=== PATIENT | male | born 1930 | race Caucasian/White ===

== ENCOUNTER 2019-11-23 05:23 | Inpatient (IN) | payer MEDICARE, OTHER ==
[2019-11-23] VITALS (15 sets, daily range): BP systolic 131–206; BP diastolic 72–97
[~2019-11-23] VITALS: Ht 175.3 cm; Wt 82.2 kg
[~2019-11-23 05:23] MED LIST: ACET500T68 PO; AMOX1TAB10 PO; APIX5TAB4 PO; LACT1CAP19 PO; LEVO-101 PO; LOPE2CAP PO; METO25TA4 PO; MULT-445 PO; OMEG-131 PO; POLY2500 PO; Pantoprazole PO; VITA-8 PO; ZINC57OI TP
--- NOTE | 2019-11-23 05:39 | PHYS DOC ---
Past Medical History Past Medical History: A-Fib, High Cholesterol, Hypothyroid Additional Past Medical Histor: blood thinners, tremors (JASON WEBER Jr. DO) Past Surgical History: No Surgical History (JASON WEBER Jr. DO) Smoking Status: Unknown if ever smoked Alcohol Use: None (JASON WEBER Jr. DO) General Adult EDM: Chief Complaint: BLOOD IN URINE HPI: HPI: Patient is a 89 year old male who presents with report of hematuria. Patient arrives from intermediate via EMS with report of hematuria for the last 5 days. Patient denies any urinary discomfort. He denies any abdominal pain, nausea or vomiting. Patient denies any urinary retention. Patient has had no reported fever. [] (JASON WEBER Jr. DO) Review of Systems: Review of Systems: Constitutional: Denies fever or chills. [] Respiratory: Denies cough or shortness of breath. [] Cardiovascular: Denies chest pain or edema. [] GI: Denies abdominal pain, nausea, vomiting or diarrhea. [] : Positive hematuria. [] Neurologic: Denies headache, focal weakness or sensory changes. [] A full 10 point review of systems has been reviewed and is otherwise negative. (JASON WEBER Jr. DO) Heart Score: Risk Factors: Risk Factors: DM, Current or recent (<one month) smoker, HTN, HLP, family history of CAD, obesity. Risk Scores: Score 0 - 3: 2.5% MACE over next 6 weeks - Discharge Home Score 4 - 6: 20.3% MACE over next 6 weeks - Admit for Clinical Observation Score 7 - 10: 72.7% MACE over next 6 weeks - Early Invasive Strategies (JASON WEBER Jr. DO) Allergies: Allergies: Allergies Coded Allergies Type Severity Reaction Last Updated Verified amiodarone Allergy Intermediate 09/23/17 Yes aspirin Allergy Intermediate 09/23/17 Yes fexofenadine Allergy Intermediate 09/23/17 Yes morphine Allergy Intermediate 09/23/17 Yes simvastatin Allergy Intermediate 09/23/17 Yes tramadol Allergy Intermediate 09/23/17 Yes warfarin Allergy Intermediate 09/23/17 Yes (JASON WEBER Jr. DO) Physical Exam: PE: Constitutional: Well developed, well nourished, no acute distress, non-toxic appearance. [] HENT: Normocephalic, atraumatic, bilateral external ears normal, oropharynx moist, no oral exudates, nose normal. [] Eyes: PERRLA, EOMI, conjunctiva normal, no discharge. [] Neck: Normal range of motion, no tenderness, supple. [] Cardiovascular: Regular rate and rhythm [] Lungs & Thorax: Bilateral breath sounds clear to auscultation [] Abdomen: Bowel sounds normal, soft, no tenderness. [] Skin: Warm, dry, no erythema, no rash. [] Extremities: No tenderness, no cyanosis, no clubbing, ROM intact. [] Neurologic: Alert and oriented X 3, no focal deficits noted. [] (JASON WEBER Jr., DO) EKG: EKG: [] (JASON WEBER Jr., DO) Radiology/Procedures: Radiology/Procedures: [] (JASON WEBER Jr., DO) Radiology/Procedures: [facility] [address] [place] [address] IMAGING REPORT Signed PATIENT: JASON SANABRIA ACCOUNT: [id number] : 1930 LOCATION: ER AGE: 89 SEX: M EXAM STATUS: REG ER ORD. PHYSICIAN: CESAR TYLER DO REASON: flank hematuria PROCEDURE: CT ABDOMEN PELVIS WO CONTRAST CT ABDOMEN PELVIS WO CONTRAST INDICATION: Reason: flank hematuria / Spl. Instructions: / History: EXAM: Noncontrast CT of the abdomen and pelvis. Coronal and sagittal reformatted images were performed. PQRS compliance statement: One or more of the following individualized dose reduction techniques were utilized for this examination: 1. Automated exposure control 2. Adjustment of the mA and/or kV according to patient size 3. Use of iterative reconstruction technique COMPARISON: 10/21/2019 FINDINGS: No free air, free fluid, or fluid collection. Lower chest: Middle lobe nodule measuring 2.2 x 2.1 cm. Additional anterior middle lobe nodule measuring 0.7 cm. Cardiomegaly. Coronary artery atherosclerotic disease. ABDOMEN: Liver: The noncontrast liver is homogeneous in attenuation. Gallbladder and biliary: Cholelithiasis. Trace air within the gallbladder and intrahepatic bile ducts, probably related to prior instrumentation. Enlarged common bile duct measures 13 mm. 7 mm calculus in the common bile duct in the region of the pancreatic head. Spleen: Normal spleen. Pancreas: The noncontrast pancreas is homogeneous in attenuation without peripancreatic inflammatory changes. Adrenal glands: Normal adrenal glands. Kidneys and ureters: No opaque urinary calculi. Stable 2.6 cm exophytic cystic structure along the lower pole of the right kidney. GI tract: The stomach is decompressed and poorly evaluated. Normal caliber small bowel and colon. Mild colonic diverticulosis. Appendix is not seen. Vascular structures: Diffuse aortoiliac atherosclerotic disease. IVC filter Lymph nodes: No lymphadenopathy in the abdomen or pelvis. PELVIS: Genitourinary system: Well distended bladder with bladder wall thickening. Prostate measures 4.5 cm transverse. SKELETAL STRUCTURES AND SOFT TISSUES: Degenerative changes of the spine IMPRESSION: 1. Choledocholithiasis with 7 mm common bile duct stone in the region of the pancreatic head. 2. Right middle lobe nodules measuring 2.2 and 0.7 cm. Findings concerning for primary lung neoplasm versus metastatic disease. 3. Well distended bladder with bladder wall thickening, which may relate to cystitis or obstructive uropathy. Consider urinalysis. 4. Stable right renal cystic lesion measuring 2.6 cm, which could be better characterized with renal ultrasound. Electronically signed by: Rob Payne MD (11/23/2019 7:25 AM) [id number] DICTATED and SIGNED BY: ROB PAYNE MD DATE: 11/23/19 07 (CESAR TYLER DO) Course & Med Decision Making: Course & Med Decision Making Pertinent Labs and Imaging studies reviewed. (See chart for details) [] (JASON WEBER Jr., DO) Dragon Disclaimer: Dragon Disclaimer: This electronic medical record was generated, in whole or in part, using a voice recognition dictation system. (JASON WEBER Jr., DO) Departure Departure Referrals: KURT LE DO (PCP) Justicifation of Admission Dx: Justifications for Admission: Justification of Admission Dx: N/A (JASON WEBER Jr., DO) JASON WEBER Jr., DO Nov 23, 2019 05:39 CESAR TYLER DO Nov 23, 2019 07:33
[2019-11-23 05:58] LABS: CLARITY,URINE BLOODY; COLOR,URINE RED
[2019-11-23 05:59] LABS: BACTERIA,URINE 0 /HPF (0-FEW); RBC,URINE TNTC /HPF (0-2); WBC,URINE >40 /HPF (0-4)
[2019-11-23 06:02] LABS: CALCIUM 8.3 mg/dL (8.5-10.1); CREATININE 1.5 mg/dL (0.7-1.3); GFR 44.3; POTASSIUM 3.9 mmol/L (3.5-5.1)
[2019-11-23 06:04] LABS: ALBUMIN 2.5 g/dL (3.4-5.0); ALBUMIN/GLOBULIN RATIO 0.7 (1.0-1.7); TOTAL BILIRUBIN 3.5 mg/dL (0.2-1.0); TOTAL PROTEIN 6.2 g/dL (6.4-8.2)
[2019-11-23 06:49] LABS: BASO # 0.1 x10^3/uL (0.0-0.2); BASO % 1 % (0-3); EOS # 0.1 x10^3/uL (0.0-0.7); EOS % 2 % (0-3); HEMATOCRIT 39.4 % (39.0-53.0); HEMOGLOBIN 13.3 g/dL (13.0-17.5); LYMPH # 2.6 x10^3/uL (1.0-4.8); LYMPH % 32 % (24-48); MEAN CORPUSCULAR HEMOGLOBIN 30 pg (25-35); MEAN CORPUSCULAR HGB CONC 34 g/dL (31-37); MEAN CORPUSCULAR VOLUME 88 fL (79-100); MONO # 0.9 x10^3/uL (0.0-1.1); MONO % 11 % (0-9); NEUT # 4.5 x10^3/uL (1.8-7.7); NEUT % 54 % (31-73); PLATELET COUNT 257 x10^3/uL (140-400); RED BLOOD COUNT 4.45 x10^6/uL (4.30-5.70); RED CELL DISTRIBUTION WIDTH 14.4 % (11.5-14.5); WHITE BLOOD COUNT 8.3 x10^3/uL (4.0-11.0)
[2019-11-23 06:59] LABS: PROTHROMBIN TIME PATIENT 17.7 SEC (11.7-14.0)
--- NOTE | 2019-11-23 07:28 | RAD ---
CT ABDOMEN PELVIS WO CONTRAST INDICATION: Reason: flank hematuria / Spl. Instructions: / History: EXAM: Noncontrast CT of the abdomen and pelvis. Coronal and sagittal reformatted images were performed. PQRS compliance statement: One or more of the following individualized dose reduction techniques were utilized for this examination: 1. Automated exposure control 2. Adjustment of the mA and/or kV according to patient size 3. Use of iterative reconstruction technique COMPARISON: 10/21/2019 FINDINGS: No free air, free fluid, or fluid collection. Lower chest: Middle lobe nodule measuring 2.2 x 2.1 cm. Additional anterior middle lobe nodule measuring 0.7 cm. Cardiomegaly. Coronary artery atherosclerotic disease. ABDOMEN: Liver: The noncontrast liver is homogeneous in attenuation. Gallbladder and biliary: Cholelithiasis. Trace air within the gallbladder and intrahepatic bile ducts, probably related to prior instrumentation. Enlarged common bile duct measures 13 mm. 7 mm calculus in the common bile duct in the region of the pancreatic head. Spleen: Normal spleen. Pancreas: The noncontrast pancreas is homogeneous in attenuation without peripancreatic inflammatory changes. Adrenal glands: Normal adrenal glands. Kidneys and ureters: No opaque urinary calculi. Stable 2.6 cm exophytic cystic structure along the lower pole of the right kidney. GI tract: The stomach is decompressed and poorly evaluated. Normal caliber small bowel and colon. Mild colonic diverticulosis. Appendix is not seen. Vascular structures: Diffuse aortoiliac atherosclerotic disease. IVC filter Lymph nodes: No lymphadenopathy in the abdomen or pelvis. PELVIS: Genitourinary system: Well distended bladder with bladder wall thickening. Prostate measures 4.5 cm transverse. SKELETAL STRUCTURES AND SOFT TISSUES: Degenerative changes of the spine IMPRESSION: 1. Choledocholithiasis with 7 mm common bile duct stone in the region of the pancreatic head. 2. Right middle lobe nodules measuring 2.2 and 0.7 cm. Findings concerning for primary lung neoplasm versus metastatic disease. 3. Well distended bladder with bladder wall thickening, which may relate to cystitis or obstructive uropathy. Consider urinalysis. 4. Stable right renal cystic lesion measuring 2.6 cm, which could be better characterized with renal ultrasound. Electronically signed by: Elvis Payne MD (11/23/2019 7:25 AM) [id number]
[2019-11-23 09:05] LABS: BILIRUBIN,URINE NEGATIVE (NEG); CLARITY,URINE TURBID; COLOR,URINE AMBER; NITRITE,URINE NEGATIVE (NEG); PH,URINE 8.5 (<5.0-8.0); PROTEIN,URINE >=300 mg/dL (NEG-TRACE)
--- NOTE | 2019-11-23 09:26 | RAD ---
ABDOMEN COMPLETE History: Elevated liver function tests, abnormal CT scan Comparison: CT abdomen pelvis exam the same day Findings: Multiple sonographic images of the abdomen are submitted. Gallbladder is very dilated about 14.5 cm, some internal echogenicity evidence of cholelithiasis. There is no demonstrable pericholecystic fluid. Common bile duct is dilated about 1.8 cm. Right kidney measured 11.4 x 4.5 x 5.3 cm, mild hydronephrosis. There is a hypoechoic lesion of the inferior right kidney up to 2.7 cm with some internal echoes, likely a cyst. Pancreas is not well-visualized due to bowel gas. Abdominal aorta and inferior vena cava are also not well visualized due to bowel gas. Left kidney measured 11.5 x 4.3 x 6.2 cm, no hydronephrosis. Urinary bladder is dilated, estimated volume of 585 cc. Impression: 1. There is hydropic gallbladder and cholelithiasis. There is extrahepatic biliary ductal dilatation. 2. Urinary bladder is dilated. There is mild right hydronephrosis. 3. There is likely cyst of the inferior right kidney. Electronically signed by: Elvis Fang MD (11/23/2019 9:23 AM) [id number]
[2019-11-23 09:27] LABS: BACTERIA,URINE MANY /HPF (0-FEW); RBC,URINE 20-40 /HPF (0-2); WBC,URINE >40 /HPF (0-4)
[2019-11-23 09:28] LABS: AMORPHOUS SEDIMENT,UR PRESENT /HPF; SQUAMOUS EPITHELIAL CELL,UR OCC /LPF
[2019-11-23] MEDS ORDERED: cefTRIAXone IV Push 1 GM VIAL. IVP ONE (09:45)
[2019-11-23] MEDS ORDERED: ONDANSETRON PF 4 MG/2 ML VIAL. IV PRN (12:00)
--- NOTE | 2019-11-23 12:29 | PDOC1 ---
History and Physical Date of Admission Date of Admission DATE: 11/23/19 TIME: 12:27 Identification/Chief Complaint Chief Complaint Hematuria Source Source: Caregiver, Chart review, Patient History of Present Illness History of Present Illness Mr Mckeon is an 89yo M w/ PMHx A Fib, DVT, mitral valve insufficiency, HTN, HLD, MARLON, BCC and SCC, UTI, cholelithiasis, hypothyroidism, rectal cancer s/p LAR w/ ileostomy/takedown and chemo/rad, IVC filter who p/w confusion to ED with abnormal LFTs and elevated bilirubin as well as hematuria. Noted back in October 2019. He was found with obstructive jaundice and underwent ERCP with CBD stone extraction on 10/22/2019. He also was noted with UTI - pansensitive klebsiella. D/c to SNF for rehab at that time. Now noted with hematuria at SNF after he complete his antibiotic course. In ED noted now with WBC 8.3, Hb 13.3, Platelets 257, Na 139, K 3.9, BUN 38, Cr 1.5, glucose 92 Bilirubin 3, AST 70, ALT 70, Alk phos 249, Albumin 2.5, Lipase 227. Urine with large leukocyte esterase and blood. CT abd/pelv with choledocholithiasis with 7 mm common bile duct stone in the region of the pancreatic head as well as right middle lobe nodules measuring 2.2 and 0.7 cm. Findings concerning for primary lung neoplasm versus metastatic disease. Also with well distended bladder with bladder wall thickening, which may relate to cystitis or obstructive uropathy and stable right renal cystic lesion measuring 2.6 cm. Called for admission for further treatment Past Medical History Cardiovascular: AFIB, HTN, Hyperlipidemia, Valve insufficiency Pulmonary: Other GI: GI bleed Heme/Onc: Cancer, Other Past Surgical History Past Surgical History: Colon Resection Family History Family History: Other Social History Smoke: No ALCOHOL: none Drugs: None Current Medications Current Medications Current Medications Ceftriaxone Sodium (Rocephin) 1 gm 1X ONCE IVP Last administered on 11/23/19at 10:31; Start 11/23/19 at 09:45; Stop 11/23/19 at 09:46; Status DC Ondansetron HCl (Zofran) 4 mg PRN Q8HRS PRN IV NAUSEA/VOMITING; Start 11/23/19 at 12:00; Stop 11/24/19 at 11:59 Active Scripts Active Culturelle (Lactobacillus Rhamnosus Gg) 1 Each Cap.sprink 1 Cap PO BID 30 Days Metoprolol Tartrate 25 Mg Tablet 25 Mg PO BID 30 Days Amox Tr-K Clv 500-125 Mg Tab (Amoxicillin/Potassium Clav) 1 Each Tablet 1 Tab PO BID 8 Days [Pantoprazole] 40 MG Tablet.dr 40 Mg PO DAILYAC 30 Days Reported Vitamin E (Vitamin E Mixed) 400 Unit Capsule 400 Unit PO DAILY Multivitamins (Multivitamin) 1 Each Tablet 1 Tab PO DAILY Loperamide (Loperamide Hcl) 2 Mg Capsule 2 Mg PO PRN QID PRN Fish Oil 500 mg Softgel (Alamo-3/Dha/Epa/Fish Oil) 1 Each Capsule 1 Each PO DAILY Acetaminophen 500 Mg Tablet 2 Tab PO PRN BID PRN Zinc Oxide 57 Gm Oint...g. 20 % TP DAILY Polyethylene Glycol 3350 2,500 Gm Powder 17 Gm PO DAILY Synthroid (Levothyroxine Sodium) 100 Mcg Tablet 100 Mcg PO DAILYAC Eliquis (Apixaban) 5 Mg Tab.ds.pk 5 Mg PO BID Allergies Allergies: Coded Allergies: amiodarone (Verified Allergy, Intermediate, 09/23/17) aspirin (Verified Allergy, Intermediate, 09/23/17) fexofenadine (Verified Allergy, Intermediate, 09/23/17) morphine (Verified Allergy, Intermediate, 09/23/17) simvastatin (Verified Allergy, Intermediate, 09/23/17) tramadol (Verified Allergy, Intermediate, 09/23/17) warfarin (Verified Allergy, Intermediate, 09/23/17) ROS General: YES: Fatigue, Malaise; No: Chills, Night Sweats, Appetite, Other PSYCHOLOGICAL ROS: No: Anxiety, Behavioral Disorder, Concentration difficultie, Decreased libido, Depression, Disorientation, Hallucinations, Hostility, Irritablity, Memory difficulties, Mood Swings, Obsessive thoughts, Physical abuse, Sexual abuse, Sleep disturbances, Suicidal ideation, Other Eyes: No Blurry vision, No Decreased vision, No Double vision, No Dry eyes, No Excessive tearing, No Eye Pain, No Itchy Eyes, No Loss of vision, No Photophobia, No Scotomata, No Uses contacts, No Uses glasses, No Other HEENT: No: Heacaches, Visual Changes, Hearing change, Nasal congestion, Nasal discharge, Oral lesions, Sinus pain, Sore Throat, Epistaxis, Sneezing, Snoring, Tinnitus, Vertigo, Vocal changes, Other ALLERGY AND IMMUNOLOGY: No: Hives, Insect Bite Sensitivity, Itchy/Watery Eyes, Nasal Congestion, Post Nasal Drip, Seasonal Allergies, Other Hematological and Lymphatic: YES: Blood Clots; No: Bleeding Problems, Blood Transfusions, Brusing, Night Sweats, Pallor, Swollen Lymph Nodes, Other ENDOCRINE: No: Breast Changes, Galactorrhea, Hair Pattern Changes, Hot Flashes, Malaise/lethargy, Mood Swings, Palpitations, Polydipsia/polyuria, Skin Changes, Temperature Intolerance, Unexpected Weight Changes, Other Breast: No New/Changing Breast Lumps, No Nipple changes, No Nipple discharge, No Other Respiratory: No: Cough, Hemoptysis, Orthopnea, Pleuritic Pain, Shortness of breath, SOB with excertion, Sputum Changes, Stridor, Tachypnea, Wheezing, Other Cardiovascular: No Chest Pain, No Palpitations, No Orthopnea, No Paroxysmal Noc. Dyspnea, No Edema, No Lt Headedness, No Other Gastrointestinal: Yes Abdominal Pain; No Nausea, No Vomiting, No Diarrhea, No Constipation, No Melena, No Hematochezia, No Other Genitourinary: YES Hematuria, YES Retention; No Dysuria, No Frequency, No Incontinence, No Discharge, No Urgency, No Pain, No Flank Pain, No Other, No , No , No , No , No , No , No Musculoskeletal: No Gait Disturbance, No Joint Pain, No Joint Stiffness, No Joint Swelling, No Muscle Pain, No Muscular Weakness, No Pain In:, No Swelling In:, No Other Neurological: No Behavorial Changes, No Bowel/Bladder ControlChng, No Confusion, No Dizziness, No Gait Disturbance, No Headaches, No Impaired Coor d/balance, No Memory Loss, No Numbness/Tingling, No Seizures, No Speech Problems, No Tremors, No Visual Changes, No Weakness, No Other Skin: No Dry Skin, No Eczema, No Hair Changes, No Lumps, No Mole Changes, No Mottling, No Nail Changes, No Pruritus, No Rash, No Skin Lesion Changes, No Other, No Acne Physical Exam General: Alert, Cooperative, mild distress HEENT: Atraumatic, PERRLA, EOMI, Mucous membr. moist/pink Lungs: Clear to auscultation, Normal air movement Heart: S1S2, RRR, no thrills, no rubs Abdomen: Normal bowel sounds, Soft, No tenderness, No hepatosplenomegaly, No masses Rectal Exam: not examined Extremities: No clubbing, No cyanosis, No edema, Normal pulses, No tenderness/swelling Skin: Other (Bruising on right arm) Neuro: Normal tone, Sensation intact, Cranial nerves 3-12 NL, Reflexes 2+ Psych/Mental Status: Other (Slightly confused) Vitals Vitals Vital Signs Date Time Temp Pulse Resp B/P (MAP) Pulse Ox O2 Delivery O2 Flow Rate FiO2 11/23/19 10:54 93 136/83 (100) 96 Room Air 11/23/19 05:43 98.6 16 98.6 Labs Labs Laboratory Tests Test 11/23/19 05:30 11/23/19 05:40 11/23/19 08:55 Urine Collection Type Clean catch Void Urine Color Red Inga Urine Clarity Bloody Turbid Urine pH (<5.0-8.0) 8.5 (<5.0-8.0) Urine Specific Belding (1.000-1.030) 1.015 (1.000-1.030) Urine Protein mg/dL (NEG-TRACE) >=300 mg/dL (NEG-TRACE) Urine Glucose (UA) mg/dL (NEG) Negative mg/dL (NEG) Urine Ketones (Stick) mg/dL (NEG) 15 mg/dL (NEG) Urine Blood (NEG) Moderate (NEG) Urine Nitrite (NEG) Negative (NEG) Urine Bilirubin (NEG) Negative (NEG) Urine Urobilinogen Dipstick mg/dL (0.2 mg/dL) 1.0 mg/dL (0.2 mg/dL) Urine Leukocyte Esterase (NEG) Large (NEG) Urine RBC Tntc /HPF (0-2) 20-40 /HPF (0-2) Urine WBC >40 /HPF (0-4) >40 /HPF (0-4) Urine Bacteria 0 /HPF (0-FEW) Many /HPF (0-FEW) White Blood Count 8.3 x10^3/uL (4.0-11.0) Red Blood Count 4.45 x10^6/uL (4.30-5.70) Hemoglobin 13.3 g/dL (13.0-17.5) Hematocrit 39.4 % (39.0-53.0) Mean Corpuscular Volume 88 fL (79-100) Mean Corpuscular Hemoglobin 30 pg (25-35) Mean Corpuscular Hemoglobin Concent 34 g/dL (31-37) Red Cell Distribution Width 14.4 % (11.5-14.5) Platelet Count 257 x10^3/uL (140-400) Neutrophils (%) (Auto) 54 % (31-73) Lymphocytes (%) (Auto) 32 % (24-48) Monocytes (%) (Auto) 11 % (0-9) Eosinophils (%) (Auto) 2 % (0-3) Basophils (%) (Auto) 1 % (0-3) Neutrophils # (Auto) 4.5 x10^3/uL (1.8-7.7) Lymphocytes # (Auto) 2.6 x10^3/uL (1.0-4.8) Monocytes # (Auto) 0.9 x10^3/uL (0.0-1.1) Eosinophils # (Auto) 0.1 x10^3/uL (0.0-0.7) Basophils # (Auto) 0.1 x10^3/uL (0.0-0.2) Prothrombin Time 17.7 SEC (11.7-14.0) Prothromb Time International Ratio 1.5 (0.8-1.1) Activated Partial Thromboplast Time 39 SEC (24-38) Sodium Level 139 mmol/L (136-145) Potassium Level 3.9 mmol/L (3.5-5.1) Chloride Level 106 mmol/L (98-107) Carbon Dioxide Level 24 mmol/L (21-32) Anion Gap 9 (6-14) Blood Urea Nitrogen 38 mg/dL (8-26) Creatinine 1.5 mg/dL (0.7-1.3) Estimated GFR (Cockcroft-Gault) 44.3 BUN/Creatinine Ratio 25 (6-20) Glucose Level 92 mg/dL (70-99) Calcium Level 8.3 mg/dL (8.5-10.1) Total Bilirubin 3.5 mg/dL (0.2-1.0) Aspartate Amino Transf (AST/SGOT) 70 U/L (15-37) Alanine Aminotransferase (ALT/SGPT) 70 U/L (16-63) Alkaline Phosphatase 249 U/L (46-116) Total Protein 6.2 g/dL (6.4-8.2) Albumin 2.5 g/dL (3.4-5.0) Albumin/Globulin Ratio 0.7 (1.0-1.7) Lipase 227 U/L (73-393) Urine Squamous Epithelial Cells Occ /LPF Urine Amorphous Sediment Present /HPF Urine Mucus Slight /LPF Laboratory Tests Test 11/23/19 05:30 11/23/19 05:40 11/23/19 08:55 Urine Collection Type Clean catch Void Urine Color Red Inga Urine Clarity Bloody Turbid Urine pH (<5.0-8.0) 8.5 (<5.0-8.0) Urine Specific Belding (1.000-1.030) 1.015 (1.000-1.030) Urine Protein mg/dL (NEG-TRACE) >=300 mg/dL (NEG-TRACE) Urine Glucose (UA) mg/dL (NEG) Negative mg/dL (NEG) Urine Ketones (Stick) mg/dL (NEG) 15 mg/dL (NEG) Urine Blood (NEG) Moderate (NEG) Urine Nitrite (NEG) Negative (NEG) Urine Bilirubin (NEG) Negative (NEG) Urine Urobilinogen Dipstick mg/dL (0.2 mg/dL) 1.0 mg/dL (0.2 mg/dL) Urine Leukocyte Esterase (NEG) Large (NEG) Urine RBC Tntc /HPF (0-2) 20-40 /HPF (0-2) Urine WBC >40 /HPF (0-4) >40 /HPF (0-4) Urine Bacteria 0 /HPF (0-FEW) Many /HPF (0-FEW) White Blood Count 8.3 x10^3/uL (4.0-11.0) Red Blood Count 4.45 x10^6/uL (4.30-5.70) Hemoglobin 13.3 g/dL (13.0-17.5) Hematocrit 39.4 % (39.0-53.0) Mean Corpuscular Volume 88 fL (79-100) Mean Corpuscular Hemoglobin 30 pg (25-35) Mean Corpuscular Hemoglobin Concent 34 g/dL (31-37) Red Cell Distribution Width 14.4 % (11.5-14.5) Platelet Count 257 x10^3/uL (140-400) Neutrophils (%) (Auto) 54 % (31-73) Lymphocytes (%) (Auto) 32 % (24-48) Monocytes (%) (Auto) 11 % (0-9) Eosinophils (%) (Auto) 2 % (0-3) Basophils (%) (Auto) 1 % (0-3) Neutrophils # (Auto) 4.5 x10^3/uL (1.8-7.7) Lymphocytes # (Auto) 2.6 x10^3/uL (1.0-4.8) Monocytes # (Auto) 0.9 x10^3/uL (0.0-1.1) Eosinophils # (Auto) 0.1 x10^3/uL (0.0-0.7) Basophils # (Auto) 0.1 x10^3/uL (0.0-0.2) Prothrombin Time 17.7 SEC (11.7-14.0) Prothromb Time International Ratio 1.5 (0.8-1.1) Activated Partial Thromboplast Time 39 SEC (24-38) Sodium Level 139 mmol/L (136-145) Potassium Level 3.9 mmol/L (3.5-5.1) Chloride Level 106 mmol/L (98-107) Carbon Dioxide Level 24 mmol/L (21-32) Anion Gap 9 (6-14) Blood Urea Nitrogen 38 mg/dL (8-26) Creatinine 1.5 mg/dL (0.7-1.3) Estimated GFR (Cockcroft-Gault) 44.3 BUN/Creatinine Ratio 25 (6-20) Glucose Level 92 mg/dL (70-99) Calcium Level 8.3 mg/dL (8.5-10.1) Total Bilirubin 3.5 mg/dL (0.2-1.0) Aspartate Amino Transf (AST/SGOT) 70 U/L (15-37) Alanine Aminotransferase (ALT/SGPT) 70 U/L (16-63) Alkaline Phosphatase 249 U/L (46-116) Total Protein 6.2 g/dL (6.4-8.2) Albumin 2.5 g/dL (3.4-5.0) Albumin/Globulin Ratio 0.7 (1.0-1.7) Lipase 227 U/L (73-393) Urine Squamous Epithelial Cells Occ /LPF Urine Amorphous Sediment Present /HPF Urine Mucus Slight /LPF Images Images CT Abdomen/Pelvis: Lower chest: Middle lobe nodule measuring 2.2 x 2.1 cm. Additional anterior middle lobe nodule measuring 0.7 cm. Cardiomegaly. Coronary artery atherosclerotic disease. ABDOMEN: Liver: The noncontrast liver is homogeneous in attenuation. Gallbladder and biliary: Cholelithiasis. Trace air within the gallbladder and intrahepatic bile ducts, probably related to prior instrumentation. Enlarged common bile duct measures 13 mm. 7 mm calculus in the common bile duct in the region of the pancreatic head. Spleen: Normal spleen. Pancreas: The noncontrast pancreas is homogeneous in attenuation without peripancreatic inflammatory changes. Adrenal glands: Normal adrenal glands. Kidneys and ureters: No opaque urinary calculi. Stable 2.6 cm exophytic cystic structure along the lower pole of the right kidney. GI tract: The stomach is decompressed and poorly evaluated. Normal caliber small bowel and colon. Mild colonic diverticulosis. Appendix is not seen. Vascular structures: Diffuse aortoiliac atherosclerotic disease. IVC filter Lymph nodes: No lymphadenopathy in the abdomen or pelvis. PELVIS: Genitourinary system: Well distended bladder with bladder wall thickening. Prostate measures 4.5 cm transverse. SKELETAL STRUCTURES AND SOFT TISSUES: Degenerative changes of the spine IMPRESSION: 1. Choledocholithiasis with 7 mm common bile duct stone in the region of the pancreatic head. 2. Right middle lobe nodules measuring 2.2 and 0.7 cm. Findings concerning for primary lung neoplasm versus metastatic disease. 3. Well distended bladder with bladder wall thickening, which may relate to cystitis or obstructive uropathy. Consider urinalysis. 4. Stable right renal cystic lesion measuring 2.6 cm, which could be better characterized with renal ultrasound. VTE Prophylaxis Ordered VTE Prophylaxis Devices: Yes VTE Pharmacological Prophylaxi: No Assessment/Plan Assessment/Plan A/p: Acute hematuria - likely from cystitis, will start on zosyn Obstructive jaundice - will consult GI and general surgery for likely ERCP. Hold eliquis Chronic diastolic CHF - stable A-Fib n chronic anticoagulaton, and mitral valve insufficiency Pulmonary nodules - with colon ca history concerning for possible mets. Will d/w general surgery. 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 SCDs FULL CODE DISPO - Inpatient for above, 2 midnights Justicifation of Admission Dx: Justifications for Admission: Justification of Admission Dx: Yes Comments: Obstructive jaundice CAMILA ANGUIANO MD Nov 23, 2019 12:29
[2019-11-23] MEDS ORDERED: LOPERAMIDE 2 MG CAPSULE PO PRN (12:30)
[2019-11-23] MEDS ORDERED: ACETAMINOPHEN 500 MG TABLET PO PRN (12:30)
[2019-11-23] MEDS ORDERED: PIP/TAZO PER PHARMACY MC PRN (16:00)
--- NOTE | 2019-11-23 16:00 | NUR ---
Have assumed care of this patient. Observed pink area on buttocks, appeared to be poss old wound, dry, slightly scaley, no open area noted on buttocks. Has small scab upper right facial cheek. Lungs CTA. Pulse irregular, possible murmur heard, patient denies knowledge of any murmur. Hx A-fib. Patient restless, repositioning frequently. Pt alert to person, and that he is in hospital. Pt forgetful. Urine initially light red, increased bloodiness with activity. Stat lock replaced onto left thigh. No visitors with patient at this time. Radha. 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 No apparent seizure activity noted. iLnh Short in to see patient. Patient NPO at this time. Nasal swab for COVID-19 obtained, take to the lab.
--- NOTE | 2019-11-23 16:11 | PDOC2 ---
GI CONSULT Reason For Consult: Bile duct stone HPI: HPI: 89 y/o male who we've seen in the past. To ER today from assisted living (lives with per nursing) w/ hematuria - he tells me "bad urine I think." He knows he's at [facility], tells me the year is "[id number]," and says Fabian is president. Noted w/ elevated LFTs and abnormal imaging w/ dilated CBD and choledocholithiasis. Denies n/v and abd pain. Recent admission w/ leukocytosis, elevated LFTs, encephalopathy, UTI. S/p ERCP w/ sphincterotomy and stone extraction by Dr. Solorzano on 10/22/19. Cholecystectomy was not pursued per surgery/family discussion. H/o A Fib on Eliquis, also has IVC filter. H/o recurrent rectal bleeding and rectal cancer s/p LAR w/ ileostomy/takedown and chemo/rad. Colonoscopy by Dr. Lees in 09/2017 showed rectal ulcer (biopsy benign, possibly related to prior cancer treatment), normal mucosa throughout, and 5mm adenomatous polyp in ascending colon. PMH: PMH: per HPI plus: DVT, mitral valve insufficiency, HTN, HLD, MARLON, BCC and SCC, UTI, hypothyroidism, IVC filter, hernia repair FH: Family History: No pertinent hx Social History: Smoke: Quit ALCOHOL: none Drugs: None ROS: Difficult to obtain per HPI, denies pain. Vitals: Vitals: Vital Signs Date Time Temp Pulse Resp B/P (MAP) Pulse Ox O2 Delivery O2 Flow Rate FiO2 11/23/19 14:54 108 150/82 (104) Room Air 11/23/19 13:00 97 11/23/19 05:43 98.6 16 98.6 Labs: Labs: Laboratory Tests Test 11/23/19 05:30 11/23/19 05:40 11/23/19 08:55 Urine Collection Type Clean catch Void Urine Color Red Inga Urine Clarity Bloody Turbid Urine pH (<5.0-8.0) 8.5 (<5.0-8.0) Urine Specific [place] (1.000-1.030) 1.015 (1.000-1.030) Urine Protein mg/dL (NEG-TRACE) >=300 mg/dL (NEG-TRACE) Urine Glucose (UA) mg/dL (NEG) Negative mg/dL (NEG) Urine Ketones (Stick) mg/dL (NEG) 15 mg/dL (NEG) Urine Blood (NEG) Moderate (NEG) Urine Nitrite (NEG) Negative (NEG) Urine Bilirubin (NEG) Negative (NEG) Urine Urobilinogen Dipstick mg/dL (0.2 mg/dL) 1.0 mg/dL (0.2 mg/dL) Urine Leukocyte Esterase (NEG) Large (NEG) Urine RBC Tntc /HPF (0-2) 20-40 /HPF (0-2) Urine WBC >40 /HPF (0-4) >40 /HPF (0-4) Urine Bacteria 0 /HPF (0-FEW) Many /HPF (0-FEW) White Blood Count 8.3 x10^3/uL (4.0-11.0) Red Blood Count 4.45 x10^6/uL (4.30-5.70) Hemoglobin 13.3 g/dL (13.0-17.5) Hematocrit 39.4 % (39.0-53.0) Mean Corpuscular Volume 88 fL (79-100) Mean Corpuscular Hemoglobin 30 pg (25-35) Mean Corpuscular Hemoglobin Concent 34 g/dL (31-37) Red Cell Distribution Width 14.4 % (11.5-14.5) Platelet Count 257 x10^3/uL (140-400) Neutrophils (%) (Auto) 54 % (31-73) Lymphocytes (%) (Auto) 32 % (24-48) Monocytes (%) (Auto) 11 % (0-9) Eosinophils (%) (Auto) 2 % (0-3) Basophils (%) (Auto) 1 % (0-3) Neutrophils # (Auto) 4.5 x10^3/uL (1.8-7.7) Lymphocytes # (Auto) 2.6 x10^3/uL (1.0-4.8) Monocytes # (Auto) 0.9 x10^3/uL (0.0-1.1) Eosinophils # (Auto) 0.1 x10^3/uL (0.0-0.7) Basophils # (Auto) 0.1 x10^3/uL (0.0-0.2) Prothrombin Time 17.7 SEC (11.7-14.0) Prothromb Time International Ratio 1.5 (0.8-1.1) Activated Partial Thromboplast Time 39 SEC (24-38) Sodium Level 139 mmol/L (136-145) Potassium Level 3.9 mmol/L (3.5-5.1) Chloride Level 106 mmol/L (98-107) Carbon Dioxide Level 24 mmol/L (21-32) Anion Gap 9 (6-14) Blood Urea Nitrogen 38 mg/dL (8-26) Creatinine 1.5 mg/dL (0.7-1.3) Estimated GFR (Cockcroft-Gault) 44.3 BUN/Creatinine Ratio 25 (6-20) Glucose Level 92 mg/dL (70-99) Calcium Level 8.3 mg/dL (8.5-10.1) Total Bilirubin 3.5 mg/dL (0.2-1.0) Aspartate Amino Transf (AST/SGOT) 70 U/L (15-37) Alanine Aminotransferase (ALT/SGPT) 70 U/L (16-63) Alkaline Phosphatase 249 U/L (46-116) Total Protein 6.2 g/dL (6.4-8.2) Albumin 2.5 g/dL (3.4-5.0) Albumin/Globulin Ratio 0.7 (1.0-1.7) Lipase 227 U/L (73-393) Urine Squamous Epithelial Cells Occ /LPF Urine Amorphous Sediment Present /HPF Urine Mucus Slight /LPF Allergies: Coded Allergies: amiodarone (Verified Allergy, Intermediate, 09/23/17) aspirin (Verified Allergy, Intermediate, 09/23/17) fexofenadine (Verified Allergy, Intermediate, 09/23/17) morphine (Verified Allergy, Intermediate, 09/23/17) simvastatin (Verified Allergy, Intermediate, 09/23/17) tramadol (Verified Allergy, Intermediate, 09/23/17) warfarin (Verified Allergy, Intermediate, 09/23/17) Medications: Current Medications Medications (Trade) Dose Ordered Sig/Mike Route PRN Reason Start Time Stop Time Status Last Admin Dose Admin Ceftriaxone Sodium (Rocephin) 1 gm 1X ONCE IVP 11/23/19 09:45 11/23/19 09:46 DC 11/23/19 10:31 Imaging: Imaging: CT A/P 11/22 IMPRESSION: 1. Choledocholithiasis with 7 mm common bile duct stone in the region of the pancreatic head. 2. Right middle lobe nodules measuring 2.2 and 0.7 cm. Findings concerning for primary lung neoplasm versus metastatic disease. 3. Well distended bladder with bladder wall thickening, which may relate to cystitis or obstructive uropathy. Consider urinalysis. 4. Stable right renal cystic lesion measuring 2.6 cm, which could be better characterized with renal ultrasound. Abd US 11/22 Impression: 1. There is hydropic gallbladder and cholelithiasis. There is extrahepatic biliary ductal dilatation. 2. Urinary bladder is dilated. There is mild right hydronephrosis. 3. There is likely cyst of the inferior right kidney. CBD 1.8cm. PE: GEN: NAD HEENT: Atraumatic, PERRL LUNGS: CTAB HEART: irregular ABD: NABS, S/ND/NT, Wood w/ blood clots EXTREMITY: No edema SKIN: scab near right eye NEURO/PSYCH: pleasantly confused - "hey my feets is cold" A/P: A/P: Hematuria - Hgb WNL Elevated LFTs (compared to labs on discharge on 10/27/19 - bili is worse and Alk Phos is better), HECTOR Cholelithiasis/choledocholithiasis - s/p ERCP 10/22/19 w/ sphincterotomy/stone extraction and improvement in LFTs - family opted for no cholecystectomy Recent UTI H/o A Fib on Eliquis H/o rectal cancer s/p LAR and chemo/rad CRC screen - UTD (2017 w/ benign rectal ulcer and adenomatous polyp) Pancreatic calcifications -- Reviewed w/ Dr. Solorzano - recheck labs in a.m. Consider repeating ERCP and re visiting idea of cholecystectomy. R/o COVID for possible need to repeat ERCP or reconsider cholecystectomy. STEVE MIX Nov 23, 2019 16:11
--- NOTE | 2019-11-23 17:05 | NUR ---
Patient was transferred to room 646, transferred to bed with assist x3, bag of belongings taken with patient. Bedside report given to Patricio JARRELL.
[2019-11-23] MEDS: PIPERACILLIN/TAZOBACTAM 3.375 GM in IV NORMAL SALINE 50ML 50 ML IV SCH ×2 (18:05→23:58)
[2019-11-23] MEDS: LACTOBACILLUS RHAMNOSUS GG 1 CAPSULE. PO SCH (20:24)
[2019-11-23] MEDS: METOPROLOL TART IMMED RELEASE 25 MG TABLET. PO SCH (20:24)
[2019-11-24] VITALS (7 sets, daily range): BP systolic 114–142; BP diastolic 60–96
[2019-11-24 03:40] LABS: BASO # 0.1 x10^3/uL (0.0-0.2); BASO % 1 % (0-3); EOS # 0.3 x10^3/uL (0.0-0.7); EOS % 4 % (0-3); HEMATOCRIT 39.5 % (39.0-53.0); HEMOGLOBIN 13.4 g/dL (13.0-17.5); LYMPH # 1.9 x10^3/uL (1.0-4.8); LYMPH % 24 % (24-48); MEAN CORPUSCULAR HEMOGLOBIN 30 pg (25-35); MEAN CORPUSCULAR HGB CONC 34 g/dL (31-37); MEAN CORPUSCULAR VOLUME 88 fL (79-100); MONO % 13 % (0-9); NEUT # 4.7 x10^3/uL (1.8-7.7); NEUT % 58 % (31-73); PLATELET COUNT 260 x10^3/uL (140-400); RED BLOOD COUNT 4.47 x10^6/uL (4.30-5.70); RED CELL DISTRIBUTION WIDTH 14.4 % (11.5-14.5); WHITE BLOOD COUNT 8.1 x10^3/uL (4.0-11.0)
[2019-11-24 03:58] LABS: ALBUMIN 2.3 g/dL (3.4-5.0); ALBUMIN/GLOBULIN RATIO 0.6 (1.0-1.7); CALCIUM 8.1 mg/dL (8.5-10.1); CREATININE 1.2 mg/dL (0.7-1.3); GFR 57.3; POTASSIUM 3.6 mmol/L (3.5-5.1); TOTAL BILIRUBIN 2.5 mg/dL (0.2-1.0); TOTAL PROTEIN 5.9 g/dL (6.4-8.2)
[2019-11-24] MEDS: PIPERACILLIN/TAZOBACTAM 3.375 GM in IV NORMAL SALINE 50ML 50 ML IV SCH ×4 (06:21→23:30)
[2019-11-24] MEDS: LACTOBACILLUS RHAMNOSUS GG 1 CAPSULE. PO SCH ×2 (09:00→20:55)
[2019-11-24] MEDS: METOPROLOL TART IMMED RELEASE 25 MG TABLET. PO SCH ×2 (09:00→20:56)
[2019-11-24] MEDS: ZINC OXIDE 20% TOPICAL OINTMENT 28GM TUBE. TP SCH (09:00)
--- NOTE | 2019-11-24 09:09 | EKG ---
[facility] [address] [place] [address] Test Date: 2019-11-24 Test Time: 08:39:41 Pat Name: JASON SANABRIA Department: Room: 646 1 Gender: M [employer] Counselor: [place] : 1930 Requested By: CESAR TYLER Order Number: [id number] Reading MD: Vic Laughlin Measurements Intervals [place] Rate: 103 P: [place]: QRS: -42 QRSD: 126 T: 0 QT: 370 QTc: 487 Interpretive Statements ATRIAL FIBRILLATION. VENTRICULAR PREMATURE COMPLEX(ES) ABNORMAL LEFT AXIS DEVIATION LEFT ANTERIOR FASCICULAR BLOCK RIGHT BUNDLE BRANCH BLOCK- Electronically Signed On 11-26-2019 16:22:26 CDT by Vic Laughlin
--- NOTE | 2019-11-24 10:16 | PDOC ---
Subjective: Subjective: Denies pain. Can't tell me the year but knows he's at [facility]. Objective: Objective: D/w nurse and Dr. Montalvo. Vital Signs: Vital Signs Date Time Temp Pulse Resp B/P (MAP) Pulse Ox O2 Delivery O2 Flow Rate FiO2 11/24/19 08:00 Room Air 11/24/19 07:41 98.4 95 16 127/84 (98) 96 98.4 Labs: Laboratory Tests Test 11/24/19 03:15 White Blood Count 8.1 x10^3/uL Red Blood Count 4.47 x10^6/uL Hemoglobin 13.4 g/dL Hematocrit 39.5 % Mean Corpuscular Volume 88 fL Mean Corpuscular Hemoglobin 30 pg Mean Corpuscular Hemoglobin Concent 34 g/dL Red Cell Distribution Width 14.4 % Platelet Count 260 x10^3/uL Neutrophils (%) (Auto) 58 % Lymphocytes (%) (Auto) 24 % Monocytes (%) (Auto) 13 % Eosinophils (%) (Auto) 4 % Basophils (%) (Auto) 1 % Neutrophils # (Auto) 4.7 x10^3/uL Lymphocytes # (Auto) 1.9 x10^3/uL Monocytes # (Auto) 1.0 x10^3/uL Eosinophils # (Auto) 0.3 x10^3/uL Basophils # (Auto) 0.1 x10^3/uL Sodium Level 139 mmol/L Potassium Level 3.6 mmol/L Chloride Level 105 mmol/L Carbon Dioxide Level 26 mmol/L Anion Gap 8 Blood Urea Nitrogen 24 mg/dL Creatinine 1.2 mg/dL Estimated GFR (Cockcroft-Gault) 57.3 BUN/Creatinine Ratio 20 Glucose Level 85 mg/dL Calcium Level 8.1 mg/dL Total Bilirubin 2.5 mg/dL Aspartate Amino Transf (AST/SGOT) 45 U/L Alanine Aminotransferase (ALT/SGPT) 53 U/L Alkaline Phosphatase 233 U/L Total Protein 5.9 g/dL Albumin 2.3 g/dL Albumin/Globulin Ratio 0.6 URINE CULTURE Preliminary Preliminary GREATER THAN 100,000 CFU/ML GRAM NEGATIVE RODS on 11/24/19 at 0924 FINAL ID= [PROTEUS MIRABILIS] PE: GEN: NAD LUNGS: CTAB HEART: RRR ABD: NABS, S/ND/NT NEURO/PSYCH: A & O 3 A/P: Hematuria, UTI Elevated LFTs, HECTOR - better Cholelithiasis/choledocholithiasis - s/p ERCP 10/22/19 w/ sphincterotomy/stone extraction, family decided against cholecystectomy then -- Will await surgical thoughts. Available to discuss w/ family. COVID test pending. Justicifation of Admission Dx: Justifications for Admission: Justification of Admission Dx: Yes STEVE MIX Nov 24, 2019 10:16
--- NOTE | 2019-11-24 10:41 | PDOC ---
PROGRESS NOTES Chief Complaint Chief Complaint Acute hematuria - likely from cystitis, currently on Zosyn Obstructive jaundice - will consult GI and general surgery for likely ERCP. Holding eliquis Chronic diastolic CHF - stable A-Fib n chronic anticoagulaton, and mitral valve insufficiency Pulmonary nodules - with colon ca history concerning for possible mets. Awaiting general surgery recommendations. 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 until surgery and GI has seen patient DVT prophylaxis patient is chronically on Eliquis currently on hold will bridge with sequential compression devices Remains full code Further recommendations based on clinical course History of Present Illness History of Present Illness No acute events reported overnight, case discussed with nursing staff patient in no acute distress no complaints during my visit, discussed with GI SPEECH INSTRUCTOR at bedside will follow recommendations Vitals Vitals Vital Signs Date Time Temp Pulse Resp B/P (MAP) Pulse Ox O2 Delivery O2 Flow Rate FiO2 11/24/19 08:00 Room Air 11/24/19 07:41 98.4 95 16 127/84 (98) 96 98.4 Physical Exam General: Alert, Cooperative, mild distress Lungs: Clear Abdomen: Normal bowel sounds, Soft, No tenderness, No hepatosplenomegaly, No masses Extremities: No clubbing, No cyanosis, No edema, Normal pulses, No tenderness/swelling Skin: Other (Bruising on right arm) Labs LABS Laboratory Tests Test 11/24/19 03:15 White Blood Count 8.1 x10^3/uL (4.0-11.0) Red Blood Count 4.47 x10^6/uL (4.30-5.70) Hemoglobin 13.4 g/dL (13.0-17.5) Hematocrit 39.5 % (39.0-53.0) Mean Corpuscular Volume 88 fL (79-100) Mean Corpuscular Hemoglobin 30 pg (25-35) Mean Corpuscular Hemoglobin Concent 34 g/dL (31-37) Red Cell Distribution Width 14.4 % (11.5-14.5) Platelet Count 260 x10^3/uL (140-400) Neutrophils (%) (Auto) 58 % (31-73) Lymphocytes (%) (Auto) 24 % (24-48) Monocytes (%) (Auto) 13 % (0-9) Eosinophils (%) (Auto) 4 % (0-3) Basophils (%) (Auto) 1 % (0-3) Neutrophils # (Auto) 4.7 x10^3/uL (1.8-7.7) Lymphocytes # (Auto) 1.9 x10^3/uL (1.0-4.8) Monocytes # (Auto) 1.0 x10^3/uL (0.0-1.1) Eosinophils # (Auto) 0.3 x10^3/uL (0.0-0.7) Basophils # (Auto) 0.1 x10^3/uL (0.0-0.2) Sodium Level 139 mmol/L (136-145) Potassium Level 3.6 mmol/L (3.5-5.1) Chloride Level 105 mmol/L (98-107) Carbon Dioxide Level 26 mmol/L (21-32) Anion Gap 8 (6-14) Blood Urea Nitrogen 24 mg/dL (8-26) Creatinine 1.2 mg/dL (0.7-1.3) Estimated GFR (Cockcroft-Gault) 57.3 BUN/Creatinine Ratio 20 (6-20) Glucose Level 85 mg/dL (70-99) Calcium Level 8.1 mg/dL (8.5-10.1) Total Bilirubin 2.5 mg/dL (0.2-1.0) Aspartate Amino Transf (AST/SGOT) 45 U/L (15-37) Alanine Aminotransferase (ALT/SGPT) 53 U/L (16-63) Alkaline Phosphatase 233 U/L (46-116) Total Protein 5.9 g/dL (6.4-8.2) Albumin 2.3 g/dL (3.4-5.0) Albumin/Globulin Ratio 0.6 (1.0-1.7) Review of Systems Review of Systems 10 point review of system is negative only pertinent as per HPI Assessment and Plan Assessmemt and Plan Problems Medical Problems: (1) Hemorrhagic cystitis Status: Acute Comment Review of Relevant I have reviewed the following items mark anthony (where applicable) has been applied. Labs Laboratory Tests Test 11/23/19 05:30 11/23/19 05:40 11/23/19 08:55 11/24/19 03:15 Urine Collection Type Clean catch Void Urine Color Red Inga Urine Clarity Bloody Turbid Urine pH (<5.0-8.0) 8.5 (<5.0-8.0) Urine Specific [place] (1.000-1.030) 1.015 (1.000-1.030) Urine Protein mg/dL (NEG-TRACE) >=300 mg/dL (NEG-TRACE) Urine Glucose (UA) mg/dL (NEG) Negative mg/dL (NEG) Urine Ketones (Stick) mg/dL (NEG) 15 mg/dL (NEG) Urine Blood (NEG) Moderate (NEG) Urine Nitrite (NEG) Negative (NEG) Urine Bilirubin (NEG) Negative (NEG) Urine Urobilinogen Dipstick mg/dL (0.2 mg/dL) 1.0 mg/dL (0.2 mg/dL) Urine Leukocyte Esterase (NEG) Large (NEG) Urine RBC Tntc /HPF (0-2) 20-40 /HPF (0-2) Urine WBC >40 /HPF (0-4) >40 /HPF (0-4) Urine Bacteria 0 /HPF (0-FEW) Many /HPF (0-FEW) White Blood Count 8.3 x10^3/uL (4.0-11.0) 8.1 x10^3/uL (4.0-11.0) Red Blood Count 4.45 x10^6/uL (4.30-5.70) 4.47 x10^6/uL (4.30-5.70) Hemoglobin 13.3 g/dL (13.0-17.5) 13.4 g/dL (13.0-17.5) Hematocrit 39.4 % (39.0-53.0) 39.5 % (39.0-53.0) Mean Corpuscular Volume 88 fL (79-100) 88 fL (79-100) Mean Corpuscular Hemoglobin 30 pg (25-35) 30 pg (25-35) Mean Corpuscular Hemoglobin Concent 34 g/dL (31-37) 34 g/dL (31-37) Red Cell Distribution Width 14.4 % (11.5-14.5) 14.4 % (11.5-14.5) Platelet Count 257 x10^3/uL (140-400) 260 x10^3/uL (140-400) Neutrophils (%) (Auto) 54 % (31-73) 58 % (31-73) Lymphocytes (%) (Auto) 32 % (24-48) 24 % (24-48) Monocytes (%) (Auto) 11 % (0-9) 13 % (0-9) Eosinophils (%) (Auto) 2 % (0-3) 4 % (0-3) Basophils (%) (Auto) 1 % (0-3) 1 % (0-3) Neutrophils # (Auto) 4.5 x10^3/uL (1.8-7.7) 4.7 x10^3/uL (1.8-7.7) Lymphocytes # (Auto) 2.6 x10^3/uL (1.0-4.8) 1.9 x10^3/uL (1.0-4.8) Monocytes # (Auto) 0.9 x10^3/uL (0.0-1.1) 1.0 x10^3/uL (0.0-1.1) Eosinophils # (Auto) 0.1 x10^3/uL (0.0-0.7) 0.3 x10^3/uL (0.0-0.7) Basophils # (Auto) 0.1 x10^3/uL (0.0-0.2) 0.1 x10^3/uL (0.0-0.2) Prothrombin Time 17.7 SEC (11.7-14.0) Prothromb Time International Ratio 1.5 (0.8-1.1) Activated Partial Thromboplast Time 39 SEC (24-38) Sodium Level 139 mmol/L (136-145) 139 mmol/L (136-145) Potassium Level 3.9 mmol/L (3.5-5.1) 3.6 mmol/L (3.5-5.1) Chloride Level 106 mmol/L (98-107) 105 mmol/L (98-107) Carbon Dioxide Level 24 mmol/L (21-32) 26 mmol/L (21-32) Anion Gap 9 (6-14) 8 (6-14) Blood Urea Nitrogen 38 mg/dL (8-26) 24 mg/dL (8-26) Creatinine 1.5 mg/dL (0.7-1.3) 1.2 mg/dL (0.7-1.3) Estimated GFR (Cockcroft-Gault) 44.3 57.3 BUN/Creatinine Ratio 25 (6-20) 20 (6-20) Glucose Level 92 mg/dL (70-99) 85 mg/dL (70-99) Calcium Level 8.3 mg/dL (8.5-10.1) 8.1 mg/dL (8.5-10.1) Total Bilirubin 3.5 mg/dL (0.2-1.0) 2.5 mg/dL (0.2-1.0) Aspartate Amino Transf (AST/SGOT) 70 U/L (15-37) 45 U/L (15-37) Alanine Aminotransferase (ALT/SGPT) 70 U/L (16-63) 53 U/L (16-63) Alkaline Phosphatase 249 U/L (46-116) 233 U/L (46-116) Total Protein 6.2 g/dL (6.4-8.2) 5.9 g/dL (6.4-8.2) Albumin 2.5 g/dL (3.4-5.0) 2.3 g/dL (3.4-5.0) Albumin/Globulin Ratio 0.7 (1.0-1.7) 0.6 (1.0-1.7) Lipase 227 U/L (73-393) Urine Squamous Epithelial Cells Occ /LPF Urine Amorphous Sediment Present /HPF Urine Mucus Slight /LPF Laboratory Tests Test 11/24/19 03:15 White Blood Count 8.1 x10^3/uL (4.0-11.0) Red Blood Count 4.47 x10^6/uL (4.30-5.70) Hemoglobin 13.4 g/dL (13.0-17.5) Hematocrit 39.5 % (39.0-53.0) Mean Corpuscular Volume 88 fL (79-100) Mean Corpuscular Hemoglobin 30 pg (25-35) Mean Corpuscular Hemoglobin Concent 34 g/dL (31-37) Red Cell Distribution Width 14.4 % (11.5-14.5) Platelet Count 260 x10^3/uL (140-400) Neutrophils (%) (Auto) 58 % (31-73) Lymphocytes (%) (Auto) 24 % (24-48) Monocytes (%) (Auto) 13 % (0-9) Eosinophils (%) (Auto) 4 % (0-3) Basophils (%) (Auto) 1 % (0-3) Neutrophils # (Auto) 4.7 x10^3/uL (1.8-7.7) Lymphocytes # (Auto) 1.9 x10^3/uL (1.0-4.8) Monocytes # (Auto) 1.0 x10^3/uL (0.0-1.1) Eosinophils # (Auto) 0.3 x10^3/uL (0.0-0.7) Basophils # (Auto) 0.1 x10^3/uL (0.0-0.2) Sodium Level 139 mmol/L (136-145) Potassium Level 3.6 mmol/L (3.5-5.1) Chloride Level 105 mmol/L (98-107) Carbon Dioxide Level 26 mmol/L (21-32) Anion Gap 8 (6-14) Blood Urea Nitrogen 24 mg/dL (8-26) Creatinine 1.2 mg/dL (0.7-1.3) Estimated GFR (Cockcroft-Gault) 57.3 BUN/Creatinine Ratio 20 (6-20) Glucose Level 85 mg/dL (70-99) Calcium Level 8.1 mg/dL (8.5-10.1) Total Bilirubin 2.5 mg/dL (0.2-1.0) Aspartate Amino Transf (AST/SGOT) 45 U/L (15-37) Alanine Aminotransferase (ALT/SGPT) 53 U/L (16-63) Alkaline Phosphatase 233 U/L (46-116) Total Protein 5.9 g/dL (6.4-8.2) Albumin 2.3 g/dL (3.4-5.0) Albumin/Globulin Ratio 0.6 (1.0-1.7) Microbiology 11/23/19 Urine Culture - Preliminary, Resulted Medications Current Medications Ceftriaxone Sodium (Rocephin) 1 gm 1X ONCE IVP Last administered on 11/23/19at 10:31; Start 11/23/19 at 09:45; Stop 11/23/19 at 09:46; Status DC Ondansetron HCl (Zofran) 4 mg PRN Q8HRS PRN IV NAUSEA/VOMITING; Start 11/23/19 at 12:00; Stop 11/24/19 at 11:59 Acetaminophen (Tylenol) 1,000 mg PRN BID PRN PO PAIN; Start 11/23/19 at 12:30 Lactobacillus Rhamnosus (Culturelle) 1 cap BID PO Last administered on 11/23/19at 20:24; Start 11/23/19 at 21:00 Levothyroxine Sodium (Synthroid) 100 mcg DAILYAC PO ; Start 11/24/19 at 07:30 Loperamide HCl (Imodium) 2 mg PRN QID PRN PO DIARRHEA; Start 11/23/19 at 12:30 Metoprolol Tartrate (Lopressor) 25 mg BID PO Last administered on 11/23/19at 20:24; Start 11/23/19 at 21:00 Multivitamins (Thera M Plus) 1 tab DAILY PO ; Start 11/24/19 at 09:00 Fish Oil (Fish Oil) 1,000 mg DAILY PO ; Start 11/24/19 at 09:00 Polyethylene Glycol (miraLAX PACKET) 17 gm DAILY PO ; Start 11/24/19 at 09:00 Vitamin E (Vitamin E.) 400 unit DAILY PO ; Start 11/24/19 at 09:00 Zinc Oxide (Zinc Oxide 20% Topical) 1 devonte DAILY TP ; Start 11/24/19 at 09:00 Pantoprazole Sodium (Protonix) 40 mg DAILYAC PO ; Start 11/24/19 at 07:30 Piperacillin Sod/ Tazobactam Sod 3.375 gm/Sodium Chloride 50 ml @ 100 mls/hr Q6HRS IV Last administered on 11/24/19at 06:21; Start 11/23/19 at 18:00 Piperacillin Sod/ Tazobactam Sod (Zosyn Per Pharmacy) 1 each PRN DAILY PRN MC SEE COMMENTS; Start 11/23/19 at 16:00 Sodium Chloride 1,000 ml @ 75 mls/hr [id number] IV ; Start 11/24/19 at 09:45 Active Scripts Active Culturelle (Lactobacillus Rhamnosus Gg) 1 Each Cap.sprink 1 Cap PO BID 30 Days Metoprolol Tartrate 25 Mg Tablet 25 Mg PO BID 30 Days Amox Tr-K Clv 500-125 Mg Tab (Amoxicillin/Potassium Clav) 1 Each Tablet 1 Tab PO BID 8 Days [Pantoprazole] 40 MG Tablet.dr 40 Mg PO DAILYAC 30 Days Reported Vitamin E (Vitamin E Mixed) 400 Unit Capsule 400 Unit PO DAILY Multivitamins (Multivitamin) 1 Each Tablet 1 Tab PO DAILY Loperamide (Loperamide Hcl) 2 Mg Capsule 2 Mg PO PRN QID PRN Fish Oil 500 mg Softgel (Raven-3/Dha/Epa/Fish Oil) 1 Each Capsule 1 Each PO DAILY Acetaminophen 500 Mg Tablet 2 Tab PO PRN BID PRN Zinc Oxide 57 Gm Oint...g. 20 % TP DAILY Polyethylene Glycol 3350 2,500 Gm Powder 17 Gm PO DAILY Synthroid (Levothyroxine Sodium) 100 Mcg Tablet 100 Mcg PO DAILYAC Eliquis (Apixaban) 5 Mg Tab.ds.pk 5 Mg PO BID Vitals/I & O Vital Sign - Last 24 Hours 11/23/19 11/23/19 11/23/19 11/23/19 10:54 10:54 11:24 11:24 Pulse 93 84 88 102 B/P (MAP) 136/83 (100) 136/83 (100) 161/85 (110) 161/85 (110) Pulse Ox 96 98 96 96 O2 Delivery Room Air Room Air Room Air Room Air 11/23/19 11/23/19 11/23/19 11/23/19 11:54 12:24 12:24 12:54 Pulse 120 110 110 106 B/P (MAP) 180/80 (113) 164/88 (113) 164/88 (113) 206/97 (133) Pulse Ox 97 98 98 95 O2 Delivery Room Air Room Air Room Air Room Air 11/23/19 11/23/19 11/23/19 11/23/19 13:00 13:00 13:24 13:24 Pulse 120 108 119 108 B/P (MAP) 148/92 (110) 148/92 (110) 136/87 (103) 136/87 (103) Pulse Ox 97 97 97 O2 Delivery Room Air Room Air Room Air Room Air 11/23/19 11/23/19 11/23/19 11/23/19 13:54 13:54 14:24 14:24 Pulse 86 86 94 94 B/P (MAP) 140/72 (94) 140/72 (94) 138/73 (94) 138/73 (94) Pulse Ox 100 98 O2 Delivery Room Air Room Air Room Air Room Air 11/23/19 11/23/19 11/23/19 11/23/19 14:54 14:54 15:54 16:31 Temp 98.8 98.8 Pulse 108 108 130 130 B/P (MAP) 150/82 (104) 150/82 (104) 165/79 (107) 157/91 (113) Pulse Ox 94 98 98 O2 Delivery Room Air Room Air Room Air Room Air 11/23/19 11/23/19 11/23/19 11/23/19 17:30 18:29 19:55 20:00 Temp 97.1 98.0 97.1 98.0 Pulse 125 90 Resp 18 20 B/P (MAP) 144/91 (108) 131/91 (104) Pulse Ox 98 99 O2 Delivery Room Air Room Air Room Air Room Air 11/23/19 11/23/19 11/24/19 11/24/19 20:24 23:24 00:18 03:56 Temp 98.2 97.8 98.2 97.8 Pulse 90 94 96 Resp 20 16 18 B/P (MAP) 131/91 128/60 (82) 139/94 (109) Pulse Ox 95 97 O2 Delivery Room Air Room Air Room Air 11/24/19 11/24/19 07:41 08:00 Temp 98.4 98.4 Pulse 95 Resp 16 B/P (MAP) 127/84 (98) Pulse Ox 96 O2 Delivery Room Air Room Air Intake and Output 11/23/19 11/23/19 11/24/19 15:00 23:00 07:00 Intake Total 200 ml Output Total 250 ml 1050 ml Balance -50 ml -1050 ml ROSITA GOMEZ MD Nov 24, 2019 10:40
--- NOTE | 2019-11-24 10:47 | PDOC2 ---
CONSULT Date of Consult Date of Consult DATE: 11/24/19 TIME: 10:42 Reason for Consult Reason for Consult: choledocholithiasis Referring Physician Referring Physician: Dr. Sauceda Identification/Chief Complaint Chief Complaint none Source Source: Chart review, Patient History of Present Illness Reason for Visit: 89 yo M noted to have hemeturia at halfway and presents for evaluation. CT concerning for choledocholithiasis, which has been a problem previously. Cholecystectomy not previously undertaken, given family decision. Pt seen in hospital room. Denies significant c/o. Pt unable to remember whom did his colon resection. Somewhat poor historian but appears pleasant. Past Medical History Cardiovascular: AFIB, HTN, Hyperlipidemia, Valve insufficiency Pulmonary: Other GI: GI bleed Heme/Onc: Cancer, Other Past Surgical History Past Surgical History: Colon Resection Family History Family History: Other Social History Quit ALCOHOL: none Drugs: None Lives: Senior Living Current Problem List Problem List Problems Medical Problems: (1) Hemorrhagic cystitis Status: Acute Current Medications Current Medications Current Medications Ceftriaxone Sodium (Rocephin) 1 gm 1X ONCE IVP Last administered on 11/23/19at 10:31; Start 11/23/19 at 09:45; Stop 11/23/19 at 09:46; Status DC Ondansetron HCl (Zofran) 4 mg PRN Q8HRS PRN IV NAUSEA/VOMITING; Start 11/23/19 at 12:00; Stop 11/24/19 at 11:59 Acetaminophen (Tylenol) 1,000 mg PRN BID PRN PO PAIN; Start 11/23/19 at 12:30 Lactobacillus Rhamnosus (Culturelle) 1 cap BID PO Last administered on 11/23/19at 20:24; Start 11/23/19 at 21:00 Levothyroxine Sodium (Synthroid) 100 mcg DAILYAC PO ; Start 11/24/19 at 07:30 Loperamide HCl (Imodium) 2 mg PRN QID PRN PO DIARRHEA; Start 11/23/19 at 12:30 Metoprolol Tartrate (Lopressor) 25 mg BID PO Last administered on 11/23/19at 20:24; Start 11/23/19 at 21:00 Multivitamins (Thera M Plus) 1 tab DAILY PO ; Start 11/24/19 at 09:00 Fish Oil (Fish Oil) 1,000 mg DAILY PO ; Start 11/24/19 at 09:00 Polyethylene Glycol (miraLAX PACKET) 17 gm DAILY PO ; Start 11/24/19 at 09:00 Vitamin E (Vitamin E.) 400 unit DAILY PO ; Start 11/24/19 at 09:00 Zinc Oxide (Zinc Oxide 20% Topical) 1 devonte DAILY TP ; Start 11/24/19 at 09:00 Pantoprazole Sodium (Protonix) 40 mg DAILYAC PO ; Start 11/24/19 at 07:30 Piperacillin Sod/ Tazobactam Sod 3.375 gm/Sodium Chloride 50 ml @ 100 mls/hr Q6HRS IV Last administered on 11/24/19at 06:21; Start 11/23/19 at 18:00 Piperacillin Sod/ Tazobactam Sod (Zosyn Per Pharmacy) 1 each PRN DAILY PRN MC SEE COMMENTS; Start 11/23/19 at 16:00 Sodium Chloride 1,000 ml @ 75 mls/hr [id number] IV ; Start 11/24/19 at 09:45 Active Scripts Active Culturelle (Lactobacillus Rhamnosus Gg) 1 Each Cap.sprink 1 Cap PO BID 30 Days Metoprolol Tartrate 25 Mg Tablet 25 Mg PO BID 30 Days Amox Tr-K Clv 500-125 Mg Tab (Amoxicillin/Potassium Clav) 1 Each Tablet 1 Tab PO BID 8 Days [Pantoprazole] 40 MG Tablet.dr 40 Mg PO DAILYAC 30 Days Reported Vitamin E (Vitamin E Mixed) 400 Unit Capsule 400 Unit PO DAILY Multivitamins (Multivitamin) 1 Each Tablet 1 Tab PO DAILY Loperamide (Loperamide Hcl) 2 Mg Capsule 2 Mg PO PRN QID PRN Fish Oil 500 mg Softgel ([place]-3/Dha/Epa/Fish Oil) 1 Each Capsule 1 Each PO DAILY Acetaminophen 500 Mg Tablet 2 Tab PO PRN BID PRN Zinc Oxide 57 Gm Oint...g. 20 % TP DAILY Polyethylene Glycol 3350 2,500 Gm Powder 17 Gm PO DAILY Synthroid (Levothyroxine Sodium) 100 Mcg Tablet 100 Mcg PO DAILYAC Eliquis (Apixaban) 5 Mg Tab.ds.pk 5 Mg PO BID Allergies Allergies: Coded Allergies: amiodarone (Verified Allergy, Intermediate, 09/23/17) aspirin (Verified Allergy, Intermediate, 09/23/17) fexofenadine (Verified Allergy, Intermediate, 09/23/17) morphine (Verified Allergy, Intermediate, 09/23/17) simvastatin (Verified Allergy, Intermediate, 09/23/17) tramadol (Verified Allergy, Intermediate, 09/23/17) warfarin (Verified Allergy, Intermediate, 09/23/17) ROS Genitourinary: YES Hematuria Physical Exam General: Alert, Cooperative, No acute distress HEENT: Atraumatic Lungs: Normal air movement Abdomen: Soft, No tenderness, Other (well healed lower abdominal scar) Extremities: No clubbing, No cyanosis Skin: No rashes, No breakdown Neuro: Normal speech, Sensation intact Psych/Mental Status: Mood NL Vitals VITALS Vital Signs Date Time Temp Pulse Resp B/P (MAP) Pulse Ox O2 Delivery O2 Flow Rate FiO2 11/24/19 08:00 Room Air 11/24/19 07:41 98.4 95 16 127/84 (98) 96 98.4 Labs Labs Laboratory Tests Test 11/23/19 05:30 11/23/19 05:40 11/23/19 08:55 11/24/19 03:15 Urine Collection Type Clean catch Void Urine Color Red Inga Urine Clarity Bloody Turbid Urine pH (<5.0-8.0) 8.5 (<5.0-8.0) Urine Specific [place] (1.000-1.030) 1.015 (1.000-1.030) Urine Protein mg/dL (NEG-TRACE) >=300 mg/dL (NEG-TRACE) Urine Glucose (UA) mg/dL (NEG) Negative mg/dL (NEG) Urine Ketones (Stick) mg/dL (NEG) 15 mg/dL (NEG) Urine Blood (NEG) Moderate (NEG) Urine Nitrite (NEG) Negative (NEG) Urine Bilirubin (NEG) Negative (NEG) Urine Urobilinogen Dipstick mg/dL (0.2 mg/dL) 1.0 mg/dL (0.2 mg/dL) Urine Leukocyte Esterase (NEG) Large (NEG) Urine RBC Tntc /HPF (0-2) 20-40 /HPF (0-2) Urine WBC >40 /HPF (0-4) >40 /HPF (0-4) Urine Bacteria 0 /HPF (0-FEW) Many /HPF (0-FEW) White Blood Count 8.3 x10^3/uL (4.0-11.0) 8.1 x10^3/uL (4.0-11.0) Red Blood Count 4.45 x10^6/uL (4.30-5.70) 4.47 x10^6/uL (4.30-5.70) Hemoglobin 13.3 g/dL (13.0-17.5) 13.4 g/dL (13.0-17.5) Hematocrit 39.4 % (39.0-53.0) 39.5 % (39.0-53.0) Mean Corpuscular Volume 88 fL (79-100) 88 fL (79-100) Mean Corpuscular Hemoglobin 30 pg (25-35) 30 pg (25-35) Mean Corpuscular Hemoglobin Concent 34 g/dL (31-37) 34 g/dL (31-37) Red Cell Distribution Width 14.4 % (11.5-14.5) 14.4 % (11.5-14.5) Platelet Count 257 x10^3/uL (140-400) 260 x10^3/uL (140-400) Neutrophils (%) (Auto) 54 % (31-73) 58 % (31-73) Lymphocytes (%) (Auto) 32 % (24-48) 24 % (24-48) Monocytes (%) (Auto) 11 % (0-9) 13 % (0-9) Eosinophils (%) (Auto) 2 % (0-3) 4 % (0-3) Basophils (%) (Auto) 1 % (0-3) 1 % (0-3) Neutrophils # (Auto) 4.5 x10^3/uL (1.8-7.7) 4.7 x10^3/uL (1.8-7.7) Lymphocytes # (Auto) 2.6 x10^3/uL (1.0-4.8) 1.9 x10^3/uL (1.0-4.8) Monocytes # (Auto) 0.9 x10^3/uL (0.0-1.1) 1.0 x10^3/uL (0.0-1.1) Eosinophils # (Auto) 0.1 x10^3/uL (0.0-0.7) 0.3 x10^3/uL (0.0-0.7) Basophils # (Auto) 0.1 x10^3/uL (0.0-0.2) 0.1 x10^3/uL (0.0-0.2) Prothrombin Time 17.7 SEC (11.7-14.0) Prothromb Time International Ratio 1.5 (0.8-1.1) Activated Partial Thromboplast Time 39 SEC (24-38) Sodium Level 139 mmol/L (136-145) 139 mmol/L (136-145) Potassium Level 3.9 mmol/L (3.5-5.1) 3.6 mmol/L (3.5-5.1) Chloride Level 106 mmol/L (98-107) 105 mmol/L (98-107) Carbon Dioxide Level 24 mmol/L (21-32) 26 mmol/L (21-32) Anion Gap 9 (6-14) 8 (6-14) Blood Urea Nitrogen 38 mg/dL (8-26) 24 mg/dL (8-26) Creatinine 1.5 mg/dL (0.7-1.3) 1.2 mg/dL (0.7-1.3) Estimated GFR (Cockcroft-Gault) 44.3 57.3 BUN/Creatinine Ratio 25 (6-20) 20 (6-20) Glucose Level 92 mg/dL (70-99) 85 mg/dL (70-99) Calcium Level 8.3 mg/dL (8.5-10.1) 8.1 mg/dL (8.5-10.1) Total Bilirubin 3.5 mg/dL (0.2-1.0) 2.5 mg/dL (0.2-1.0) Aspartate Amino Transf (AST/SGOT) 70 U/L (15-37) 45 U/L (15-37) Alanine Aminotransferase (ALT/SGPT) 70 U/L (16-63) 53 U/L (16-63) Alkaline Phosphatase 249 U/L (46-116) 233 U/L (46-116) Total Protein 6.2 g/dL (6.4-8.2) 5.9 g/dL (6.4-8.2) Albumin 2.5 g/dL (3.4-5.0) 2.3 g/dL (3.4-5.0) Albumin/Globulin Ratio 0.7 (1.0-1.7) 0.6 (1.0-1.7) Lipase 227 U/L (73-393) Urine Squamous Epithelial Cells Occ /LPF Urine Amorphous Sediment Present /HPF Urine Mucus Slight /LPF Laboratory Tests Test 11/24/19 03:15 White Blood Count 8.1 x10^3/uL (4.0-11.0) Red Blood Count 4.47 x10^6/uL (4.30-5.70) Hemoglobin 13.4 g/dL (13.0-17.5) Hematocrit 39.5 % (39.0-53.0) Mean Corpuscular Volume 88 fL (79-100) Mean Corpuscular Hemoglobin 30 pg (25-35) Mean Corpuscular Hemoglobin Concent 34 g/dL (31-37) Red Cell Distribution Width 14.4 % (11.5-14.5) Platelet Count 260 x10^3/uL (140-400) Neutrophils (%) (Auto) 58 % (31-73) Lymphocytes (%) (Auto) 24 % (24-48) Monocytes (%) (Auto) 13 % (0-9) Eosinophils (%) (Auto) 4 % (0-3) Basophils (%) (Auto) 1 % (0-3) Neutrophils # (Auto) 4.7 x10^3/uL (1.8-7.7) Lymphocytes # (Auto) 1.9 x10^3/uL (1.0-4.8) Monocytes # (Auto) 1.0 x10^3/uL (0.0-1.1) Eosinophils # (Auto) 0.3 x10^3/uL (0.0-0.7) Basophils # (Auto) 0.1 x10^3/uL (0.0-0.2) Sodium Level 139 mmol/L (136-145) Potassium Level 3.6 mmol/L (3.5-5.1) Chloride Level 105 mmol/L (98-107) Carbon Dioxide Level 26 mmol/L (21-32) Anion Gap 8 (6-14) Blood Urea Nitrogen 24 mg/dL (8-26) Creatinine 1.2 mg/dL (0.7-1.3) Estimated GFR (Cockcroft-Gault) 57.3 BUN/Creatinine Ratio 20 (6-20) Glucose Level 85 mg/dL (70-99) Calcium Level 8.1 mg/dL (8.5-10.1) Total Bilirubin 2.5 mg/dL (0.2-1.0) Aspartate Amino Transf (AST/SGOT) 45 U/L (15-37) Alanine Aminotransferase (ALT/SGPT) 53 U/L (16-63) Alkaline Phosphatase 233 U/L (46-116) Total Protein 5.9 g/dL (6.4-8.2) Albumin 2.3 g/dL (3.4-5.0) Albumin/Globulin Ratio 0.6 (1.0-1.7) Images Images CT with choledocholithiasis Assessment/Plan Assessment/Plan Choledocholithiasis pt appears to be improved currently and labs improved. Pt may benefit from ERCP, will defer to GI. Lung mass concerning for malignancy, will check CEA. Pt family has not previously pursued cholecystectomy. Would favor evaluation and treatment of UTI and hemeturia prior to any surgical intervention. Thanks for consult! RODRIGO RAMÍREZ MD Nov 24, 2019 10:47
[2019-11-24] MEDS: IV 1/2 NORMAL SALINE 1,000 ML IV SCH (11:21)
[2019-11-24] MEDS: MULTIVITAMIN with MINERAL TABLET. PO SCH (11:57)
[2019-11-24] MEDS: POLYETHYLENE GLYCOL 3350 17 GM PACKET. PO SCH (11:57)
[2019-11-24] MEDS: OMEGA-3 FATTY ACIDS/FISH OIL 1,000 MG CAPSULE. PO SCH (11:57)
[2019-11-24] MEDS: VITAMIN E 200 UNIT CAPSULE. PO SCH (11:57)
[2019-11-24] MEDS: PANTOPRAZOLE 40 MG TABLET.DR. PO SCH (11:57)
[2019-11-24] MEDS: LEVOTHYROXINE 100 MCG TABLET PO SCH (11:57)
--- NOTE | 2019-11-24 12:59 | CONS ---
DATE OF CONSULTATION: PULMONARY CONSULTATION ATTENDING PHYSICIAN: Dr. Sauceda. REASON FOR CONSULTATION: Lung mass. HISTORY OF PRESENT ILLNESS: The patient is an 89-year-old male who has history of atrial fibrillation, history of DVT, mitral valve insufficiency, hypertension, dyslipidemia, history of rectal cancer, status post LAR with ileostomy and takedown and chemo and radiation and also history of IVC filter. He was brought into the hospital with increasing confusion. He had abnormal liver function tests and elevated bilirubin along with hematuria. The patient was found to have obstructive jaundice. He had ERCP and common bile duct stone extraction on 10/22/2019. He was also treated for UTI with Klebsiella. The patient was brought in with hematuria again from the [facility]. He had a CT of abdomen and pelvis was performed, which was reviewed by me. This was done on 11/23/2019. The patient was noted to have a 2.2 cm right middle lobe mass and also another tiny nodule about 7 mm in the right middle lobe as well. This was seen on the previous CT of abdomen and pelvis done on 10/21/2019, but was not reported. Upon further questioning, he denies any weight loss. Denies any cough or hemoptysis. No chest pain. He states he smoked for 10 years before quitting. PAST MEDICAL HISTORY: Extensive as discussed above, includes atrial fibrillation, history of DVT, mitral valve insufficiency, hypertension, MARLON, BCC, NCC, UTI, cholelithiasis, hypothyroidism, rectal cancer with ileostomy/takedown and chemo and radiation. PAST SURGICAL HISTORY: History of ileostomy, takedown, history of IVC filter, and colon resection. ALLERGIES: AMIODARONE, ASPIRIN, FEXOFENADINE, MORPHINE, SIMVASTATIN, TRAMADOL AND WARFARIN. SYSTEM REVIEW: Ten-point system obtained. Pertinent positives discussed in my history of present illness, otherwise noncontributory. All systems that were negative were reviewed as well. CURRENT MEDICATIONS: All reviewed as listed in the MRAD including antibiotic, Zosyn. SOCIAL HISTORY: Smoked for 10 years before quitting. PHYSICAL EXAMINATION: VITAL SIGNS: Stable. Pulse ox 96% on room air. NECK: Supple. LUNGS: With diminished breath sounds. CARDIOVASCULAR: With a regular rate. ABDOMEN: Soft. He has a midline scar. EXTREMITIES: With no pitting edema. LABORATORY DATA: Reviewed. White cell count 8.1, hemoglobin 13.4, platelets are 260. BUN is 24 and creatinine 1.2. Bilirubin is 2.5. ALT, AST are abnormal. IMPRESSION: 1. A 2.2 cm mass seen in the right middle lobe as well as another 7 mm nodule seen in the same lobe on the right side. This was seen on a May CT abdomen and pelvis as well. He has 10 years of tobacco use. He has history of rectal cancer and treated with chemo and radiation and resection. At this point, I would like to do a full CT chest to assess for any other lung masses in the chest. The possibility of primary lung malignancy versus metastasis is a concern. 2. Recent obstructive jaundice and choledocholithiasis. There was a 7 mm common bile duct stone in the region of pancreatic head. General Surgery is following. 3. Hematuria. 4. History of rectal cancer status post LAR with ileostomy and takedown and chemo and radiation. 5. 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 6. History of atrial fibrillation. DISCUSSION AND RECOMMENDATIONS: 1. Discussed with the patient and RN. We will obtain a noncontrast CT chest. 2. Due to the patient's advanced age and multiple comorbid conditions, he is not the best candidate for any form of treatment or invasive biopsy; however, we will make further recommendations once CT chest is done and I will discuss with the daughter as well. 3. Follow GI recommendations. 4. Follow General Surgery recommendations. 5. Antibiotics per Infectious Disease. We will follow along with you. Discussed with RN. YULIANA GHOSH MD DR: KRIS/delia JOB#: [id number] / [id number]
--- NOTE | 2019-11-24 13:30 | NUR ---
SW following for discharge planning. SW reviewed chart and coordinated care with RN. SW met with pt. Pt pleasant but confused. Pt resides in [place] with his at the [facility]. Pt on room air. Pt COVID negative. Pt awaiting ERCP per RN. DEON spoke with dtdanuta Mathis and staff from [facility]. Pt plans to return to the [facility] at discharge. SW to continue following.
--- NOTE | 2019-11-24 13:36 | RAD ---
CT CHEST WO CONTRAST Indication: Lung mass on abdomen CT Technique: Noncontrast CT imaging was performed of the chest, multiplanar reconstruction images submitted. One or more of the following individualized dose reduction techniques were utilized for this examination: 1. Automated exposure control 2. Adjustment of the mA and/or kV according to patient size 3. Use of iterative reconstruction technique. Comparison: CT abdomen pelvis November 23, 2019 Findings: There is motion degradation. There is again noncalcified mass of the medial right middle lobe about 2 cm transverse by 2.2 cm AP by 2.3 cm cc, abuts the anterior surface of the right major fissure, best seen axial image 39 series 2. There is a small nodule anteriorly of the right middle lobe about 0.6 cm image 43 series 2. Some linear density bilaterally is likely component of fibrotic change in combination with atelectasis. Focus of density in the left lateral trachea image 17 series 2 is more likely mucus than mass. There is no pericardial or pleural fluid or pneumothorax. There is coronary calcification. There is right pretracheal node about 1.2 cm short axis dimension. There is subcarinal node about 1.2 cm short axis dimension. There are some other smaller mediastinal nodes. Tubular ascending thoracic aorta is ectatic about 3.7 cm, aortic root about 3.8 cm. There is degenerative change of the shoulders greater on the left. IMPRESSION: 1. There is again noncalcified mass of the medial right middle lobe concerning for malignancy until proven otherwise. PET/CT evaluation is recommended. There is another small noncalcified nodule more anteriorly of the right middle lobe. There is nonspecific mild mediastinal lymphadenopathy. 2. Focus of nonspecific density in the left lateral trachea is more likely mucus than mass. 3. There is coronary calcification. Electronically signed by: Elvis Fang MD (11/24/2019 1:33 PM) [id number]
[2019-11-25 03:00] VITALS: BP 120/76
[2019-11-25] MEDS: IV 1/2 NORMAL SALINE 1,000 ML IV SCH ×2 (04:03→13:11)
[2019-11-25 04:58] LABS: ALBUMIN 2.1 g/dL (3.4-5.0); DIRECT BILIRUBIN 0.8 mg/dL (0.0-0.2); TOTAL BILIRUBIN 1.6 mg/dL (0.2-1.0); TOTAL PROTEIN 5.6 g/dL (6.4-8.2)
[2019-11-25] MEDS: PIPERACILLIN/TAZOBACTAM 3.375 GM in IV NORMAL SALINE 50ML 50 ML IV SCH ×3 (06:08→18:03)
[2019-11-25 07:44] VITALS: BP 114/71
[2019-11-25] MEDS: LEVOTHYROXINE 100 MCG TABLET PO SCH (08:52)
[2019-11-25] MEDS: VITAMIN E 200 UNIT CAPSULE. PO SCH (08:52)
[2019-11-25] MEDS: LACTOBACILLUS RHAMNOSUS GG 1 CAPSULE. PO SCH ×2 (08:52→21:57)
[2019-11-25] MEDS: MULTIVITAMIN with MINERAL TABLET. PO SCH (08:52)
[2019-11-25] MEDS: PANTOPRAZOLE 40 MG TABLET.DR. PO SCH (08:53)
[2019-11-25] MEDS: METOPROLOL TART IMMED RELEASE 25 MG TABLET. PO SCH ×2 (08:53→21:59)
[2019-11-25] MEDS: OMEGA-3 FATTY ACIDS/FISH OIL 1,000 MG CAPSULE. PO SCH (08:53)
[2019-11-25] MEDS: ZINC OXIDE 20% TOPICAL OINTMENT 28GM TUBE. TP SCH (09:00)
--- NOTE | 2019-11-25 09:57 | PDOC ---
Subjective: Subjective: Doesn't want cream of wheat but wants pudding and apple juice. No pain. Objective: Objective: D/w nurse - will advance diet for lunch. Reviewed pulm note: Due to the patient's advanced age and multiple comorbid conditions, he is not the best candidate for any form of treatment or invasive biopsy; however, we will make further recommendations once CT chest is done and I will discuss with the daughter as well. Reviewed surg note: Pt family has not previously pursued cholecystectomy. Would favor evaluation and treatment of UTI and hemeturia prior to any surgical intervention. Vital Signs: Vital Signs Date Time Temp Pulse Resp B/P (MAP) Pulse Ox O2 Delivery O2 Flow Rate FiO2 11/25/19 08:53 84 114/71 11/25/19 07:44 98.2 18 97 Room Air 98.2 Labs: Laboratory Tests Test 11/25/19 03:05 Total Bilirubin 1.6 mg/dL Direct Bilirubin 0.8 mg/dL Aspartate Amino Transf (AST/SGOT) 41 U/L Alanine Aminotransferase (ALT/SGPT) 48 U/L Alkaline Phosphatase 208 U/L Total Protein 5.6 g/dL Albumin 2.1 g/dL Imaging: Chest CT IMPRESSION: 1. There is again noncalcified mass of the medial right middle lobe concerning for malignancy until proven otherwise. PET/CT evaluation is recommended. There is another small noncalcified nodule more anteriorly of the right middle lobe. There is nonspecific mild mediastinal lymphadenopathy. 2. Focus of nonspecific density in the left lateral trachea is more likely mucus than mass. 3. There is coronary calcification. PE: GEN: NAD LUNGS: CTAB HEART: RRR ABD: S/ND/NT NEURO/PSYCH: more alert today, talking more A/P: Hematuria, UTI Elevated LFTs - improving still Cholelithiasis/choledocholithiasis - s/p ERCP 10/22/19 w/ sphincterotomy/stone extraction, family decided against cholecystectomy then RML mass, nonspecific mediastinal lymphadenopathy COVID-19 negative -- LFTs better, no abd pain, tolerating diet. Await pulm follow-up. Justicifation of Admission Dx: Justifications for Admission: Justification of Admission Dx: Yes STEVE MIX Nov 25, 2019 09:57
[2019-11-25] MEDS: POLYETHYLENE GLYCOL 3350 17 GM PACKET. PO SCH (10:26)
--- NOTE | 2019-11-25 10:57 | PDOC ---
PULMONARY PROGRESS NOTES Subjective Pt. is on room air, denies SOA or cough poor historian 2/2 dementia Vitals Vital Signs Date Time Temp Pulse Resp B/P (MAP) Pulse Ox O2 Delivery O2 Flow Rate FiO2 11/25/19 08:53 84 114/71 11/25/19 07:44 98.2 18 97 Room Air 98.2 ROS: No Nausea, No Chest Pain, No Abdominal Pain, No Increase Cough General: Alert, Confused (dementia) Lungs: Clear Cardiovascular: S1, S2 Abdomen: Soft, Non-tender Extremities: No Edema Skin: Warm, Dry Labs Laboratory Tests Test 11/23/19 16:00 11/24/19 03:15 11/25/19 03:05 Coronavirus (COVID-19)(PCR) Negative (NEGATIVE) White Blood Count 8.1 x10^3/uL (4.0-11.0) Red Blood Count 4.47 x10^6/uL (4.30-5.70) Hemoglobin 13.4 g/dL (13.0-17.5) Hematocrit 39.5 % (39.0-53.0) Mean Corpuscular Volume 88 fL (79-100) Mean Corpuscular Hemoglobin 30 pg (25-35) Mean Corpuscular Hemoglobin Concent 34 g/dL (31-37) Red Cell Distribution Width 14.4 % (11.5-14.5) Platelet Count 260 x10^3/uL (140-400) Neutrophils (%) (Auto) 58 % (31-73) Lymphocytes (%) (Auto) 24 % (24-48) Monocytes (%) (Auto) 13 % (0-9) Eosinophils (%) (Auto) 4 % (0-3) Basophils (%) (Auto) 1 % (0-3) Neutrophils # (Auto) 4.7 x10^3/uL (1.8-7.7) Lymphocytes # (Auto) 1.9 x10^3/uL (1.0-4.8) Monocytes # (Auto) 1.0 x10^3/uL (0.0-1.1) Eosinophils # (Auto) 0.3 x10^3/uL (0.0-0.7) Basophils # (Auto) 0.1 x10^3/uL (0.0-0.2) Sodium Level 139 mmol/L (136-145) Potassium Level 3.6 mmol/L (3.5-5.1) Chloride Level 105 mmol/L (98-107) Carbon Dioxide Level 26 mmol/L (21-32) Anion Gap 8 (6-14) Blood Urea Nitrogen 24 mg/dL (8-26) Creatinine 1.2 mg/dL (0.7-1.3) Estimated GFR (Cockcroft-Gault) 57.3 BUN/Creatinine Ratio 20 (6-20) Glucose Level 85 mg/dL (70-99) Calcium Level 8.1 mg/dL (8.5-10.1) Total Bilirubin 2.5 mg/dL (0.2-1.0) 1.6 mg/dL (0.2-1.0) Aspartate Amino Transf (AST/SGOT) 45 U/L (15-37) 41 U/L (15-37) Alanine Aminotransferase (ALT/SGPT) 53 U/L (16-63) 48 U/L (16-63) Alkaline Phosphatase 233 U/L (46-116) 208 U/L (46-116) Total Protein 5.9 g/dL (6.4-8.2) 5.6 g/dL (6.4-8.2) Albumin 2.3 g/dL (3.4-5.0) 2.1 g/dL (3.4-5.0) Albumin/Globulin Ratio 0.6 (1.0-1.7) Direct Bilirubin 0.8 mg/dL (0.0-0.2) Laboratory Tests Test 11/25/19 03:05 Total Bilirubin 1.6 mg/dL (0.2-1.0) Direct Bilirubin 0.8 mg/dL (0.0-0.2) Aspartate Amino Transf (AST/SGOT) 41 U/L (15-37) Alanine Aminotransferase (ALT/SGPT) 48 U/L (16-63) Alkaline Phosphatase 208 U/L (46-116) Total Protein 5.6 g/dL (6.4-8.2) Albumin 2.1 g/dL (3.4-5.0) Medications Active Scripts Medications Dose Route/Sig Max Daily Dose Days Date Category Culturelle (Lactobacillus Rhamnosus Gg) 1 Each Cap.sprink 1 Cap PO BID 30 10/27/19 Rx Metoprolol Tartrate 25 Mg Tablet 25 Mg PO BID 30 10/27/19 Rx Amox Tr-K Clv 500-125 Mg Tab (Amoxicillin/Potassium Clav) 1 Each Tablet 1 Tab PO BID 8 10/27/19 Rx [Pantoprazole] 40 MG Tablet.dr 40 Mg PO DAILYAC 30 09/24/17 Rx Vitamin E (Vitamin E Mixed) 400 Unit Capsule 400 Unit PO DAILY 09/22/17 Reported Multivitamins (Multivitamin) 1 Each Tablet 1 Tab PO DAILY 09/22/17 Reported Loperamide (Loperamide Hcl) 2 Mg Capsule 2 Mg PO PRN QID PRN 09/22/17 Reported Fish Oil 500 mg Softgel ([place]-3/Dha/Epa/Fish Oil) 1 Each Capsule 1 Each PO DAILY 09/22/17 Reported Acetaminophen 500 Mg Tablet 2 Tab PO PRN BID PRN 09/22/17 Reported Zinc Oxide 57 Gm Oint...g. 20 % TP DAILY 09/22/17 Reported Polyethylene Glycol 3350 2,500 Gm Powder 17 Gm PO DAILY 09/22/17 Reported Synthroid (Levothyroxine Sodium) 100 Mcg Tablet 100 Mcg PO DAILYAC 09/22/17 Reported Eliquis (Apixaban) 5 Mg Tab.ds.pk 5 Mg PO BID 09/22/[address] chest 11/24/2019 IMPRESSION: 1. There is again noncalcified mass of the medial right middle lobe concerning for malignancy until proven otherwise. PET/CT evaluation is recommended. There is another small noncalcified nodule more anteriorly of the right middle lobe. There is nonspecific mild mediastinal lymphadenopathy. 2. Focus of nonspecific density in the left lateral trachea is more likely mucus than mass. 3. There is coronary calcification. Impression . IMPRESSION: 1. A 2.2 cm mass seen in the right middle lobe as well as another 7 mm nodule seen in the same lobe on the right side. This was seen on a October CT abdomen and pelvis as well. He has 10 years of tobacco use. He has history of rectal cancer and treated with chemo and radiation and resection. At this point, I would like to do a full CT chest to assess for any other lung masses in the chest. The possibility of primary lung malignancy versus metastasis is a concern. 2. Recent obstructive jaundice and choledocholithiasis. There was a 7 mm common bile duct stone in the region of pancreatic head. General Surgery is following. 3. Hematuria--improving 4. History of rectal cancer status post LAR with ileostomy and takedown and chemo and radiation. 5. 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 6. History of atrial fibrillation.-stable/ongoing 7. UTI--Proteus Mirabilis Plan . RECOMMENDATIONS: CT chest reviewed-- Due to the patient's advanced age and multiple comorbid conditions, he is not the best candidate for any form of treatment or invasive biopsy Follow GI recommendations-- Cholelithiasis/choledocholithiasis - s/p ERCP 10/22/19 w/ sphincterotomy/stone extraction, family decided against cholecystectomy at that time Follow General Surgery recommendations- would like resolution of hematuria and UTI before any surgical intervention Antibiotics per Infectious Disease--Proteus Mirabilis Monitor LFT-improving discussed options with daughter Deflina PHELPS---invasive bx vs. PET scan vs. conservative follow up , will discuss with brother and let us know D/W YULIANA TAVERAS MD Nov 25, 2019 10:57
[2019-11-25 11:39] VITALS: BP 100/58
--- NOTE | 2019-11-25 12:53 | PDOC ---
PROGRESS NOTES Chief Complaint Chief Complaint Acute hematuria - likely from cystitis, currently on Zosyn Obstructive jaundice - will consult GI and general surgery for likely ERCP. Holding eliquis Chronic diastolic CHF - stable A-Fib n chronic anticoagulaton, and mitral valve insufficiency Pulmonary nodules - with colon ca history concerning for possible mets. Awaiting general surgery recommendations. 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 until surgery and GI has seen patient DVT prophylaxis patient is chronically on Eliquis currently on hold will bridge with sequential compression devices Remains full code Further recommendations based on clinical course History of Present Illness History of Present Illness No acute events reported overnight, case discussed with nursing staff patient in no acute distress no complaints during my visit, discussed with GI OCCUPATIONAL PHYSICIAN at bedside will follow recommendations Vitals Vitals Vital Signs Date Time Temp Pulse Resp B/P (MAP) Pulse Ox O2 Delivery O2 Flow Rate FiO2 11/25/19 11:39 97.6 83 18 100/58 (72) 97 Room Air 97.6 Physical Exam General: Alert, Cooperative, No acute distress Lungs: Clear Abdomen: Soft, No tenderness, Other (well healed lower abdominal scar) Extremities: No clubbing, No cyanosis Skin: No rashes, No breakdown Labs LABS Laboratory Tests Test 11/25/19 03:05 Total Bilirubin 1.6 mg/dL (0.2-1.0) Direct Bilirubin 0.8 mg/dL (0.0-0.2) Aspartate Amino Transf (AST/SGOT) 41 U/L (15-37) Alanine Aminotransferase (ALT/SGPT) 48 U/L (16-63) Alkaline Phosphatase 208 U/L (46-116) Total Protein 5.6 g/dL (6.4-8.2) Albumin 2.1 g/dL (3.4-5.0) Assessment and Plan Assessmemt and Plan Problems Medical Problems: (1) Hemorrhagic cystitis Status: Acute Comment Review of Relevant I have reviewed the following items mark anthony (where applicable) has been applied. Labs Laboratory Tests Test 11/23/19 16:00 11/24/19 03:15 11/25/19 03:05 Coronavirus (COVID-19)(PCR) Negative (NEGATIVE) White Blood Count 8.1 x10^3/uL (4.0-11.0) Red Blood Count 4.47 x10^6/uL (4.30-5.70) Hemoglobin 13.4 g/dL (13.0-17.5) Hematocrit 39.5 % (39.0-53.0) Mean Corpuscular Volume 88 fL (79-100) Mean Corpuscular Hemoglobin 30 pg (25-35) Mean Corpuscular Hemoglobin Concent 34 g/dL (31-37) Red Cell Distribution Width 14.4 % (11.5-14.5) Platelet Count 260 x10^3/uL (140-400) Neutrophils (%) (Auto) 58 % (31-73) Lymphocytes (%) (Auto) 24 % (24-48) Monocytes (%) (Auto) 13 % (0-9) Eosinophils (%) (Auto) 4 % (0-3) Basophils (%) (Auto) 1 % (0-3) Neutrophils # (Auto) 4.7 x10^3/uL (1.8-7.7) Lymphocytes # (Auto) 1.9 x10^3/uL (1.0-4.8) Monocytes # (Auto) 1.0 x10^3/uL (0.0-1.1) Eosinophils # (Auto) 0.3 x10^3/uL (0.0-0.7) Basophils # (Auto) 0.1 x10^3/uL (0.0-0.2) Sodium Level 139 mmol/L (136-145) Potassium Level 3.6 mmol/L (3.5-5.1) Chloride Level 105 mmol/L (98-107) Carbon Dioxide Level 26 mmol/L (21-32) Anion Gap 8 (6-14) Blood Urea Nitrogen 24 mg/dL (8-26) Creatinine 1.2 mg/dL (0.7-1.3) Estimated GFR (Cockcroft-Gault) 57.3 BUN/Creatinine Ratio 20 (6-20) Glucose Level 85 mg/dL (70-99) Calcium Level 8.1 mg/dL (8.5-10.1) Total Bilirubin 2.5 mg/dL (0.2-1.0) 1.6 mg/dL (0.2-1.0) Aspartate Amino Transf (AST/SGOT) 45 U/L (15-37) 41 U/L (15-37) Alanine Aminotransferase (ALT/SGPT) 53 U/L (16-63) 48 U/L (16-63) Alkaline Phosphatase 233 U/L (46-116) 208 U/L (46-116) Total Protein 5.9 g/dL (6.4-8.2) 5.6 g/dL (6.4-8.2) Albumin 2.3 g/dL (3.4-5.0) 2.1 g/dL (3.4-5.0) Albumin/Globulin Ratio 0.6 (1.0-1.7) Direct Bilirubin 0.8 mg/dL (0.0-0.2) Laboratory Tests Test 11/25/19 03:05 Total Bilirubin 1.6 mg/dL (0.2-1.0) Direct Bilirubin 0.8 mg/dL (0.0-0.2) Aspartate Amino Transf (AST/SGOT) 41 U/L (15-37) Alanine Aminotransferase (ALT/SGPT) 48 U/L (16-63) Alkaline Phosphatase 208 U/L (46-116) Total Protein 5.6 g/dL (6.4-8.2) Albumin 2.1 g/dL (3.4-5.0) Microbiology 11/23/19 Urine Culture - Final, Complete 11/23/19 Antimicrobic Susceptibility - Final, Complete Medications Current Medications Ceftriaxone Sodium (Rocephin) 1 gm 1X ONCE IVP Last administered on 11/23/19at 10:31; Start 11/23/19 at 09:45; Stop 11/23/19 at 09:46; Status DC Ondansetron HCl (Zofran) 4 mg PRN Q8HRS PRN IV NAUSEA/VOMITING; Start 11/23/19 at 12:00; Stop 11/24/19 at 11:59; Status DC Acetaminophen (Tylenol) 1,000 mg PRN BID PRN PO PAIN; Start 11/23/19 at 12:30 Lactobacillus Rhamnosus (Culturelle) 1 cap BID PO Last administered on 11/25/19at 08:52; Start 11/23/19 at 21:00 Levothyroxine Sodium (Synthroid) 100 mcg DAILYAC PO Last administered on 11/24 08:52; Start 11/24/19 at 07:30 Loperamide HCl (Imodium) 2 mg PRN QID PRN PO DIARRHEA; Start 11/23/19 at 12:30 Metoprolol Tartrate (Lopressor) 25 mg BID PO Last administered on 11/25/19at 08:53; Start 11/23/19 at 21:00 Multivitamins (Thera M Plus) 1 tab DAILY PO Last administered on 11/25/19at 08:52; Start 11/24/19 at 09:00 Fish Oil (Fish Oil) 1,000 mg DAILY PO Last administered on 11/25/19 08:53; Start 11/24/19 at 09:00 Polyethylene Glycol (miraLAX PACKET) 17 gm DAILY PO Last administered on 11/25/19at 10:26; Start 11/24/19 at 09:00 Vitamin E (Vitamin E.) 400 unit DAILY PO Last administered on 11/25/19at 08:52; Start 11/24/19 at 09:00 Zinc Oxide (Zinc Oxide 20% Topical) 1 devonte DAILY TP ; Start 11/24/19 at 09:00 Pantoprazole Sodium (Protonix) 40 mg DAILYAC PO Last administered on 11/25/19at 08:53; Start 11/24/19 at 07:30 Piperacillin Sod/ Tazobactam Sod 3.375 gm/Sodium Chloride 50 ml @ 100 mls/hr Q6HRS IV Last administered on 11/24/19at 15:42; Start 11/23/19 at 18:00; Stop 11/24/19 at 17:58; Status DC Piperacillin Sod/ Tazobactam Sod (Zosyn Per Pharmacy) 1 each PRN DAILY PRN MC SEE COMMENTS; Start 11/23/19 at 16:00 Sodium Chloride 1,000 ml @ 75 mls/hr [id number] IV Last administered on 11/25/19at 04:03; Start 11/24/19 at 09:45 Piperacillin Sod/ Tazobactam Sod 3.375 gm/Sodium Chloride 50 ml @ 100 mls/hr Q6HRS IV Last administered on 11/25/19at 06:08; Start 11/24/19 at 18:00 Active Scripts Active Culturelle (Lactobacillus Rhamnosus Gg) 1 Each Cap.sprink 1 Cap PO BID 30 Days Metoprolol Tartrate 25 Mg Tablet 25 Mg PO BID 30 Days Amox Tr-K Clv 500-125 Mg Tab (Amoxicillin/Potassium Clav) 1 Each Tablet 1 Tab PO BID 8 Days [Pantoprazole] 40 MG Tablet.dr 40 Mg PO DAILYAC 30 Days Reported Vitamin E (Vitamin E Mixed) 400 Unit Capsule 400 Unit PO DAILY Multivitamins (Multivitamin) 1 Each Tablet 1 Tab PO DAILY Loperamide (Loperamide Hcl) 2 Mg Capsule 2 Mg PO PRN QID PRN Fish Oil 500 mg Softgel ([place]-3/Dha/Epa/Fish Oil) 1 Each Capsule 1 Each PO DAILY Acetaminophen 500 Mg Tablet 2 Tab PO PRN BID PRN Zinc Oxide 57 Gm Oint...g. 20 % TP DAILY Polyethylene Glycol 3350 2,500 Gm Powder 17 Gm PO DAILY Synthroid (Levothyroxine Sodium) 100 Mcg Tablet 100 Mcg PO DAILYAC Eliquis (Apixaban) 5 Mg Tab.ds.pk 5 Mg PO BID Vitals/I & O Vital Sign - Last 24 Hours 11/24/19 11/24/19 11/24/19 11/24/19 15:43 19:30 19:37 20:56 Temp 98.1 97.6 98.1 97.6 Pulse 113 105 105 Resp 18 18 B/P (MAP) 140/96 (111) 114/62 (79) 114/62 Pulse Ox 98 96 O2 Delivery Room Air Room Air Room Air 11/24/19 11/25/19 11/25/19 11/25/19 23:57 03:00 07:44 08:53 Temp 98.2 98.2 98.2 98.2 98.2 98.2 Pulse 91 87 84 84 Resp 18 15 18 B/P (MAP) 119/71 (87) 120/76 (91) 114/71 (85) 114/71 Pulse Ox 97 98 97 O2 Delivery Room Air Room Air Room Air 11/25/19 11:39 Temp 97.6 97.6 Pulse 83 Resp 18 B/P (MAP) 100/58 (72) Pulse Ox 97 O2 Delivery Room Air Intake and Output 11/24/19 11/24/19 11/25/19 15:00 23:00 07:00 Intake Total 200 ml 250 ml 1100 ml Output Total 600 ml 400 ml Balance 200 ml -350 ml 700 ml ARTI HADDAD MD Nov 25, 2019 12:53
--- NOTE | 2019-11-25 14:06 | NUR ---
SW following for discharge planning. SW reviewed chart and coordinated care with RN. SW checked in with pt who remains pleasant but confused. Pt resides in [place] with his at the [facility]. Pt on room air. Pt is a possible discharge tomorrow, 11/26/2019 pending diet advancement and conversation with family r/t mass. SW to continue following.
--- NOTE | 2019-11-25 14:14 | PDOC ---
JOSESITO BARRON DIRECTOR OF QUALITY CONTROL 11/25/19 1414: SURGICAL PROGRESS NOTE Subjective no pain no nausea Vital Signs Vital Signs Date Time Temp Pulse Resp B/P (MAP) Pulse Ox O2 Delivery O2 Flow Rate FiO2 11/25/19 12:00 Room Air 11/25/19 11:39 97.6 83 18 100/58 (72) 97 97.6 I&O Intake and Output 11/25/19 07:00 Intake Total 1550 ml Output Total 1000 ml Balance 550 ml Intake Oral 400 ml IV Total 1150 ml Output Urine Total 1000 ml # Bowel Movements 1 General: Cooperative, No acute distress Abdomen: Soft, No tenderness Labs Laboratory Tests Test 11/23/19 16:00 11/24/19 03:15 11/25/19 03:05 Coronavirus (COVID-19)(PCR) Negative (NEGATIVE) White Blood Count 8.1 x10^3/uL (4.0-11.0) Red Blood Count 4.47 x10^6/uL (4.30-5.70) Hemoglobin 13.4 g/dL (13.0-17.5) Hematocrit 39.5 % (39.0-53.0) Mean Corpuscular Volume 88 fL (79-100) Mean Corpuscular Hemoglobin 30 pg (25-35) Mean Corpuscular Hemoglobin Concent 34 g/dL (31-37) Red Cell Distribution Width 14.4 % (11.5-14.5) Platelet Count 260 x10^3/uL (140-400) Neutrophils (%) (Auto) 58 % (31-73) Lymphocytes (%) (Auto) 24 % (24-48) Monocytes (%) (Auto) 13 % (0-9) Eosinophils (%) (Auto) 4 % (0-3) Basophils (%) (Auto) 1 % (0-3) Neutrophils # (Auto) 4.7 x10^3/uL (1.8-7.7) Lymphocytes # (Auto) 1.9 x10^3/uL (1.0-4.8) Monocytes # (Auto) 1.0 x10^3/uL (0.0-1.1) Eosinophils # (Auto) 0.3 x10^3/uL (0.0-0.7) Basophils # (Auto) 0.1 x10^3/uL (0.0-0.2) Sodium Level 139 mmol/L (136-145) Potassium Level 3.6 mmol/L (3.5-5.1) Chloride Level 105 mmol/L (98-107) Carbon Dioxide Level 26 mmol/L (21-32) Anion Gap 8 (6-14) Blood Urea Nitrogen 24 mg/dL (8-26) Creatinine 1.2 mg/dL (0.7-1.3) Estimated GFR (Cockcroft-Gault) 57.3 BUN/Creatinine Ratio 20 (6-20) Glucose Level 85 mg/dL (70-99) Calcium Level 8.1 mg/dL (8.5-10.1) Total Bilirubin 2.5 mg/dL (0.2-1.0) 1.6 mg/dL (0.2-1.0) Aspartate Amino Transf (AST/SGOT) 45 U/L (15-37) 41 U/L (15-37) Alanine Aminotransferase (ALT/SGPT) 53 U/L (16-63) 48 U/L (16-63) Alkaline Phosphatase 233 U/L (46-116) 208 U/L (46-116) Total Protein 5.9 g/dL (6.4-8.2) 5.6 g/dL (6.4-8.2) Albumin 2.3 g/dL (3.4-5.0) 2.1 g/dL (3.4-5.0) Albumin/Globulin Ratio 0.6 (1.0-1.7) Direct Bilirubin 0.8 mg/dL (0.0-0.2) Laboratory Tests Test 11/25/19 03:05 Total Bilirubin 1.6 mg/dL (0.2-1.0) Direct Bilirubin 0.8 mg/dL (0.0-0.2) Aspartate Amino Transf (AST/SGOT) 41 U/L (15-37) Alanine Aminotransferase (ALT/SGPT) 48 U/L (16-63) Alkaline Phosphatase 208 U/L (46-116) Total Protein 5.6 g/dL (6.4-8.2) Albumin 2.1 g/dL (3.4-5.0) Problem List Problems Medical Problems: (1) Hemorrhagic cystitis Status: Acute Assessment/Plan stable labs no surgical plans GI notes reviewed Justicifation of Admission Dx: Justifications for Admission: Justification of Admission Dx: Yes RODRIGO RAMÍREZ MD 11/25/19 1450: SURGICAL PROGRESS NOTE Assessment/Plan Pt seen and examined. Agree with MsJe Hortencia's note Pt without c/o abd soft, ND, NTTP labs improving martini with gross hematuria pt is poor surgical candidate and appears to be improving with supportive care from a biliary standpoint. Agree with GI plans. JOSESITO BARRON APRN Nov 25, 2019 14:14 RODRIGO RAMÍREZ MD Nov 25, 2019 14:50
[2019-11-25 15:26] VITALS: BP 99/60
[2019-11-25 19:51] VITALS: BP 110/70
[2019-11-25 23:39] VITALS: BP 135/82
[2019-11-26] MEDS: IV 1/2 NORMAL SALINE 1,000 ML IV SCH ×2 (01:45→06:21)
[2019-11-26 03:45] VITALS: BP 123/75
[2019-11-26 04:45] LABS: DIRECT BILIRUBIN 0.7 mg/dL (0.0-0.2); TOTAL PROTEIN 5.4 g/dL (6.4-8.2)
[2019-11-26] MEDS: PIPERACILLIN/TAZOBACTAM 3.375 GM in IV NORMAL SALINE 50ML 50 ML IV SCH ×3 (06:21)
[2019-11-26 07:29] VITALS: BP 112/63
[2019-11-26] MEDS: VITAMIN E 200 UNIT CAPSULE. PO SCH (08:10)
[2019-11-26] MEDS: PANTOPRAZOLE 40 MG TABLET.DR. PO SCH (08:10)
[2019-11-26] MEDS: MULTIVITAMIN with MINERAL TABLET. PO SCH (08:10)
[2019-11-26] MEDS: POLYETHYLENE GLYCOL 3350 17 GM PACKET. PO SCH (08:11)
[2019-11-26] MEDS: OMEGA-3 FATTY ACIDS/FISH OIL 1,000 MG CAPSULE. PO SCH (08:11)
[2019-11-26] MEDS: LACTOBACILLUS RHAMNOSUS GG 1 CAPSULE. PO SCH (08:11)
[2019-11-26] MEDS: LEVOTHYROXINE 100 MCG TABLET PO SCH (08:11)
[2019-11-26] MEDS: METOPROLOL TART IMMED RELEASE 25 MG TABLET. PO SCH (08:11)
[2019-11-26] MEDS: ZINC OXIDE 20% TOPICAL OINTMENT 28GM TUBE. TP SCH (08:12)
--- NOTE | 2019-11-26 09:47 | PDOC ---
PULMONARY PROGRESS NOTES Subjective Pt. is on room air, denies SOA or cough poor historian 2/2 dementia Vitals Vital Signs Date Time Temp Pulse Resp B/P (MAP) Pulse Ox O2 Delivery O2 Flow Rate FiO2 11/26/19 08:11 81 112/63 11/26/19 07:29 98.2 18 97 Room Air 98.2 ROS: No Nausea, No Chest Pain, No Abdominal Pain, No Increase Cough General: Alert, Confused Lungs: Clear Cardiovascular: S1, S2 Abdomen: Soft, Non-tender Extremities: No Edema Skin: Warm, Dry Labs Laboratory Tests Test 11/25/19 03:05 11/26/19 04:10 Total Bilirubin 1.6 mg/dL (0.2-1.0) 1.0 mg/dL (0.2-1.0) Direct Bilirubin 0.8 mg/dL (0.0-0.2) 0.7 mg/dL (0.0-0.2) Aspartate Amino Transf (AST/SGOT) 41 U/L (15-37) 33 U/L (15-37) Alanine Aminotransferase (ALT/SGPT) 48 U/L (16-63) 43 U/L (16-63) Alkaline Phosphatase 208 U/L (46-116) 192 U/L (46-116) Total Protein 5.6 g/dL (6.4-8.2) 5.4 g/dL (6.4-8.2) Albumin 2.1 g/dL (3.4-5.0) 2.0 g/dL (3.4-5.0) Laboratory Tests Test 11/26/19 04:10 Total Bilirubin 1.0 mg/dL (0.2-1.0) Direct Bilirubin 0.7 mg/dL (0.0-0.2) Aspartate Amino Transf (AST/SGOT) 33 U/L (15-37) Alanine Aminotransferase (ALT/SGPT) 43 U/L (16-63) Alkaline Phosphatase 192 U/L (46-116) Total Protein 5.4 g/dL (6.4-8.2) Albumin 2.0 g/dL (3.4-5.0) Medications Active Scripts Medications Dose Route/Sig Max Daily Dose Days Date Category Culturelle (Lactobacillus Rhamnosus Gg) 1 Each Cap.sprink 1 Cap PO BID 30 10/27/19 Rx Metoprolol Tartrate 25 Mg Tablet 25 Mg PO BID 30 10/27/19 Rx Amox Tr-K Clv 500-125 Mg Tab (Amoxicillin/Potassium Clav) 1 Each Tablet 1 Tab PO BID 8 10/27/19 Rx [Pantoprazole] 40 MG Tablet.dr 40 Mg PO DAILYAC 30 09/24/17 Rx Vitamin E (Vitamin E Mixed) 400 Unit Capsule 400 Unit PO DAILY 09/22/17 Reported Multivitamins (Multivitamin) 1 Each Tablet 1 Tab PO DAILY 09/22/17 Reported Loperamide (Loperamide Hcl) 2 Mg Capsule 2 Mg PO PRN QID PRN 09/22/17 Reported Fish Oil 500 mg Softgel ([place]-3/Dha/Epa/Fish Oil) 1 Each Capsule 1 Each PO DAILY 09/22/17 Reported Acetaminophen 500 Mg Tablet 2 Tab PO PRN BID PRN 09/22/17 Reported Zinc Oxide 57 Gm Oint...g. 20 % TP DAILY 09/22/17 Reported Polyethylene Glycol 3350 2,500 Gm Powder 17 Gm PO DAILY 09/22/17 Reported Synthroid (Levothyroxine Sodium) 100 Mcg Tablet 100 Mcg PO DAILYAC 09/22/17 Reported Eliquis (Apixaban) 5 Mg Tab.ds.pk 5 Mg PO BID 09/22/[address] chest 11/24/2019 IMPRESSION: 1. There is again noncalcified mass of the medial right middle lobe concerning for malignancy until proven otherwise. PET/CT evaluation is recommended. There is another small noncalcified nodule more anteriorly of the right middle lobe. There is nonspecific mild mediastinal lymphadenopathy. 2. Focus of nonspecific density in the left lateral trachea is more likely mucus than mass. 3. There is coronary calcification. Impression . IMPRESSION: 1. A 2.2 cm mass seen in the right middle lobe as well as another 7 mm nodule seen in the same lobe on the right side. This was seen on a October CT abdomen and pelvis as well. He has 10 years of tobacco use. He has history of rectal cancer and treated with chemo and radiation and resection. At this point, I would like to do a full CT chest to assess for any other lung masses in the chest. The possibility of primary lung malignancy versus metastasis is a concern. 2. Recent obstructive jaundice and choledocholithiasis. There was a 7 mm common bile duct stone in the region of pancreatic head. General Surgery is following. 3. Hematuria--improving 4. History of rectal cancer status post LAR with ileostomy and takedown and chemo and radiation. 5. 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 6. History of atrial fibrillation.-stable/ongoing 7. UTI--Proteus Mirabilis Plan . RECOMMENDATIONS: CT chest reviewed-- Due to the patient's advanced age and multiple comorbid conditions, he is not the best candidate for any form of treatment or invasive biopsy Follow GI recommendations-- Cholelithiasis/choledocholithiasis - s/p ERCP 10/22/19 w/ sphincterotomy/stone extraction, family decided against cholecystectomy at that time Follow General Surgery recommendations- would like resolution of hematuria and UTI before any surgical intervention Antibiotics per Infectious Disease--Proteus Mirabilis Monitor LFT-improving discussed options with daughter Delfina PHELPS---invasive bx vs. PET scan vs. conservative follow up , unable to reach her today. will try again to determine f/u plan D/W RN addend: d/w daughter. she agrees with conservative approach. we will do f/u ct chest in january as OP YULIANA GHOSH MD Nov 26, 2019 09:47
--- NOTE | 2019-11-26 10:47 | PDOC ---
Subjective: Subjective: Tolerating diet, no abdominal pain. Asks to get up and walk. Objective: Objective: D/w nurse - DC today? Reviewed pulm notes - family prefers conservative approach. Vital Signs: Vital Signs Date Time Temp Pulse Resp B/P (MAP) Pulse Ox O2 Delivery O2 Flow Rate FiO2 11/26/19 08:11 81 112/63 11/26/19 08:00 Room Air 11/26/19 07:29 98.2 18 97 98.2 Labs: Laboratory Tests Test 11/26/19 04:10 Total Bilirubin 1.0 mg/dL Direct Bilirubin 0.7 mg/dL Aspartate Amino Transf (AST/SGOT) 33 U/L Alanine Aminotransferase (ALT/SGPT) 43 U/L Alkaline Phosphatase 192 U/L Total Protein 5.4 g/dL Albumin 2.0 g/dL PE: GEN: NAD LUNGS: CTAB HEART: RRR ABD: NABS, S/ND/NT NEURO/PSYCH: pleasant, more alert than when first admitted A/P: Hematuria, UTI Elevated LFTs - improving Cholelithiasis/choledocholithiasis - s/p ERCP 10/22/19 w/ sphincterotomy/stone extraction, did not pursue cholecystectomy RML mass -- DC per primary. Justicifation of Admission Dx: Justifications for Admission: Justification of Admission Dx: Yes STEVE MIX Nov 26, 2019 10:47
--- NOTE | 2019-11-26 10:50 | SNU/HH DC ---
DISCHARGE ORDERS DISCHARGE INFORMATION: FINAL DIAGNOSIS Problems Medical Problems: (1) Hemorrhagic cystitis Status: Acute CONDITION ON DISCHARGE: Stable CODE STATUS: Code Status: Full SNF: SNF STAY <30 DAYS: Yes HOSPICE: HOSPICE: No HOSPICE EVAL & TREAT: No LTAC: ADMIT TO LTAC: No POST DISCHARGE ORDERS: ACTIVITY ORDERS: Activity as tolerated WEIGHT BEARING STATUS: Full weight bearing, As tolerated DIET AFTER DISCHARGE: ADA CHECKS AFTER DISCHARGE: CHECKS AFTER DISCHARGE: Check blood press - daily TREATMENT/EQUIPMENT ORDERS: ADAPTIVE EQUIPMENT NEEDED: None Physical Therapy For: Evalulation/Treatment Occupational Therapy For: Evaluation/Treatment DISCHARGE MEDICATIONS: Home Meds Active Scripts Lactobacillus Rhamnosus Gg (CULTURELLE) 1 Each Cap.sprink, 1 CAP PO BID for Probiotic while on antibiotic for 30 Days, #60 CAP Prov:CAMILA ANGUIANO MD 10/27/19 Metoprolol Tartrate (METOPROLOL TARTRATE) 25 Mg Tablet, 25 MG PO BID for Atrial fib for 30 Days, #60 TAB Prov:CAMILA ANGUIANO MD 10/27/19 Amoxicillin/Potassium Clav (AMOX TR-K CLV 500-125 MG TAB) 1 Each Tablet, 1 TAB PO BID for Klebsiella P UTI for 8 Days, #16 TAB Prov:CAMILA ANGUIANO MD 10/27/19 [Pantoprazole] 40 MG TABLET.DR Pena Conflict Check, 40 MG PO DAILYAC for 30 Days, #30 Prov:MARVIN LAZCANO MD 09/24/17 Reported Medications Vitamin E Mixed (VITAMIN E) 400 Unit Capsule, 400 UNIT PO DAILY, CAP 09/22/17 Multivitamin (MULTIVITAMINS) 1 Each Tablet, 1 TAB PO DAILY, #90 TAB 3 Refills 09/22/17 Loperamide Hcl (LOPERAMIDE) 2 Mg Capsule, 2 MG PO PRN QID PRN for DIARRHEA, CAP 09/22/17 [place]-3/Dha/Epa/Fish Oil (Fish Oil 500 mg Softgel) 1 Each Capsule, 1 EACH PO DAILY, CAP 09/22/17 Acetaminophen (ACETAMINOPHEN) 500 Mg Tablet, 2 TAB PO PRN BID PRN for PAIN, #60 TAB 1 Refill 09/22/17 Zinc Oxide (ZINC OXIDE) 57 Gm Oint...g., 20 % TP DAILY, MISC 09/22/17 Polyethylene Glycol 3350 (POLYETHYLENE GLYCOL 3350) 2,500 Gm Powder, 17 GM PO DAILY, #527 GM 11 Refills 09/22/17 Levothyroxine Sodium (SYNTHROID) 100 Mcg Tablet, 100 MCG PO DAILYAC for THYROID SUPPLEMENT, #30 TAB 0 Refills 09/22/17 Apixaban (Eliquis) 5 Mg Tab.ds.pk, 5 MG PO BID, PKG 09/22/17 HUMERA BLAKE III DO Nov 26, 2019 10:50
[2019-11-26 11:17] VITALS: BP 122/75
--- NOTE | 2019-11-26 11:22 | NUR ---
DEON following for discharge planning. DEON reviewed chart and coordinated care with RN. Pt to discharge today, 11/26/2019 back to [facility]. DEON faxed discharge orders with orders for PT/OT/RN for catheter treatment. Pt has an out-patient urology follow up appointment. Pt on room air. Pt on oral medications. DEON phoned and faxed discharge orders to the [facility], , (fax). DEON called and spoke with the [facility] and awaiting transportation time. No additional SW needs at this time. Addendum: 11/26/19 at 1141 by BEULAH CHAVARRIA Packet of clinical printed to go with pt for noon discharge via transport from the [facility].
--- NOTE | 2019-11-26 11:32 | DS ---
DATE OF DISCHARGE: 11/26/2019 ADMISSION DIAGNOSES: 1. Hemorrhagic cystitis. 2. Choledocholithiasis. 3. Obstructive jaundice, acute on chronic systolic and diastolic heart failure, atrial fibrillation, pulmonary nodules, hypertension, hyperlipidemia, obstructive sleep apnea, hypothyroidism, vasomotor nephropathy, encephalopathy, urinary tract infection. DISCHARGE DIAGNOSES: Resolving hemorrhagic cystitis, resolving urinary tract infection, resolving choledocholithiasis (he had an ERCP on 10/22/2019 with sphincterotomy and stone extraction). CONSULTS: Dr. Mullins, Dr. Gonzalez and Dr. Diego. PROCEDURES: None. HOSPITAL COURSE: The patient is a pleasant elderly male who basically presented with hemorrhagic cystitis and UTI. We admitted the patient, gave him IV fluids and IV antibiotics. The above consults were obtained. Over the past few days, he has improved. I saw him and examined him. This morning, he is doing well. We plan to discharge to residential at the [facility]. DISPOSITION: Skilled. ACTIVITY: As tolerated. DIET: Low sodium. MEDICATIONS: Please see MRAD. TOTAL TIME: 32 minutes. HUMERA BLAKE DO DR: JAROD/delia JOB#: [id number] / [id number]
--- NOTE | 2019-11-26 12:17 | NUR ---
Pt discharged back to [facility]. Report called to nurse at facility. Follow-up appointment made with Dr Mullins for Feb 01 1pm. Office will call and schedule CT Chest without contrast prior to appointment. Information also given to daughter Delfina. Pt sent with martini intact and orders for home health to manage. [facility] follow [facility].
== END 2019-11-26 12:20 | disposition home health service (06) | DRG 689 ==
LOC: ER 05:23 → ED HOLD 11:45 → 6 SOUTH 16:55
PROVIDERS: ADMIT Internal Medicine; ATTEND Internal Medicine
DX: N13.6 Pyonephrosis (principal); G93.41 Metabolic encephalopathy; K82.1 Hydrops of gallbladder; I50.32 Chronic diastolic (congestive) heart failure; N17.0 Acute kidney failure with tubular necrosis; Z20.828 Contact with and (suspected) exposure to other viral communicable diseases; N28.1 Cyst of kidney, acquired; E03.9 Hypothyroidism, unspecified; E78.00 Pure hypercholesterolemia, unspecified; E78.5 Hyperlipidemia, unspecified; F03.90 Unspecified dementia, unspecified severity, without behavioral disturbance, psychotic disturbance, mood disturbance, and anxiety; G47.33 Obstructive sleep apnea (adult) (pediatric); I11.0 Hypertensive heart disease with heart failure; I25.10 Atherosclerotic heart disease of native coronary artery without angina pectoris; I34.0 Nonrheumatic mitral (valve) insufficiency; I48.91 Unspecified atrial fibrillation; R59.0 Localized enlarged lymph nodes; R91.8 Other nonspecific abnormal finding of lung field; K57.30 Diverticulosis of large intestine without perforation or abscess without bleeding; B96.1 Klebsiella pneumoniae [K. pneumoniae] as the cause of diseases classified elsewhere; K86.89 Other specified diseases of pancreas; N32.89 Other specified disorders of bladder; K80.70 Calculus of gallbladder and bile duct without cholecystitis without obstruction; Z85.828 Personal history of other malignant neoplasm of skin; Z95.828 Presence of other vascular implants and grafts; Z92.3 Personal history of irradiation; Z92.21 Personal history of antineoplastic chemotherapy; Z87.891 Personal history of nicotine dependence; Z87.440 Personal history of urinary (tract) infections; Z86.718 Personal history of other venous thrombosis and embolism; Z86.010 Personal history of colon polyps; Z85.048 Personal history of other malignant neoplasm of rectum, rectosigmoid junction, and anus; Z79.01 Long term (current) use of anticoagulants; Z90.49 Acquired absence of other specified parts of digestive tract; Z79.899 Other long term (current) drug therapy; Z88.6 Allergy status to analgesic agent; Z88.8 Allergy status to other drugs, medicaments and biological substances
CPT/HCPCS: 36415; 71250; 74176; 76700; 80053; 80076; 81001; 82378; 83690; 85025; 85610; 85730; 87086; 93005; 96374; J0696; J2543; J3490; U0003; 99285-25; G0378

== ENCOUNTER 2019-12-09 19:47 | Inpatient (IN) | payer MEDICARE, OTHER ==
[~2019-12-09] VITALS: Ht 180.3 cm; Wt 88.2 kg
[2019-12-09] MEDS ORDERED: IV NORMAL SALINE 1000ML BAG 1,000 ML IV SCH (20:05)
[2019-12-09 20:24] LABS: BASO # 0.1 x10^3/uL (0.0-0.2); BASO % 0 % (0-3); EOS % 0 % (0-3); HEMATOCRIT 39.9 % (39.0-53.0); HEMOGLOBIN 13.6 g/dL (13.0-17.5); LYMPH # 0.9 x10^3/uL (1.0-4.8); LYMPH % 6 % (24-48); MEAN CORPUSCULAR HEMOGLOBIN 30 pg (25-35); MEAN CORPUSCULAR HGB CONC 34 g/dL (31-37); MEAN CORPUSCULAR VOLUME 89 fL (79-100); MONO # 0.9 x10^3/uL (0.0-1.1); MONO % 6 % (0-9); NEUT # 12.9 x10^3/uL (1.8-7.7); NEUT % 87 % (31-73); PLATELET COUNT 276 x10^3/uL (140-400); RED BLOOD COUNT 4.51 x10^6/uL (4.30-5.70); RED CELL DISTRIBUTION WIDTH 14.8 % (11.5-14.5); WHITE BLOOD COUNT 14.8 x10^3/uL (4.0-11.0)
[2019-12-09 20:33] LABS: CALCIUM 8.3 mg/dL (8.5-10.1); CREATININE 1.5 mg/dL (0.7-1.3); GFR 44.3; POTASSIUM 3.7 mmol/L (3.5-5.1)
[2019-12-09 20:38] LABS: BILIRUBIN,URINE SMALL (NEG); CLARITY,URINE CLOUDY; COLOR,URINE AMBER; NITRITE,URINE NEGATIVE (NEG); PH,URINE 6.5 (<5.0-8.0); PROTEIN,URINE 30 mg/dL (NEG-TRACE)
[2019-12-09 20:39] LABS: ALBUMIN 2.5 g/dL (3.4-5.0); ALBUMIN/GLOBULIN RATIO 0.7 (1.0-1.7); TOTAL BILIRUBIN 5.9 mg/dL (0.2-1.0); TOTAL PROTEIN 6.3 g/dL (6.4-8.2)
[2019-12-09 20:42] LABS: BACTERIA,URINE MANY /HPF (0-FEW); WBC,URINE TNTC /HPF (0-4)
[2019-12-09 20:45] LABS: % BANDS 3 % (0-9); % LYMPHS 6 % (24-48); % MONOS 7 % (0-10); % SEGS 84 % (35-66); PLT ESTIMATE ADEQUATE (ADEQUATE); TOXIC GRANULATION SLIGHT
[2019-12-09] MEDS ORDERED: PIPERACILLIN/TAZOBACTAM 3.375 GM in IV NORMAL SALINE 50ML 50 ML IV ONE (21:00)
[2019-12-09] MEDS ORDERED: dilTIAZem IV PUSH 25 MG/5 ML VIAL IVP ONE (21:00)
--- NOTE | 2019-12-09 21:31 | RAD ---
Exam: Chest one view INDICATION: Fever, shortness of breath TECHNIQUE: Frontal view of the chest Comparisons: 10/21/2019 FINDINGS: The cardiomediastinal silhouette and pulmonary vessels are within normal limits. The lung and pleural spaces are clear. IMPRESSION: No acute cardiopulmonary process. Electronically signed by: Royal Olmos MD (12/09/2019 9:29 PM) [id number]
[2019-12-09] MEDS ORDERED: IV NORMAL SALINE 1000ML BAG 1,000 ML IV ONE (22:00)
[2019-12-09] MEDS ORDERED: VANCOMYCIN 1GM IVPB FOR OMNI 250 ML IV ONE (22:00)
[2019-12-09 23:14] LABS: INFLUENZA A PATIENT NEGATIVE (NEGATIVE); INFLUENZA B PATIENT NEGATIVE (NEGATIVE)
--- NOTE | 2019-12-09 23:26 | RAD ---
Exam: Ultrasound abdomen limited Indication: Elevated LFTs and bilirubin Technique: Real-time grayscale and color Doppler images of the right upper quadrant were obtained by the department lab engineer. Comparisons: None FINDINGS: Liver contour is normal. Hepatopedal flow noted within the portal vein. Common bile duct measures 7 mm in diameter. Gallbladder is contracted. Gallstones are noted. No pericholecystic fluid or sonographic Rodriguez sign. Right kidney measures 11.7 cm in length. No hydronephrosis. Visualized portions of aorta and IVC are unremarkable. IMPRESSION: 1. Cholelithiasis without secondary evidence of acute cholecystitis. 2. Normal sonographic appearance of the liver. 3. No right-sided hydronephrosis. Electronically signed by: Royal Olmos MD (12/09/2019 11:23 PM) [id number]
--- NOTE | 2019-12-09 23:59 | PHYS DOC ---
Past Medical History Past Medical History: A-Fib, CHF, Gallstones, High Cholesterol, Hypertension, Hypothyroid Additional Past Medical Histor: blood thinners, tremors, Recum/anal CA Past Surgical History: No Surgical History Smoking Status: Never Smoker Alcohol Use: None General Adult EDM: Chief Complaint: ALTERED MENTAL STATUS HPI: HPI: Patient is a 89 year old male who arrives via EMS with report of mental status change. EMS indicates that they were informed by nursing facility that patient had a fever of 100.0. There was concern of possible COVID exposure. Patient does complain of some shortness of breath and cough. He denies being in any pain. Additional history is somewhat limited as patient is clearly confused. [] Review of Systems: Review of Systems: Constitutional: Positive fever. [] Respiratory: Positive cough and shortness of breath. [] Cardiovascular: Denies chest pain or edema. [] GI: Denies abdominal pain, nausea, vomiting or diarrhea. [] Neurologic: Denies headache, focal weakness or sensory changes. [] A full 10 point review of systems has been reviewed and is otherwise negative. Heart Score: Risk Factors: Risk Factors: DM, Current or recent (<one month) smoker, HTN, HLP, family history of CAD, obesity. Risk Scores: Score 0 - 3: 2.5% MACE over next 6 weeks - Discharge Home Score 4 - 6: 20.3% MACE over next 6 weeks - Admit for Clinical Observation Score 7 - 10: 72.7% MACE over next 6 weeks - Early Invasive Strategies Current Medications: Current Medications Medications (Trade) Dose Ordered Sig/Mike Start Time Stop Time Status Last Admin Dose Admin Diltiazem HCl (Cardizem Iv Push) 10 mg 1X ONCE 12/09/19 21:00 12/09/19 21:01 DC 12/09/19 21:34 10 MG Piperacillin Sod/ Tazobactam Sod 3.375 gm/Sodium Chloride 50 ml @ 100 mls/hr 1X ONCE 12/09/19 21:00 12/09/19 21:29 DC 12/09/19 21:33 100 MLS/HR Sodium Chloride 1,000 ml @ 1,000 mls/hr 1X ONCE 12/09/19 22:00 12/09/19 22:59 DC 12/09/19 21:56 1,000 MLS/HR Vancomycin HCl 250 ml @ 250 mls/hr 1X ONCE 12/09/19 22:00 12/09/19 22:59 DC 12/09/19 22:30 250 MLS/HR Allergies: Allergies: Allergies Coded Allergies Type Severity Reaction Last Updated Verified amiodarone Allergy Intermediate 09/23/17 Yes aspirin Allergy Intermediate 09/23/17 Yes fexofenadine Allergy Intermediate 09/23/17 Yes morphine Allergy Intermediate 09/23/17 Yes simvastatin Allergy Intermediate 09/23/17 Yes tramadol Allergy Intermediate 09/23/17 Yes warfarin Allergy Intermediate 09/23/17 Yes Physical Exam: PE: Constitutional: Well developed, well nourished, no acute distress, non-toxic appearance. [] HENT: Normocephalic, atraumatic, bilateral external ears normal, oropharynx m oist, no oral exudates, nose normal. [] Eyes: PERRLA, EOMI, conjunctiva normal, no discharge. [] Neck: Normal range of motion, no tenderness, supple, no stridor. [] Cardiovascular: Markedly tachycardic rate with irregular rhythm [] Lungs & Thorax: Fine rhonchi are noted bilaterally to auscultation [] Abdomen: Bowel sounds normal, soft, no tenderness. [] Skin: Warm, dry, no erythema, no rash. [] Extremities: No tenderness, no cyanosis, no clubbing, ROM intact, with mild lower extremity edema. [] Neurologic: Alert and oriented X 3, no focal deficits noted. [] Current Patient Data: Labs: Laboratory Tests Test 12/09/19 20:10 12/09/19 20:30 12/09/19 22:25 White Blood Count 14.8 x10^3/uL (4.0-11.0) H Red Blood Count 4.51 x10^6/uL (4.30-5.70) Hemoglobin 13.6 g/dL (13.0-17.5) Hematocrit 39.9 % (39.0-53.0) Mean Corpuscular Volume 89 fL (79-100) Mean Corpuscular Hemoglobin 30 pg (25-35) Mean Corpuscular Hemoglobin Concent 34 g/dL (31-37) Red Cell Distribution Width 14.8 % (11.5-14.5) H Platelet Count 276 x10^3/uL (140-400) Neutrophils (%) (Auto) 87 % (31-73) H Lymphocytes (%) (Auto) 6 % (24-48) L Monocytes (%) (Auto) 6 % (0-9) Eosinophils (%) (Auto) 0 % (0-3) Basophils (%) (Auto) 0 % (0-3) Neutrophils # (Auto) 12.9 x10^3/uL (1.8-7.7) H Lymphocytes # (Auto) 0.9 x10^3/uL (1.0-4.8) L Monocytes # (Auto) 0.9 x10^3/uL (0.0-1.1) Eosinophils # (Auto) 0.0 x10^3/uL (0.0-0.7) Basophils # (Auto) 0.1 x10^3/uL (0.0-0.2) Segmented Neutrophils % 84 % (35-66) H Band Neutrophils % 3 % (0-9) Lymphocytes % 6 % (24-48) L Monocytes % 7 % (0-10) Toxic Granulation Slight Platelet Estimate Adequate (ADEQUATE) Sodium Level 140 mmol/L (136-145) Potassium Level 3.7 mmol/L (3.5-5.1) Chloride Level 104 mmol/L (98-107) Carbon Dioxide Level 27 mmol/L (21-32) Anion Gap 9 (6-14) Blood Urea Nitrogen 25 mg/dL (8-26) Creatinine 1.5 mg/dL (0.7-1.3) H Estimated GFR (Cockcroft-Gault) 44.3 BUN/Creatinine Ratio 17 (6-20) Glucose Level 120 mg/dL (70-99) H Lactic Acid Level 2.4 mmol/L (0.4-2.0) H Calcium Level 8.3 mg/dL (8.5-10.1) L Total Bilirubin 5.9 mg/dL (0.2-1.0) H Direct Bilirubin 4.5 mg/dL (0.0-0.2) H Aspartate Amino Transferase (AST) 220 U/L (15-37) H Alanine Aminotransferase (ALT) 128 U/L (16-63) H Alkaline Phosphatase 832 U/L (46-116) H Total Protein 6.3 g/dL (6.4-8.2) L Albumin 2.5 g/dL (3.4-5.0) L Albumin/Globulin Ratio 0.7 (1.0-1.7) L Urine Collection Type Unknown Urine Color Inga Urine Clarity Cloudy Urine pH 6.5 (<5.0-8.0) Urine Specific [place] 1.015 (1.000-1.030) Urine Protein 30 mg/dL (NEG-TRACE) Urine Glucose (UA) Negative mg/dL (NEG) Urine Ketones (Stick) Negative mg/dL (NEG) Urine Blood Moderate (NEG) Urine Nitrite Negative (NEG) Urine Bilirubin Small (NEG) Urine Urobilinogen Dipstick 1.0 mg/dL (0.2 mg/dL) Urine Leukocyte Esterase Large (NEG) Urine RBC 6-10 /HPF (0-2) Urine WBC Tntc /HPF (0-4) Urine Squamous Epithelial Cells None /LPF Urine Bacteria Many /HPF (0-FEW) Influenza Type A Antigen Negative (NEGATIVE) Influenza Type B Antigen Negative (NEGATIVE) Laboratory Tests 12/09/19 20:10 Laboratory Tests 12/09/19 20:10 Vital Signs: Vital Signs Date Time Temp Pulse Resp B/P (MAP) Pulse Ox O2 Delivery O2 Flow Rate FiO2 12/09/19 23:03 93 22 96 12/09/19 21:34 104/66 12/09/19 20:00 98.9 Room Air 98.9 EKG: EKG: [] Radiology/Procedures: Radiology/Procedures: [] Impression: PROCEDURE: ABDOMEN LTD Exam: Ultrasound abdomen limited Indication: Elevated LFTs and bilirubin Technique: Real-time grayscale and color Doppler images of the right upper quadrant were obtained by the department audio/video engineer. Comparisons: None FINDINGS: Liver contour is normal. Hepatopedal flow noted within the portal vein. Common bile duct measures 7 mm in diameter. Gallbladder is contracted. Gallstones are noted. No pericholecystic fluid or sonographic Rodriguez sign. Right kidney measures 11.7 cm in length. No hydronephrosis. Visualized portions of aorta and IVC are unremarkable. IMPRESSION: 1. Cholelithiasis without secondary evidence of acute cholecystitis. 2. Normal sonographic appearance of the liver. 3. No right-sided hydronephrosis. Electronically signed by: Royal Olmos MD (12/09/2019 11:23 PM) [id number] PROCEDURE: PORTABLE CHEST 1V Exam: Chest one view INDICATION: Fever, shortness of breath TECHNIQUE: Frontal view of the chest Comparisons: 10/21/2019 FINDINGS: The cardiomediastinal silhouette and pulmonary vessels are within normal limits. The lung and pleural spaces are clear. IMPRESSION: No acute cardiopulmonary process. Electronically signed by: Royal Olmos MD (12/09/2019 9:29 PM) [id number] Course & Med Decision Making: Course & Med Decision Making Pertinent Labs and Imaging studies reviewed. (See chart for details) [] Dragon Disclaimer: Dragon Disclaimer: This electronic medical record was generated, in whole or in part, using a voice recognition dictation system. Departure Departure Impression: Primary Impression: UTI (urinary tract infection) Qualified Codes: N39.0 - Urinary tract infection, site not specified; R31.9 - Hematuria, unspecified Additional Impressions: AMS (altered mental status) Qualified Codes: R41.82 - Altered mental status, unspecified Atrial fibrillation with RVR Person under investigation for COVID-19 Cholelithiasis Qualified Codes: K80.80 - Other cholelithiasis without obstruction Elevated bilirubin Disposition: 09 ADMITTED INPATIENT Admitting Physician: EDUARDO Condition: IMPROVED Referrals: KURT LE DO (PCP) Justicifation of Admission Dx: Justifications for Admission: Justification of Admission Dx: Comment: (AMS; UTI; cholelithiasis) JASON WEBER Jr., DO Dec 09, 2019 23:59
[2019-12-10] VITALS (11 sets, daily range): BP systolic 115–148; BP diastolic 68–82
[2019-12-10] MEDS ORDERED: ACETAMINOPHEN 325 MG TABLET. PO PRN
[2019-12-10] MEDS ORDERED: IV NORMAL SALINE 1000ML BAG 1,000 ML IV SCH
[2019-12-10] MEDS ORDERED: ONDANSETRON PF 4 MG/2 ML VIAL. IV PRN ×2 (01:00)
[2019-12-10 02:33] LABS: BASO % 0 % (0-3); EOS % 0 % (0-3); HEMATOCRIT 38.9 % (39.0-53.0); HEMOGLOBIN 12.8 g/dL (13.0-17.5); LYMPH # 1.8 x10^3/uL (1.0-4.8); LYMPH % 13 % (24-48); MEAN CORPUSCULAR HEMOGLOBIN 30 pg (25-35); MEAN CORPUSCULAR HGB CONC 33 g/dL (31-37); MEAN CORPUSCULAR VOLUME 90 fL (79-100); MONO # 0.6 x10^3/uL (0.0-1.1); MONO % 5 % (0-9); NEUT % 82 % (31-73); PLATELET COUNT 243 x10^3/uL (140-400); RED BLOOD COUNT 4.33 x10^6/uL (4.30-5.70); RED CELL DISTRIBUTION WIDTH 15.4 % (11.5-14.5); WHITE BLOOD COUNT 13.4 x10^3/uL (4.0-11.0)
[2019-12-10 02:46] LABS: CALCIUM 7.9 mg/dL (8.5-10.1); CREATININE 1.3 mg/dL (0.7-1.3); GFR 52.2
--- NOTE | 2019-12-10 04:22 | EKG ---
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
[2019-12-10] MEDS: PIPERACILLIN/TAZOBACTAM 3.375 GM in IV NORMAL SALINE 50ML 50 ML IV SCH ×4 (06:15→23:57)
[2019-12-10] MEDS: LEVOTHYROXINE 100 MCG TABLET PO SCH (06:17)
--- NOTE | 2019-12-10 07:42 | PDOC2 ---
KALA EUCEDA CALENDER ROLL OPERATOR 12/10/19 0742: CARDIAC CONSULT DATE OF CONSULT Date of Consult DATE: 12/10/19 TIME: 07:25 REASON FOR CONSULT Reason for Consult: AFIB RVR REFERRING PHYSICIAN Referring Physician: Vinicio SOURCE Source: Chart review, Patient HISTORY OF PRESENT ILLNESS HISTORY OF PRESENT ILLNESS This is an 89 yo male admitted for noted increase in confusion. He is from [facility] and was noted with fever with possible Covid exposure. Notable for SOA but nocomplains of chest pain. Pt is a poor historian due to dementia but is not in any pain. Details are limited due to his mentation but currently no SOA as I discussed his status with RN. He has AFIB chronic and was noted with RVR and presently controlled. PAST MEDICAL HISTORY Cardiovascular: AFIB, CHF, HTN, Hyperlipidemia, Valve insufficiency Pulmonary: Other (RML mass) CENTRAL NERVOUS SYSTEM: Dementia GI: Diverticulosis, GI bleed Heme/Onc: Cancer (rectal), Other (DVT) Hepatobiliary: Other (Cholelithiasis/choledocholithiasis - ) Psych: Anxiety Musculoskeletal: Osteoarthritis Rheumatologic: No pertinent hx ENT: Other (cataract) Renal/: UTI, Urinary Incontinence, Hematuria Endocrine: Hypothyroidism Dermatology: Squamous cell PAST SURGICAL HISTORY Past Surgical History History of rectal cancer status post LAR with ileostomy and takedown and chemo and radiation; IVC filter Past Surgical History: Other (s/p ERCP 10/22/19 w/ sphincterotomy/stone extraction, did not pursue cholecystectomy) FAMILY HISTORY Family History noncontributory to age SOCIAL HISTORY Smoke: No ALCOHOL: none Drugs: None Lives: [facility] CURRENT MEDICATIONS CURRENT MEDICATIONS Current Medications Medications (Trade) Dose Ordered Sig/Mike Route PRN Reason Start Time Stop Time Status Last Admin Dose Admin Sodium Chloride 1,000 ml @ 1,000 mls/hr Q1H IV 12/09/19 20:05 12/09/19 21:04 DC 12/09/19 20:40 Piperacillin Sod/ Tazobactam Sod 3.375 gm/Sodium Chloride 50 ml @ 100 mls/hr 1X ONCE IV 12/09/19 21:00 12/09/19 21:29 DC 12/09/19 21:33 Diltiazem HCl (Cardizem Iv Push) 10 mg 1X ONCE IVP 12/09/19 21:00 12/09/19 21:01 DC 12/09/19 21:34 Sodium Chloride 1,000 ml @ 1,000 mls/hr 1X ONCE IV 12/09/19 22:00 12/09/19 22:59 DC 12/09/19 21:56 Vancomycin HCl 250 ml @ 250 mls/hr 1X ONCE IV 12/09/19 22:00 12/09/19 22:59 DC 12/09/19 22:30 Piperacillin Sod/ Tazobactam Sod 3.375 gm/Sodium Chloride 50 ml @ 100 mls/hr Q6HRS IV 12/10/19 06:00 12/10/19 06:15 Levothyroxine Sodium (Synthroid) 100 mcg DAILY06 PO 12/10/19 06:00 12/10/19 06:17 ALLERGIES ALLERGIES: Coded Allergies: amiodarone (Verified Allergy, Intermediate, 09/23/17) aspirin (Verified Allergy, Intermediate, 09/23/17) fexofenadine (Verified Allergy, Intermediate, 09/23/17) morphine (Verified Allergy, Intermediate, 09/23/17) simvastatin (Verified Allergy, Intermediate, 09/23/17) tramadol (Verified Allergy, Intermediate, 09/23/17) warfarin (Verified Allergy, Intermediate, 09/23/17) ROS Review of System limited, confused PHYSICAL EXAM PHYSICAL EXAM discussed with RN. General: Alert, Cooperative, No acute distress HEENT: Atraumatic Lungs: Clear to auscultation Heart: Other (AFIB) Abdomen: Soft Extremities: No edema Skin: No breakdown Neuro: Normal speech Psych/Mental Status: Other (confused) MUSCULOSKELETAL: Osteoarthritic changes both hands VITALS/I&O VITALS/I&O: Vital Signs Date Time Temp Pulse Resp B/P (MAP) Pulse Ox O2 Delivery O2 Flow Rate FiO2 12/10/19 06:00 68 17 133/81 (98) 97 Room Air 12/10/19 00:49 98.3 98.3 I & O 12/09/19 12/09/19 12/10/19 15:00 23:00 07:00 Intake Total 500 ml Balance 500 ml LABS Lab: Laboratory Tests Test 12/09/19 20:10 12/09/19 20:30 12/09/19 22:25 12/09/19 22:49 White Blood Count 14.8 x10^3/uL (4.0-11.0) H Red Blood Count 4.51 x10^6/uL (4.30-5.70) Hemoglobin 13.6 g/dL (13.0-17.5) Hematocrit 39.9 % (39.0-53.0) Mean Corpuscular Volume 89 fL (79-100) Mean Corpuscular Hemoglobin 30 pg (25-35) Mean Corpuscular Hemoglobin Concent 34 g/dL (31-37) Red Cell Distribution Width 14.8 % (11.5-14.5) H Platelet Count 276 x10^3/uL (140-400) Neutrophils (%) (Auto) 87 % (31-73) H Lymphocytes (%) (Auto) 6 % (24-48) L Monocytes (%) (Auto) 6 % (0-9) Eosinophils (%) (Auto) 0 % (0-3) Basophils (%) (Auto) 0 % (0-3) Neutrophils # (Auto) 12.9 x10^3/uL (1.8-7.7) H Lymphocytes # (Auto) 0.9 x10^3/uL (1.0-4.8) L Monocytes # (Auto) 0.9 x10^3/uL (0.0-1.1) Eosinophils # (Auto) 0.0 x10^3/uL (0.0-0.7) Basophils # (Auto) 0.1 x10^3/uL (0.0-0.2) Segmented Neutrophils % 84 % (35-66) H Band Neutrophils % 3 % (0-9) Lymphocytes % 6 % (24-48) L Monocytes % 7 % (0-10) Toxic Granulation Slight Platelet Estimate Adequate (ADEQUATE) Sodium Level 140 mmol/L (136-145) Potassium Level 3.7 mmol/L (3.5-5.1) Chloride Level 104 mmol/L (98-107) Carbon Dioxide Level 27 mmol/L (21-32) Anion Gap 9 (6-14) Blood Urea Nitrogen 25 mg/dL (8-26) Creatinine 1.5 mg/dL (0.7-1.3) H Estimated GFR (Cockcroft-Gault) 44.3 BUN/Creatinine Ratio 17 (6-20) Glucose Level 120 mg/dL (70-99) H Lactic Acid Level 2.4 mmol/L (0.4-2.0) H Calcium Level 8.3 mg/dL (8.5-10.1) L Total Bilirubin 5.9 mg/dL (0.2-1.0) H Direct Bilirubin 4.5 mg/dL (0.0-0.2) H Aspartate Amino Transferase (AST) 220 U/L (15-37) H Alanine Aminotransferase (ALT) 128 U/L (16-63) H Alkaline Phosphatase 832 U/L (46-116) H Total Protein 6.3 g/dL (6.4-8.2) L Albumin 2.5 g/dL (3.4-5.0) L Albumin/Globulin Ratio 0.7 (1.0-1.7) L Urine Collection Type Unknown Urine Color Inga Urine Clarity Cloudy Urine pH 6.5 (<5.0-8.0) Urine Specific [place] 1.015 (1.000-1.030) Urine Protein 30 mg/dL (NEG-TRACE) Urine Glucose (UA) Negative mg/dL (NEG) Urine Ketones (Stick) Negative mg/dL (NEG) Urine Blood Moderate (NEG) Urine Nitrite Negative (NEG) Urine Bilirubin Small (NEG) Urine Urobilinogen Dipstick 1.0 mg/dL (0.2 mg/dL) Urine Leukocyte Esterase Large (NEG) Urine RBC 6-10 /HPF (0-2) Urine WBC Tntc /HPF (0-4) Urine Squamous Epithelial Cells None /LPF Urine Bacteria Many /HPF (0-FEW) Influenza Type A Antigen Negative (NEGATIVE) Influenza Type B Antigen Negative (NEGATIVE) Group A Streptococcus Rapid Negative (NEGATIVE) Test 12/10/19 01:40 12/10/19 06:00 White Blood Count 13.4 x10^3/uL (4.0-11.0) H Red Blood Count 4.33 x10^6/uL (4.30-5.70) Hemoglobin 12.8 g/dL (13.0-17.5) L Hematocrit 38.9 % (39.0-53.0) L Mean Corpuscular Volume 90 fL (79-100) Mean Corpuscular Hemoglobin 30 pg (25-35) Mean Corpuscular Hemoglobin Concent 33 g/dL (31-37) Red Cell Distribution Width 15.4 % (11.5-14.5) H Platelet Count 243 x10^3/uL (140-400) Neutrophils (%) (Auto) 82 % (31-73) H Lymphocytes (%) (Auto) 13 % (24-48) L Monocytes (%) (Auto) 5 % (0-9) Eosinophils (%) (Auto) 0 % (0-3) Basophils (%) (Auto) 0 % (0-3) Neutrophils # (Auto) 11.0 x10^3/uL (1.8-7.7) H Lymphocytes # (Auto) 1.8 x10^3/uL (1.0-4.8) Monocytes # (Auto) 0.6 x10^3/uL (0.0-1.1) Eosinophils # (Auto) 0.0 x10^3/uL (0.0-0.7) Basophils # (Auto) 0.0 x10^3/uL (0.0-0.2) Sodium Level 141 mmol/L (136-145) Potassium Level 4.0 mmol/L (3.5-5.1) Chloride Level 105 mmol/L (98-107) Carbon Dioxide Level 27 mmol/L (21-32) Anion Gap 9 (6-14) Blood Urea Nitrogen 24 mg/dL (8-26) Creatinine 1.3 mg/dL (0.7-1.3) Estimated GFR (Cockcroft-Gault) 52.2 Glucose Level 126 mg/dL (70-99) H Lactic Acid Level 1.3 mmol/L (0.4-2.0) Calcium Level 7.9 mg/dL (8.5-10.1) L Ammonia 22 mcmol/L (11-34) Troponin I Quantitative 0.050 ng/mL (0.000-0.055) 0.028 ng/mL (0.000-0.055) Laboratory Tests 12/09/19 20:10 12/10/19 01:40 Laboratory Tests 12/09/19 20:10 12/10/19 01:40 ECHOCARDIOGRAM ECHOCARDIOGRAM <Conclusion> Left ventricle systolic function is mildly impaired. The Ejection Fraction is 45-50%. Septal motion consistent with conduction abnormality. Otherwise, there is mild global hypokinesis. Doppler and Color Flow revealed mild tricuspid regurgitation. There is moderate pulmonary hypertension. The PA pressure was estimated at 51 mmHg. DATE: 10/22/19 1433 ASSESSMENT/PLAN ASSESSMENT/PLAN 1. Chronic AFIB with RVR: now controlled 2. Transaminitis: recent ERCP with still noted cholelithiasis. GI consulted 3. HTN: controlled 4. HLP 5. Metabolic Encephalopathy with associated dementia likely secondary to ongoing UTI/fever 6. Hypothyroidism: on replacement 7. Suspect CKD3 8. Mild cardiomyopathy: compensated 9. Hx of DVT with IVC filter 10. Hematuria with prostamegaly: Pt accidentally pulled out martini per RN Defer to PCP Recommendations TSH, Mg Continue eliquis and BB. May hold eliquis if hematuria does not resolved or worsen. Supportive care VIDA WATTS MD 12/10/19 1707: CARDIAC CONSULT ASSESSMENT/PLAN ASSESSMENT/PLAN Pt. seen and examined. 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 Supportive care. Thanks. KALA EUCEDA APRN Dec 10, 2019 07:42 VIDA WATTS MD Dec 10, 2019 17:07
[2019-12-10] MEDS: APIXABAN 5 MG TABLET. PO SCH ×2 (08:47→20:38)
[2019-12-10] MEDS: PANTOPRAZOLE 40 MG TABLET.DR. PO SCH (08:47)
[2019-12-10] MEDS: VITAMIN E 200 UNIT CAPSULE. PO SCH (08:47)
[2019-12-10] MEDS: LACTOBACILLUS RHAMNOSUS GG 1 CAPSULE. PO SCH ×2 (08:47→20:38)
[2019-12-10] MEDS: METOPROLOL TART IMMED RELEASE 25 MG TABLET. PO SCH ×2 (08:48→20:38)
[2019-12-10] MEDS: ZINC OXIDE 20% TOPICAL OINTMENT 28GM TUBE. TP SCH (09:00)
[2019-12-10] MEDS: POLYETHYLENE GLYCOL 3350 17 GM PACKET. PO SCH (10:27)
[2019-12-10] MEDS: PSYLLIUM HUSK (SUGAR FREE) 1 PKT PACKET PO SCH (10:27)
--- NOTE | 2019-12-10 10:53 | PDOC1 ---
History and Physical Date of Admission Date of Admission DATE: 12/10/19 TIME: 10:26 Identification/Chief Complaint Chief Complaint confusion Source Source: Chart review, Patient History of Present Illness History of Present Illness Mr Mckeon is an 89yo M w/ PMHx A Fib, DVT, mitral valve insufficiency, HTN, HLD, MARLON, BCC and SCC, UTI, cholelithiasis, hypothyroidism, rectal cancer s/p LAR w/ ileostomy/takedown and chemo/rad, IVC filter who presents with confusion from SNF. admitted a few weeks ago here at [facility] for AMS secondary to hemorragic cystitis that resolved. also admitted back in October for the same. Also noted to have A 2.2 cm mass seen in the right middle lobe as well as another 7 mm nodule seen in the same lobe on the right side. This was seen on a October CT abdomen and pelvis as well. no plans for bx per family. Also Noted back in October 2019, He was found with obstructive jaundice and underwent ERCP with CBD stone extraction on 10/22/2019. Hx very difficult due to AMS. UTI suspected and patient admitted for AMS secondary to UTI Past Medical History Cardiovascular: AFIB, CHF, HTN, Hyperlipidemia, Valve insufficiency Pulmonary: Other (RML mass) CENTRAL NERVOUS SYSTEM: Dementia GI: Diverticulosis, GI bleed Heme/Onc: Cancer (rectal), Other (DVT) Hepatobiliary: Other (Cholelithiasis/choledocholithiasis - ) Psych: Anxiety Musculoskeletal: Osteoarthritis Rheumatologic: No pertinent hx ENT: Other (cataract) Renal/: UTI, Urinary Incontinence, Hematuria Endocrine: Hypothyroidism Dermatology: Squamous cell Past Surgical History Past Surgical History: Other (s/p ERCP 10/22/19 w/ sphincterotomy/stone extraction, did not pursue cholecystectomy) Family History Family History reviewed and denies Family History: Other Social History Smoke: No ALCOHOL: none Drugs: None Current Problem List Problem List Problems Medical Problems: (1) AMS (altered mental status) Status: Acute (2) Atrial fibrillation with RVR Status: Acute (3) Cholelithiasis Status: Acute (4) Elevated bilirubin Status: Acute (5) Person under investigation for COVID-19 Status: Acute (6) UTI (urinary tract infection) Status: Acute Current Medications Current Medications Current Medications Sodium Chloride 1,000 ml @ 1,000 mls/hr Q1H IV Last administered on 12/09/19at 20:40; Start 6/25/20 at 20:05; Stop 12/09/19 at 21:04; Status DC Piperacillin Sod/ Tazobactam Sod 3.375 gm/Sodium Chloride 50 ml @ 100 mls/hr 1X ONCE IV Last administered on 12/09/19at 21:33; Start 12/09/19 at 21:00; Stop 12/09/19 at 21:29; Status DC Diltiazem HCl (Cardizem Iv Push) 10 mg 1X ONCE IVP Last administered on at 21:34; Start 12/09/19 at 21:00; Stop 12/09/19 at 21:01; Status DC Sodium Chloride 1,000 ml @ 1,000 mls/hr 1X ONCE IV Last administered on 12/09/19at 21:56; Start 12/09/19 at 22:00; Stop 12/09/19 at 22:59; Status DC Vancomycin HCl 250 ml @ 250 mls/hr 1X ONCE IV Last administered on 12/09/19at 22:30; Start 12/09/19 at 22:00; Stop 12/09/19 at 22:59; Status DC Ondansetron HCl (Zofran) 4 mg PRN Q8HRS PRN IV NAUSEA/VOMITING; Start 12/10/19 at 00:00; Stop 12/10/19 at 01:03; Status DC Sodium Chloride 1,000 ml @ 100 mls/hr Q10H IV ; Start 12/10/19 at 00:00; Stop 12/10/19 at 00:04; Status DC Acetaminophen (Tylenol) 650 mg PRN Q4HRS PRN PO FEVER > 100.3'F; Start 12/10/19 at 00:00 Ondansetron HCl (Zofran) 4 mg PRN Q4HRS PRN IV NAUSEA/VOMITING; Start 12/10/19 at 01:00 Piperacillin Sod/ Tazobactam Sod 3.375 gm/Sodium Chloride 50 ml @ 100 mls/hr Q6HRS IV Last administered on 12/10/19at 06:15; Start 12/10/19 at 06:00 Lactobacillus Rhamnosus (Culturelle) 1 cap BID PO Last administered on 12/10/19at 08:47; Start 12/10/19 at 09:00 Levothyroxine Sodium (Synthroid) 100 mcg DAILY06 PO Last administered on 12/10/19at 06:17; Start 12/10/19 at 06:00 Metoprolol Tartrate (Lopressor) 25 mg BID PO Last administered on 12/10/19at 08:48; Start 12/10/19 at 09:00 Apixaban (Eliquis) 5 mg BID PO Last administered on 12/10/19at 08:47; Start 12/10/19 at 09:00 Polyethylene Glycol (miraLAX PACKET) 17 gm DAILY PO ; Start 12/10/19 at 09:00 Vitamin E (Vitamin E.) 400 unit DAILY PO Last administered on 12/10/19at 08:47; Start 12/10/19 at 09:00 Zinc Oxide (Zinc Oxide 20% Topical) 1 devonte DAILY TP ; Start 12/10/19 at 09:00 Pantoprazole Sodium (Protonix) 40 mg DAILYAC PO Last administered on 12/10/19at 08:47; Start 12/10/19 at 07:30 Psyllium Hydrophilic Mucilloid (Metamucil Fiber Packet) 1 pkt DAILY PO ; Start 12/10/19 at 09:00 Info (Anti-Coagulation Monitoring By Pharmacy) 1 each PRN DAILY PRN MC SEE COMMENTS; Start 12/10/19 at 09:15 Active Scripts Active Culturelle (Lactobacillus Rhamnosus Gg) 1 Each Cap.sprink 1 Cap PO BID 30 Days Metoprolol Tartrate 25 Mg Tablet 25 Mg PO BID 30 Days Amox Tr-K Clv 500-125 Mg Tab (Amoxicillin/Potassium Clav) 1 Each Tablet 1 Tab PO BID 8 Days [Pantoprazole] 40 MG Tablet.dr 40 Mg PO DAILYAC 30 Days Reported Vitamin E (Vitamin E Mixed) 400 Unit Capsule 400 Unit PO DAILY Multivitamins (Multivitamin) 1 Each Tablet 1 Tab PO DAILY Loperamide (Loperamide Hcl) 2 Mg Capsule 2 Mg PO PRN QID PRN Fish Oil 500 mg Softgel ([place]-3/Dha/Epa/Fish Oil) 1 Each Capsule 1 Each PO DAILY Acetaminophen 500 Mg Tablet 2 Tab PO PRN BID PRN Zinc Oxide 57 Gm Oint...g. 20 % TP DAILY Polyethylene Glycol 3350 2,500 Gm Powder 17 Gm PO DAILY Synthroid (Levothyroxine Sodium) 100 Mcg Tablet 100 Mcg PO DAILYAC Eliquis (Apixaban) 5 Mg Tab.ds.pk 5 Mg PO BID Allergies Allergies: Coded Allergies: amiodarone (Verified Allergy, Intermediate, 09/23/17) aspirin (Verified Allergy, Intermediate, 09/23/17) fexofenadine (Verified Allergy, Intermediate, 09/23/17) morphine (Verified Allergy, Intermediate, 09/23/17) simvastatin (Verified Allergy, Intermediate, 09/23/17) tramadol (Verified Allergy, Intermediate, 09/23/17) warfarin (Verified Allergy, Intermediate, 09/23/17) ROS Review of System CONSTITUTIONAL: No fever or chills EYES: No recent changes SKIN: No rash or itching CARDIOVASCULAR: No chest pain, syncope, palpitations, or edema RESPIRATORY: No SOB or cough GASTROINTESTINAL: No nausea, vomiting or abdominal pain NEUROLOGICAL: No headaches or weakness ENDOCRINE: No cold or heat intolerance GENITOURINARY: No urgency or frequency of urination MUSCULOSKELETAL: No back pain or joint pain LYMPHATICS: No enlarged lymph nodes PSYCHIATRIC: No anxiety or depression Physical Exam Physical Exam GENERAL: No apparent distress. Alert and oriented. HEENT: Head normocephalic, atraumatic. NECK: Supple LUNGS: Clear to auscultation. HEART: RRR, S1, S2 present, pulses intact ABDOMEN: Soft, positive bowel sounds. EXTREMITIES: No cyanosis or edema. NEUROLOGIC: Normal speech, normal tone PSYCHIATRIC: Normal affect, normal mood. SKIN: No ulceration. Vitals Vitals Vital Signs Date Time Temp Pulse Resp B/P (MAP) Pulse Ox O2 Delivery O2 Flow Rate FiO2 12/10/19 08:48 73 148/76 12/10/19 08:32 97.6 18 95 Room Air 97.6 Labs Labs Laboratory Tests Test 12/09/19 20:10 12/09/19 20:30 12/09/19 22:25 12/09/19 22:49 White Blood Count 14.8 x10^3/uL (4.0-11.0) Red Blood Count 4.51 x10^6/uL (4.30-5.70) Hemoglobin 13.6 g/dL (13.0-17.5) Hematocrit 39.9 % (39.0-53.0) Mean Corpuscular Volume 89 fL (79-100) Mean Corpuscular Hemoglobin 30 pg (25-35) Mean Corpuscular Hemoglobin Concent 34 g/dL (31-37) Red Cell Distribution Width 14.8 % (11.5-14.5) Platelet Count 276 x10^3/uL (140-400) Neutrophils (%) (Auto) 87 % (31-73) Lymphocytes (%) (Auto) 6 % (24-48) Monocytes (%) (Auto) 6 % (0-9) Eosinophils (%) (Auto) 0 % (0-3) Basophils (%) (Auto) 0 % (0-3) Neutrophils # (Auto) 12.9 x10^3/uL (1.8-7.7) Lymphocytes # (Auto) 0.9 x10^3/uL (1.0-4.8) Monocytes # (Auto) 0.9 x10^3/uL (0.0-1.1) Eosinophils # (Auto) 0.0 x10^3/uL (0.0-0.7) Basophils # (Auto) 0.1 x10^3/uL (0.0-0.2) Segmented Neutrophils % 84 % (35-66) Band Neutrophils % 3 % (0-9) Lymphocytes % 6 % (24-48) Monocytes % 7 % (0-10) Toxic Granulation Slight Platelet Estimate Adequate (ADEQUATE) Sodium Level 140 mmol/L (136-145) Potassium Level 3.7 mmol/L (3.5-5.1) Chloride Level 104 mmol/L (98-107) Carbon Dioxide Level 27 mmol/L (21-32) Anion Gap 9 (6-14) Blood Urea Nitrogen 25 mg/dL (8-26) Creatinine 1.5 mg/dL (0.7-1.3) Estimated GFR (Cockcroft-Gault) 44.3 BUN/Creatinine Ratio 17 (6-20) Glucose Level 120 mg/dL (70-99) Lactic Acid Level 2.4 mmol/L (0.4-2.0) Calcium Level 8.3 mg/dL (8.5-10.1) Total Bilirubin 5.9 mg/dL (0.2-1.0) Direct Bilirubin 4.5 mg/dL (0.0-0.2) Aspartate Amino Transf (AST/SGOT) 220 U/L (15-37) Alanine Aminotransferase (ALT/SGPT) 128 U/L (16-63) Alkaline Phosphatase 832 U/L (46-116) Total Protein 6.3 g/dL (6.4-8.2) Albumin 2.5 g/dL (3.4-5.0) Albumin/Globulin Ratio 0.7 (1.0-1.7) Urine Collection Type Unknown Urine Color Inga Urine Clarity Cloudy Urine pH 6.5 (<5.0-8.0) Urine Specific [place] 1.015 (1.000-1.030) Urine Protein 30 mg/dL (NEG-TRACE) Urine Glucose (UA) Negative mg/dL (NEG) Urine Ketones (Stick) Negative mg/dL (NEG) Urine Blood Moderate (NEG) Urine Nitrite Negative (NEG) Urine Bilirubin Small (NEG) Urine Urobilinogen Dipstick 1.0 mg/dL (0.2 mg/dL) Urine Leukocyte Esterase Large (NEG) Urine RBC 6-10 /HPF (0-2) Urine WBC Tntc /HPF (0-4) Urine Squamous Epithelial Cells None /LPF Urine Bacteria Many /HPF (0-FEW) Influenza Type A Antigen Negative (NEGATIVE) Influenza Type B Antigen Negative (NEGATIVE) Group A Streptococcus Rapid Negative (NEGATIVE) Test 12/10/19 01:40 12/10/19 06:00 White Blood Count 13.4 x10^3/uL (4.0-11.0) Red Blood Count 4.33 x10^6/uL (4.30-5.70) Hemoglobin 12.8 g/dL (13.0-17.5) Hematocrit 38.9 % (39.0-53.0) Mean Corpuscular Volume 90 fL (79-100) Mean Corpuscular Hemoglobin 30 pg (25-35) Mean Corpuscular Hemoglobin Concent 33 g/dL (31-37) Red Cell Distribution Width 15.4 % (11.5-14.5) Platelet Count 243 x10^3/uL (140-400) Neutrophils (%) (Auto) 82 % (31-73) Lymphocytes (%) (Auto) 13 % (24-48) Monocytes (%) (Auto) 5 % (0-9) Eosinophils (%) (Auto) 0 % (0-3) Basophils (%) (Auto) 0 % (0-3) Neutrophils # (Auto) 11.0 x10^3/uL (1.8-7.7) Lymphocytes # (Auto) 1.8 x10^3/uL (1.0-4.8) Monocytes # (Auto) 0.6 x10^3/uL (0.0-1.1) Eosinophils # (Auto) 0.0 x10^3/uL (0.0-0.7) Basophils # (Auto) 0.0 x10^3/uL (0.0-0.2) Sodium Level 141 mmol/L (136-145) Potassium Level 4.0 mmol/L (3.5-5.1) Chloride Level 105 mmol/L (98-107) Carbon Dioxide Level 27 mmol/L (21-32) Anion Gap 9 (6-14) Blood Urea Nitrogen 24 mg/dL (8-26) Creatinine 1.3 mg/dL (0.7-1.3) Estimated GFR (Cockcroft-Gault) 52.2 Glucose Level 126 mg/dL (70-99) Lactic Acid Level 1.3 mmol/L (0.4-2.0) Calcium Level 7.9 mg/dL (8.5-10.1) Ammonia 22 mcmol/L (11-34) Troponin I Quantitative 0.050 ng/mL (0.000-0.055) 0.028 ng/mL (0.000-0.055) Magnesium Level 1.9 mg/dL (1.8-2.4) Thyroid Stimulating Hormone (TSH) 0.905 uIU/mL (0.358-3.74) Laboratory Tests Test 12/09/19 20:10 12/09/19 20:30 12/09/19 22:25 12/09/19 22:49 White Blood Count 14.8 x10^3/uL (4.0-11.0) Red Blood Count 4.51 x10^6/uL (4.30-5.70) Hemoglobin 13.6 g/dL (13.0-17.5) Hematocrit 39.9 % (39.0-53.0) Mean Corpuscular Volume 89 fL (79-100) Mean Corpuscular Hemoglobin 30 pg (25-35) Mean Corpuscular Hemoglobin Concent 34 g/dL (31-37) Red Cell Distribution Width 14.8 % (11.5-14.5) Platelet Count 276 x10^3/uL (140-400) Neutrophils (%) (Auto) 87 % (31-73) Lymphocytes (%) (Auto) 6 % (24-48) Monocytes (%) (Auto) 6 % (0-9) Eosinophils (%) (Auto) 0 % (0-3) Basophils (%) (Auto) 0 % (0-3) Neutrophils # (Auto) 12.9 x10^3/uL (1.8-7.7) Lymphocytes # (Auto) 0.9 x10^3/uL (1.0-4.8) Monocytes # (Auto) 0.9 x10^3/uL (0.0-1.1) Eosinophils # (Auto) 0.0 x10^3/uL (0.0-0.7) Basophils # (Auto) 0.1 x10^3/uL (0.0-0.2) Segmented Neutrophils % 84 % (35-66) Band Neutrophils % 3 % (0-9) Lymphocytes % 6 % (24-48) Monocytes % 7 % (0-10) Toxic Granulation Slight Platelet Estimate Adequate (ADEQUATE) Sodium Level 140 mmol/L (136-145) Potassium Level 3.7 mmol/L (3.5-5.1) Chloride Level 104 mmol/L (98-107) Carbon Dioxide Level 27 mmol/L (21-32) Anion Gap 9 (6-14) Blood Urea Nitrogen 25 mg/dL (8-26) Creatinine 1.5 mg/dL (0.7-1.3) Estimated GFR (Cockcroft-Gault) 44.3 BUN/Creatinine Ratio 17 (6-20) Glucose Level 120 mg/dL (70-99) Lactic Acid Level 2.4 mmol/L (0.4-2.0) Calcium Level 8.3 mg/dL (8.5-10.1) Total Bilirubin 5.9 mg/dL (0.2-1.0) Direct Bilirubin 4.5 mg/dL (0.0-0.2) Aspartate Amino Transf (AST/SGOT) 220 U/L (15-37) Alanine Aminotransferase (ALT/SGPT) 128 U/L (16-63) Alkaline Phosphatase 832 U/L (46-116) Total Protein 6.3 g/dL (6.4-8.2) Albumin 2.5 g/dL (3.4-5.0) Albumin/Globulin Ratio 0.7 (1.0-1.7) Urine Collection Type Unknown Urine Color Inga Urine Clarity Cloudy Urine pH 6.5 (<5.0-8.0) Urine Specific [place] 1.015 (1.000-1.030) Urine Protein 30 mg/dL (NEG-TRACE) Urine Glucose (UA) Negative mg/dL (NEG) Urine Ketones (Stick) Negative mg/dL (NEG) Urine Blood Moderate (NEG) Urine Nitrite Negative (NEG) Urine Bilirubin Small (NEG) Urine Urobilinogen Dipstick 1.0 mg/dL (0.2 mg/dL) Urine Leukocyte Esterase Large (NEG) Urine RBC 6-10 /HPF (0-2) Urine WBC Tntc /HPF (0-4) Urine Squamous Epithelial Cells None /LPF Urine Bacteria Many /HPF (0-FEW) Influenza Type A Antigen Negative (NEGATIVE) Influenza Type B Antigen Negative (NEGATIVE) Group A Streptococcus Rapid Negative (NEGATIVE) Test 12/10/19 01:40 12/10/19 06:00 White Blood Count 13.4 x10^3/uL (4.0-11.0) Red Blood Count 4.33 x10^6/uL (4.30-5.70) Hemoglobin 12.8 g/dL (13.0-17.5) Hematocrit 38.9 % (39.0-53.0) Mean Corpuscular Volume 90 fL (79-100) Mean Corpuscular Hemoglobin 30 pg (25-35) Mean Corpuscular Hemoglobin Concent 33 g/dL (31-37) Red Cell Distribution Width 15.4 % (11.5-14.5) Platelet Count 243 x10^3/uL (140-400) Neutrophils (%) (Auto) 82 % (31-73) Lymphocytes (%) (Auto) 13 % (24-48) Monocytes (%) (Auto) 5 % (0-9) Eosinophils (%) (Auto) 0 % (0-3) Basophils (%) (Auto) 0 % (0-3) Neutrophils # (Auto) 11.0 x10^3/uL (1.8-7.7) Lymphocytes # (Auto) 1.8 x10^3/uL (1.0-4.8) Monocytes # (Auto) 0.6 x10^3/uL (0.0-1.1) Eosinophils # (Auto) 0.0 x10^3/uL (0.0-0.7) Basophils # (Auto) 0.0 x10^3/uL (0.0-0.2) Sodium Level 141 mmol/L (136-145) Potassium Level 4.0 mmol/L (3.5-5.1) Chloride Level 105 mmol/L (98-107) Carbon Dioxide Level 27 mmol/L (21-32) Anion Gap 9 (6-14) Blood Urea Nitrogen 24 mg/dL (8-26) Creatinine 1.3 mg/dL (0.7-1.3) Estimated GFR (Cockcroft-Gault) 52.2 Glucose Level 126 mg/dL (70-99) Lactic Acid Level 1.3 mmol/L (0.4-2.0) Calcium Level 7.9 mg/dL (8.5-10.1) Ammonia 22 mcmol/L (11-34) Troponin I Quantitative 0.050 ng/mL (0.000-0.055) 0.028 ng/mL (0.000-0.055) Magnesium Level 1.9 mg/dL (1.8-2.4) Thyroid Stimulating Hormone (TSH) 0.905 uIU/mL (0.358-3.74) VTE Prophylaxis Ordered VTE Prophylaxis Devices: Yes VTE Pharmacological Prophylaxi: Yes Assessment/Plan Assessment/Plan ASSESSMENT Metabolic Encephalopathy with associated dementia likely secondary to ongoing UTI/fever A-Fib on chronic anticoagulaton, and mitral valve insufficiency Transaminitis: recent ERCP with still noted cholelithiasis HTN: controlled HLP Pulmonary nodules - with colon ca history concerning for possible mets. Hypothyroidism: HX OF CKD3 Chronic diastolic CHF Hx of DVT with IVC filter and oral AC MARLON - CPAP at night ESSENTIAL HTN HLD resolving choledocholithiasis (he had an ERCP on 10/22/2019 with sphincterotomy and stone extraction) History of rectal cancer status post LAR with ileostomy and takedown and chemo and radiation. PLAN start zosyn. discharged on augmentin last admission follow cultures restart BP meds hx of hemorragic cystitis last admission. continue levothyroxine restart PPI therapy no plans for further bx FULL CODE- would benefit from pallative care discussion given cancer and recurrent hospitalizations. covid screen pending dvt ppx: oral ac follow labs Justicifation of Admission Dx: Justifications for Admission: Justification of Admission Dx: Comment: (AMS; UTI; cholelithiasis) JASMYN HIDALGO MD Dec 10, 2019 10:53
[2019-12-10] MEDS: IV NORMAL SALINE 1000ML BAG 1,000 ML IV SCH (13:27)
--- NOTE | 2019-12-10 13:27 | PDOC2 ---
GI CONSULT Reason For Consult: elevated liver enzymes HPI: HPI: 89 y/o male who we know. Admission in 10/2019 for leukocytosis, elevated LFTs/concern for cholangitis, encephalopathy, UTI. S/p ERCP w/ sphincterotomy and stone extraction by Dr. Solorzano on 10/22/19. Cholecystectomy was not pursued per surgery/family dis cussion. COVID negative. Admission 11/2019 for hematuria, UTI, elevated LFTs, dilated CBD and choledocholithiasis on imaging, and RML mass. LFTs improved and family preferred conservative approach to lung mass - did not pursue biopsy. Surgery recommended treatment of UTI before discussing cholecystectomy. COVID negative. Admitted now w/ confusion, UTI, A Fib RVR (on Eliquis w/ IVC filter), and elevated LFTs (bili 5.9, AST 220, ALT 128, Alk Phos 832). COVID pending. Knows he's at [facility] and that Darren is president. Says the year is 2002. Denies reflux/heartburn, dysphagia, n/v, abd pain, diarrhea, constipation, and bleeding. He tells me he has "false teeth" so for dinner he wants something different. (?soft diet) H/o recurrent rectal bleeding and rectal cancer s/p LAR w/ ileostomy/takedown and chemo/rad. Colonoscopy by Dr. Lees in 09/2017 showed rectal ulcer (biopsy benign, possibly related to prior cancer treatment), normal mucosa throughout, and 5mm adenomatous polyp in ascending colon. PMH: PMH: per HPI plus: DVT, mitral valve insufficiency, HTN, HLD, MARLON, BCC and SCC, UTI, hypothyroidism, IVC filter, hernia repair FH: Family History: No pertinent hx Social History: Smoke: No ALCOHOL: none Drugs: None ROS: GEN: Denies fevers, chills, sweats HEENT: Denies blurred vision, sore throat CV: Denies chest pain RESP: Denies shortness of air, cough GI: Per HPI : Denies hematuria, dysuria ENDO: Denies weight changes NEURO: Denies confusion, dizziness MSK: Denies weakness, joint pain/swelling SKIN: Denies jaundice, pruritus Vitals: Vitals: Vital Signs Date Time Temp Pulse Resp B/P (MAP) Pulse Ox O2 Delivery O2 Flow Rate FiO2 12/10/19 10:47 97.4 80 18 135/70 (91) 97 Room Air 97.4 Labs: Labs: Laboratory Tests Test 12/09/19 20:10 12/09/19 20:30 12/09/19 22:25 12/09/19 22:49 White Blood Count 14.8 x10^3/uL (4.0-11.0) Red Blood Count 4.51 x10^6/uL (4.30-5.70) Hemoglobin 13.6 g/dL (13.0-17.5) Hematocrit 39.9 % (39.0-53.0) Mean Corpuscular Volume 89 fL (79-100) Mean Corpuscular Hemoglobin 30 pg (25-35) Mean Corpuscular Hemoglobin Concent 34 g/dL (31-37) Red Cell Distribution Width 14.8 % (11.5-14.5) Platelet Count 276 x10^3/uL (140-400) Neutrophils (%) (Auto) 87 % (31-73) Lymphocytes (%) (Auto) 6 % (24-48) Monocytes (%) (Auto) 6 % (0-9) Eosinophils (%) (Auto) 0 % (0-3) Basophils (%) (Auto) 0 % (0-3) Neutrophils # (Auto) 12.9 x10^3/uL (1.8-7.7) Lymphocytes # (Auto) 0.9 x10^3/uL (1.0-4.8) Monocytes # (Auto) 0.9 x10^3/uL (0.0-1.1) Eosinophils # (Auto) 0.0 x10^3/uL (0.0-0.7) Basophils # (Auto) 0.1 x10^3/uL (0.0-0.2) Segmented Neutrophils % 84 % (35-66) Band Neutrophils % 3 % (0-9) Lymphocytes % 6 % (24-48) Monocytes % 7 % (0-10) Toxic Granulation Slight Platelet Estimate Adequate (ADEQUATE) Sodium Level 140 mmol/L (136-145) Potassium Level 3.7 mmol/L (3.5-5.1) Chloride Level 104 mmol/L (98-107) Carbon Dioxide Level 27 mmol/L (21-32) Anion Gap 9 (6-14) Blood Urea Nitrogen 25 mg/dL (8-26) Creatinine 1.5 mg/dL (0.7-1.3) Estimated GFR (Cockcroft-Gault) 44.3 BUN/Creatinine Ratio 17 (6-20) Glucose Level 120 mg/dL (70-99) Lactic Acid Level 2.4 mmol/L (0.4-2.0) Calcium Level 8.3 mg/dL (8.5-10.1) Total Bilirubin 5.9 mg/dL (0.2-1.0) Direct Bilirubin 4.5 mg/dL (0.0-0.2) Aspartate Amino Transf (AST/SGOT) 220 U/L (15-37) Alanine Aminotransferase (ALT/SGPT) 128 U/L (16-63) Alkaline Phosphatase 832 U/L (46-116) Total Protein 6.3 g/dL (6.4-8.2) Albumin 2.5 g/dL (3.4-5.0) Albumin/Globulin Ratio 0.7 (1.0-1.7) Urine Collection Type Unknown Urine Color Inga Urine Clarity Cloudy Urine pH 6.5 (<5.0-8.0) Urine Specific [place] 1.015 (1.000-1.030) Urine Protein 30 mg/dL (NEG-TRACE) Urine Glucose (UA) Negative mg/dL (NEG) Urine Ketones (Stick) Negative mg/dL (NEG) Urine Blood Moderate (NEG) Urine Nitrite Negative (NEG) Urine Bilirubin Small (NEG) Urine Urobilinogen Dipstick 1.0 mg/dL (0.2 mg/dL) Urine Leukocyte Esterase Large (NEG) Urine RBC 6-10 /HPF (0-2) Urine WBC Tntc /HPF (0-4) Urine Squamous Epithelial Cells None /LPF Urine Bacteria Many /HPF (0-FEW) Influenza Type A Antigen Negative (NEGATIVE) Influenza Type B Antigen Negative (NEGATIVE) Group A Streptococcus Rapid Negative (NEGATIVE) Test 12/10/19 01:40 12/10/19 06:00 White Blood Count 13.4 x10^3/uL (4.0-11.0) Red Blood Count 4.33 x10^6/uL (4.30-5.70) Hemoglobin 12.8 g/dL (13.0-17.5) Hematocrit 38.9 % (39.0-53.0) Mean Corpuscular Volume 90 fL (79-100) Mean Corpuscular Hemoglobin 30 pg (25-35) Mean Corpuscular Hemoglobin Concent 33 g/dL (31-37) Red Cell Distribution Width 15.4 % (11.5-14.5) Platelet Count 243 x10^3/uL (140-400) Neutrophils (%) (Auto) 82 % (31-73) Lymphocytes (%) (Auto) 13 % (24-48) Monocytes (%) (Auto) 5 % (0-9) Eosinophils (%) (Auto) 0 % (0-3) Basophils (%) (Auto) 0 % (0-3) Neutrophils # (Auto) 11.0 x10^3/uL (1.8-7.7) Lymphocytes # (Auto) 1.8 x10^3/uL (1.0-4.8) Monocytes # (Auto) 0.6 x10^3/uL (0.0-1.1) Eosinophils # (Auto) 0.0 x10^3/uL (0.0-0.7) Basophils # (Auto) 0.0 x10^3/uL (0.0-0.2) Sodium Level 141 mmol/L (136-145) Potassium Level 4.0 mmol/L (3.5-5.1) Chloride Level 105 mmol/L (98-107) Carbon Dioxide Level 27 mmol/L (21-32) Anion Gap 9 (6-14) Blood Urea Nitrogen 24 mg/dL (8-26) Creatinine 1.3 mg/dL (0.7-1.3) Estimated GFR (Cockcroft-Gault) 52.2 Glucose Level 126 mg/dL (70-99) Lactic Acid Level 1.3 mmol/L (0.4-2.0) Calcium Level 7.9 mg/dL (8.5-10.1) Ammonia 22 mcmol/L (11-34) Troponin I Quantitative 0.050 ng/mL (0.000-0.055) 0.028 ng/mL (0.000-0.055) Magnesium Level 1.9 mg/dL (1.8-2.4) Thyroid Stimulating Hormone (TSH) 0.905 uIU/mL (0.358-3.74) Allergies: Coded Allergies: amiodarone (Verified Allergy, Intermediate, 09/23/17) aspirin (Verified Allergy, Intermediate, 09/23/17) fexofenadine (Verified Allergy, Intermediate, 09/23/17) morphine (Verified Allergy, Intermediate, 09/23/17) simvastatin (Verified Allergy, Intermediate, 09/23/17) tramadol (Verified Allergy, Intermediate, 09/23/17) warfarin (Verified Allergy, Intermediate, 09/23/17) Medications: Current Medications Medications (Trade) Dose Ordered Sig/Mike Route PRN Reason Start Time Stop Time Status Last Admin Dose Admin Sodium Chloride 1,000 ml @ 1,000 mls/hr Q1H IV 12/09/19 20:05 12/09/19 21:04 DC 12/09/19 20:40 Piperacillin Sod/ Tazobactam Sod 3.375 gm/Sodium Chloride 50 ml @ 100 mls/hr 1X ONCE IV 12/09/19 21:00 12/09/19 21:29 DC 12/09/19 21:33 Diltiazem HCl (Cardizem Iv Push) 10 mg 1X ONCE IVP 12/09/19 21:00 12/09/19 21:01 DC 12/09/19 21:34 Sodium Chloride 1,000 ml @ 1,000 mls/hr 1X ONCE IV 12/09/19 22:00 12/09/19 22:59 DC 12/09/19 21:56 Vancomycin HCl 250 ml @ 250 mls/hr 1X ONCE IV 12/09/19 22:00 12/09/19 22:59 DC 12/09/19 22:30 Piperacillin Sod/ Tazobactam Sod 3.375 gm/Sodium Chloride 50 ml @ 100 mls/hr Q6HRS IV 12/10/19 06:00 12/10/19 12:05 Lactobacillus Rhamnosus (Culturelle) 1 cap BID PO 12/10/19 09:00 12/10/19 08:47 Levothyroxine Sodium (Synthroid) 100 mcg DAILY06 PO 12/10/19 06:00 12/10/19 06:17 Metoprolol Tartrate (Lopressor) 25 mg BID PO 12/10/19 09:00 12/10/19 08:48 Apixaban (Eliquis) 5 mg BID PO 12/10/19 09:00 12/10/19 08:47 Polyethylene Glycol (miraLAX PACKET) 17 gm DAILY PO 12/10/19 09:00 12/10/19 10:27 Vitamin E (Vitamin E.) 400 unit DAILY PO 12/10/19 09:00 12/10/19 08:47 Zinc Oxide (Zinc Oxide 20% Topical) 1 devonte DAILY TP 12/10/19 09:00 12/10/19 09:00 Pantoprazole Sodium (Protonix) 40 mg DAILYAC PO 12/10/19 07:30 12/10/19 08:47 Psyllium Hydrophilic Mucilloid (Metamucil Fiber Packet) 1 pkt DAILY PO 12/10/19 09:00 12/10/19 10:27 Imaging: Imaging: CXR 12/09/19 IMPRESSION: No acute cardiopulmonary process. Abd US 12/09/19 FINDINGS: Liver contour is normal. Hepatopedal flow noted within the portal vein. Common bile duct measures 7 mm in diameter. Gallbladder is contracted. Gallstones are noted. No pericholecystic fluid or sonographic Rodriguez sign. Right kidney measures 11.7 cm in length. No hydronephrosis. Visualized portions of aorta and IVC are unremarkable. IMPRESSION: 1. Cholelithiasis without secondary evidence of acute cholecystitis. 2. Normal sonographic appearance of the liver. 3. No right-sided hydronephrosis. PE: GEN: NAD HEENT: Atraumatic, PERRL LUNGS: diminished anteriorly HEART: RR ABD: NABS, S/ND/NT EXTREMITY: No edema SKIN: No rashes, no jaundice NEURO/PSYCH: pleasantly confused A/P: A/P: Confusion UTI, A Fib RVR - on Eliquis w/ IVC filter Leukocytosis (better), HECTOR (resolved), lactic acidosis (resolved), elevated LFTs H/o cholelithiasis, choledocholithiasis - s/p ERCP/sphincterotomy/stone extraction last month; cholecystectomy not pursued per family; had surgery eval in 10/2019 and 11/2019 H/o rectal cancer s/p LAR CRC screen - UTD (2018 - benign rectal ulcer, adenomatous polyp) Right lung mass - biopsy not pursued, conservative approach preferred by family - had pulm eval in 11/2019 R/o COVID-19 -- LFTs to be rechecked in a.m. Supportive care per GI. Goals of care discussion might be beneficial w/ frequent admissions - defer to primary. STEVE MIX Dec 10, 2019 13:27
--- NOTE | 2019-12-10 15:03 | NUR ---
Wound Care: Picture consult d/t pending Covid. Coccyx wound on pictured appears macerated d/t incontinence. Recommendations to keep applying zinc oxide daily and as needed, no briefs. Wound care will follow up on Tuesday 12/12.
--- NOTE | 2019-12-10 16:53 | NUR ---
SW following for discharge planning. SW reviewed chart and coordinated care with RN. SW familiar with this pt from previous admission. Pt resides in [place] at the [facility], , (fax). PT/OT has been ordered. COVID testing has been ordered. Pt on room air. SW printed clinicals and faxed them to [facility] for update. SW will continue following.
[2019-12-11 03:20] VITALS: BP 125/67
[2019-12-11] MEDS: IV NORMAL SALINE 1000ML BAG 1,000 ML IV SCH ×2 (04:55→14:26)
[2019-12-11 05:25] LABS: BASO # 0.1 x10^3/uL (0.0-0.2); BASO % 0 % (0-3); EOS # 0.3 x10^3/uL (0.0-0.7); EOS % 2 % (0-3); HEMATOCRIT 36.6 % (39.0-53.0); LYMPH # 1.7 x10^3/uL (1.0-4.8); LYMPH % 14 % (24-48); MEAN CORPUSCULAR HEMOGLOBIN 30 pg (25-35); MEAN CORPUSCULAR HGB CONC 33 g/dL (31-37); MEAN CORPUSCULAR VOLUME 90 fL (79-100); MONO # 0.9 x10^3/uL (0.0-1.1); MONO % 7 % (0-9); NEUT # 9.5 x10^3/uL (1.8-7.7); NEUT % 77 % (31-73); PLATELET COUNT 232 x10^3/uL (140-400); RED BLOOD COUNT 4.08 x10^6/uL (4.30-5.70); RED CELL DISTRIBUTION WIDTH 14.9 % (11.5-14.5); WHITE BLOOD COUNT 12.4 x10^3/uL (4.0-11.0)
[2019-12-11 05:44] LABS: ALBUMIN 1.9 g/dL (3.4-5.0); CALCIUM 7.8 mg/dL (8.5-10.1); DIRECT BILIRUBIN 2.3 mg/dL (0.0-0.2); GFR 70.7; POTASSIUM 3.7 mmol/L (3.5-5.1); TOTAL BILIRUBIN 3.1 mg/dL (0.2-1.0); TOTAL PROTEIN 5.3 g/dL (6.4-8.2)
[2019-12-11] MEDS: LEVOTHYROXINE 100 MCG TABLET PO SCH (05:48)
[2019-12-11] MEDS: PIPERACILLIN/TAZOBACTAM 3.375 GM in IV NORMAL SALINE 50ML 50 ML IV SCH ×4 (05:48→23:24)
[2019-12-11 07:00] VITALS: BP 138/72
[2019-12-11] MEDS: PANTOPRAZOLE 40 MG TABLET.DR. PO SCH (08:35)
[2019-12-11] MEDS: LACTOBACILLUS RHAMNOSUS GG 1 CAPSULE. PO SCH ×2 (08:35→21:07)
[2019-12-11] MEDS: VITAMIN E 200 UNIT CAPSULE. PO SCH (08:35)
[2019-12-11] MEDS: POLYETHYLENE GLYCOL 3350 17 GM PACKET. PO SCH (08:35)
[2019-12-11] MEDS: PSYLLIUM HUSK (SUGAR FREE) 1 PKT PACKET PO SCH (08:35)
[2019-12-11] MEDS: APIXABAN 5 MG TABLET. PO SCH ×2 (08:35→21:08)
[2019-12-11] MEDS: MULTIVITAMIN with MINERAL TABLET. PO SCH (08:35)
[2019-12-11] MEDS: ZINC OXIDE 20% TOPICAL OINTMENT 28GM TUBE. TP SCH (09:00)
[2019-12-11] MEDS: METOPROLOL TART IMMED RELEASE 25 MG TABLET. PO SCH ×2 (09:10→21:07)
[2019-12-11 11:00] VITALS: BP 122/74
--- NOTE | 2019-12-11 11:19 | PDOC ---
PROGRESS NOTES Chief Complaint Chief Complaint ASSESSMENT Metabolic Encephalopathy with associated dementia likely secondary to ongoing UTI/fever A-Fib on chronic anticoagulaton, and mitral valve insufficiency Transaminitis: recent ERCP with still noted cholelithiasis HTN: controlled HLP Pulmonary nodules - with colon ca history concerning for possible mets. Hypothyroidism HX OF CKD3 Chronic diastolic CHF Hx of DVT with IVC filter and oral AC MARLON - CPAP at night ESSENTIAL HTN HLD resolving choledocholithiasis (he had an ERCP on 10/22/2019 withsphincterotomy and stone extraction) History of rectal cancer status post LAR with ileostomy and takedown and chemo and radiation. PLAN CONTINUE zosyn. discharged on augmentin last admission follow cultures restart BP meds hx of hemorragic cystitis last admission. continue levothyroxine restarted PPI therapy no plans for further bx FULL CODE- would benefit from pallative care discussion given cancer and recurrent hospitalizations. covid screen pending dvt ppx: oral ac follow labs apprec GI and cards input History of Present Illness History of Present Illness no acute issues overnight. denies chest pain, sob nausea vomiting diarrhea. tolerating breakfast. Vitals Vitals Vital Signs Date Time Temp Pulse Resp B/P (MAP) Pulse Ox O2 Delivery O2 Flow Rate FiO2 12/11/19 09:10 90 138/72 12/11/19 08:00 Room Air 12/11/19 07:00 97.6 96 97.6 12/10/19 23:04 18 Physical Exam General: Alert, Cooperative, No acute distress Heart: Other (AFIB) Lungs: Clear Abdomen: Soft Extremities: No edema Skin: No breakdown Labs LABS Laboratory Tests Test 12/11/19 04:45 White Blood Count 12.4 x10^3/uL (4.0-11.0) Red Blood Count 4.08 x10^6/uL (4.30-5.70) Hemoglobin 12.0 g/dL (13.0-17.5) Hematocrit 36.6 % (39.0-53.0) Mean Corpuscular Volume 90 fL (79-100) Mean Corpuscular Hemoglobin 30 pg (25-35) Mean Corpuscular Hemoglobin Concent 33 g/dL (31-37) Red Cell Distribution Width 14.9 % (11.5-14.5) Platelet Count 232 x10^3/uL (140-400) Neutrophils (%) (Auto) 77 % (31-73) Lymphocytes (%) (Auto) 14 % (24-48) Monocytes (%) (Auto) 7 % (0-9) Eosinophils (%) (Auto) 2 % (0-3) Basophils (%) (Auto) 0 % (0-3) Neutrophils # (Auto) 9.5 x10^3/uL (1.8-7.7) Lymphocytes # (Auto) 1.7 x10^3/uL (1.0-4.8) Monocytes # (Auto) 0.9 x10^3/uL (0.0-1.1) Eosinophils # (Auto) 0.3 x10^3/uL (0.0-0.7) Basophils # (Auto) 0.1 x10^3/uL (0.0-0.2) Sodium Level 140 mmol/L (136-145) Potassium Level 3.7 mmol/L (3.5-5.1) Chloride Level 106 mmol/L (98-107) Carbon Dioxide Level 26 mmol/L (21-32) Anion Gap 8 (6-14) Blood Urea Nitrogen 23 mg/dL (8-26) Creatinine 1.0 mg/dL (0.7-1.3) Estimated GFR (Cockcroft-Gault) 70.7 Glucose Level 100 mg/dL (70-99) Calcium Level 7.8 mg/dL (8.5-10.1) Total Bilirubin 3.1 mg/dL (0.2-1.0) Direct Bilirubin 2.3 mg/dL (0.0-0.2) Aspartate Amino Transf (AST/SGOT) 162 U/L (15-37) Alanine Aminotransferase (ALT/SGPT) 118 U/L (16-63) Alkaline Phosphatase 709 U/L (46-116) Total Protein 5.3 g/dL (6.4-8.2) Albumin 1.9 g/dL (3.4-5.0) Assessment and Plan Assessmemt and Plan Problems Medical Problems: (1) AMS (altered mental status) Status: Acute (2) Atrial fibrillation with RVR Status: Acute (3) Cholelithiasis Status: Acute (4) Elevated bilirubin Status: Acute (5) Person under investigation for COVID-19 Status: Acute (6) UTI (urinary tract infection) Status: Acute Comment Review of Relevant I have reviewed the following items mark anthony (where applicable) has been applied. Labs Laboratory Tests Test 12/09/19 20:10 12/09/19 20:30 12/09/19 22:25 12/09/19 22:49 White Blood Count 14.8 x10^3/uL (4.0-11.0) Red Blood Count 4.51 x10^6/uL (4.30-5.70) Hemoglobin 13.6 g/dL (13.0-17.5) Hematocrit 39.9 % (39.0-53.0) Mean Corpuscular Volume 89 fL (79-100) Mean Corpuscular Hemoglobin 30 pg (25-35) Mean Corpuscular Hemoglobin Concent 34 g/dL (31-37) Red Cell Distribution Width 14.8 % (11.5-14.5) Platelet Count 276 x10^3/uL (140-400) Neutrophils (%) (Auto) 87 % (31-73) Lymphocytes (%) (Auto) 6 % (24-48) Monocytes (%) (Auto) 6 % (0-9) Eosinophils (%) (Auto) 0 % (0-3) Basophils (%) (Auto) 0 % (0-3) Neutrophils # (Auto) 12.9 x10^3/uL (1.8-7.7) Lymphocytes # (Auto) 0.9 x10^3/uL (1.0-4.8) Monocytes # (Auto) 0.9 x10^3/uL (0.0-1.1) Eosinophils # (Auto) 0.0 x10^3/uL (0.0-0.7) Basophils # (Auto) 0.1 x10^3/uL (0.0-0.2) Segmented Neutrophils % 84 % (35-66) Band Neutrophils % 3 % (0-9) Lymphocytes % 6 % (24-48) Monocytes % 7 % (0-10) Toxic Granulation Slight Platelet Estimate Adequate (ADEQUATE) Sodium Level 140 mmol/L (136-145) Potassium Level 3.7 mmol/L (3.5-5.1) Chloride Level 104 mmol/L (98-107) Carbon Dioxide Level 27 mmol/L (21-32) Anion Gap 9 (6-14) Blood Urea Nitrogen 25 mg/dL (8-26) Creatinine 1.5 mg/dL (0.7-1.3) Estimated GFR (Cockcroft-Gault) 44.3 BUN/Creatinine Ratio 17 (6-20) Glucose Level 120 mg/dL (70-99) Lactic Acid Level 2.4 mmol/L (0.4-2.0) Calcium Level 8.3 mg/dL (8.5-10.1) Total Bilirubin 5.9 mg/dL (0.2-1.0) Direct Bilirubin 4.5 mg/dL (0.0-0.2) Aspartate Amino Transf (AST/SGOT) 220 U/L (15-37) Alanine Aminotransferase (ALT/SGPT) 128 U/L (16-63) Alkaline Phosphatase 832 U/L (46-116) Total Protein 6.3 g/dL (6.4-8.2) Albumin 2.5 g/dL (3.4-5.0) Albumin/Globulin Ratio 0.7 (1.0-1.7) Urine Collection Type Unknown Urine Color Inga Urine Clarity Cloudy Urine pH 6.5 (<5.0-8.0) Urine Specific [place] 1.015 (1.000-1.030) Urine Protein 30 mg/dL (NEG-TRACE) Urine Glucose (UA) Negative mg/dL (NEG) Urine Ketones (Stick) Negative mg/dL (NEG) Urine Blood Moderate (NEG) Urine Nitrite Negative (NEG) Urine Bilirubin Small (NEG) Urine Urobilinogen Dipstick 1.0 mg/dL (0.2 mg/dL) Urine Leukocyte Esterase Large (NEG) Urine RBC 6-10 /HPF (0-2) Urine WBC Tntc /HPF (0-4) Urine Squamous Epithelial Cells None /LPF Urine Bacteria Many /HPF (0-FEW) Influenza Type A Antigen Negative (NEGATIVE) Influenza Type B Antigen Negative (NEGATIVE) Group A Streptococcus Rapid Negative (NEGATIVE) Test 12/10/19 01:40 12/10/19 06:00 12/11/19 04:45 White Blood Count 13.4 x10^3/uL (4.0-11.0) 12.4 x10^3/uL (4.0-11.0) Red Blood Count 4.33 x10^6/uL (4.30-5.70) 4.08 x10^6/uL (4.30-5.70) Hemoglobin 12.8 g/dL (13.0-17.5) 12.0 g/dL (13.0-17.5) Hematocrit 38.9 % (39.0-53.0) 36.6 % (39.0-53.0) Mean Corpuscular Volume 90 fL (79-100) 90 fL (79-100) Mean Corpuscular Hemoglobin 30 pg (25-35) 30 pg (25-35) Mean Corpuscular Hemoglobin Concent 33 g/dL (31-37) 33 g/dL (31-37) Red Cell Distribution Width 15.4 % (11.5-14.5) 14.9 % (11.5-14.5) Platelet Count 243 x10^3/uL (140-400) 232 x10^3/uL (140-400) Neutrophils (%) (Auto) 82 % (31-73) 77 % (31-73) Lymphocytes (%) (Auto) 13 % (24-48) 14 % (24-48) Monocytes (%) (Auto) 5 % (0-9) 7 % (0-9) Eosinophils (%) (Auto) 0 % (0-3) 2 % (0-3) Basophils (%) (Auto) 0 % (0-3) 0 % (0-3) Neutrophils # (Auto) 11.0 x10^3/uL (1.8-7.7) 9.5 x10^3/uL (1.8-7.7) Lymphocytes # (Auto) 1.8 x10^3/uL (1.0-4.8) 1.7 x10^3/uL (1.0-4.8) Monocytes # (Auto) 0.6 x10^3/uL (0.0-1.1) 0.9 x10^3/uL (0.0-1.1) Eosinophils # (Auto) 0.0 x10^3/uL (0.0-0.7) 0.3 x10^3/uL (0.0-0.7) Basophils # (Auto) 0.0 x10^3/uL (0.0-0.2) 0.1 x10^3/uL (0.0-0.2) Sodium Level 141 mmol/L (136-145) 140 mmol/L (136-145) Potassium Level 4.0 mmol/L (3.5-5.1) 3.7 mmol/L (3.5-5.1) Chloride Level 105 mmol/L (98-107) 106 mmol/L (98-107) Carbon Dioxide Level 27 mmol/L (21-32) 26 mmol/L (21-32) Anion Gap 9 (6-14) 8 (6-14) Blood Urea Nitrogen 24 mg/dL (8-26) 23 mg/dL (8-26) Creatinine 1.3 mg/dL (0.7-1.3) 1.0 mg/dL (0.7-1.3) Estimated GFR (Cockcroft-Gault) 52.2 70.7 Glucose Level 126 mg/dL (70-99) 100 mg/dL (70-99) Lactic Acid Level 1.3 mmol/L (0.4-2.0) Calcium Level 7.9 mg/dL (8.5-10.1) 7.8 mg/dL (8.5-10.1) Ammonia 22 mcmol/L (11-34) Troponin I Quantitative 0.050 ng/mL (0.000-0.055) 0.028 ng/mL (0.000-0.055) Magnesium Level 1.9 mg/dL (1.8-2.4) Thyroid Stimulating Hormone (TSH) 0.905 uIU/mL (0.358-3.74) Total Bilirubin 3.1 mg/dL (0.2-1.0) Direct Bilirubin 2.3 mg/dL (0.0-0.2) Aspartate Amino Transf (AST/SGOT) 162 U/L (15-37) Alanine Aminotransferase (ALT/SGPT) 118 U/L (16-63) Alkaline Phosphatase 709 U/L (46-116) Total Protein 5.3 g/dL (6.4-8.2) Albumin 1.9 g/dL (3.4-5.0) Laboratory Tests Test 12/11/19 04:45 White Blood Count 12.4 x10^3/uL (4.0-11.0) Red Blood Count 4.08 x10^6/uL (4.30-5.70) Hemoglobin 12.0 g/dL (13.0-17.5) Hematocrit 36.6 % (39.0-53.0) Mean Corpuscular Volume 90 fL (79-100) Mean Corpuscular Hemoglobin 30 pg (25-35) Mean Corpuscular Hemoglobin Concent 33 g/dL (31-37) Red Cell Distribution Width 14.9 % (11.5-14.5) Platelet Count 232 x10^3/uL (140-400) Neutrophils (%) (Auto) 77 % (31-73) Lymphocytes (%) (Auto) 14 % (24-48) Monocytes (%) (Auto) 7 % (0-9) Eosinophils (%) (Auto) 2 % (0-3) Basophils (%) (Auto) 0 % (0-3) Neutrophils # (Auto) 9.5 x10^3/uL (1.8-7.7) Lymphocytes # (Auto) 1.7 x10^3/uL (1.0-4.8) Monocytes # (Auto) 0.9 x10^3/uL (0.0-1.1) Eosinophils # (Auto) 0.3 x10^3/uL (0.0-0.7) Basophils # (Auto) 0.1 x10^3/uL (0.0-0.2) Sodium Level 140 mmol/L (136-145) Potassium Level 3.7 mmol/L (3.5-5.1) Chloride Level 106 mmol/L (98-107) Carbon Dioxide Level 26 mmol/L (21-32) Anion Gap 8 (6-14) Blood Urea Nitrogen 23 mg/dL (8-26) Creatinine 1.0 mg/dL (0.7-1.3) Estimated GFR (Cockcroft-Gault) 70.7 Glucose Level 100 mg/dL (70-99) Calcium Level 7.8 mg/dL (8.5-10.1) Total Bilirubin 3.1 mg/dL (0.2-1.0) Direct Bilirubin 2.3 mg/dL (0.0-0.2) Aspartate Amino Transf (AST/SGOT) 162 U/L (15-37) Alanine Aminotransferase (ALT/SGPT) 118 U/L (16-63) Alkaline Phosphatase 709 U/L (46-116) Total Protein 5.3 g/dL (6.4-8.2) Albumin 1.9 g/dL (3.4-5.0) Microbiology 12/09/19 Nose/Throat Culture - Preliminary, Resulted 12/09/19 Urine Culture - Preliminary, Resulted 12/09/19 Blood Culture - Preliminary, Resulted NO GROWTH AFTER 1 DAY Medications Current Medications Sodium Chloride 1,000 ml @ 1,000 mls/hr Q1H IV Last administered on 12/09/19at 20:40; Start 12/09/19 at 20:05; Stop 12/09/19 at 21:04; Status DC Piperacillin Sod/ Tazobactam Sod 3.375 gm/Sodium Chloride 50 ml @ 100 mls/hr 1X ONCE IV Last administered on 12/09/19at 21:33; Start 12/09/19 at 21:00; Stop 12/09/19 at 21:29; Status DC Diltiazem HCl (Cardizem Iv Push) 10 mg 1X ONCE IVP Last administered on 12/09/19at 21:34; Start 12/09/19 at 21:00; Stop 12/09/19 at 21:01; Status DC Sodium Chloride 1,000 ml @ 1,000 mls/hr 1X ONCE IV Last administered on 12/09/19at 21:56; Start 12/09/19 at 22:00; Stop 12/09/19 at 22:59; Status DC Vancomycin HCl 250 ml @ 250 mls/hr 1X ONCE IV Last administered on 12/09/19at 22:30; Start 12/09/19 at 22:00; Stop 12/09/19 at 22:59; Status DC Ondansetron HCl (Zofran) 4 mg PRN Q8HRS PRN IV NAUSEA/VOMITING; Start 12/10/19 at 00:00; Stop 12/10/19 at 01:03; Status DC Sodium Chloride 1,000 ml @ 100 mls/hr Q10H IV ; Start 12/10/19 at 00:00; Stop 12/10/19 at 00:04; Status DC Acetaminophen (Tylenol) 650 mg PRN Q4HRS PRN PO FEVER > 100.3'F; Start 12/10/19 at 00:00 Ondansetron HCl (Zofran) 4 mg PRN Q4HRS PRN IV NAUSEA/VOMITING; Start 12/10/19 at 01:00 Piperacillin Sod/ Tazobactam Sod 3.375 gm/Sodium Chloride 50 ml @ 100 mls/hr Q6HRS IV Last administered on 12/11/19 05:48; Start 12/10/19 at 06:00 Lactobacillus Rhamnosus (Culturelle) 1 cap BID PO Last administered on 12/11/19 08:35; Start 12/10/19 at 09:00 Levothyroxine Sodium (Synthroid) 100 mcg DAILY06 PO Last administered on 12/11/19 05:48; Start 12/10/19 at 06:00 Metoprolol Tartrate (Lopressor) 25 mg BID PO Last administered on 12/11/19 09:10; Start 12/10/19 at 09:00 Apixaban (Eliquis) 5 mg BID PO Last administered on 12/11/19 08:35; Start 12/10/19 at 09:00 Polyethylene Glycol (miraLAX PACKET) 17 gm DAILY PO Last administered on 12/11/19 08:35; Start 12/10/19 at 09:00 Vitamin E (Vitamin E.) 400 unit DAILY PO Last administered on 12/11/19 08:35; Start 12/10/19 at 09:00 Zinc Oxide (Zinc Oxide 20% Topical) 1 devonte DAILY TP Last administered on 12/11/19at 09:00; Start 12/10/19 at 09:00 Pantoprazole Sodium (Protonix) 40 mg DAILYAC PO Last administered on 12/11/19 08:35; Start 12/10/19 at 07:30 Psyllium Hydrophilic Mucilloid (Metamucil Fiber Packet) 1 pkt DAILY PO Last administered on 12/11/19 08:35; Start 12/10/19 at 09:00 Info (Anti-Coagulation Monitoring By Pharmacy) 1 each PRN DAILY PRN MC SEE COMMENTS; Start 12/10/19 at 09:15 Multivitamins (Thera M Plus) 1 tab DAILY PO Last administered on 12/11/19at 08:35; Start 12/11/19 at 09:00 Sodium Chloride 1,000 ml @ 75 mls/hr [id number] IV Last administered on 12/11/19at 04:55; Start 12/10/19 at 12:45 Active Scripts Active Culturelle (Lactobacillus Rhamnosus Gg) 1 Each Cap.sprink 1 Cap PO BID 30 Days Metoprolol Tartrate 25 Mg Tablet 25 Mg PO BID 30 Days Amox Tr-K Clv 500-125 Mg Tab (Amoxicillin/Potassium Clav) 1 Each Tablet 1 Tab PO BID 8 Days [Pantoprazole] 40 MG Tablet.dr 40 Mg PO DAILYAC 30 Days Reported Vitamin E (Vitamin E Mixed) 400 Unit Capsule 400 Unit PO DAILY Multivitamins (Multivitamin) 1 Each Tablet 1 Tab PO DAILY Loperamide (Loperamide Hcl) 2 Mg Capsule 2 Mg PO PRN QID PRN Fish Oil 500 mg Softgel ([place]-3/Dha/Epa/Fish Oil) 1 Each Capsule 1 Each PO DAILY Acetaminophen 500 Mg Tablet 2 Tab PO PRN BID PRN Zinc Oxide 57 Gm Oint...g. 20 % TP DAILY Polyethylene Glycol 3350 2,500 Gm Powder 17 Gm PO DAILY Synthroid (Levothyroxine Sodium) 100 Mcg Tablet 100 Mcg PO DAILYAC Eliquis (Apixaban) 5 Mg Tab.ds.pk 5 Mg PO BID Vitals/I & O Vital Sign - Last 24 Hours 12/10/19 12/10/19 12/10/19 12/10/19 15:20 19:21 19:25 20:38 Temp 97.4 98.5 97.4 98.5 Pulse 78 91 91 Resp 16 18 B/P (MAP) 125/70 (88) 122/68 (86) 122/68 Pulse Ox 99 97 O2 Delivery Room Air Room Air Room Air 12/10/19 12/11/19 12/11/19 12/11/19 23:04 03:20 07:00 08:00 Temp 97.6 99.8 97.6 97.6 99.8 97.6 Pulse 94 92 88 Resp 18 B/P (MAP) 115/77 (90) 125/67 (86) 138/72 (94) Pulse Ox 96 96 96 O2 Delivery Room Air Room Air Room Air Room Air 12/11/19 09:10 Pulse 90 B/P (MAP) 138/72 Intake and Output 12/10/19 12/10/19 12/11/19 15:00 23:00 07:00 Intake Total 660 ml 480 ml 400 ml Balance 660 ml 480 ml 400 ml JASMYN HIDALGO MD Dec 11, 2019 11:19
[2019-12-11] MEDS: ANTI-COAG MONITOR BY PHARMACY. MC PRN (11:33)
[2019-12-11 14:53] VITALS: BP 141/71
[2019-12-11 19:00] VITALS: BP 135/73
--- NOTE | 2019-12-11 23:09 | NUR ---
At approximately 2205, pt have an episode of what looks like a 19 beats run of V-Tach. RN checked on pt at the time. Pt denies any pain or discomfort at this time. Dr. Montalvo notified. Pt is now back on A-fib controlled rate. Will continue to monitor pt closely.
[2019-12-11 23:22] VITALS: BP 137/70
[2019-12-12 03:00] VITALS: BP 138/79
[2019-12-12] MEDS: LEVOTHYROXINE 100 MCG TABLET PO SCH (06:03)
[2019-12-12] MEDS: PIPERACILLIN/TAZOBACTAM 3.375 GM in IV NORMAL SALINE 50ML 50 ML IV SCH ×4 (06:11→19:42)
[2019-12-12] MEDS: IV NORMAL SALINE 1000ML BAG 1,000 ML IV SCH ×2 (06:12→21:44)
[2019-12-12 07:38] VITALS: BP 145/79
[2019-12-12] MEDS: MULTIVITAMIN with MINERAL TABLET. PO SCH (08:36)
[2019-12-12] MEDS: METOPROLOL TART IMMED RELEASE 25 MG TABLET. PO SCH ×2 (08:36→21:43)
[2019-12-12] MEDS: PSYLLIUM HUSK (SUGAR FREE) 1 PKT PACKET PO SCH (08:36)
[2019-12-12] MEDS: LACTOBACILLUS RHAMNOSUS GG 1 CAPSULE. PO SCH ×2 (08:36→21:42)
[2019-12-12] MEDS: PANTOPRAZOLE 40 MG TABLET.DR. PO SCH (08:36)
[2019-12-12] MEDS: APIXABAN 5 MG TABLET. PO SCH ×2 (08:36→21:42)
[2019-12-12] MEDS: VITAMIN E 200 UNIT CAPSULE. PO SCH (08:36)
[2019-12-12] MEDS: POLYETHYLENE GLYCOL 3350 17 GM PACKET. PO SCH (08:37)
--- NOTE | 2019-12-12 09:18 | PDOC ---
PROGRESS NOTES Chief Complaint Chief Complaint ASSESSMENT Metabolic Encephalopathy with associated dementia likely secondary to ongoing UTI/fever A-Fib on chronic anticoagulaton mitral valve insufficiency Transaminitis: recent ERCP with still noted cholelithiasis HTN: controlled HLP Pulmonary nodules - with colon ca history concerning for possible mets. Hypothyroidism HX OF CKD3 Chronic diastolic CHF Hx of DVT with IVC filter and oral AC MARLON - CPAP at night ESSENTIAL HTN HLD resolving choledocholithiasis (he had an ERCP on 10/22/2019 withsphincterotomy and stone extraction) History of rectal cancer status post LAR with ileostomy and takedown and chemo and radiation. PLAN CONTINUE zosyn. discharged on augmentin last admission follow cultures restarted BP meds hx of hemorragic cystitis last admission. continue levothyroxine restarted PPI therapy no plans for further bx per documentation last admission FULL CODE- would benefit from palliative care discussion given cancer and recurrent hospitalizations. covid screen negative dvt ppx: oral ac apprec GI and cards input History of Present Illness History of Present Illness no acute issues overnight. denies chest pain, sob nausea vomiting diarrhea. tolerating breakfast. Vitals Vitals Vital Signs Date Time Temp Pulse Resp B/P (MAP) Pulse Ox O2 Delivery O2 Flow Rate FiO2 12/12/19 08:36 89 145/79 12/12/19 07:38 98.6 16 94 Room Air 98.6 12/11/19 11:00 2.5 Physical Exam General: Alert, Cooperative, No acute distress Heart: Other (AFIB) Lungs: Clear Abdomen: Soft Extremities: No edema Skin: No breakdown Assessment and Plan Assessmemt and Plan Problems Medical Problems: (1) AMS (altered mental status) Status: Acute (2) Atrial fibrillation with RVR Status: Acute (3) Cholelithiasis Status: Acute (4) Elevated bilirubin Status: Acute (5) Person under investigation for COVID-19 Status: Acute (6) UTI (urinary tract infection) Status: Acute Comment Review of Relevant I have reviewed the following items mark anthony (where applicable) has been applied. Labs Laboratory Tests Test 12/11/19 04:45 White Blood Count 12.4 x10^3/uL (4.0-11.0) Red Blood Count 4.08 x10^6/uL (4.30-5.70) Hemoglobin 12.0 g/dL (13.0-17.5) Hematocrit 36.6 % (39.0-53.0) Mean Corpuscular Volume 90 fL (79-100) Mean Corpuscular Hemoglobin 30 pg (25-35) Mean Corpuscular Hemoglobin Concent 33 g/dL (31-37) Red Cell Distribution Width 14.9 % (11.5-14.5) Platelet Count 232 x10^3/uL (140-400) Neutrophils (%) (Auto) 77 % (31-73) Lymphocytes (%) (Auto) 14 % (24-48) Monocytes (%) (Auto) 7 % (0-9) Eosinophils (%) (Auto) 2 % (0-3) Basophils (%) (Auto) 0 % (0-3) Neutrophils # (Auto) 9.5 x10^3/uL (1.8-7.7) Lymphocytes # (Auto) 1.7 x10^3/uL (1.0-4.8) Monocytes # (Auto) 0.9 x10^3/uL (0.0-1.1) Eosinophils # (Auto) 0.3 x10^3/uL (0.0-0.7) Basophils # (Auto) 0.1 x10^3/uL (0.0-0.2) Sodium Level 140 mmol/L (136-145) Potassium Level 3.7 mmol/L (3.5-5.1) Chloride Level 106 mmol/L (98-107) Carbon Dioxide Level 26 mmol/L (21-32) Anion Gap 8 (6-14) Blood Urea Nitrogen 23 mg/dL (8-26) Creatinine 1.0 mg/dL (0.7-1.3) Estimated GFR (Cockcroft-Gault) 70.7 Glucose Level 100 mg/dL (70-99) Calcium Level 7.8 mg/dL (8.5-10.1) Total Bilirubin 3.1 mg/dL (0.2-1.0) Direct Bilirubin 2.3 mg/dL (0.0-0.2) Aspartate Amino Transf (AST/SGOT) 162 U/L (15-37) Alanine Aminotransferase (ALT/SGPT) 118 U/L (16-63) Alkaline Phosphatase 709 U/L (46-116) Total Protein 5.3 g/dL (6.4-8.2) Albumin 1.9 g/dL (3.4-5.0) Microbiology 12/09/19 Nose/Throat Culture - Preliminary, Resulted 12/09/19 Urine Culture - Final, Complete 12/09/19 Antimicrobic Susceptibility - Final, Complete 12/09/19 Blood Culture - Preliminary, Resulted NO GROWTH AFTER 2 DAYS Medications Current Medications Sodium Chloride 1,000 ml @ 1,000 mls/hr Q1H IV Last administered on 12/09/19at 20:40; Start 12/09/19 at 20:05; Stop 12/09/19 at 21:04; Status DC Piperacillin Sod/ Tazobactam Sod 3.375 gm/Sodium Chloride 50 ml @ 100 mls/hr 1X ONCE IV Last administered on 12/09/19at 21:33; Start 12/09/19 at 21:00; Stop 12/09/19 at 21:29; Status DC Diltiazem HCl (Cardizem Iv Push) 10 mg 1X ONCE IVP Last administered on 12/09/19at 21:34; Start 12/09/19 at 21:00; Stop 12/09/19 at 21:01; Status DC Sodium Chloride 1,000 ml @ 1,000 mls/hr 1X ONCE IV Last administered on 12/09/19at 21:56; Start 12/09/19 at 22:00; Stop 12/09/19 at 22:59; Status DC Vancomycin HCl 250 ml @ 250 mls/hr 1X ONCE IV Last administered on 12/09/19at 22:30; Start 12/09/19 at 22:00; Stop 12/09/19 at 22:59; Status DC Ondansetron HCl (Zofran) 4 mg PRN Q8HRS PRN IV NAUSEA/VOMITING; Start 12/10/19 at 00:00; Stop 12/10/19 at 01:03; Status DC Sodium Chloride 1,000 ml @ 100 mls/hr Q10H IV ; Start 12/10/19 at 00:00; Stop 12/10/19 at 00:04; Status DC Acetaminophen (Tylenol) 650 mg PRN Q4HRS PRN PO FEVER > 100.3'F; Start 12/10/19 at 00:00 Ondansetron HCl (Zofran) 4 mg PRN Q4HRS PRN IV NAUSEA/VOMITING; Start 12/10/19 at 01:00 Piperacillin Sod/ Tazobactam Sod 3.375 gm/Sodium Chloride 50 ml @ 100 mls/hr Q6HRS IV Last administered on 12/12/19 06:11; Start 12/10/19 at 06:00 Lactobacillus Rhamnosus (Culturelle) 1 cap BID PO Last administered on 12/12/19 08:36; Start 12/10/19 at 09:00 Levothyroxine Sodium (Synthroid) 100 mcg DAILY06 PO Last administered on 12/12/19 06:03; Start 12/10/19 at 06:00 Metoprolol Tartrate (Lopressor) 25 mg BID PO Last administered on 12/12/19 08:36; Start 12/10/19 at 09:00 Apixaban (Eliquis) 5 mg BID PO Last administered on 12/12/19 08:36; Start 12/10/19 at 09:00 Polyethylene Glycol (miraLAX PACKET) 17 gm DAILY PO Last administered on 12/12/19 08:37; Start 12/10/19 at 09:00 Vitamin E (Vitamin E.) 400 unit DAILY PO Last administered on 12/12/19 08:36; Start 12/10/19 at 09:00 Zinc Oxide (Zinc Oxide 20% Topical) 1 devonte DAILY TP Last administered on 11/15 09:00; Start 12/10/19 at 09:00 Pantoprazole Sodium (Protonix) 40 mg DAILYAC PO Last administered on 12/12/19 08:36; Start 12/10/19 at 07:30 Psyllium Hydrophilic Mucilloid (Metamucil Fiber Packet) 1 pkt DAILY PO Last administered on 12/12/19 08:36; Start 12/10/19 at 09:00 Info (Anti-Coagulation Monitoring By Pharmacy) 1 each PRN DAILY PRN MC SEE COMMENTS Last administered on 12/11/19 11:33; Start 12/10/19 at 09:15 Multivitamins (Thera M Plus) 1 tab DAILY PO Last administered on 12/12/19 08:36; Start 12/11/19 at 09:00 Sodium Chloride 1,000 ml @ 75 mls/hr [id number] IV Last administered on 12/12/19 06:12; Start 12/10/19 at 12:45 Active Scripts Active Culturelle (Lactobacillus Rhamnosus Gg) 1 Each Cap.sprink 1 Cap PO BID 30 Days Metoprolol Tartrate 25 Mg Tablet 25 Mg PO BID 30 Days Amox Tr-K Clv 500-125 Mg Tab (Amoxicillin/Potassium Clav) 1 Each Tablet 1 Tab PO BID 8 Days [Pantoprazole] 40 MG Tablet.dr 40 Mg PO DAILYAC 30 Days Reported Vitamin E (Vitamin E Mixed) 400 Unit Capsule 400 Unit PO DAILY Multivitamins (Multivitamin) 1 Each Tablet 1 Tab PO DAILY Loperamide (Loperamide Hcl) 2 Mg Capsule 2 Mg PO PRN QID PRN Fish Oil 500 mg Softgel ([place]-3/Dha/Epa/Fish Oil) 1 Each Capsule 1 Each PO DAILY Acetaminophen 500 Mg Tablet 2 Tab PO PRN BID PRN Zinc Oxide 57 Gm Oint...g. 20 % TP DAILY Polyethylene Glycol 3350 2,500 Gm Powder 17 Gm PO DAILY Synthroid (Levothyroxine Sodium) 100 Mcg Tablet 100 Mcg PO DAILYAC Eliquis (Apixaban) 5 Mg Tab.ds.pk 5 Mg PO BID Vitals/I & O Vital Sign - Last 24 Hours 12/11/19 12/11/19 12/11/19 12/11/19 11:00 14:53 19:00 20:00 Temp 96.4 98.7 98.8 96.4 98.7 98.8 Pulse 79 84 94 Resp 18 18 B/P (MAP) 122/74 (90) 141/71 (94) 135/73 (93) Pulse Ox 95 98 94 O2 Delivery Nasal Cannula Room Air Room Air Room Air O2 Flow Rate 2.5 12/11/19 12/11/19 12/12/19 12/12/19 21:07 23:22 03:00 07:38 Temp 99.3 98.4 98.6 99.3 98.4 98.6 Pulse 94 79 87 89 Resp 18 18 16 B/P (MAP) 135/73 137/70 (92) 138/79 (98) 145/79 (101) Pulse Ox 96 93 94 O2 Delivery Room Air Room Air Room Air 12/12/19 08:36 Pulse 89 B/P (MAP) 145/79 Intake and Output 12/11/19 12/11/19 12/12/19 15:00 23:00 07:00 Intake Total 900 ml 180 ml Balance 900 ml 180 ml JASMYN HIDALGO MD Dec 12, 2019 09:18
[2019-12-12 11:20] VITALS: BP 139/72
[2019-12-12] MEDS: ZINC OXIDE 20% TOPICAL OINTMENT 28GM TUBE. TP SCH (15:02)
[2019-12-12 15:14] VITALS: BP 129/62
[2019-12-12 19:00] VITALS: BP 140/59
[2019-12-12 23:00] VITALS: BP 122/59
[2019-12-13] MEDS: PIPERACILLIN/TAZOBACTAM 3.375 GM in IV NORMAL SALINE 50ML 50 ML IV SCH ×3 (00:47→11:53)
[2019-12-13 03:00] VITALS: BP 132/78
[2019-12-13] MEDS: LEVOTHYROXINE 100 MCG TABLET PO SCH (06:40)
[2019-12-13] MEDS: IV NORMAL SALINE 1000ML BAG 1,000 ML IV SCH ×2 (06:41→21:13)
[2019-12-13 07:00] VITALS: BP 144/89
[2019-12-13] MEDS: ZINC OXIDE 20% TOPICAL OINTMENT 28GM TUBE. TP SCH (09:00)
[2019-12-13] MEDS: LACTOBACILLUS RHAMNOSUS GG 1 CAPSULE. PO SCH ×2 (09:08→21:12)
[2019-12-13] MEDS: APIXABAN 5 MG TABLET. PO SCH ×2 (09:08→21:12)
[2019-12-13] MEDS: VITAMIN E 200 UNIT CAPSULE. PO SCH (09:08)
[2019-12-13] MEDS: MULTIVITAMIN with MINERAL TABLET. PO SCH (09:09)
[2019-12-13] MEDS: METOPROLOL TART IMMED RELEASE 25 MG TABLET. PO SCH ×2 (09:09→21:12)
[2019-12-13] MEDS: PANTOPRAZOLE 40 MG TABLET.DR. PO SCH (09:09)
[2019-12-13] MEDS: PSYLLIUM HUSK (SUGAR FREE) 1 PKT PACKET PO SCH (09:12)
[2019-12-13] MEDS: POLYETHYLENE GLYCOL 3350 17 GM PACKET. PO SCH (09:12)
--- NOTE | 2019-12-13 10:08 | PDOC ---
Subjective: Subjective: Denies pain, says he's doing okay. Likes candy. Objective: Objective: Stools charted. Vital Signs: Vital Signs Date Time Temp Pulse Resp B/P (MAP) Pulse Ox O2 Delivery O2 Flow Rate FiO2 12/13/19 09:09 85 144/89 12/13/19 08:00 Room Air 12/13/19 07:00 98.5 17 93 98.5 Labs: THROAT/NASAL CULTURE Final Final MODERATE Mixed upper respiratory rommel on 12/11/19 at 0930 MODERATE Mixed upper respiratory rommel on 12/12/19 at 1020 URINE CULTURE Final Final GREATER THAN 100,000 CFU/ML GRAM NEGATIVE RODS on 12/11/19 at 0803 FINAL ID= [ESCHERICHIA COLI] BLOOD CULTURE Preliminary NO GROWTH AFTER 3 DAYS PE: GEN: NAD - breakfast tray empty except for hot cereal, also bag of [employer] peanut butter cups empty LUNGS: coughing HEART: RR ABD: S/ND/NT NEURO/PSYCH: appropriate A/P: UTI, A Fib Leukocytosis, elevated LFTs - better H/o cholelithiasis, choledocholithiasis - s/p ERCP/sphincterotomy/stone extraction 10/2019 Right lung mass COVID-19 negative 12/08 -- LFTs improved 12/10. Eating w/o issue. Family prefers conservative approach - does not wish to pursue lung biopsy or cholecystectomy per last two admissions. Justicifation of Admission Dx: Justifications for Admission: Justification of Admission Dx: Comment: (AMS; UTI; cholelithiasis) STEVE MIX Dec 13, 2019 10:08
--- NOTE | 2019-12-13 10:29 | NUR ---
SW following. DEON reviewed chart and spoke with RN. PT/OT recommendation for SNU. Pt is from [facility] with the highest level of care. DEON spoke with pt's dtr who is agreeable to SNU referral. DEON phoned and faxed referral to Tiffani at [facility], , (fax) per request of dtr. Patient Choice of Vendor form completed. DEON coordinated care with Laura from the [facility]. DEON to continue following. Addendum: 12/13/19 at 1358 by BEULAH CHAVARRIA Spoke with Tiffani and pt has been accepted for SN at [facility]. Pt will likely discharge tomorrow, 12/14/2019 per changes in IV abx. RN notified.
[2019-12-13 10:44] VITALS: BP 127/74
--- NOTE | 2019-12-13 11:33 | PDOC ---
PROGRESS NOTES Chief Complaint Chief Complaint ASSESSMENT Metabolic Encephalopathy with associated dementia likely secondary to ongoing UTI/fever A-Fib on chronic anticoagulaton mitral valve insufficiency Transaminitis: recent ERCP with still noted cholelithiasis HTN: controlled HLP Pulmonary nodules - with colon ca history concerning for possible mets. Hypothyroidism HX OF CKD3 Chronic diastolic CHF Hx of DVT with IVC filter and oral AC MARLON - CPAP at night ESSENTIAL HTN HLD resolving choledocholithiasis (he had an ERCP on 10/22/2019 withsphincterotomy and stone extraction) History of rectal cancer status post LAR with ileostomy and takedown and chemo and radiation. PLAN CONTINUE zosyn. discharged on augmentin last admission follow cultures restarted BP meds hx of hemorragic cystitis last admission. continue levothyroxine restarted PPI therapy no plans for further bx per documentation last admission FULL CODE- would benefit from palliative care discussion given cancer and recurrent hospitalizations. covid screen negative dvt ppx: oral ac apprec GI and cards input History of Present Illness History of Present Illness no acute issues overnight. denies chest pain, sob nausea vomiting diarrhea. tolerating breakfast. Labs still with transaminitis. Afebrile. Urine culture resistant to PCN, will change from zosyn to cefepime + flagyll for GI coverage Vitals Vitals Vital Signs Date Time Temp Pulse Resp B/P (MAP) Pulse Ox O2 Delivery O2 Flow Rate FiO2 12/13/19 10:44 98.1 98 17 127/74 (91) 95 Room Air 98.1 Physical Exam General: Alert, Cooperative, No acute distress Heart: Other (AFIB) Lungs: Clear Abdomen: Soft Extremities: No edema Skin: No breakdown Assessment and Plan Assessmemt and Plan Problems Medical Problems: (1) AMS (altered mental status) Status: Acute (2) Atrial fibrillation with RVR Status: Acute (3) Cholelithiasis Status: Acute (4) Elevated bilirubin Status: Acute (5) Person under investigation for COVID-19 Status: Acute (6) UTI (urinary tract infection) Status: Acute Comment Review of Relevant I have reviewed the following items mark anthony (where applicable) has been applied. Labs Microbiology 12/09/19 Nose/Throat Culture - Final, Complete 12/09/19 Urine Culture - Final, Complete 12/09/19 Antimicrobic Susceptibility - Final, Complete 12/09/19 Blood Culture - Preliminary, Resulted NO GROWTH AFTER 3 DAYS Medications Current Medications Sodium Chloride 1,000 ml @ 1,000 mls/hr Q1H IV Last administered on 12/09/19at 20:40; Start 12/09/19 at 20:05; Stop 12/09/19 at 21:04; Status DC Piperacillin Sod/ Tazobactam Sod 3.375 gm/Sodium Chloride 50 ml @ 100 mls/hr 1X ONCE IV Last administered on 12/09/19at 21:33; Start 12/09/19 at 21:00; Stop 12/09/19 at 21:29; Status DC Diltiazem HCl (Cardizem Iv Push) 10 mg 1X ONCE IVP Last administered on 12/09/19at 21:34; Start 12/09/19 at 21:00; Stop 12/09/19 at 21:01; Status DC Sodium Chloride 1,000 ml @ 1,000 mls/hr 1X ONCE IV Last administered on 12/09/19at 21:56; Start 12/09/19 at 22:00; Stop 12/09/19 at 22:59; Status DC Vancomycin HCl 250 ml @ 250 mls/hr 1X ONCE IV Last administered on 12/09/19at 22:30; Start 12/09/19 at 22:00; Stop 12/09/19 at 22:59; Status DC Ondansetron HCl (Zofran) 4 mg PRN Q8HRS PRN IV NAUSEA/VOMITING; Start 12/10/19 at 00:00; Stop 12/10/19 at 01:03; Status DC Sodium Chloride 1,000 ml @ 100 mls/hr Q10H IV ; Start 12/10/19 at 00:00; Stop 12/10/19 at 00:04; Status DC Acetaminophen (Tylenol) 650 mg PRN Q4HRS PRN PO FEVER > 100.3'F; Start 12/10/19 at 00:00 Ondansetron HCl (Zofran) 4 mg PRN Q4HRS PRN IV NAUSEA/VOMITING; Start 12/10/19 at 01:00 Piperacillin Sod/ Tazobactam Sod 3.375 gm/Sodium Chloride 50 ml @ 100 mls/hr Q6HRS IV Last administered on 12/13/19at 06:41; Start 12/10/19 at 06:00 Lactobacillus Rhamnosus (Culturelle) 1 cap BID PO Last administered on 12/13/19 09:08; Start 12/10/19 at 09:00 Levothyroxine Sodium (Synthroid) 100 mcg DAILY06 PO Last administered on 12/13/19 06:40; Start 12/10/19 at 06:00 Metoprolol Tartrate (Lopressor) 25 mg BID PO Last administered on 12/13/19 09:09; Start 12/10/19 at 09:00 Apixaban (Eliquis) 5 mg BID PO Last administered on 12/13/19 09:08; Start 12/10/19 at 09:00 Polyethylene Glycol (miraLAX PACKET) 17 gm DAILY PO Last administered on 12/13/19 09:12; Start 12/10/19 at 09:00 Vitamin E (Vitamin E.) 400 unit DAILY PO Last administered on 12/13/19 09:08; Start 12/10/19 at 09:00 Zinc Oxide (Zinc Oxide 20% Topical) 1 devonte DAILY TP Last administered on 12/13/19 09:00; Start 12/10/19 at 09:00 Pantoprazole Sodium (Protonix) 40 mg DAILYAC PO Last administered on 12/13/19 09:09; Start 12/10/19 at 07:30 Psyllium Hydrophilic Mucilloid (Metamucil Fiber Packet) 1 pkt DAILY PO Last administered on 12/13/19 09:12; Start 12/10/19 at 09:00 Info (Anti-Coagulation Monitoring By Pharmacy) 1 each PRN DAILY PRN MC SEE COMMENTS Last administered on 12/11/19 11:33; Start 12/10/19 at 09:15 Multivitamins (Thera M Plus) 1 tab DAILY PO Last administered on 12/13/19 09:09; Start 12/11/19 at 09:00 Sodium Chloride 1,000 ml @ 75 mls/hr [id number] IV Last administered on 12/13/19 06:41; Start 12/10/19 at 12:45 Active Scripts Active Culturelle (Lactobacillus Rhamnosus Gg) 1 Each Cap.sprink 1 Cap PO BID 30 Days Metoprolol Tartrate 25 Mg Tablet 25 Mg PO BID 30 Days Amox Tr-K Clv 500-125 Mg Tab (Amoxicillin/Potassium Clav) 1 Each Tablet 1 Tab PO BID 8 Days [Pantoprazole] 40 MG Tablet.dr 40 Mg PO DAILYAC 30 Days Reported Vitamin E (Vitamin E Mixed) 400 Unit Capsule 400 Unit PO DAILY Multivitamins (Multivitamin) 1 Each Tablet 1 Tab PO DAILY Loperamide (Loperamide Hcl) 2 Mg Capsule 2 Mg PO PRN QID PRN Fish Oil 500 mg Softgel ([place]-3/Dha/Epa/Fish Oil) 1 Each Capsule 1 Each PO DAILY Acetaminophen 500 Mg Tablet 2 Tab PO PRN BID PRN Zinc Oxide 57 Gm Oint...g. 20 % TP DAILY Polyethylene Glycol 3350 2,500 Gm Powder 17 Gm PO DAILY Synthroid (Levothyroxine Sodium) 100 Mcg Tablet 100 Mcg PO DAILYAC Eliquis (Apixaban) 5 Mg Tab.ds.pk 5 Mg PO BID Vitals/I & O Vital Sign - Last 24 Hours 12/12/19 12/12/19 12/12/19 12/12/19 15:14 19:00 21:43 23:00 Temp 98.7 98.4 98.6 98.7 98.4 98.6 Pulse 70 97 97 82 Resp 18 17 B/P (MAP) 129/62 (84) 140/59 (86) 140/59 122/59 (80) Pulse Ox 96 94 95 O2 Delivery Room Air Room Air Room Air 12/13/19 12/13/19 12/13/19 12/13/19 03:00 07:00 08:00 09:09 Temp 98.0 98.5 98.0 98.5 Pulse 84 85 85 Resp 17 17 B/P (MAP) 132/78 (96) 144/89 (107) 144/89 Pulse Ox 95 93 O2 Delivery Room Air Room Air Room Air 12/13/19 10:44 Temp 98.1 98.1 Pulse 98 Resp 17 B/P (MAP) 127/74 (91) Pulse Ox 95 O2 Delivery Room Air Intake and Output 12/12/19 12/12/19 12/13/19 14:59 22:59 06:59 Intake Total 550 ml 300 ml 122 ml Balance 550 ml 300 ml 122 ml CAMILA ANGUIANO MD Dec 13, 2019 11:33
[2019-12-13] MEDS: CEFEPIME HCL IV Push 1 GM VIAL. IVP SCH ×2 (14:31→21:12)
[2019-12-13 15:00] VITALS: BP 115/70
[2019-12-13 21:10] VITALS: BP 155/91
[2019-12-14 01:00] VITALS: BP 136/76
[2019-12-14 05:00] VITALS: BP 135/70
[2019-12-14] MEDS: CEFEPIME HCL IV Push 1 GM VIAL. IVP SCH ×2 (06:10→13:17)
[2019-12-14] MEDS: LEVOTHYROXINE 100 MCG TABLET PO SCH (06:11)
[2019-12-14 07:13] VITALS: BP 145/76
[2019-12-14] MEDS: POLYETHYLENE GLYCOL 3350 17 GM PACKET. PO SCH (08:19)
[2019-12-14] MEDS: VITAMIN E 200 UNIT CAPSULE. PO SCH (08:19)
[2019-12-14] MEDS: LACTOBACILLUS RHAMNOSUS GG 1 CAPSULE. PO SCH (08:19)
[2019-12-14] MEDS: ZINC OXIDE 20% TOPICAL OINTMENT 28GM TUBE. TP SCH (08:19)
[2019-12-14] MEDS: METOPROLOL TART IMMED RELEASE 25 MG TABLET. PO SCH (08:20)
[2019-12-14] MEDS: APIXABAN 5 MG TABLET. PO SCH (08:20)
[2019-12-14] MEDS: PSYLLIUM HUSK (SUGAR FREE) 1 PKT PACKET PO SCH (08:20)
[2019-12-14] MEDS: PANTOPRAZOLE 40 MG TABLET.DR. PO SCH (08:20)
[2019-12-14] MEDS: MULTIVITAMIN with MINERAL TABLET. PO SCH (08:20)
--- NOTE | 2019-12-14 09:56 | PDOC ---
Subjective: Subjective: Working with therapy - says eating okay, denies abd pain. Objective: Objective: Reviewed chart - DC to [facility] today? Vital Signs: Vital Signs Date Time Temp Pulse Resp B/P (MAP) Pulse Ox O2 Delivery O2 Flow Rate FiO2 12/14/19 08:20 87 145/76 12/14/19 08:00 Room Air 12/14/19 07:13 98.5 18 96 98.5 PE: GEN: NAD - up in chair doing leg exercises LUNGS: CTAB HEART: RRR ABD: S/ND/NT NEURO/PSYCH: A & O 3 A/P: UTI, A Fib H/o cholelithiasis, choledocholithiasis - s/p ERCP/sphincterotomy/stone extraction 10/2019 - LFTs improved Right lung mass -- DC per primary. Family prefers conservative approach. Justicifation of Admission Dx: Justifications for Admission: Justification of Admission Dx: Comment: (AMS; UTI; cholelithiasis) STEVE MIX Dec 14, 2019 09:56
[2019-12-14] MEDS: ANTI-COAG MONITOR BY PHARMACY. MC PRN (11:09)
[2019-12-14 11:18] VITALS: BP 137/64
--- NOTE | 2019-12-14 11:22 | SNU/HH DC ---
DISCHARGE ORDERS DISCHARGE INFORMATION: FINAL DIAGNOSIS Problems Medical Problems: (1) AMS (altered mental status) Status: Acute (2) Atrial fibrillation with RVR Status: Acute (3) Cholelithiasis Status: Acute (4) Elevated bilirubin Status: Acute (5) Person under investigation for COVID-19 Status: Acute (6) UTI (urinary tract infection) Status: Acute CONDITION ON DISCHARGE: Stable CODE STATUS: Code Status: Full FDC: SNF STAY <30 DAYS: Yes HOSPICE: HOSPICE: No HOSPICE EVAL & TREAT: No LTAC: ADMIT TO LTAC: No POST DISCHARGE ORDERS: ACTIVITY ORDERS: Activity as tolerated WEIGHT BEARING STATUS: Full weight bearing, As tolerated DIET AFTER DISCHARGE: ADA CHECKS AFTER DISCHARGE: CHECKS AFTER DISCHARGE: Check blood press - daily TREATMENT/EQUIPMENT ORDERS: ADAPTIVE EQUIPMENT NEEDED: None Physical Therapy For: Evalulation/Treatment Occupational Therapy For: Evaluation/Treatment DISCHARGE MEDICATIONS: Home Meds Active Scripts Lactobacillus Rhamnosus Gg (CULTURELLE) 1 Each Cap.sprink, 1 CAP PO BID for Probiotic while on antibiotic for 30 Days, #60 CAP Prov:CAMILA ANGUIANO MD 10/27/19 Metoprolol Tartrate (METOPROLOL TARTRATE) 25 Mg Tablet, 25 MG PO BID for Atrial fib for 30 Days, #60 TAB Prov:CAMILA ANGUIANO MD 10/27/19 Amoxicillin/Potassium Clav (AMOX TR-K CLV 500-125 MG TAB) 1 Each Tablet, 1 TAB PO BID for Klebsiella P UTI for 8 Days, #16 TAB Prov:CAMILA ANGUIANO MD 10/27/19 [Pantoprazole] 40 MG TABLET.DR Pena Conflict Check, 40 MG PO DAILYAC for 30 Days, #30 Prov:MARVIN LAZCANO MD 09/24/17 Reported Medications Vitamin E Mixed (VITAMIN E) 400 Unit Capsule, 400 UNIT PO DAILY, CAP 09/22/17 Multivitamin (MULTIVITAMINS) 1 Each Tablet, 1 TAB PO DAILY, #90 TAB 3 Refills 09/22/17 Loperamide Hcl (LOPERAMIDE) 2 Mg Capsule, 2 MG PO PRN QID PRN for DIARRHEA, CAP 09/22/17 [place]-3/Dha/Epa/Fish Oil (Fish Oil 500 mg Softgel) 1 Each Capsule, 1 EACH PO DAILY, CAP 09/22/17 Acetaminophen (ACETAMINOPHEN) 500 Mg Tablet, 2 TAB PO PRN BID PRN for PAIN, #60 TAB 1 Refill 09/22/17 Zinc Oxide (ZINC OXIDE) 57 Gm Oint...g., 20 % TP DAILY, MISC 09/22/17 Polyethylene Glycol 3350 (POLYETHYLENE GLYCOL 3350) 2,500 Gm Powder, 17 GM PO DAILY, #527 GM 11 Refills 09/22/17 Levothyroxine Sodium (SYNTHROID) 100 Mcg Tablet, 100 MCG PO DAILYAC for THYROID SUPPLEMENT, #30 TAB 0 Refills 09/22/17 Apixaban (Eliquis) 5 Mg Tab.ds.pk, 5 MG PO BID, PKG 09/22/17 HUMERA BLAKE III DO Dec 14, 2019 11:22
--- NOTE | 2019-12-14 11:25 | NUR ---
DEON following. Reviewed chart and spoke with RN. Coordinated care with Dr. Moreno. Pt has been accepted at [facility]. Spoke with Tiffani who is working on getting pt a bed. Pt to discharge on room air and oral abx. DEON obtained script from Dr. Moreno. DEON to continue following. Addendum: 12/14/19 at 1412 by BEULAH CHAVARRIA Tiffani from [facility] stated they can't take pt today per staffing. DEON phoned and faxed SNU referral with discharge orders to [facility], , (fax) as this provided was discussed with dtr previously and they have bed availability. DEON did LVM for dtr. Addendum: 12/14/19 at 1527 by BEULAH CHAVARRIA Pt accepted to [facility] today, 12/14/2019. Transportation arranged by [facility] for 1600. Packet ready to be sent with pt. Dtr notified and agreeable to the plan. DEON also notified [facility] that pt is going SNU prior to return to [facility]. Pt on room air and oral medications. No further SW need at this time. RN to call report to [phone]. Addendum: 12/14/19 at 1534 by BEULAH CHAVARRIA Patient Choice of Vendor form completed via verbal authorization from dtr.
--- NOTE | 2019-12-14 11:41 | PDOC ---
CARDIO Progress Notes Date and Time Date of Service 12/14/2019 Time of Evaluation 1110 Subjective Subjective: No Chest Pain, No shortness of breath, No Palpitations Vitals Vitals Vital Signs Date Time Temp Pulse Resp B/P (MAP) Pulse Ox O2 Delivery O2 Flow Rate FiO2 12/14/19 11:18 97.4 95 18 137/64 (88) 94 Room Air 97.4 Weight Weight [ ] Input and Output Intake and Output Intake and Output 12/14/19 07:00 Intake Total 1070 ml Balance 1070 ml Intake Oral 1070 ml # Voids 4 # Bowel Movements 2 Microbiology Micro Microbiology 12/09/19 Nose/Throat Culture - Final, Complete 12/09/19 Urine Culture - Final, Complete 12/09/19 Antimicrobic Susceptibility - Final, Complete 12/09/19 Blood Culture - Preliminary, Resulted NO GROWTH AFTER 4 DAYS Physical Exam HEENT: Neck Supple W Full Motion Chest: Symmetric LUNGS: Other (diminished bases) Heart: irregularly irregular (AFIB) Abdomen: Soft N/T Extremities: No Calf Tenderness Neurology: alert, follow commands, confused Assessment Assessment 1. Chronic AFIB with RVR: maintaining rate control 2. Transaminitis: recent ERCP with still noted cholelithiasis. GI following 3. HTN: controlled 4. HLP 5. Dementia: pleasantly confused 6. Hypothyroidism: on replacement 7. Suspect CKD3 8. Mild cardiomyopathy: compensated 9. Hx of DVT with IVC filter 10. UTI Recommendations Continue eliquis and BB. Follow up in office. OK for DC to SNU from cardiac standpoint Justicifation of Admission Dx: Justifications for Admission: Justification of Admission Dx: Comment: (AMS; UTI; cholelithiasis) KALA EUCEDA APPLICATION ARCHITECT MANAGER Dec 14, 2019 11:41
--- NOTE | 2019-12-14 12:41 | DS ---
DATE OF DISCHARGE: 12/14/2019 ADMISSION DIAGNOSES: Urinary tract infection, atrial fibrillation, and metabolic encephalopathy. DISCHARGE DIAGNOSES: Resolving urinary tract infection, resolving metabolic encephalopathy. HOSPITAL COURSE: The patient is a pleasant 89-year-old male, presented with metabolic encephalopathy and urinary tract infection. He also has atrial fibrillation. He was also quite weak. We admitted him, gave him intravenous antibiotics and fluids, and did some physical therapy and occupational therapy. Today, I saw and examined him. He is at his baseline. Heart tones are normal. Lungs are clear. We plan to discharge to home. DISPOSITION: Home. ACTIVITY: As tolerated. DIET: Low sodium. MEDICATIONS: Please see the MRAD. I did give a prescription for Augmentin. TOTAL TIME: 34 minutes. HUMERA BLAKE DO DR: JAROD/delia JOB#: [id number] / [id number]
[2019-12-14] MEDS: IV NORMAL SALINE 1000ML BAG 1,000 ML IV SCH (13:12)
[2019-12-14 15:10] VITALS: BP 108/61
--- NOTE | 2019-12-14 15:45 | NUR ---
This RN called [facility] assisted to give report and Dimple stated that pharmacist in charge owner is unable to take report at this time but a message was left with them to call this RN back for report. Will continue to monitor.
--- NOTE | 2019-12-14 16:49 | NUR ---
Discharge Note: JASON SANABRIA [address] Discharge instructions and discharge home medications reviewed and a copy given. All questions have been answered and understanding verbalized. The following instructions and handouts were given: Dr. Johnson on 02/02/[address] [facility] [address]. Discontinued lines and drains: Peripheral IV intact. Patient discharged to [facility] with Self via Wheelchair Addendum: 12/14/19 at 1659 by YU EMERSON RN This RN called facility back and gave report to WESLY Chandra.
== END 2019-12-14 17:00 | DRG 871 ==
LOC: ER 19:47 → 1 WEST ICU 23:59 → 6 SOUTH 12-10 08:26
PROVIDERS: ADMIT Internal Medicine; ATTEND Internal Medicine
DX: A41.9 Sepsis, unspecified organism (principal); G93.41 Metabolic encephalopathy; N39.0 Urinary tract infection, site not specified; I48.20 Chronic atrial fibrillation, unspecified; C18.9 Malignant neoplasm of colon, unspecified; I13.0 Hypertensive heart and chronic kidney disease with heart failure and stage 1 through stage 4 chronic kidney disease, or unspecified chronic kidney disease; I42.9 Cardiomyopathy, unspecified; I50.32 Chronic diastolic (congestive) heart failure; Z16.11 Resistance to penicillins; C44.91 Basal cell carcinoma of skin, unspecified; E03.9 Hypothyroidism, unspecified; E78.00 Pure hypercholesterolemia, unspecified; E78.5 Hyperlipidemia, unspecified; F03.90 Unspecified dementia, unspecified severity, without behavioral disturbance, psychotic disturbance, mood disturbance, and anxiety; G47.33 Obstructive sleep apnea (adult) (pediatric); I34.0 Nonrheumatic mitral (valve) insufficiency; K80.70 Calculus of gallbladder and bile duct without cholecystitis without obstruction; N18.3 Chronic kidney disease, stage 3 (moderate); Z20.828 Contact with and (suspected) exposure to other viral communicable diseases; Z85.048 Personal history of other malignant neoplasm of rectum, rectosigmoid junction, and anus; Z86.010 Personal history of colon polyps; Z85.828 Personal history of other malignant neoplasm of skin; Z86.718 Personal history of other venous thrombosis and embolism; F41.9 Anxiety disorder, unspecified; K57.90 Diverticulosis of intestine, part unspecified, without perforation or abscess without bleeding; M19.90 Unspecified osteoarthritis, unspecified site; Z79.01 Long term (current) use of anticoagulants
CPT/HCPCS: 36415; 71045; 76705; 80048; 80053; 80076; 81001; 82140; 82248; 83605; 83735; 84443; 84484; 85007; 85025; 87040; 87070; 87077; 87086; 87186; 87804; 87880; 93005; 96361; 96365; 96366; 96368; 96375; 99285; J0692; J2543; J3370; J3490; J7030; P9612; 97110-GP; 97116-GP; 97530-GO; 97535-GO; G0378; U0003-CS

== ENCOUNTER 2020-05-03 11:19 | Emergency (ER) | payer MEDICARE ==
[~2020-05-03] VITALS: Ht 180.3 cm; Wt 86.3 kg
[2020-05-03 12:04] LABS: BASO # 0.1 x10^3/uL (0.0-0.2); BASO % 1 % (0-3); EOS # 0.2 x10^3/uL (0.0-0.7); EOS % 2 % (0-3); HEMATOCRIT 36.1 % (39.0-53.0); HEMOGLOBIN 11.9 g/dL (13.0-17.5); LYMPH # 2.4 x10^3/uL (1.0-4.8); LYMPH % 30 % (24-48); MEAN CORPUSCULAR HEMOGLOBIN 29 pg (25-35); MEAN CORPUSCULAR HGB CONC 33 g/dL (31-37); MEAN CORPUSCULAR VOLUME 89 fL (79-100); MONO # 0.8 x10^3/uL (0.0-1.1); MONO % 10 % (0-9); NEUT # 4.6 x10^3/uL (1.8-7.7); NEUT % 57 % (31-73); PLATELET COUNT 270 x10^3/uL (140-400); RED BLOOD COUNT 4.06 x10^6/uL (4.30-5.70); RED CELL DISTRIBUTION WIDTH 14.1 % (11.5-14.5); WHITE BLOOD COUNT 8.1 x10^3/uL (4.0-11.0)
[2020-05-03 12:05] LABS: BILIRUBIN,URINE NEGATIVE (NEG); CLARITY,URINE CLOUDY; COLOR,URINE YELLOW; NITRITE,URINE NEGATIVE (NEG); PROTEIN,URINE 100 mg/dL (NEG-TRACE)
[2020-05-03 12:12] LABS: CALCIUM 8.7 mg/dL (8.5-10.1); CREATININE 1.1 mg/dL (0.7-1.3); GFR 63.3; POTASSIUM 3.6 mmol/L (3.5-5.1)
[2020-05-03 12:18] LABS: BACTERIA,URINE MANY /HPF (0-FEW); WBC,URINE TNTC /HPF (0-4)
[2020-05-03 12:18] LABS: ALBUMIN 2.7 g/dL (3.4-5.0); ALBUMIN/GLOBULIN RATIO 0.8 (1.0-1.7); TOTAL PROTEIN 6.3 g/dL (6.4-8.2)
[2020-05-03 12:19] LABS: RBC,URINE FIELD OBSCURED /HPF (0-2)
[2020-05-03 12:52] VITALS: BP 134/88
[2020-05-03] MEDS ORDERED: IV NORMAL SALINE 500ML BAG 500 ML IV ONE (13:00)
[2020-05-03] MEDS ORDERED: cefTRIAXone IV Push 1 GM VIAL. IVP ONE (13:00)
[2020-05-03] MEDS ORDERED: LEVO750T5 PO (13:05)
--- NOTE | 2020-05-03 13:05 | ED.ADGEN ---
Past Medical History Past Medical History: A-Fib, CHF, Dementia, Gallstones, High Cholesterol, Hypertension, Hypothyroid, UTI Additional Past Medical Histor: blood thinners, tremors, Recum/anal CA Past Surgical History: No Surgical History Smoking Status: Never Smoker Alcohol Use: None General Adult EDM: Chief Complaint: BLOOD IN URINE HPI: HPI: Patient is a 89 year old male brought to the emergency department via EMS with reports of blood in his urine and an abnormal urinalysis from the [facility]. Patient denies any abdominal pain, dysuria, fever, cough, nausea, vomiting, diarrhea, or back pain. The patient denies any complaints. The patient denies any pain. Review of Systems: Review of Systems: Complete ROS is negative unless otherwise noted in HPI. Current Medications: Current Medications Medications (Trade) Dose Ordered Sig/Mike Start Time Stop Time Status Last Admin Dose Admin Ceftriaxone Sodium (Rocephin) 1 gm 1X ONCE 05/03/20 13:00 05/03/20 13:01 DC 05/03/20 13:04 1 GM Sodium Chloride 500 ml @ 500 mls/hr 1X ONCE 05/03/20 13:00 05/03/20 13:59 DC 05/03/20 13:04 500 MLS/HR Allergies: Allergies: Allergies Coded Allergies Type Severity Reaction Last Updated Verified amiodarone Allergy Intermediate 09/23/17 Yes aspirin Allergy Intermediate 09/23/17 Yes fexofenadine Allergy Intermediate 09/23/17 Yes morphine Allergy Intermediate 09/23/17 Yes simvastatin Allergy Intermediate 09/23/17 Yes tramadol Allergy Intermediate 09/23/17 Yes warfarin Allergy Intermediate 09/23/17 Yes Physical Exam: PE: See Above Constitutional: Well developed, well nourished, no acute distress, non-toxic appearance. [] HENT: Normocephalic, atraumatic, bilateral external ears normal, nose normal. [] Eyes: PERRLA, EOMI, conjunctiva normal, no discharge. [] Neck: Normal range of motion, no stridor. [] Cardiovascular:Heart rate regular rhythm Lungs & Thorax: Respirations even and unlabored, no retractions, no respiratory distress Abdomen: soft, no tenderness Back: Nontender, no CVA tenderness Skin: Warm, dry, no erythema, no rash. [] Extremities: No cyanosis, ROM intact, no edema. [] Neurologic: Alert and oriented X 3, no focal deficits noted. [] Psychologic: Affect normal, judgement normal, mood normal. [] Current Patient Data: Labs: Laboratory Tests Test 05/03/20 11:37 05/03/20 11:55 Urine Collection Type U cath Urine Color Yellow Urine Clarity Cloudy Urine pH 6.0 (<5.0-8.0) Urine Specific [place] 1.015 (1.000-1.030) Urine Protein 100 mg/dL (NEG-TRACE) Urine Glucose (UA) Negative mg/dL (NEG) Urine Ketones (Stick) Negative mg/dL (NEG) Urine Blood Small (NEG) Urine Nitrite Negative (NEG) Urine Bilirubin Negative (NEG) Urine Urobilinogen Dipstick 1.0 mg/dL (0.2 mg/dL) Urine Leukocyte Esterase Large (NEG) Urine RBC Field obscured /HPF (0-2) Urine WBC Tntc /HPF (0-4) Urine Bacteria Many /HPF (0-FEW) White Blood Count 8.1 x10^3/uL (4.0-11.0) Red Blood Count 4.06 x10^6/uL (4.30-5.70) L Hemoglobin 11.9 g/dL (13.0-17.5) L Hematocrit 36.1 % (39.0-53.0) L Mean Corpuscular Volume 89 fL (79-100) Mean Corpuscular Hemoglobin 29 pg (25-35) Mean Corpuscular Hemoglobin Concent 33 g/dL (31-37) Red Cell Distribution Width 14.1 % (11.5-14.5) Platelet Count 270 x10^3/uL (140-400) Neutrophils (%) (Auto) 57 % (31-73) Lymphocytes (%) (Auto) 30 % (24-48) Monocytes (%) (Auto) 10 % (0-9) H Eosinophils (%) (Auto) 2 % (0-3) Basophils (%) (Auto) 1 % (0-3) Neutrophils # (Auto) 4.6 x10^3/uL (1.8-7.7) Lymphocytes # (Auto) 2.4 x10^3/uL (1.0-4.8) Monocytes # (Auto) 0.8 x10^3/uL (0.0-1.1) Eosinophils # (Auto) 0.2 x10^3/uL (0.0-0.7) Basophils # (Auto) 0.1 x10^3/uL (0.0-0.2) Sodium Level 138 mmol/L (136-145) Potassium Level 3.6 mmol/L (3.5-5.1) Chloride Level 104 mmol/L (98-107) Carbon Dioxide Level 30 mmol/L (21-32) Anion Gap 4 (6-14) L Blood Urea Nitrogen 19 mg/dL (8-26) Creatinine 1.1 mg/dL (0.7-1.3) Estimated GFR (Cockcroft-Gault) 63.3 BUN/Creatinine Ratio 17 (6-20) Glucose Level 93 mg/dL (70-99) Calcium Level 8.7 mg/dL (8.5-10.1) Magnesium Level 2.0 mg/dL (1.8-2.4) Total Bilirubin 1.0 mg/dL (0.2-1.0) Aspartate Amino Transferase (AST) 21 U/L (15-37) Alanine Aminotransferase (ALT) 14 U/L (16-63) L Alkaline Phosphatase 96 U/L (46-116) Total Protein 6.3 g/dL (6.4-8.2) L Albumin 2.7 g/dL (3.4-5.0) L Albumin/Globulin Ratio 0.8 (1.0-1.7) L Lipase 184 U/L (73-393) Laboratory Tests 05/03/20 11:55 Laboratory Tests 05/03/20 11:55 Vital Signs: Vital Signs Date Time Temp Pulse Resp B/P (MAP) Pulse Ox O2 Delivery O2 Flow Rate FiO2 05/03/20 12:52 90 20 134/88 (103) 97 Room Air 05/03/20 11:26 97.8 97.8 EKG: EKG: [] Heart Score: Risk Factors: Risk Factors: DM, Current or recent (<one month) smoker, HTN, HLP, family history of CAD, obesity. Risk Scores: Score 0 - 3: 2.5% MACE over next 6 weeks - Discharge Home Score 4 - 6: 20.3% MACE over next 6 weeks - Admit for Clinical Observation Score 7 - 10: 72.7% MACE over next 6 weeks - Early Invasive Strategies Radiology/Procedures: Radiology/Procedures: [] Course & Med Decision Making: Course & Med Decision Making Pertinent Labs and Imaging studies reviewed. (See chart for details) 89-year-old male who was sent to the emergency room for concerns of blood in the urine. Patient CBC revealed a hemoglobin of 11.9, hematocrit of 36.1 otherwise unremarkable; CMP revealed normal BUN and creatinine, unremarkable; urinalysis was concerning for a large amount of leukoesterase and small amount of blood with many bacteria. Patient was given 1 g of Rocephin IV. And a 500 mL bolus of normal saline in the ER. His vital signs were stable. Prescription was written for 750 mg tablets of Levaquin 1 p.o. daily x3 days. [] Dragon Disclaimer: Dragon Disclaimer: This electronic medical record was generated, in whole or in part, using a voice recognition dictation system. Departure Departure Impression: Primary Impression: UTI (urinary tract infection) Disposition: 01 PR HOME SELF CARE/HOMELESS Condition: LEFT WITHOUT BEING SEEN Referrals: KURT LE DO (PCP) Patient Instructions: Urinary Tract Infection, [id number] Additional Instructions: Pt was given 1 gm of Rocephin in the ER. Fill prescription(s) and use as directed. Avoid bladder irritants such as caffeine, carbonation, and spicy foods. Increase clear fluids. Follow up with your primary care doctor in 1-2 days, return to the ER if symptoms worsen. Scripts Levofloxacin (LEVOFLOXACIN) 750 Mg Tablet 1 TAB PO DAILY for 3 Days, #3 TAB 0 Refills Prov: FAIZA KELLEY APRN 05/03/20 Problem Qualifiers Primary Impression: UTI (urinary tract infection) Urinary tract infection type: site unspecified Hematuria presence: with hematuria Qualified Codes: N39.0 - Urinary tract infection, site not specified; R31.9 - Hematuria, unspecified FAIZA KELLEY APRN May 03, 2020 13:05
== END 2020-05-03 14:08 | disposition home or self-care (01) ==
LOC: ER 11:19
DX: N39.0 Urinary tract infection, site not specified (principal); R31.9 Hematuria, unspecified; R10.9 Unspecified abdominal pain; I48.20 Chronic atrial fibrillation, unspecified; I11.0 Hypertensive heart disease with heart failure; I50.9 Heart failure, unspecified; E78.00 Pure hypercholesterolemia, unspecified; E03.9 Hypothyroidism, unspecified; F03.90 Unspecified dementia, unspecified severity, without behavioral disturbance, psychotic disturbance, mood disturbance, and anxiety; Z87.442 Personal history of urinary calculi; Z98.890 Other specified postprocedural states; Z85.9 Personal history of malignant neoplasm, unspecified; Z88.6 Allergy status to analgesic agent; Z88.8 Allergy status to other drugs, medicaments and biological substances; Z88.1 Allergy status to other antibiotic agents
CPT/HCPCS: 36415; 80053; 81001; 83690; 83735; 85025; 87086; 96361; 96374; 99284; J0696; J7040; P9612

== ENCOUNTER 2021-01-01 18:48 | Inpatient (IN) | payer MEDICARE ==
[~2021-01-01] VITALS: Ht 180.3 cm; Wt 77.5 kg
[~2021-01-01 18:48] MED LIST changes: +LEVO750T5 PO
[2021-01-01 19:39] LABS: BASO % 0 % (0-3); EOS % 0 % (0-3); HEMATOCRIT 41.6 % (39.0-53.0); HEMOGLOBIN 13.9 g/dL (13.0-17.5); LYMPH # 0.8 x10^3/uL (1.0-4.8); LYMPH % 4 % (24-48); MEAN CORPUSCULAR HEMOGLOBIN 30 pg (25-35); MEAN CORPUSCULAR HGB CONC 34 g/dL (31-37); MEAN CORPUSCULAR VOLUME 89 fL (79-100); MONO # 1.6 x10^3/uL (0.0-1.1); MONO % 8 % (0-9); NEUT # 18.8 x10^3/uL (1.8-7.7); NEUT % 88 % (31-73); PLATELET COUNT 204 x10^3/uL (140-400); RED BLOOD COUNT 4.68 x10^6/uL (4.30-5.70); RED CELL DISTRIBUTION WIDTH 14.1 % (11.5-14.5); WHITE BLOOD COUNT 21.2 x10^3/uL (4.0-11.0)
--- NOTE | 2021-01-01 19:49 | PHYS DOC ---
Past Medical History Past Medical History: A-Fib, CHF, Dementia, Gallstones, High Cholesterol, Hypertension, Hypothyroid, UTI Additional Past Medical Histor: blood thinners, tremors, Recum/anal CA Past Surgical History: No Surgical History Smoking Status: Never Smoker Alcohol Use: None General Adult EDM: Chief Complaint: ALTERED MENTAL STATUS HPI: HPI: Patient is a 89 year old past medical history A. fib, hypertension, hyperlipidemia, hypothyroid and dementia presents for evaluation due to altered mental status. By patient's dementia he is normally very active and verbal. [facility] states today decreased activity and mental status. On arrival patient is febrile. Review of Systems: Review of Systems: Unable to obtain history due to dementia Heart Score: C/O Chest Pain: N/A Risk Factors: Risk Factors: DM, Current or recent (<one month) smoker, HTN, HLP, family history of CAD, obesity. Risk Scores: Score 0 - 3: 2.5% MACE over next 6 weeks - Discharge Home Score 4 - 6: 20.3% MACE over next 6 weeks - Admit for Clinical Observation Score 7 - 10: 72.7% MACE over next 6 weeks - Early Invasive Strategies Allergies: Allergies: Allergies Coded Allergies Type Severity Reaction Last Updated Verified amiodarone Allergy Intermediate 09/23/17 Yes aspirin Allergy Intermediate 09/23/17 Yes fexofenadine Allergy Intermediate 09/23/17 Yes morphine Allergy Intermediate 09/23/17 Yes simvastatin Allergy Intermediate 09/23/17 Yes tramadol Allergy Intermediate 09/23/17 Yes warfarin Allergy Intermediate 09/23/17 Yes Physical Exam: PE: Constitutional: Well developed, well nourished, no acute distress, HENT: Normocephalic, atraumatic, bilateral external ears normal, oropharynx moist, no oral exudates, nose normal. [] Eyes: PERRLA, EOMI, conjunctiva normal, no discharge. [] Neck: Normal range of motion, no tenderness, supple, no stridor. [] Cardiovascular: irRegular tachycardic Lungs & Thorax: Bilateral breath sounds clear to auscultation [] Abdomen: Bowel sounds normal, soft, no tenderness, no masses, no pulsatile masses. [] Skin: Warm, dry, no erythema, no rash. [] Back: No tenderness, no CVA tenderness. [] Extremities: No tenderness, no cyanosis, no clubbing, ROM intact, no edema. [] Neurologic: Alert , normal motor function, normal sensory function, no focal deficits noted. [] EKG: EKG: Performed at 1940 Rate [address] fib RVR No ST elevation No ST depression No acute MO [] Radiology/Procedures: Radiology/Procedures: []CT brain without contrast. HISTORY: Altered mental status CT brain without contrast was compared with an old study from October 2019. There is mild motion artifact. Sinuses are clear. There is no skull fracture. There is diffuse atrophy. There is decreased density in the white matter from chronic microvascular changes similar to the old study. There are old lacunar infarcts in the left cerebellum unchanged. There is no mass effect or shift of the midline. IMPRESSION: 1. Diffuse atrophy and chronic white matter changes. 2. 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 3. No intracranial hemorrhage or definite acute finding. Chest Xray Negative Course & Med Decision Making: Course & Med Decision Making Pertinent Labs and Imaging studies reviewed. (See chart for details) [] Patient was evaluated for chief complaint. Work-up consisted of laboratory analysis and radiologic imaging. Results reviewed and discussed with patient's daughter. CT head chest x-ray within normal limits. Patient's white count noted to be elevated at 22,000. Patient's creatinine also noted to be elevated at 1.8. Patient's urine consistent with a urinary tract infection. Patient's treatment included Tylenol for his fever, IV fluids, and antibiotics. Patient was admitted to the hospitalist for further evaluation and treatment. Dragon Disclaimer: Dragon Disclaimer: This electronic medical record was generated, in whole or in part, using a voice recognition dictation system. Departure Departure Impression: Primary Impression: UTI (urinary tract infection) Additional Impressions: Leukocytosis Fever Altered mental status Dementia Disposition: HOME / SELF CARE / HOMELESS Condition: STABLE Referrals: KURT LE DO (PCP) ANTHONY RAY DO Jan 01, 2021 19:49
[2021-01-01 19:51] LABS: CREATININE 1.8 mg/dL (0.7-1.3); GFR 35.8; POTASSIUM 3.7 mmol/L (3.5-5.1)
[2021-01-01 19:58] LABS: ALBUMIN 3.1 g/dL (3.4-5.0); ALBUMIN/GLOBULIN RATIO 0.7 (1.0-1.7); TOTAL BILIRUBIN 3.4 mg/dL (0.2-1.0); TOTAL PROTEIN 7.3 g/dL (6.4-8.2)
--- NOTE | 2021-01-01 20:00 | RAD ---
CT brain without contrast. HISTORY: Altered mental status CT brain without contrast was compared with an old study from October 2019. There is mild motion artifact . Sinuses are clear. There is no skull fracture. There is diffuse atrophy. There is decreased density in the white matter from chronic microvascular changes similar to the old study. There are old lacun ar infarcts in the left cerebellum unchanged. There is no mass effect or shift of the midline. IMPRESSION: 1. Diffuse atrophy and chronic white matter changes. 2. 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 3. No intracranial hemorrhage or definite acute finding. PQRS Compliance Statement: One or more of the following individualized dose reduction techniques were utilized for this examinat ion: 1. Automated exposure control 2. Adjustment of the mA and/or kV according to patient size 3. Use of iterative reconstruction technique Electronically signed by: Qamar Yi MD (01/01/2021 7:58 PM) [facility]
--- NOTE | 2021-01-01 20:10 | RAD ---
XR CHEST 1V 01/01/2021 7:55 PM INDICATION: Altered mental status COMPARISON: 12/09/2019 TECHNIQUE: Portable frontal view of the chest is provided. FINDINGS: The cardiomediastinal silhouette is similar in appearance. Chronic elevation left hemidiaphragm. Ther e is adjacent subsegmental atelectasis or scarring. There are no significant pleural effusions. There is no pulmonary vascular congestion. No pneumothora x. No suspicious osseous abnormality. IMPRESSION: There is no acute cardiopulmonary process. Electronically signed by: Leatha Deras MD (01/01/2021 8:07 PM) [facility]
[2021-01-01 20:22] LABS: % BANDS 26 % (0-9); % LYMPHS 8 % (24-48); % MONOS 6 % (0-10); % SEGS 60 % (35-66); PLT ESTIMATE ADEQUATE (ADEQUATE)
[2021-01-01 20:38] LABS: BILIRUBIN,URINE SMALL (NEG); CLARITY,URINE CLOUDY; COLOR,URINE AMBER; NITRITE,URINE NEGATIVE (NEG); PROTEIN,URINE 30 mg/dL (NEG-TRACE)
[2021-01-01 20:44] LABS: BACTERIA,URINE MANY /HPF (0-FEW); HYALINE CASTS, URINE MODERATE /HPF; RBC,URINE 0 /HPF (0-2)
[2021-01-01 20:45] LABS: WBC,URINE 20-40 /HPF (0-4)
--- NOTE | 2021-01-01 20:52 | EKG ---
[facility] [address] [place] [address] Test Date: 2021-01-01 Test Time: 19:40:50 Pat Name: JASON SANABRIA Department: Room: Gender: Security Risk Analyst: : 1930 Requested By: ANTHONY RAY Order Number: [id number] Reading MD: Measurements Intervals [place] Rate: 107 P: SD: QRS: -42 QRSD: 122 T: -22 QT: 352 QTc: 469 Interpretive Statements IRREGULAR RHYTHM, NO P-WAVE FOUND VENTRICULAR PREMATURE COMPLEX(ES) ABNORMAL LEFT AXIS DEVIATION LEFT ANTERIOR FASCICULAR BLOCK INCOMPLETE RIGHT BUNDLE BRANCH BLOCK T ABNORMALITY IN ANTERIOR LEADS ABNORMAL ECG RI6.01 No previous ECG available for comparison
[2021-01-01] MEDS ORDERED: IV NORMAL SALINE 1000ML BAG 1,000 ML IV ONE ×2 (21:45→22:00)
[2021-01-01] MEDS ORDERED: POLYETHYLENE GLYCOL 3350 17 GM PACKET. PO PRN (22:00)
[2021-01-01] MEDS ORDERED: cefTRIAXone IV Push 1 GM VIAL. IVP ONE (22:00)
[2021-01-01] MEDS ORDERED: ANTI-COAG MONITOR BY PHARMACY. MC PRN (22:00)
[2021-01-01] MEDS ORDERED: ACETAMINOPHEN 325 MG TABLET. PO ONE (22:00)
[2021-01-01] MEDS ORDERED: ONDANSETRON PF 4 MG/2 ML VIAL. IVP PRN (22:15)
[2021-01-01] MEDS ORDERED: HYDROcodone/APAP 5/325MG 1 TAB TABLET PO PRN (22:15)
[2021-01-01] MEDS: APIXABAN 5 MG TABLET. PO SCH (22:37)
[2021-01-01] MEDS: METOPROLOL TART IMMED RELEASE 25 MG TABLET. PO SCH (22:37)
[2021-01-01 23:00] VITALS: BP 118/62
--- NOTE | 2021-01-01 23:05 | NUR ---
Patient admitted from ER to room 412 per cart. Admitting diagnosis: AMS, fever,UTI,dementia and leukocytosis. Patient is from [facility]. Patient is alert to self but today became confused and lethargic around noon. Patient is also hard of hearing. Patient has several allergies that are listed in the header on this page. Patient is a poor historian at this time. History obtained from chart and reports that were sent from [facility] [employer] [facility]. Patient positive for UTI with elevated white count of 21.2. Patient is no acute distress at this time. Will continue to monitor.
[2021-01-02] MEDS ORDERED: MENT3.5O TP (00:23)
[2021-01-02] MEDS ORDERED: ZINC220C5 PO (00:23)
[2021-01-02] MEDS ORDERED: ACET500T68 PO (00:23)
[2021-01-02] MEDS ORDERED: TROL35.4 TP (00:23)
[2021-01-02] MEDS ORDERED: MIDO2.5T PO (00:23)
[2021-01-02] MEDS ORDERED: MELA5TAB11 SL (00:23)
[2021-01-02] MEDS ORDERED: ASCO500W4 PO (00:23)
[2021-01-02 03:03] LABS: BASO # 0.1 x10^3/uL (0.0-0.2); BASO % 0 % (0-3); EOS % 0 % (0-3); HEMATOCRIT 38.1 % (39.0-53.0); HEMOGLOBIN 12.6 g/dL (13.0-17.5); LYMPH # 1.1 x10^3/uL (1.0-4.8); LYMPH % 6 % (24-48); MEAN CORPUSCULAR HEMOGLOBIN 30 pg (25-35); MEAN CORPUSCULAR HGB CONC 33 g/dL (31-37); MEAN CORPUSCULAR VOLUME 90 fL (79-100); MONO # 1.7 x10^3/uL (0.0-1.1); MONO % 9 % (0-9); NEUT % 85 % (31-73); PLATELET COUNT 166 x10^3/uL (140-400); RED BLOOD COUNT 4.21 x10^6/uL (4.30-5.70)
[2021-01-02 03:04] VITALS: BP 110/63
[2021-01-02 03:14] LABS: CALCIUM 8.1 mg/dL (8.5-10.1); CREATININE 1.4 mg/dL (0.7-1.3); GFR 47.8; POTASSIUM 3.7 mmol/L (3.5-5.1)
[2021-01-02] MEDS: LEVOTHYROXINE 100 MCG TABLET PO SCH (06:07)
[2021-01-02 07:00] VITALS: BP 121/68
[2021-01-02] MEDS ORDERED: ACETAMINOPHEN 325 MG TABLET. PO PRN (07:15)
--- NOTE | 2021-01-02 07:21 | PDOC1 ---
History and Physical Date of Admission Date of Admission DATE: 01/02/21 TIME: 07:04 Identification/Chief Complaint Chief Complaint Confusion Source Source: Caregiver, Chart review History of Present Illness History of Present Illness Mr Mckeon is an 89yo M w/ PMHx A Fib, DVT, mitral valve insufficiency, HTN, HLD, MARLON, BCC and SCC, UTI, cholelithiasis, hypothyroidism, rectal cancer s/p LAR w/ ileostomy/takedown and chemo/rad, IVC filter who p/w confusion to ED from his SNF. Accompanied by daughter. retirement states today decreased activity and mental status. 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 Labs WBC 21.2, Hb 13.9 . Platelets 204, NA 138, K3.7, BUN 36, CR 1.8, glucose 168, bilirubin 3.4, albumin 3.1, lactic acid 1.4, troponin 0.034, urinalysis with moderate leuk esterase. Rapid COVID-19 negative EKG with PVCs and no discernible P wave appears to be atrial fibrillation with rate of [address] segment or T wave abnormalities. Left anterior fascicular block, QTC 469. Admitted for further care. UTI (urinary tract infection) Leukocytosis Fever Altered mental status Dementia Past Medical History Cardiovascular: AFIB, CHF, HTN, Hyperlipidemia, Valve insufficiency Pulmonary: Other CENTRAL NERVOUS SYSTEM: Dementia GI: Diverticulosis, GI bleed Heme/Onc: Cancer, Other Hepatobiliary: Other Psych: Anxiety Musculoskeletal: Osteoarthritis Rheumatologic: No pertinent hx Renal/: UTI, Urinary Incontinence, Hematuria Endocrine: Hypothyroidism Past Surgical History Past Surgical History: Colectomy, Colon Resection, Other Family History Family History: Other Social History Smoke: No ALCOHOL: none Drugs: None Current Problem List Problem List Problems Medical Problems: (1) Altered mental status Status: Acute (2) Dementia Status: Acute (3) Fever Status: Acute (4) Leukocytosis Status: Acute (5) UTI (urinary tract infection) Status: Acute Current Medications Current Medications Current Medications Acetaminophen (Tylenol) 650 mg 1X ONCE PO Last administered on 01/01/21at 22:3 7; Start 01/01/21 at 22:00; Stop 01/01/21 at 22:01; Status DC Ceftriaxone Sodium (Rocephin) 1 gm 1X ONCE IVP Last administered on 01/01/21at 22:31; Start 01/01/21 at 22:00; Stop 01/01/21 at 22:01; Status DC Sodium Chloride 1,000 ml @ 1,000 mls/hr 1X ONCE IV Last administered on 01/01/21at 22:30; Start 01/01/21 at 22:00; Stop 01/01/21 at 22:59; Status DC Ceftriaxone Sodium (Rocephin) 1 gm DAILY IVP ; Start 01/02/21 at 09:00 Sodium Chloride 1,000 ml @ 100 mls/hr 1X ONCE IV Last administered on 1at 22:30; Start 01/01/21 at 21:45; Stop 01/02/21 at 07:44 Levothyroxine Sodium (Synthroid) 100 mcg DAILY06 PO Last administered on 01/02/21at 06:07; Start 01/02/21 at 06:00 Metoprolol Tartrate (Lopressor) 25 mg BID PO Last administered on 01/01/21at 22:37; Start 01/01/21 at 22:00 Apixaban (Eliquis) 5 mg BID PO Last administered on 01/01/21at 22:37; Start 01/01/21 at 22:00 Pantoprazole Sodium (Protonix) 40 mg DAILYAC PO ; Start 01/02/21 at 07:30 Polyethylene Glycol (miraLAX PACKET) 17 gm PRN DAILY PRN PO CONSTIPATION 1ST CHOICE; Start 01/01/21 at 22:00 Info (Anti-Coagulation Monitoring By Pharmacy) 1 each PRN DAILY PRN MC PER PROT OCOL Last administered on 01/01/21at 23:31; Start 01/01/21 at 22:00 Acetaminophen/ Hydrocodone Bitart (Lortab 5/325) 1 tab PRN Q6HRS PRN PO MODERATE PAIN 4-6; Start 01/01/21 at 22:15 Ondansetron HCl (Zofran) 4 mg PRN Q6HRS PRN IVP NAUSEA/VOMITING 1ST CHOICE; Start 01/01/21 at 22:15 Active Scripts Active Culturelle (Lactobacillus Rhamnosus Gg) 1 Each Cap.sprink 1 Cap PO BID 30 Days Metoprolol Tartrate 25 Mg Tablet 25 Mg PO BID 30 Days [Pantoprazole] 40 MG Tablet.dr 40 Mg PO DAILYAC 30 Days Reported Zinc Sulfate 50 Mg Capsule 220 Mg PO DAILY Vitamin C 500 mg Wafer (Ascorbic Acid/Ascorbate Sodium) 500 Mg Wafer 500 Mg PO DAILY Midodrine Hcl 2.5 Mg Tablet 2.5 Mg PO TID Melatonin 5 Mg Tab.subl 1 Tab SL QHS 30 Days Calmoseptine Ointment (Menthol/Zinc Oxide) 3.5 Gm Oint.pack 3.5 Gm TP PRN TID PRN Aspercreme 10% Cream (Trolamine Salicylate/Aloe Vera) 35.4 Gm Cream..g. 1 Adam TP PRN Q6HRS PRN 14 Days Acetaminophen 500 Mg Tablet 2 Tab PO PRN Q8HRS PRN 15 Days Multivitamins (Multivitamin) 1 Each Tablet 1 Tab PO DAILY Loperamide (Loperamide Hcl) 2 Mg Capsule 2 Mg PO PRN QID PRN Zinc Oxide 57 Gm Oint...g. 20 % TP DAILY Polyethylene Glycol 3350 2,500 Gm Powder 17 Gm PO DAILY Synthroid (Levothyroxine Sodium) 100 Mcg Tablet 100 Mcg PO DAILYAC Eliquis (Apixaban) 5 Mg Tab.ds.pk 5 Mg PO BID Allergies Allergies: Coded Allergies: amiodarone (Verified Allergy, Intermediate, 09/23/17) aspirin (Verified Allergy, Intermediate, 09/23/17) fexofenadine (Verified Allergy, Intermediate, 09/23/17) morphine (Verified Allergy, Intermediate, 09/23/17) simvastatin (Verified Allergy, Intermediate, 09/23/17) tramadol (Verified Allergy, Intermediate, 09/23/17) warfarin (Verified Allergy, Intermediate, 09/23/17) ROS Review of System Unable to accurately obtain due to dementia. Patient has negative review of systems and then on repeat within the next 30 minutes does have some complaints of various pain no chest pain or shortness of breath General: YES: Chills; No: Night Sweats, Fatigue, Malaise, Appetite, Other PSYCHOLOGICAL ROS: No: Anxiety, Behavioral Disorder, Concentration difficultie, Decreased libido, Depression, Disorientation, Hallucinations, Hostility, Irritablity, Memory difficulties, Mood Swings, Obsessive thoughts, Physical abuse, Sexual abuse, Sleep disturbances, Suicidal ideation, Other Eyes: No Blurry vision, No Decreased vision, No Double vision, No Dry eyes, No Excessive tearing, No Eye Pain, No Itchy Eyes, No Loss of vision, No Photophobia, No Scotomata, No Uses contacts, No Uses glasses, No Other HEENT: No: Heacaches, Visual Changes, Hearing change, Nasal congestion, Nasal discharge, Oral lesions, Sinus pain, Sore Throat, Epistaxis, Sneezing, Snoring, Tinnitus, Vertigo, Vocal changes, Other ALLERGY AND IMMUNOLOGY: No: Hives, Insect Bite Sensitivity, Itchy/Watery Eyes, Nasal Congestion, Post Nasal Drip, Seasonal Allergies, Other Hematological and Lymphatic: No: Bleeding Problems, Blood Clots, Blood Transfusions, Brusing, Night Sweats, Pallor, Swollen Lymph Nodes, Other ENDOCRINE: No: Breast Changes, Galactorrhea, Hair Pattern Changes, Hot Flashes, Malaise/lethargy, Mood Swings, Palpitations, Polydipsia/polyuria, Skin Changes, Temperature Intolerance, Unexpected Weight Changes, Other Breast: No New/Changing Breast Lumps, No Nipple changes, No Nipple discharge, No Other Respiratory: No: Cough, Hemoptysis, Orthopnea, Pleuritic Pain, Shortness of breath, SOB with excertion, Sputum Changes, Stridor, Tachypnea, Wheezing, Other Cardiovascular: No Chest Pain, No Palpitations, No Orthopnea, No Paroxysmal Noc. Dyspnea, No Edema, No Lt Headedness, No Other Gastrointestinal: No Nausea, No Vomiting, No Abdominal Pain, No Diarrhea, No Constipation, No Melena, No Hematochezia, No Other Genitourinary: No Dysuria, No Frequency, No Incontinence, No Hematuria, No Retention, No Discharge, No Urgency, No Pain, No Flank Pain, No Other, No , No , No , No , No , No , No Musculoskeletal: No Gait Disturbance, No Joint Pain, No Joint Stiffness, No Joint Swelling, No Muscle Pain, No Muscular Weakness, No Pain In:, No Swelling In:, No Other Neurological: No Behavorial Changes, No Bowel/Bladder ControlChng, No Confusion, No Dizziness, No Gait Disturbance, No Headaches, No Impaired Coord/balance, No Memory Loss, No Numbness/Tingling, No Seizures, No Speech Problems, No Tremors, No Visual Changes, No Weakness, No Other Skin: No Dry Skin, No Eczema, No Hair Changes, No Lumps, No Mole Changes, No Mottling, No Nail Changes, No Pruritus, No Rash, No Skin Lesion Changes, No Other, No Acne Physical Exam General: Alert, Cooperative, mild distress HEENT: Atraumatic, PERRLA, EOMI, Mucous membr. moist/pink Lungs: Clear to auscultation, Normal air movement Heart: irregularly irregular Abdomen: Normal bowel sounds, Soft, Other (Suprapubic tenderness) Rectal Exam: not examined Extremities: No clubbing, No cyanosis, No edema, Normal pulses, No tenderness/swelling Skin: No rashes, No breakdown, No significant lesion Neuro: Normal tone, Cranial nerves 3-12 NL, Reflexes 2+ Psych/Mental Status: Other (Confused) Vitals Vitals Vital Signs Date Time Temp Pulse Resp B/P (MAP) Pulse Ox O2 Delivery O2 Flow Rate FiO2 01/02/21 03:04 98.1 72 16 110/63 (79) 95 Room Air 98.1 Labs Labs Laboratory Tests Test 01/01/21 19:00 01/01/21 20:11 01/01/21 20:25 01/02/21 02:57 White Blood Count 21.2 x10^3/uL (4.0-11.0) 20.0 x10^3/uL (4.0-11.0) Red Blood Count 4.68 x10^6/uL (4.30-5.70) 4.21 x10^6/uL (4.30-5.70) Hemoglobin 13.9 g/dL (13.0-17.5) 12.6 g/dL (13.0-17.5) Hematocrit 41.6 % (39.0-53.0) 38.1 % (39.0-53.0) Mean Corpuscular Volume 89 fL (79-100) 90 fL (79-100) Mean Corpuscular Hemoglobin 30 pg (25-35) 30 pg (25-35) Mean Corpuscular Hemoglobin Concent 34 g/dL (31-37) 33 g/dL (31-37) Red Cell Distribution Width 14.1 % (11.5-14.5) 14.0 % (11.5-14.5) Platelet Count 204 x10^3/uL (140-400) 166 x10^3/uL (140-400) Neutrophils (%) (Auto) 88 % (31-73) 85 % (31-73) Lymphocytes (%) (Auto) 4 % (24-48) 6 % (24-48) Monocytes (%) (Auto) 8 % (0-9) 9 % (0-9) Eosinophils (%) (Auto) 0 % (0-3) 0 % (0-3) Basophils (%) (Auto) 0 % (0-3) 0 % (0-3) Neutrophils # (Auto) 18.8 x10^3/uL (1.8-7.7) 17.0 x10^3/uL (1.8-7.7) Lymphocytes # (Auto) 0.8 x10^3/uL (1.0-4.8) 1.1 x10^3/uL (1.0-4.8) Monocytes # (Auto) 1.6 x10^3/uL (0.0-1.1) 1.7 x10^3/uL (0.0-1.1) Eosinophils # (Auto) 0.0 x10^3/uL (0.0-0.7) 0.0 x10^3/uL (0.0-0.7) Basophils # (Auto) 0.0 x10^3/uL (0.0-0.2) 0.1 x10^3/uL (0.0-0.2) Segmented Neutrophils % 60 % (35-66) Band Neutrophils % 26 % (0-9) Lymphocytes % 8 % (24-48) Monocytes % 6 % (0-10) Dohle Bodies Present Platelet Estimate Adequate (ADEQUATE) Sodium Level 138 mmol/L (136-145) 139 mmol/L (136-145) Potassium Level 3.7 mmol/L (3.5-5.1) 3.7 mmol/L (3.5-5.1) Chloride Level 102 mmol/L (98-107) 102 mmol/L (98-107) Carbon Dioxide Level 28 mmol/L (21-32) 29 mmol/L (21-32) Anion Gap 8 (6-14) 8 (6-14) Blood Urea Nitrogen 36 mg/dL (8-26) 41 mg/dL (8-26) Creatinine 1.8 mg/dL (0.7-1.3) 1.4 mg/dL (0.7-1.3) Estimated GFR (Cockcroft-Gault) 35.8 47.8 BUN/Creatinine Ratio 20 (6-20) Glucose Level 168 mg/dL (70-99) 129 mg/dL (70-99) Calcium Level 9.0 mg/dL (8.5-10.1) 8.1 mg/dL (8.5-10.1) Total Bilirubin 3.4 mg/dL (0.2-1.0) Aspartate Amino Transf (AST/SGOT) 24 U/L (15-37) Alanine Aminotransferase (ALT/SGPT) 21 U/L (16-63) Alkaline Phosphatase 85 U/L (46-116) Troponin I Quantitative 0.034 ng/mL (0.000-0.055) Total Protein 7.3 g/dL (6.4-8.2) Albumin 3.1 g/dL (3.4-5.0) Albumin/Globulin Ratio 0.7 (1.0-1.7) Urine Collection Type Unknown Urine Color Inga Urine Clarity Cloudy Urine pH 6.0 (<5.0-8.0) Urine Specific [place] 1.020 (1.000-1.030) Urine Protein 30 mg/dL (NEG-TRACE) Urine Glucose (UA) Negative mg/dL (NEG) Urine Ketones (Stick) 15 mg/dL (NEG) Urine Blood Negative (NEG) Urine Nitrite Negative (NEG) Urine Bilirubin Small (NEG) Urine Urobilinogen Dipstick 1.0 mg/dL (0.2 mg/dL) Urine Leukocyte Esterase Moderate (NEG) Urine RBC 0 /HPF (0-2) Urine WBC 20-40 /HPF (0-4) Urine Bacteria Many /HPF (0-FEW) Urine Hyaline Casts Moderate /HPF Urine Mucus Mod /LPF SARS-CoV-2 Antigen (Rapid) Negative (NEGATIVE) Lactic Acid Level 1.4 mmol/L (0.4-2.0) Laboratory Tests Test 01/01/21 19:00 01/01/21 20:11 01/01/21 20:25 01/02/21 02:57 White Blood Count 21.2 x10^3/uL (4.0-11.0) 20.0 x10^3/uL (4.0-11.0) Red Blood Count 4.68 x10^6/uL (4.30-5.70) 4.21 x10^6/uL (4.30-5.70) Hemoglobin 13.9 g/dL (13.0-17.5) 12.6 g/dL (13.0-17.5) Hematocrit 41.6 % (39.0-53.0) 38.1 % (39.0-53.0) Mean Corpuscular Volume 89 fL (79-100) 90 fL (79-100) Mean Corpuscular Hemoglobin 30 pg (25-35) 30 pg (25-35) Mean Corpuscular Hemoglobin Concent 34 g/dL (31-37) 33 g/dL (31-37) Red Cell Distribution Width 14.1 % (11.5-14.5) 14.0 % (11.5-14.5) Platelet Count 204 x10^3/uL (140-400) 166 x10^3/uL (140-400) Neutrophils (%) (Auto) 88 % (31-73) 85 % (31-73) Lymphocytes (%) (Auto) 4 % (24-48) 6 % (24-48) Monocytes (%) (Auto) 8 % (0-9) 9 % (0-9) Eosinophils (%) (Auto) 0 % (0-3) 0 % (0-3) Basophils (%) (Auto) 0 % (0-3) 0 % (0-3) Neutrophils # (Auto) 18.8 x10^3/uL (1.8-7.7) 17.0 x10^3/uL (1.8-7.7) Lymphocytes # (Auto) 0.8 x10^3/uL (1.0-4.8) 1.1 x10^3/uL (1.0-4.8) Monocytes # (Auto) 1.6 x10^3/uL (0.0-1.1) 1.7 x10^3/uL (0.0-1.1) Eosinophils # (Auto) 0.0 x10^3/uL (0.0-0.7) 0.0 x10^3/uL (0.0-0.7) Basophils # (Auto) 0.0 x10^3/uL (0.0-0.2) 0.1 x10^3/uL (0.0-0.2) Segmented Neutrophils % 60 % (35-66) Band Neutrophils % 26 % (0-9) Lymphocytes % 8 % (24-48) Monocytes % 6 % (0-10) Dohle Bodies Present Platelet Estimate Adequate (ADEQUATE) Sodium Level 138 mmol/L (136-145) 139 mmol/L (136-145) Potassium Level 3.7 mmol/L (3.5-5.1) 3.7 mmol/L (3.5-5.1) Chloride Level 102 mmol/L (98-107) 102 mmol/L (98-107) Carbon Dioxide Level 28 mmol/L (21-32) 29 mmol/L (21-32) Anion Gap 8 (6-14) 8 (6-14) Blood Urea Nitrogen 36 mg/dL (8-26) 41 mg/dL (8-26) Creatinine 1.8 mg/dL (0.7-1.3) 1.4 mg/dL (0.7-1.3) Estimated GFR (Cockcroft-Gault) 35.8 47.8 BUN/Creatinine Ratio 20 (6-20) Glucose Level 168 mg/dL (70-99) 129 mg/dL (70-99) Calcium Level 9.0 mg/dL (8.5-10.1) 8.1 mg/dL (8.5-10.1) Total Bilirubin 3.4 mg/dL (0.2-1.0) Aspartate Amino Transf (AST/SGOT) 24 U/L (15-37) Alanine Aminotransferase (ALT/SGPT) 21 U/L (16-63) Alkaline Phosphatase 85 U/L (46-116) Troponin I Quantitative 0.034 ng/mL (0.000-0.055) Total Protein 7.3 g/dL (6.4-8.2) Albumin 3.1 g/dL (3.4-5.0) Albumin/Globulin Ratio 0.7 (1.0-1.7) Urine Collection Type Unknown Urine Color Inga Urine Clarity Cloudy Urine pH 6.0 (<5.0-8.0) Urine Specific [place] 1.020 (1.000-1.030) Urine Protein 30 mg/dL (NEG-TRACE) Urine Glucose (UA) Negative mg/dL (NEG) Urine Ketones (Stick) 15 mg/dL (NEG) Urine Blood Negative (NEG) Urine Nitrite Negative (NEG) Urine Bilirubin Small (NEG) Urine Urobilinogen Dipstick 1.0 mg/dL (0.2 mg/dL) Urine Leukocyte Esterase Moderate (NEG) Urine RBC 0 /HPF (0-2) Urine WBC 20-40 /HPF (0-4) Urine Bacteria Many /HPF (0-FEW) Urine Hyaline Casts Moderate /HPF Urine Mucus Mod /LPF SARS-CoV-2 Antigen (Rapid) Negative (NEGATIVE) Lactic Acid Level 1.4 mmol/L (0.4-2.0) Images Images CT brain without contrast: CT brain without contrast was compared with an old study from October 2019. There is mild motion artifact. Sinuses are clear. There is no skull fracture. There is diffuse atrophy. There is decreased density in the white matter from chronic microvascular changes similar to the old study. There are old lacunar infarcts in the left cerebellum unchanged. There is no mass effect or shift of the midline. IMPRESSION: 1. Diffuse atrophy and chronic white matter changes. 2. 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 3. No intracranial hemorrhage or definite acute finding. Chest radiograph: VTE Prophylaxis Ordered VTE Prophylaxis Devices: Yes VTE Pharmacological Prophylaxi: Yes Assessment/Plan Assessment/Plan A/P: Metabolic Encephalopathy with associated dementia likely secondary to ongoing UTI/fever Sepsis - from likely UTI HECTOR - likely vasomotor nephropathy. 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 Light during day, frequent redirection Mitral valve insufficiency Transaminitis - Bilirubin elevated since ERCP with still noted cholelithiasis in 2019 (he had an ERCP on 10/22/2019 withsphincterotomy and stone extraction) Pulmonary nodules - with colon ca history concerning for possible mets. Hypothyroidism - cont levothyroxine Chronic diastolic CHF Hx of DVT with IVC filter and oral AC MARLON - CPAP at night ESSENTIAL HTN HLD History of rectal cancer status post LAR with ileostomy and takedown and chemo and radiation. FEN - Cardiac diet PPX - eliquis FULL CODE Dispo - inpatient Justifications for Admission Other Justification CAMILA ANGUIANO MD Jan 02, 2021 07:21
[2021-01-02] MEDS: LACTOBACILLUS RHAMNOSUS GG 1 CAPSULE. PO SCH ×2 (09:39→21:38)
[2021-01-02] MEDS: PANTOPRAZOLE 40 MG TABLET.DR. PO SCH (09:39)
[2021-01-02] MEDS: TAMSULOSIN 0.4 MG CAP.ER.24H. PO SCH (09:39)
[2021-01-02] MEDS: cefTRIAXone IV Push 1 GM VIAL. IVP SCH (09:40)
[2021-01-02] MEDS: APIXABAN 5 MG TABLET. PO SCH ×2 (09:40→21:39)
[2021-01-02] MEDS: METOPROLOL TART IMMED RELEASE 25 MG TABLET. PO SCH ×2 (09:40→21:39)
--- NOTE | 2021-01-02 10:23 | NUR ---
SW following. Discussed with RN, pt from [facility] Living, room air, cardiac diet, rapid COVID-19 negative. RN ordering PT/OT. RN advised no SW needs at this time. SW will continue to follow.
[2021-01-02 11:00] VITALS: BP 121/64
[2021-01-02 15:00] VITALS: BP 113/62
[2021-01-02 19:00] VITALS: BP 105/60
[2021-01-02 22:55] VITALS: BP 126/74
[2021-01-03 03:00] VITALS: BP 127/71
[2021-01-03 05:13] LABS: BASO % 0 % (0-3); EOS % 0 % (0-3); HEMATOCRIT 36.7 % (39.0-53.0); HEMOGLOBIN 12.2 g/dL (13.0-17.5); LYMPH # 1.3 x10^3/uL (1.0-4.8); LYMPH % 10 % (24-48); MEAN CORPUSCULAR HEMOGLOBIN 30 pg (25-35); MEAN CORPUSCULAR HGB CONC 33 g/dL (31-37); MEAN CORPUSCULAR VOLUME 91 fL (79-100); MONO % 8 % (0-9); NEUT # 11.5 x10^3/uL (1.8-7.7); NEUT % 83 % (31-73); PLATELET COUNT 166 x10^3/uL (140-400); RED BLOOD COUNT 4.06 x10^6/uL (4.30-5.70); RED CELL DISTRIBUTION WIDTH 14.5 % (11.5-14.5); WHITE BLOOD COUNT 13.9 x10^3/uL (4.0-11.0)
[2021-01-03 05:45] LABS: ALBUMIN 2.3 g/dL (3.4-5.0); DIRECT BILIRUBIN 0.4 mg/dL (0.0-0.2); TOTAL BILIRUBIN 1.3 mg/dL (0.2-1.0); TOTAL PROTEIN 5.9 g/dL (6.4-8.2)
[2021-01-03 05:55] LABS: CALCIUM 8.3 mg/dL (8.5-10.1); CREATININE 1.1 mg/dL (0.7-1.3); GFR 63.2; POTASSIUM 3.9 mmol/L (3.5-5.1)
[2021-01-03] MEDS: LEVOTHYROXINE 100 MCG TABLET PO SCH (06:19)
[2021-01-03 07:00] VITALS: BP 136/86
--- NOTE | 2021-01-03 07:26 | PDOC ---
[employer] PROGRESS NOTE Date of Service DOS: DATE: 01/03/21 TIME: 07:21 Chief Complaint Chief Complaint A/P: Metabolic Encephalopathy with associated dementia likely secondary to ongoing UTI/fever Sepsis - from likely UTI HECTOR - likely vasomotor nephropathy. 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 Light during day, frequent redirection Mitral valve insufficiency Transaminitis - Bilirubin elevated since ERCP with still noted cholelithiasis in 2019 (he had an ERCP on 10/22/2019 withsphincterotomy and stone extraction) Pulmonary nodules - with colon ca history concerning for possible mets. Hypothyroidism - cont levothyroxine Chronic diastolic CHF Hx of DVT with IVC filter and oral AC MARLON - CPAP at night ESSENTIAL HTN HLD History of rectal cancer status post LAR with ileostomy and takedown and chemo and radiation. FEN - Cardiac diet PPX - eliquis FULL CODE Dispo - inpatient History of Present Illness History of Present Illness Mr Mckeon is an 89yo M w/ PMHx A Fib, DVT, mitral valve insufficiency, HTN, HLD, MARLON, BCC and SCC, UTI, cholelithiasis, hypothyroidism, rectal cancer s/p LAR w/ ileostomy/takedown and chemo/rad, IVC filter who p/w confusion to ED from his SNF. Accompanied by daughter. Assisted living facility states decreased activity and mental status. 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 Labs WBC 21.2, Hb 13.9 . Platelets 204, NA 138, K3.7, BUN 36, CR 1.8, glucose 168, bilirubin 3.4, albumin 3.1, lactic acid 1.4, troponin 0.034, urinalysis with moderate leuk esterase. Rapid COVID-19 negative EKG with PVCs and no discernible P wave appears to be atrial fibrillation with rate of [address] segment or T wave abnormalities. Left anterior fascicular block, QTC 469. Admitted for further care. Afebrile overnight. WBC down to 13.9. Creatinine improved to 1.1. Bilirubin down to 1.3. Urine returns with Aerococcus urinae. He is more alert today. Vitals/I&O Vitals/I&O: Vital Signs Date Time Temp Pulse Resp B/P (MAP) Pulse Ox O2 Delivery O2 Flow Rate FiO2 01/03/21 03:00 99.2 76 18 127/71 (89) 95 Room Air 99.2 Physical Exam General: Alert, Cooperative, mild distress Lungs: Clear Abdomen: Normal bowel sounds, Soft, Other (Suprapubic tenderness) Extremities: No clubbing, No cyanosis, No edema, Normal pulses, No tenderness/swelling Skin: No rashes, No breakdown, No significant lesion Labs Labs: Laboratory Tests Test 01/03/21 04:53 White Blood Count 13.9 x10^3/uL (4.0-11.0) Red Blood Count 4.06 x10^6/uL (4.30-5.70) Hemoglobin 12.2 g/dL (13.0-17.5) Hematocrit 36.7 % (39.0-53.0) Mean Corpuscular Volume 91 fL (79-100) Mean Corpuscular Hemoglobin 30 pg (25-35) Mean Corpuscular Hemoglobin Concent 33 g/dL (31-37) Red Cell Distribution Width 14.5 % (11.5-14.5) Platelet Count 166 x10^3/uL (140-400) Neutrophils (%) (Auto) 83 % (31-73) Lymphocytes (%) (Auto) 10 % (24-48) Monocytes (%) (Auto) 8 % (0-9) Eosinophils (%) (Auto) 0 % (0-3) Basophils (%) (Auto) 0 % (0-3) Neutrophils # (Auto) 11.5 x10^3/uL (1.8-7.7) Lymphocytes # (Auto) 1.3 x10^3/uL (1.0-4.8) Monocytes # (Auto) 1.0 x10^3/uL (0.0-1.1) Eosinophils # (Auto) 0.0 x10^3/uL (0.0-0.7) Basophils # (Auto) 0.0 x10^3/uL (0.0-0.2) Sodium Level 141 mmol/L (136-145) Potassium Level 3.9 mmol/L (3.5-5.1) Chloride Level 107 mmol/L (98-107) Carbon Dioxide Level 27 mmol/L (21-32) Anion Gap 7 (6-14) Blood Urea Nitrogen 47 mg/dL (8-26) Creatinine 1.1 mg/dL (0.7-1.3) Estimated GFR (Cockcroft-Gault) 63.2 Glucose Level 96 mg/dL (70-99) Calcium Level 8.3 mg/dL (8.5-10.1) Total Bilirubin 1.3 mg/dL (0.2-1.0) Direct Bilirubin 0.4 mg/dL (0.0-0.2) Aspartate Amino Transf (AST/SGOT) 18 U/L (15-37) Alanine Aminotransferase (ALT/SGPT) 15 U/L (16-63) Alkaline Phosphatase 67 U/L (46-116) Total Protein 5.9 g/dL (6.4-8.2) Albumin 2.3 g/dL (3.4-5.0) Assessment and Plan Assessmemt and Plan Problems Medical Problems: (1) Altered mental status Status: Acute (2) Dementia Status: Acute (3) Fever Status: Acute (4) Leukocytosis Status: Acute (5) UTI (urinary tract infection) Status: Acute Comment Review of Relevant I have reviewed the following items mark anthony (where applicable) has been applied. Medications: Current Medications Medications (Trade) Dose Ordered Sig/Mike Route PRN Reason Start Time Stop Time Status Last Admin Dose Admin Ceftriaxone Sodium (Rocephin) 1 gm DAILY IVP 01/02/21 09:00 01/02/21 09:40 Pantoprazole Sodium (Protonix) 40 mg DAILYAC PO 01/02/21 07:30 01/02/21 09:39 Lactobacillus Rhamnosus (Culturelle) 1 cap BID PO 01/02/21 09:00 01/02/21 21:38 Tamsulosin HCl (Flomax) 0.4 mg DAILY PO 01/02/21 09:00 01/02/21 09:39 Justifications for Admission Other Justification CAMILA ANGUIANO MD Jan 03, 2021 07:26
[2021-01-03] MEDS: LACTOBACILLUS RHAMNOSUS GG 1 CAPSULE. PO SCH ×2 (08:15→21:01)
[2021-01-03] MEDS: PANTOPRAZOLE 40 MG TABLET.DR. PO SCH (08:15)
[2021-01-03] MEDS: APIXABAN 5 MG TABLET. PO SCH ×2 (08:15→21:01)
[2021-01-03] MEDS: TAMSULOSIN 0.4 MG CAP.ER.24H. PO SCH (08:15)
[2021-01-03] MEDS: METOPROLOL TART IMMED RELEASE 25 MG TABLET. PO SCH ×2 (08:15→21:01)
[2021-01-03] MEDS: cefTRIAXone IV Push 1 GM VIAL. IVP SCH (08:16)
[2021-01-03 11:00] VITALS: BP 114/57
[2021-01-03 15:00] VITALS: BP 158/75
[2021-01-03 19:00] VITALS: BP 158/137
[2021-01-03 23:00] VITALS: BP 135/83
[2021-01-04 03:00] VITALS: BP 129/72
[2021-01-04 04:28] LABS: BASO % 0 % (0-3); EOS # 0.1 x10^3/uL (0.0-0.7); EOS % 1 % (0-3); HEMATOCRIT 35.6 % (39.0-53.0); LYMPH # 1.5 x10^3/uL (1.0-4.8); LYMPH % 18 % (24-48); MEAN CORPUSCULAR HEMOGLOBIN 30 pg (25-35); MEAN CORPUSCULAR HGB CONC 34 g/dL (31-37); MEAN CORPUSCULAR VOLUME 90 fL (79-100); MONO # 0.7 x10^3/uL (0.0-1.1); MONO % 8 % (0-9); NEUT # 6.1 x10^3/uL (1.8-7.7); NEUT % 73 % (31-73); PLATELET COUNT 193 x10^3/uL (140-400); RED BLOOD COUNT 3.95 x10^6/uL (4.30-5.70); RED CELL DISTRIBUTION WIDTH 13.9 % (11.5-14.5); WHITE BLOOD COUNT 8.4 x10^3/uL (4.0-11.0)
[2021-01-04 04:46] LABS: CALCIUM 8.1 mg/dL (8.5-10.1); CREATININE 0.8 mg/dL (0.7-1.3); GFR 91.2; POTASSIUM 3.3 mmol/L (3.5-5.1)
[2021-01-04] MEDS: LEVOTHYROXINE 100 MCG TABLET PO SCH (05:29)
[2021-01-04 07:00] VITALS: BP 135/78
--- NOTE | 2021-01-04 07:32 | PDOC ---
[employer] PROGRESS NOTE Date of Service DOS: DATE: 01/04/21 TIME: 07:31 Chief Complaint Chief Complaint A/P: Metabolic Encephalopathy with associated dementia likely secondary to ongoing UTI/fever Sepsis - from likely UTI HECTOR - likely vasomotor nephropathy. 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 Light during day, frequent redirection Mitral valve insufficiency Transaminitis - Bilirubin elevated since ERCP with still noted cholelithiasis in 2019 (he had an ERCP on 10/22/2019 withsphincterotomy and stone extraction) Pulmonary nodules - with colon ca history concerning for possible mets. Hypothyroidism - cont levothyroxine Chronic diastolic CHF Hx of DVT with IVC filter and oral AC MARLON - CPAP at night ESSENTIAL HTN HLD History of rectal cancer status post LAR with ileostomy and takedown and chemo and radiation. FEN - Cardiac diet PPX - eliquis FULL CODE Dispo - inpatient History of Present Illness History of Present Illness Mr Mckeon is an 89yo M w/ PMHx A Fib, DVT, mitral valve insufficiency, HTN, HLD, MARLON, BCC and SCC, UTI, cholelithiasis, hypothyroidism, rectal cancer s/p LAR w/ ileostomy/takedown and chemo/rad, IVC filter who p/w confusion to ED from his SNF. Accompanied by daughter. Assisted living facility states decreased activity and mental status. 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 Labs WBC 21.2, Hb 13.9 . Platelets 204, NA 138, K3.7, BUN 36, CR 1.8, glucose 168, bilirubin 3.4, albumin 3.1, lactic acid 1.4, troponin 0.034, urinalysis with moderate leuk esterase. Rapid COVID-19 negative EKG with PVCs and no discernible P wave appears to be atrial fibrillation with rate of [address] segment or T wave abnormalities. Left anterior fascicular block, QTC 469. Admitted for further care. 01/03: Afebrile overnight. WBC down to 13.9. Creatinine improved to 1.1. Bilirubin down to 1.3. Urine returns with Aerococcus urinae. He is more alert today. Afebrile. WBC down to 8. Creatinine improved to 0.8. K3.3. Awaiting SNF placement now given PT/OT recommendations. Vitals/I&O Vitals/I&O: Vital Signs Date Time Temp Pulse Resp B/P (MAP) Pulse Ox O2 Delivery O2 Flow Rate FiO2 01/04/21 03:00 98.2 73 17 129/72 (91) 93 Room Air 98.2 I & O 01/03/21 01/03/21 01/04/21 15:00 23:00 07:00 Intake Total 180 ml 240 ml 150 ml Balance 180 ml 240 ml 150 ml Physical Exam General: Alert, Cooperative, mild distress Lungs: Clear Abdomen: Normal bowel sounds, Soft, Other (Suprapubic tenderness) Extremities: No clubbing, No cyanosis, No edema, Normal pulses, No tenderness/swelling Skin: No rashes, No breakdown, No significant lesion Labs Labs: Laboratory Tests Test 01/04/21 03:15 White Blood Count 8.4 x10^3/uL (4.0-11.0) Red Blood Count 3.95 x10^6/uL (4.30-5.70) Hemoglobin 12.0 g/dL (13.0-17.5) Hematocrit 35.6 % (39.0-53.0) Mean Corpuscular Volume 90 fL (79-100) Mean Corpuscular Hemoglobin 30 pg (25-35) Mean Corpuscular Hemoglobin Concent 34 g/dL (31-37) Red Cell Distribution Width 13.9 % (11.5-14.5) Platelet Count 193 x10^3/uL (140-400) Neutrophils (%) (Auto) 73 % (31-73) Lymphocytes (%) (Auto) 18 % (24-48) Monocytes (%) (Auto) 8 % (0-9) Eosinophils (%) (Auto) 1 % (0-3) Basophils (%) (Auto) 0 % (0-3) Neutrophils # (Auto) 6.1 x10^3/uL (1.8-7.7) Lymphocytes # (Auto) 1.5 x10^3/uL (1.0-4.8) Monocytes # (Auto) 0.7 x10^3/uL (0.0-1.1) Eosinophils # (Auto) 0.1 x10^3/uL (0.0-0.7) Basophils # (Auto) 0.0 x10^3/uL (0.0-0.2) Sodium Level 140 mmol/L (136-145) Potassium Level 3.3 mmol/L (3.5-5.1) Chloride Level 105 mmol/L (98-107) Carbon Dioxide Level 29 mmol/L (21-32) Anion Gap 6 (6-14) Blood Urea Nitrogen 32 mg/dL (8-26) Creatinine 0.8 mg/dL (0.7-1.3) Estimated GFR (Cockcroft-Gault) 91.2 Glucose Level 81 mg/dL (70-99) Calcium Level 8.1 mg/dL (8.5-10.1) Assessment and Plan Assessmemt and Plan Problems Medical Problems: (1) Altered mental status Status: Acute (2) Dementia Status: Acute (3) Fever Status: Acute (4) Leukocytosis Status: Acute (5) UTI (urinary tract infection) Status: Acute Comment Review of Relevant I have reviewed the following items mark anthony (where applicable) has been applied. Justifications for Admission Other Justification CAMILA ANGUIANO MD Jan 04, 2021 07:32
[2021-01-04] MEDS ORDERED: POTASSIUM CHLORIDE 20 MEQ TABLET.ER. PO ONE (08:00)
[2021-01-04] MEDS: LACTOBACILLUS RHAMNOSUS GG 1 CAPSULE. PO SCH ×2 (08:20→21:08)
[2021-01-04] MEDS: TAMSULOSIN 0.4 MG CAP.ER.24H. PO SCH (08:20)
[2021-01-04] MEDS: APIXABAN 5 MG TABLET. PO SCH ×2 (08:20→21:08)
[2021-01-04] MEDS: PANTOPRAZOLE 40 MG TABLET.DR. PO SCH (08:20)
[2021-01-04] MEDS: METOPROLOL TART IMMED RELEASE 25 MG TABLET. PO SCH ×2 (08:21→21:08)
[2021-01-04] MEDS: cefTRIAXone IV Push 1 GM VIAL. IVP SCH (08:22)
[2021-01-04 11:00] VITALS: BP 124/64
[2021-01-04 15:00] VITALS: BP 128/82
[2021-01-04] MEDS ORDERED: TAMS0.4C97 PO (16:39)
[2021-01-04] MEDS ORDERED: AMOX500C PO (16:39)
--- NOTE | 2021-01-04 16:40 | SNU/HH DC ---
DISCHARGE ORDERS DISCHARGE INFORMATION: DISCHARGE DATE: Jan 04, 2021 FINAL DIAGNOSIS Problems Medical Problems: (1) Altered mental status Status: Acute (2) Dementia Status: Acute (3) Fever Status: Acute (4) Leukocytosis Status: Acute (5) UTI (urinary tract infection) Status: Acute CONDITION ON DISCHARGE: Stable CODE STATUS: Code Status: DNR/DNI LONG-TERM: SNF STAY <30 DAYS: Yes POST DISCHARGE ORDERS: ACTIVITY ORDERS: Resume previous activity WEIGHT BEARING STATUS: Full weight bearing, As tolerated DIET AFTER DISCHARGE: Regular CHECKS AFTER DISCHARGE: CHECKS AFTER DISCHARGE: Check blood press - daily FOLLOW-UP: LAB ORDERS FOR FOLLOW-UP: BMP weekly TREATMENT/EQUIPMENT ORDERS: ADAPTIVE EQUIPMENT NEEDED: None Physical Therapy For: Evalulation/Treatment Occupational Therapy For: Evaluation/Treatment DISCHARGE MEDICATIONS: Home Meds Active Scripts Amoxicillin (AMOXICILLIN) 500 Mg Capsule, 1 CAP PO TID for Aerococcus UTI for 10 Days, #30 CAP Prov:CAMILA ANGUIANO MD 01/04/21 Tamsulosin Hcl (FLOMAX) 0.4 Mg Cap.er.24h, 0.4 MG PO DAILY for BPH for 30 Days, #30 CAP.SR Prov:CAMILA ANGUIANO MD 01/04/21 Lactobacillus Rhamnosus Gg (CULTURELLE) 1 Each Cap.sprink, 1 CAP PO BID for Probiotic while on antibiotic for 30 Days, #60 CAP Prov:CAMILA ANGUIANO MD 10/27/19 Metoprolol Tartrate (METOPROLOL TARTRATE) 25 Mg Tablet, 25 MG PO BID for Atrial fib for 30 Days, #60 TAB Prov:CAMILA ANGUIANO MD 10/27/19 [Pantoprazole] 40 MG TABLET.DR Pena Conflict Check, 40 MG PO DAILYAC for 30 Days, #30 Prov:MARVIN LAZCANO MD 09/24/17 Reported Medications Ascorbic Acid/Ascorbate Sodium (Vitamin C 500 mg Wafer) 500 Mg Wafer, 500 MG PO DAILY for supplement, WAFER 01/02/21 Melatonin (MELATONIN) 5 Mg Tab.subl, 1 TAB SL QHS for sleep for 30 Days, #30 TAB 0 Refills 01/02/21 Menthol/Zinc Oxide (CALMOSEPTINE OINTMENT) 3.5 Gm Oint.pack, 3.5 GM TP PRN TID PRN for DRY SKIN / SCALING, MISC 01/02/21 Trolamine Salicylate/Aloe Vera (ASPERCREME 10% CREAM) 35.4 Gm Cream..g., 1 TORRIE TP PRN Q6HRS PRN for PAIN for 14 Days, GM 0 Refills 01/02/21 Acetaminophen (ACETAMINOPHEN) 500 Mg Tablet, 2 TAB PO PRN Q8HRS PRN for pain or fever for 15 Days, #60 TAB 0 Refills 01/02/21 Multivitamin (MULTIVITAMINS) 1 Each Tablet, 1 TAB PO DAILY, #90 TAB 3 Refills 09/22/17 Loperamide Hcl (LOPERAMIDE) 2 Mg Capsule, 2 MG PO PRN QID PRN for DIARRHEA, CAP 09/22/17 Zinc Oxide (ZINC OXIDE) 57 Gm Oint...g., 20 % TP DAILY, MISC 09/22/17 Polyethylene Glycol 3350 (POLYETHYLENE GLYCOL 3350) 2,500 Gm Powder, 17 GM PO DAILY, #527 GM 11 Refills 09/22/17 Levothyroxine Sodium (SYNTHROID) 100 Mcg Tablet, 100 MCG PO DAILYAC for THYROID SUPPLEMENT, #30 TAB 0 Refills 09/22/17 Apixaban (Eliquis) 5 Mg Tab.ds.pk, 5 MG PO BID, PKG 09/22/17 Discontinued Reported Medications Zinc Sulfate (Zinc Sulfate) 50 Mg Capsule, 220 MG PO DAILY for supplement, CAP 01/02/21 Midodrine Hcl (MIDODRINE HCL) 2.5 Mg Tablet, 2.5 MG PO TID for hypotension, TAB 01/02/21 CAMILA ANGUIANO MD Jan 04, 2021 16:40
[2021-01-04 19:00] VITALS: BP 114/66
[2021-01-04 23:00] VITALS: BP 140/59
[2021-01-05 03:00] VITALS: BP 144/93
[2021-01-05] MEDS: PANTOPRAZOLE 40 MG TABLET.DR. PO SCH (05:54)
[2021-01-05] MEDS: LEVOTHYROXINE 100 MCG TABLET PO SCH (05:54)
[2021-01-05 07:00] VITALS: BP 156/86
[2021-01-05 08:10] LABS: BASO % 0 % (0-3); EOS # 0.1 x10^3/uL (0.0-0.7); EOS % 2 % (0-3); HEMATOCRIT 36.8 % (39.0-53.0); HEMOGLOBIN 12.2 g/dL (13.0-17.5); LYMPH # 1.8 x10^3/uL (1.0-4.8); LYMPH % 23 % (24-48); MEAN CORPUSCULAR HEMOGLOBIN 30 pg (25-35); MEAN CORPUSCULAR HGB CONC 33 g/dL (31-37); MEAN CORPUSCULAR VOLUME 91 fL (79-100); MONO # 0.9 x10^3/uL (0.0-1.1); MONO % 11 % (0-9); NEUT # 5.3 x10^3/uL (1.8-7.7); NEUT % 65 % (31-73); PLATELET COUNT 197 x10^3/uL (140-400); RED BLOOD COUNT 4.06 x10^6/uL (4.30-5.70); WHITE BLOOD COUNT 8.1 x10^3/uL (4.0-11.0)
[2021-01-05 08:14] LABS: CALCIUM 8.2 mg/dL (8.5-10.1); CREATININE 0.9 mg/dL (0.7-1.3); GFR 79.6; POTASSIUM 3.7 mmol/L (3.5-5.1)
[2021-01-05] MEDS: LACTOBACILLUS RHAMNOSUS GG 1 CAPSULE. PO SCH (08:21)
[2021-01-05] MEDS: APIXABAN 5 MG TABLET. PO SCH (08:21)
[2021-01-05] MEDS: TAMSULOSIN 0.4 MG CAP.ER.24H. PO SCH (08:21)
[2021-01-05 08:22] VITALS: BP 144/93
[2021-01-05] MEDS: METOPROLOL TART IMMED RELEASE 25 MG TABLET. PO SCH (08:22)
[2021-01-05] MEDS: cefTRIAXone IV Push 1 GM VIAL. IVP SCH (08:24)
--- NOTE | 2021-01-05 10:08 | NUR ---
Attempted to call report to [facility], phone rang for 5 minutes, no answer. Left number for this RN with patient packet for nurse to call [facility] for report.
--- NOTE | 2021-01-05 10:28 | PDOC ---
[employer] PROGRESS NOTE Date of Service DOS: DATE: 01/05/21 TIME: 10:26 Chief Complaint Chief Complaint A/P: Metabolic Encephalopathy with associated dementia likely secondary to ongoing UTI/fever Sepsis - from likely UTI HECTOR - likely vasomotor nephropathy. 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 Light during day, frequent redirection Mitral valve insufficiency Transaminitis - Bilirubin elevated since ERCP with still noted cholelithiasis in 2019 (he had an ERCP on 10/22/2019 withsphincterotomy and stone extraction) Pulmonary nodules - with colon ca history concerning for possible mets. Hypothyroidism - cont levothyroxine Chronic diastolic CHF Hx of DVT with IVC filter and oral AC MARLON - CPAP at night ESSENTIAL HTN HLD History of rectal cancer status post LAR with ileostomy and takedown and chemo and radiation. FEN - Cardiac diet PPX - eliquis FULL CODE Dispo - inpatient History of Present Illness History of Present Illness Mr Mckeon is an 89yo M w/ PMHx A Fib, DVT, mitral valve insufficiency, HTN, HLD, MARLON, BCC and SCC, UTI, cholelithiasis, hypothyroidism, rectal cancer s/p LAR w/ ileostomy/takedown and chemo/rad, IVC filter who p/w confusion to ED from his SNF. Accompanied by daughter. Assisted living facility states decreased activity and mental status. 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 Labs WBC 21.2, Hb 13.9 . Platelets 204, NA 138, K3.7, BUN 36, CR 1.8, glucose 168, bilirubin 3.4, albumin 3.1, lactic acid 1.4, troponin 0.034, urinalysis with moderate leuk esterase. Rapid COVID-19 negative EKG with PVCs and no discernible P wave appears to be atrial fibrillation with rate of [address] segment or T wave abnormalities. Left anterior fascicular block, QTC 469. Admitted for further care. 01/03: Afebrile overnight. WBC down to 13.9. Creatinine improved to 1.1. Bilirubin down to 1.3. Urine returns with Aerococcus urinae. He is more alert today. 01/04: Afebrile. WBC down to 8. Creatinine improved to 0.8. K3.3. Awaiting SNF placement now given PT/OT recommendations. Labs improved. Plan to go to rehab and SNF rehab on amoxicillin for Aerococcus. Vitals/I&O Vitals/I&O: Vital Signs Date Time Temp Pulse Resp B/P (MAP) Pulse Ox O2 Delivery O2 Flow Rate FiO2 01/05/21 08:22 86 144/93 01/05/21 08:00 Room Air 01/05/21 07:00 98.0 18 94 98.0 I & O 01/04/21 01/04/21 01/05/21 15:00 23:00 07:00 Intake Total 100 ml Balance 100 ml Physical Exam General: Alert, Cooperative, mild distress Lungs: Clear Abdomen: Normal bowel sounds, Soft, Other (Suprapubic tenderness) Extremities: No clubbing, No cyanosis, No edema, Normal pulses, No tenderness/ swelling Skin: No rashes, No breakdown, No significant lesion Labs Labs: Laboratory Tests Test 01/05/21 06:45 White Blood Count 8.1 x10^3/uL (4.0-11.0) Red Blood Count 4.06 x10^6/uL (4.30-5.70) Hemoglobin 12.2 g/dL (13.0-17.5) Hematocrit 36.8 % (39.0-53.0) Mean Corpuscular Volume 91 fL (79-100) Mean Corpuscular Hemoglobin 30 pg (25-35) Mean Corpuscular Hemoglobin Concent 33 g/dL (31-37) Red Cell Distribution Width 14.0 % (11.5-14.5) Platelet Count 197 x10^3/uL (140-400) Neutrophils (%) (Auto) 65 % (31-73) Lymphocytes (%) (Auto) 23 % (24-48) Monocytes (%) (Auto) 11 % (0-9) Eosinophils (%) (Auto) 2 % (0-3) Basophils (%) (Auto) 0 % (0-3) Neutrophils # (Auto) 5.3 x10^3/uL (1.8-7.7) Lymphocytes # (Auto) 1.8 x10^3/uL (1.0-4.8) Monocytes # (Auto) 0.9 x10^3/uL (0.0-1.1) Eosinophils # (Auto) 0.1 x10^3/uL (0.0-0.7) Basophils # (Auto) 0.0 x10^3/uL (0.0-0.2) Sodium Level 141 mmol/L (136-145) Potassium Level 3.7 mmol/L (3.5-5.1) Chloride Level 105 mmol/L (98-107) Carbon Dioxide Level 31 mmol/L (21-32) Anion Gap 5 (6-14) Blood Urea Nitrogen 21 mg/dL (8-26) Creatinine 0.9 mg/dL (0.7-1.3) Estimated GFR (Cockcroft-Gault) 79.6 Glucose Level 84 mg/dL (70-99) Calcium Level 8.2 mg/dL (8.5-10.1) Assessment and Plan Assessmemt and Plan Problems Medical Problems: (1) Altered mental status Status: Acute (2) Dementia Status: Acute (3) Fever Status: Acute (4) Leukocytosis Status: Acute (5) UTI (urinary tract infection) Status: Acute Comment Review of Relevant I have reviewed the following items mark anthony (where applicable) has been applied. Justifications for Admission Other Justification CAMILA ANGUIANO MD Jan 05, 2021 10:28
--- NOTE | 2021-01-05 10:43 | PDOC3 ---
Discharge Summary Visit Information Date of Admission: Jan 01, 2021 Date of Discharge: Jan 05, 2021 Admitting Diagnosis: Acute encephalopathy Final Diagnosis Problems Medical Problems: (1) Altered mental status Status: Acute (2) Dementia Status: Acute (3) Fever Status: Acute (4) Leukocytosis Status: Acute (5) UTI (urinary tract infection) Status: Acute Brief Hospital Course Allergies Allergies Coded Allergies Type Severity Reaction Last Updated Verified amiodarone Allergy Intermediate 09/23/17 Yes aspirin Allergy Intermediate 09/23/17 Yes fexofenadine Allergy Intermediate 09/23/17 Yes morphine Allergy Intermediate 09/23/17 Yes simvastatin Allergy Intermediate 09/23/17 Yes tramadol Allergy Intermediate 09/23/17 Yes warfarin Allergy Intermediate 09/23/17 Yes Vital Signs Vital Signs Date Time Temp Pulse Resp B/P (MAP) Pulse Ox O2 Delivery O2 Flow Rate FiO2 01/05/21 08:22 86 144/93 01/05/21 08:00 Room Air 01/05/21 07:00 98.0 18 94 98.0 Lab Results Laboratory Tests Test 01/04/21 03:15 01/05/21 06:45 White Blood Count 8.4 x10^3/uL (4.0-11.0) 8.1 x10^3/uL (4.0-11.0) Red Blood Count 3.95 x10^6/uL (4.30-5.70) 4.06 x10^6/uL (4.30-5.70) Hemoglobin 12.0 g/dL (13.0-17.5) 12.2 g/dL (13.0-17.5) Hematocrit 35.6 % (39.0-53.0) 36.8 % (39.0-53.0) Mean Corpuscular Volume 90 fL (79-100) 91 fL (79-100) Mean Corpuscular Hemoglobin 30 pg (25-35) 30 pg (25-35) Mean Corpuscular Hemoglobin Concent 34 g/dL (31-37) 33 g/dL (31-37) Red Cell Distribution Width 13.9 % (11.5-14.5) 14.0 % (11.5-14.5) Platelet Count 193 x10^3/uL (140-400) 197 x10^3/uL (140-400) Neutrophils (%) (Auto) 73 % (31-73) 65 % (31-73) Lymphocytes (%) (Auto) 18 % (24-48) 23 % (24-48) Monocytes (%) (Auto) 8 % (0-9) 11 % (0-9) Eosinophils (%) (Auto) 1 % (0-3) 2 % (0-3) Basophils (%) (Auto) 0 % (0-3) 0 % (0-3) Neutrophils # (Auto) 6.1 x10^3/uL (1.8-7.7) 5.3 x10^3/uL (1.8-7.7) Lymphocytes # (Auto) 1.5 x10^3/uL (1.0-4.8) 1.8 x10^3/uL (1.0-4.8) Monocytes # (Auto) 0.7 x10^3/uL (0.0-1.1) 0.9 x10^3/uL (0.0-1.1) Eosinophils # (Auto) 0.1 x10^3/uL (0.0-0.7) 0.1 x10^3/uL (0.0-0.7) Basophils # (Auto) 0.0 x10^3/uL (0.0-0.2) 0.0 x10^3/uL (0.0-0.2) Sodium Level 140 mmol/L (136-145) 141 mmol/L (136-145) Potassium Level 3.3 mmol/L (3.5-5.1) 3.7 mmol/L (3.5-5.1) Chloride Level 105 mmol/L (98-107) 105 mmol/L (98-107) Carbon Dioxide Level 29 mmol/L (21-32) 31 mmol/L (21-32) Anion Gap 6 (6-14) 5 (6-14) Blood Urea Nitrogen 32 mg/dL (8-26) 21 mg/dL (8-26) Creatinine 0.8 mg/dL (0.7-1.3) 0.9 mg/dL (0.7-1.3) Estimated GFR (Cockcroft-Gault) 91.2 79.6 Glucose Level 81 mg/dL (70-99) 84 mg/dL (70-99) Calcium Level 8.1 mg/dL (8.5-10.1) 8.2 mg/dL (8.5-10.1) Laboratory Tests Test 01/05/21 06:45 White Blood Count 8.1 x10^3/uL (4.0-11.0) Red Blood Count 4.06 x10^6/uL (4.30-5.70) Hemoglobin 12.2 g/dL (13.0-17.5) Hematocrit 36.8 % (39.0-53.0) Mean Corpuscular Volume 91 fL (79-100) Mean Corpuscular Hemoglobin 30 pg (25-35) Mean Corpuscular Hemoglobin Concent 33 g/dL (31-37) Red Cell Distribution Width 14.0 % (11.5-14.5) Platelet Count 197 x10^3/uL (140-400) Neutrophils (%) (Auto) 65 % (31-73) Lymphocytes (%) (Auto) 23 % (24-48) Monocytes (%) (Auto) 11 % (0-9) Eosinophils (%) (Auto) 2 % (0-3) Basophils (%) (Auto) 0 % (0-3) Neutrophils # (Auto) 5.3 x10^3/uL (1.8-7.7) Lymphocytes # (Auto) 1.8 x10^3/uL (1.0-4.8) Monocytes # (Auto) 0.9 x10^3/uL (0.0-1.1) Eosinophils # (Auto) 0.1 x10^3/uL (0.0-0.7) Basophils # (Auto) 0.0 x10^3/uL (0.0-0.2) Sodium Level 141 mmol/L (136-145) Potassium Level 3.7 mmol/L (3.5-5.1) Chloride Level 105 mmol/L (98-107) Carbon Dioxide Level 31 mmol/L (21-32) Anion Gap 5 (6-14) Blood Urea Nitrogen 21 mg/dL (8-26) Creatinine 0.9 mg/dL (0.7-1.3) Estimated GFR (Cockcroft-Gault) 79.6 Glucose Level 84 mg/dL (70-99) Calcium Level 8.2 mg/dL (8.5-10.1) Brief Hospital Course Mr Mckeon is an 89yo M w/ PMHx A Fib, DVT, mitral valve insufficiency, HTN, HLD, MARLON, BCC and SCC, UTI, cholelithiasis, hypothyroidism, rectal cancer s/p LAR w/ ileostomy/takedown and chemo/rad, IVC filter who p/w confusion to ED from his SNF. Accompanied by daughter. Assisted living facility states decreased activity and mental status. 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 Labs WBC 21.2, Hb 13.9 . Platelets 204, NA 138, K3.7, BUN 36, CR 1.8, glucose 168, bilirubin 3.4, albumin 3.1, lactic acid 1.4, troponin 0.034, urinalysis with moderate leuk esterase. Rapid COVID-19 negative EKG with PVCs and no discernible P wave appears to be atrial fibrillation with rate of [address] segment or T wave abnormalities. Left anterior fascicular block, QTC 469. Admitted for further care. 01/03: Afebrile overnight. WBC down to 13.9. Creatinine improved to 1.1. Bilirubin down to 1.3. Urine returns with Aerococcus urinae. He is more alert today. 01/04: Afebrile. WBC down to 8. Creatinine improved to 0.8. K3.3. Awaiting SNF placement now given PT/OT recommendations. Labs improved. Plan to go to rehab and SNF rehab on amoxicillin for Aerococcus. Problem list: Metabolic Encephalopathy with associated dementia likely secondary to ongoing UTI/fever Sepsis - from likely UTI HECTOR - likely vasomotor nephropathy. 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 Light during day, frequent redirection Mitral valve insufficiency Transaminitis - Bilirubin elevated since ERCP with still noted cholelithiasis in 2019 (he had an ERCP on 10/22/2019 withsphincterotomy and stone extraction) Pulmonary nodules - with colon ca history concerning for possible mets. Hypothyroidism - cont levothyroxine Chronic diastolic CHF Hx of DVT with IVC filter and oral AC MARLON - CPAP at night ESSENTIAL HTN HLD History of rectal cancer status post LAR with ileostomy and takedown and chemo and radiation. Greater than 30 minutes spent on d/c to SNF Discharge Information Condition at Discharge: Improved Follow Up: Weeks (1) Disposition/Orders: D/C to Another Facility ([facility]) Scheduled Amoxicillin (Amoxicillin) 500 Mg Capsule, 1 CAP PO TID for Aerococcus UTI for 10 Days, #30 Prescribed by: CAMILA ANGUIANO MD on 01/04/21 1639 Apixaban (Eliquis) 5 Mg Tab.ds.pk, 5 MG PO BID, (Reported) Entered as Reported by: Esperanza Gutierrez RN on 09/22/172145 Last Action: Converted on 01/01/212145 by ROWAN RODRIGUEZ MD Ascorbic Acid/Ascorbate Sodium (Vitamin C 500 mg Wafer) 500 Mg Wafer, 500 MG PO DAILY for supplement, (Reported) Entered as Reported by: DILIA REARDON on 01/02/2122 Last Action: New Order on 01/02/2122 by DILIA REARDON Lactobacillus Rhamnosus Gg (Culturelle) 1 Each Cap.sprink, 1 CAP PO BID for Probiotic while on antibiotic for 30 Days, #60 Prescribed by: CAMILA ANGUIANO MD on 10/27/191530 Last Action: Continued on 01/02/21717 by CAMILA ANGUIANO MD Levothyroxine Sodium (Synthroid) 100 Mcg Tablet, 100 MCG PO DAILYAC for THYROID SUPPLEMENT, #30 Ref 0 (Reported) Entered as Reported by: Esperanza Gutierrez RN on 09/22/172145 Last Action: Continued on 01/01/212145 by ROWAN RODRIGUEZ MD Melatonin (Melatonin) 5 Mg Tab.subl, 1 TAB SL QHS for sleep for 30 Days, #30 Ref 0 (Reported) Entered as Reported by: DILIA REARDON on 01/02/2122 Last Action: New Order on 01/02/2122 by DILIA REARDON Metoprolol Tartrate (Metoprolol Tartrate) 25 Mg Tablet, 25 MG PO BID for Atrial fib for 30 Days, #60 Prescribed by: CAMILA ANGUIANO MD on 10/27/191530 Last Action: Continued on 01/01/212145 by ROWAN RODRIGUEZ MD Multivitamin (Multivitamins) 1 Each Tablet, 1 TAB PO DAILY, #90 Ref 3 (Reported) Entered as Reported by: Esperanza Gutierrez RN on 09/22/172145 Polyethylene Glycol 3350 (Polyethylene Glycol 3350) 2,500 Gm Powder, 17 GM PO DAILY, #527 Ref 11 (Reported) Entered as Reported by: Esperanza Gutierrez RN on 09/22/172145 Tamsulosin Hcl (Flomax) 0.4 Mg Cap.er.24h, 0.4 MG PO DAILY for BPH for 30 Days, #30 Prescribed by: CAMILA ANGUIANO MD on 01/04/21 1639 Zinc Oxide (Zinc Oxide) 57 Gm Oint...g., 20 % TP DAILY, (Reported) Entered as Reported by: Esperanza Gutierrez RN on 09/22/172145 [Pantoprazole] 40 MG TABLET.DR, 40 MG PO DAILYAC for 30 Days, #30 Prescribed by: MARVIN LAZCANO MD on 09/24/17 1253 Last Action: Converted on 01/01/212145 by ROWAN RODRIGUEZ MD Scheduled PRN Acetaminophen (Acetaminophen) 500 Mg Tablet, 2 TAB PO PRN Q8HRS PRN for pain or fever for 15 Days, #60 Ref 0 (Reported) Entered as Reported by: DILIA REARDON on 01/02/2122 Last Action: New Order on 01/02/2122 by DILIA REARDON Loperamide Hcl (Loperamide) 2 Mg Capsule, 2 MG PO PRN QID PRN for DIARRHEA, (Reported) Entered as Reported by: Esperanza Gutierrez RN on 09/22/172145 Menthol/Zinc Oxide (Calmoseptine Ointment) 3.5 Gm Oint.pack, 3.5 GM TP PRN TID PRN for DRY SKIN / SCALING, (Reported) Entered as Reported by: DILIA REARDON on 01/02/2122 Last Action: New Order on 01/02/2122 by DILIA REARDON Trolamine Salicylate/Aloe Vera (Aspercreme 10% Cream) 35.4 Gm Cream..g., 1 TORRIE TP PRN Q6HRS PRN for PAIN for 14 Days, Ref 0 (Reported) Entered as Reported by: DILIA REARDON on 01/02/2122 Last Action: New Order on 01/02/2122 by DILIA REARDON Discontinued Medications Midodrine Hcl (Midodrine Hcl) 2.5 Mg Tablet, 2.5 MG PO TID for hypotension, (Reported) Entered as Reported by: DILIA REARDON on 01/02/2122 Last Action: New Order on 01/02/2122 by DILIA REARDON Zinc Sulfate (Zinc Sulfate) 50 Mg Capsule, 220 MG PO DAILY for supplement, (Reported) Entered as Reported by: DILIA REARDON on 01/02/2122 Last Action: New Order on 01/02/2122 by DILIA REARDON Justicifation of Admission Dx: Justifications for Admission: Justification of Admission Dx: Comment: CAMILA ANGUIANO MD Jan 05, 2021 10:43
--- NOTE | 2021-01-05 10:53 | NUR ---
Discharge Note: JASON SANABRIA [address] [place] [address] Discharge instructions and discharge home medications reviewed with Patient and a copy given. All questions have been answered and understanding verbalized. The following instructions and handouts were given: Diet, activity, medication list and follow up instructions provided to [facility]. Discontinued lines and drains: Peripheral IV discontinued and catheter intact. [facility] Wheelchair
== END 2021-01-05 10:40 | DRG 871 ==
LOC: ER 18:48 → 4 NORTH 21:20
PROVIDERS: ADMIT Family Medicine; ATTEND Family Medicine
DX: A41.9 Sepsis, unspecified organism (principal); G93.41 Metabolic encephalopathy; N17.0 Acute kidney failure with tubular necrosis; C18.9 Malignant neoplasm of colon, unspecified; I13.0 Hypertensive heart and chronic kidney disease with heart failure and stage 1 through stage 4 chronic kidney disease, or unspecified chronic kidney disease; I50.32 Chronic diastolic (congestive) heart failure; N39.0 Urinary tract infection, site not specified; E03.9 Hypothyroidism, unspecified; E78.00 Pure hypercholesterolemia, unspecified; E78.5 Hyperlipidemia, unspecified; F02.80 Dementia in other diseases classified elsewhere, unspecified severity, without behavioral disturbance, psychotic disturbance, mood disturbance, and anxiety; G30.9 Alzheimer's disease, unspecified; G47.33 Obstructive sleep apnea (adult) (pediatric); I34.0 Nonrheumatic mitral (valve) insufficiency; I44.4 Left anterior fascicular block; I48.91 Unspecified atrial fibrillation; K80.20 Calculus of gallbladder without cholecystitis without obstruction; N18.9 Chronic kidney disease, unspecified; Z20.822 Contact with and (suspected) exposure to COVID-19; Z75.1 Person awaiting admission to adequate facility elsewhere; Z79.01 Long term (current) use of anticoagulants; Z85.048 Personal history of other malignant neoplasm of rectum, rectosigmoid junction, and anus; Z85.828 Personal history of other malignant neoplasm of skin; Z86.718 Personal history of other venous thrombosis and embolism; F41.9 Anxiety disorder, unspecified; K57.90 Diverticulosis of intestine, part unspecified, without perforation or abscess without bleeding; M19.90 Unspecified osteoarthritis, unspecified site
CPT/HCPCS: 36415; 70450; 71045; 80048; 80053; 80076; 81001; 83605; 84484; 85007; 85025; 87077; 87086; 87426; 93005; 96361; 96374; J0696; J7030; U0003; U0005; 97110-GP; 99285-25; G0378

== ENCOUNTER 2021-01-11 09:10 | Observation (INO) | payer MEDICARE ==
[~2021-01-11] VITALS: Ht 180.3 cm; Wt 85.9 kg
[~2021-01-11 09:10] MED LIST changes: +AMOX500C PO; +ASCO500W4 PO; +MELA5TAB11 SL; +MENT3.5O TP; +MIDO2.5T PO; +TAMS0.4C97 PO; +TROL35.4 TP; +ZINC220C5 PO
--- NOTE | 2021-01-11 09:33 | ED.ADGEN ---
Past Medical History Past Medical History: A-Fib, CHF, Dementia, Gallstones, High Cholesterol, Hypertension, Hypothyroid, UTI Additional Past Medical Histor: blood thinners, tremors, Recum/anal CA,CHOLANGITIS Past Surgical History: No Surgical History, Other Additional Past Surgical Histo: BOWEL RESECTION Smoking Status: Unknown if ever smoked Alcohol Use: None General Adult EDM: Chief Complaint: RECTAL BLEED HPI: HPI: Patient is a 89 Review of Systems: Review of Systems: Constitutional: Denies fever or chills. [] Eyes: Denies change in visual acuity. [] HENT: Denies nasal congestion or sore throat. [] Respiratory: Denies cough or shortness of breath. [] Cardiovascular: Denies chest pain or edema. [] GI: Denies abdominal pain, nausea, vomiting, bloody stools or diarrhea. [] : Denies dysuria. [] Musculoskeletal: Denies back pain or joint pain. [] Integument: Denies rash. [] Neurologic: Denies headache, focal weakness or sensory changes. [] Endocrine: Denies polyuria or polydipsia. [] Lymphatic: Denies swollen glands. [] Psychiatric: Denies depression or anxiety. [] Current Medications: Current Medications Medications (Trade) Dose Ordered Sig/Mike Start Time Stop Time Status Last Admin Dose Admin Info (CONTRAST GIVEN -- Rx MONITORING) 1 each PRN DAILY PRN 01/11/21 10:45 01/13/21 10:44 Iohexol (Omnipaque 300 Mg/ml) 75 ml 1X ONCE 01/11/21 10:45 01/11/21 10:46 DC 01/11/21 10:41 75 ML Allergies: Allergies: Allergies Coded Allergies Type Severity Reaction Last Updated Verified amiodarone Allergy Intermediate 09/23/17 Yes aspirin Allergy Intermediate 09/23/17 Yes fexofenadine Allergy Intermediate 09/23/17 Yes morphine Allergy Intermediate 09/23/17 Yes simvastatin Allergy Intermediate 09/23/17 Yes tramadol Allergy Intermediate 09/23/17 Yes warfarin Allergy Intermediate 09/23/17 Yes Physical Exam: PE: Constitutional: Well developed, well nourished, no acute distress, non-toxic appearance. [] HENT: Normocephalic, atraumatic, bilateral external ears normal, oropharynx moist, no oral exudates, nose normal. [] Eyes: PERRLA, EOMI, conjunctiva normal, no discharge. [] Neck: Normal range of motion, no tenderness, supple, no stridor. [] Cardiovascular:Heart rate regular rhythm, no murmur [] Lungs & Thorax: Bilateral breath sounds clear to auscultation [] Abdomen: Bowel sounds normal, soft, no tenderness, no masses, no pulsatile masses. [] Skin: Warm, dry, no erythema, no rash. [] Back: No tenderness, no CVA tenderness. [] Extremities: No tenderness, no cyanosis, no clubbing, ROM intact, no edema. [] Neurologic: Alert and oriented X 3, normal motor function, normal sensory function, no focal deficits noted. [] Psychologic: Affect normal, judgement normal, mood normal. [] Current Patient Data: Labs: Laboratory Tests Test 01/11/21 09:20 White Blood Count 8.0 x10^3/uL (4.0-11.0) Red Blood Count 4.47 x10^6/uL (4.30-5.70) Hemoglobin 13.5 g/dL (13.0-17.5) Hematocrit 40.4 % (39.0-53.0) Mean Corpuscular Volume 90 fL (79-100) Mean Corpuscular Hemoglobin 30 pg (25-35) Mean Corpuscular Hemoglobin Concent 33 g/dL (31-37) Red Cell Distribution Width 13.6 % (11.5-14.5) Platelet Count 292 x10^3/uL (140-400) Neutrophils (%) (Auto) 60 % (31-73) Lymphocytes (%) (Auto) 30 % (24-48) Monocytes (%) (Auto) 8 % (0-9) Eosinophils (%) (Auto) 2 % (0-3) Basophils (%) (Auto) 1 % (0-3) Neutrophils # (Auto) 4.8 x10^3/uL (1.8-7.7) Lymphocytes # (Auto) 2.4 x10^3/uL (1.0-4.8) Monocytes # (Auto) 0.6 x10^3/uL (0.0-1.1) Eosinophils # (Auto) 0.1 x10^3/uL (0.0-0.7) Basophils # (Auto) 0.1 x10^3/uL (0.0-0.2) Prothrombin Time 15.3 SEC (11.7-14.0) H Prothrombin Time INR 1.2 (0.8-1.1) H Sodium Level 139 mmol/L (136-145) Potassium Level 4.1 mmol/L (3.5-5.1) Chloride Level 103 mmol/L (98-107) Carbon Dioxide Level 32 mmol/L (21-32) Anion Gap 4 (6-14) L Blood Urea Nitrogen 16 mg/dL (8-26) Creatinine 1.0 mg/dL (0.7-1.3) Estimated GFR (Cockcroft-Gault) 70.5 BUN/Creatinine Ratio 16 (6-20) Glucose Level 101 mg/dL (70-99) H Calcium Level 8.8 mg/dL (8.5-10.1) Total Bilirubin 0.8 mg/dL (0.2-1.0) Aspartate Amino Transferase (AST) 28 U/L (15-37) Alanine Aminotransferase (ALT) 27 U/L (16-63) Alkaline Phosphatase 115 U/L (46-116) Troponin I Quantitative < 0.017 ng/mL (0.000-0.055) Total Protein 6.4 g/dL (6.4-8.2) Albumin 2.6 g/dL (3.4-5.0) L Albumin/Globulin Ratio 0.7 (1.0-1.7) L Laboratory Tests 01/11/21 09:20 Laboratory Tests 01/11/21 09:20 Vital Signs: Vital Signs Date Time Temp Pulse Resp B/P (MAP) Pulse Ox O2 Delivery O2 Flow Rate FiO2 01/11/21 09:10 98.4 87 22 131/74 (109) 97 Room Air 98.4 EKG: EKG: EKG was obtained at 9:42 AM and revealed what appears to be an irregular rhythm likely consistent with atrial fibrillation with a ventricular rate of 82 bpm. There is no P wave morphology. There is left axis deviation present as well as a left anterior fascicular block. There are no acute ST/T wave changes to denote ischemia otherwise. Heart Score: C/O Chest Pain: N/A Risk Factors: Risk Factors: DM, Current or recent (<one month) smoker, HTN, HLP, family history of CAD, obesity. Risk Scores: Score 0 - 3: 2.5% MACE over next 6 weeks - Discharge Home Score 4 - 6: 20.3% MACE over next 6 weeks - Admit for Clinical Observation Score 7 - 10: 72.7% MACE over next 6 weeks - Early Invasive Strategies Radiology/Procedures: Radiology/Procedures: [] Impression: [facility] [address] [place] [address] IMAGING REPORT Signed PATIENT: JASON SANABRIA ACCOUNT: [id number] : 1930 LOCATION: ER AGE: 89 SEX: M EXAM STATUS: REG ER ORD. PHYSICIAN: CHARLINE RUVALCABA DO REASON: rectal bleeding PROCEDURE: CT ABD PELV W/ IV CONTRST ONLY PQRS Compliance Statement: One or more of the following individualized dose reduction techniques were utilized for this examination: 1. Automated exposure control 2. Adjustment of the mA and/or kV according to patient size 3. Use of iterative reconstruction technique Exam performed: CT abdomen and pelvis with contrast HISTORY: Rectal bleeding. DATE OF SERVICE: 01/11/2021. COMPARISON: CT abdomen and pelvis from November 23, 2019. TECHNIQUE: Contiguous helical acquisitions are obtained through the abdomen and pelvis during intravenous administration of 75 cc of Omnipaque]. Sagittal and coronal reformatted images are obtained and reviewed. FINDINGS: Linear bibasilar opacities likely atelectasis. Soft tissue density mass in the central right middle lobe as well as a Pleural-based soft tissue density nodule in the anterior right middle lobe is stable. Visualized heart is normal. Atheromatous coronary calcification. Stable elevation of the left hemidiaphragm. The liver, spleen and pancreas appear grossly unremarkable. Cholelithiasis. Steffen th adrenal glands and bilateral kidneys are normal in size with symmetric excretion of contrast via both kidneys. There is no hydronephrosis or nephrolithiasis. Stable probable cyst in the right inferior renal pole. There is a IVC filter. The aorta is normal in caliber and straightening mild atheromatous calcification.. Small bowel loops are nondilated and unremarkable. Postoperative changes in the rectosigmoid region. Anastomosis appears stable. No perianastomotic fluid collection is noted. The urinary bladder is distended. Prostate gland, seminal vesicles and rectum appear grossly unremarkable. There are diffuse spondylotic changes and multilevel disc degenerative changes involving the thoracolumbar spine. IMPRESSION: No acute intra-abdominal or pelvic process seen. Cholelithiasis. Probable right renal cyst. Anastomosis in the rectosigmoid region appears stable. Stable. tissue density nodules in the right middle lobe . Follow-up recommendations on prior CT chest Electronically signed by: Glenda Mcdonnell MD (01/11/2021 11:04 AM) [facility] DICTATED and SIGNED BY: GLENDA MCDONNELL MD DATE: 01/11/21 [id number] 0 Course & Med Decision Making: Course & Med Decision Making Pertinent Labs and Imaging studies reviewed. (See chart for details) [] Dragon Disclaimer: Angelicaon Disclaimer: This electronic medical record was generated, in whole or in part, using a voice recognition dictation system. Departure Departure Impression: Primary Impression: GIB (gastrointestinal bleeding) Disposition: ADMITTED INPATIENT Admitting Physician: HIMS Condition: STABLE Referrals: JACKIE ROJAS MD (PCP) CHARLINE RUVALCABA DO Jan 11, 2021 09:33
[2021-01-11 09:39] LABS: BASO # 0.1 x10^3/uL (0.0-0.2); BASO % 1 % (0-3); EOS # 0.1 x10^3/uL (0.0-0.7); EOS % 2 % (0-3); HEMATOCRIT 40.4 % (39.0-53.0); HEMOGLOBIN 13.5 g/dL (13.0-17.5); LYMPH # 2.4 x10^3/uL (1.0-4.8); LYMPH % 30 % (24-48); MEAN CORPUSCULAR HEMOGLOBIN 30 pg (25-35); MEAN CORPUSCULAR HGB CONC 33 g/dL (31-37); MEAN CORPUSCULAR VOLUME 90 fL (79-100); MONO # 0.6 x10^3/uL (0.0-1.1); MONO % 8 % (0-9); NEUT # 4.8 x10^3/uL (1.8-7.7); NEUT % 60 % (31-73); PLATELET COUNT 292 x10^3/uL (140-400); RED BLOOD COUNT 4.47 x10^6/uL (4.30-5.70); RED CELL DISTRIBUTION WIDTH 13.6 % (11.5-14.5)
[2021-01-11 09:48] LABS: CALCIUM 8.8 mg/dL (8.5-10.1); GFR 70.5; POTASSIUM 4.1 mmol/L (3.5-5.1)
[2021-01-11 09:54] LABS: ALBUMIN 2.6 g/dL (3.4-5.0); ALBUMIN/GLOBULIN RATIO 0.7 (1.0-1.7); TOTAL BILIRUBIN 0.8 mg/dL (0.2-1.0); TOTAL PROTEIN 6.4 g/dL (6.4-8.2)
[2021-01-11] MEDS ORDERED: CONTRAST GIVEN. MC PRN (10:45)
[2021-01-11] MEDS ORDERED: IOHEXOL 300 MG/ML 100ML VIAL. IV ONE (10:45)
--- NOTE | 2021-01-11 11:06 | RAD ---
PQRS Compliance Statement: One or more of the following individualized dose reduction techniques were utilized for this examinat ion: 1. Automated exposure control 2. Adjustment of the mA and/or kV according to patient size 3. Use of iterative reconstruction technique Exam performed: CT abdomen and pelvis with contrast HISTORY: Rectal bleeding. DATE OF SERVICE: 01/11/2021. COMPARISON: CT abdomen and pelvis from November 23, 2019. TECHNIQUE: Contiguous helical acquisitions are obtained through the abdomen and pelvis during intrave nous administration of 75 cc of Omnipaque]. Sagittal and coronal reformatted images are obtained and reviewed. FINDINGS: Linear bibasilar opacities likely atelectasis. Soft tissue density mass in the central right middle l obe as well as a Pleural-based soft tissue density nodule in the anterior right middle lobe is stable . Visualized heart is normal. Atheromatous coronary calcification. Stable elevation of the left hemid iaphragm. The liver, spleen and pancreas appear grossly unremarkable. Cholelithiasis. Both adrenal glands and bilateral kidneys are normal in size with symmetric excretion of contrast via both kidneys. There is no hydronephrosis or nephrolithiasis. Stable probable cyst in the right inferior renal pole. There is a IVC filter. The aorta is normal in caliber and straightening mild atheromatous calcification.. Sma ll bowel loops are nondilated and unremarkable. Postoperative changes in the rectosigmoid region. Anastomosis appears stable. No perianastomotic flui d collection is noted. The urinary bladder is distended. Prostate gland, seminal vesicles and rectum appear grossly unremarkable. There are diffuse spondylotic changes and multilevel disc degenerative c hanges involving the thoracolumbar spine. IMPRESSION: No acute intra-abdominal or pelvic process seen. Cholelithiasis. Probable right renal cyst. Anastomosis in the rectosigmoid region appears stable. Stable. tissue density nodules in the right middle lobe . Follow-up recommendations on prior CT chest Electronically signed by: Glenda Mcdonnell MD (01/11/2021 11:04 AM) [facility] CENTERObdulia
[2021-01-11 11:12] LABS: PROTHROMBIN TIME PATIENT 15.3 SEC (11.7-14.0)
--- NOTE | 2021-01-11 13:48 | HP ---
ADMIT DATE: 01/11/2021 CHIEF COMPLAINT: Rectal bleeding. HISTORY OF PRESENT ILLNESS: The patient is a pleasant elderly male who seems to have advanced dementia. [facility] from a [facility] because they noticed 30 mL of blood coming from his rectum. We checked his hemoglobin here, it is actually stable at 13.5, but we are concerning he could have an impending larger GI bleed. We are going to admit the patient and consult GI. PAST MEDICAL HISTORY: Dementia, CHF, AFib, gallstones, hyperlipidemia, hypertension, hypothyroidism, UTI, chronic anticoagulation, tremors, cholangitis, bowel resection. ALLERGIES: AMIODARONE, ASPIRIN, FEXOFENADINE, MORPHINE, SIMVASTATIN, ULTRAM AND COUMADIN. FAMILY HISTORY: Diabetes. SOCIAL HISTORY: He does not drink, smoke or take drugs. [facility] lives in a [facility]. MEDICATIONS: Reviewed, please refer to the MRAD. REVIEW OF SYSTEMS: Unobtainable. He is too confused. PHYSICAL EXAMINATION: VITALS: Within normal limits and are stable. GENERAL: He is pleasantly confused. HEENT: Normal cephalic atraumatic, external auditory canals are patent. EYES: Extraocular muscles are intact, pupils are equally round and reactive to light and accommodation. MUSCULOSKELETAL: Well developed, well nourished, good range of motion. ENDOCRINE: No thyromegaly was palpated. LYMPHATICS: No cervical chain or axillary nodes were noted. HEMATOPOIETIC: No bruising. NECK: Supple, no JVD, no thyromegaly was noted. LUNGS: Clear to auscultation in all lung verduzco without rhonchi or wheezing. HEART: RRR, S1, S2 present. Peripheral pulses intact, no obvious murmurs were noted. ABDOMEN: Soft, nontender. Positive bowel sounds no organomegaly, normal bowel sounds. EXTREMITIES: Without any cyanosis, clubbing, or edema. Pedal pulses intact, Homans sign is negative. NEUROLOGIC: He is pleasantly confused. PSYCHIATRIC: He is pleasantly confused. SKIN: No ulcerations or rashes, good skin turgor, no jaundice. VASCULAR: Good capillary refill, neurovascular bundle appears to be intact. LABORATORY DATA: Hemoglobin is 13.5. ASSESSMENT AND PLAN: Gastrointestinal bleed. The patient will be admitted. We will consult GI. Continue his home meds. DVT prophylaxis. Full code. Monitor his hemoglobin. Hold his home Eliquis. PROGNOSIS: Guarded. JAROD/WILFREDO DR: Amie TID: [id number]
[2021-01-11 16:00] VITALS: BP 126/73
--- NOTE | 2021-01-11 17:42 | NUR ---
Called and notified Ebenezer that we need a current medication list faxed to [address] [place] [address], awaiting fax.
[2021-01-11 19:00] VITALS: BP 100/52
[2021-01-11 23:00] VITALS: BP 112/60
[2021-01-12 03:00] VITALS: BP 120/75
[2021-01-12 07:00] VITALS: BP 133/87
--- NOTE | 2021-01-12 07:41 | PDOC2 ---
CONSULT Date of Consult Date of Consult DATE: 01/12/21 TIME: 07:39 Reason for Consult Reason for Consult: Rectal bleed Past Medical History Cardiovascular: AFIB, CHF, HTN, Hyperlipidemia, Valve insufficiency Pulmonary: Other CENTRAL NERVOUS SYSTEM: Dementia GI: Diverticulosis, GI bleed Heme/Onc: Cancer, Other Hepatobiliary: Other Psych: Anxiety Musculoskeletal: Osteoarthritis Rheumatologic: No pertinent hx Renal/: UTI, Urinary Incontinence, Hematuria Endocrine: Hypothyroidism Past Surgical History Past Surgical History: Colectomy, Colon Resection, Other Family History Family History: Other Social History ALCOHOL: none Drugs: None Lives: Intermediate Current Medications Current Medications Current Medications Iohexol (Omnipaque 300 Mg/ml) 75 ml 1X ONCE IV Last administered on 01/11/21at 10:41; Start 01/11/21 at 10:45; Stop 01/11/21 at 10:46; Status DC Info (CONTRAST GIVEN -- Rx MONITORING) 1 each PRN DAILY PRN MC SEE COMMENTS; Start 01/11/21 at 10:45; Stop 01/13/21 at 10:44 Active Scripts Active Amoxicillin 500 Mg Capsule 1 Cap PO TID 10 Days Flomax (Tamsulosin Hcl) 0.4 Mg Cap.er.24h 0.4 Mg PO DAILY 30 Days Culturelle (Lactobacillus Rhamnosus Gg) 1 Each Cap.sprink 1 Cap PO BID 30 Days Metoprolol Tartrate 25 Mg Tablet 25 Mg PO BID 30 Days [Pantoprazole] 40 MG Tablet.dr 40 Mg PO DAILYAC 30 Days Reported Vitamin C 500 mg Wafer (Ascorbic Acid/Ascorbate Sodium) 500 Mg Wafer 500 Mg PO DAILY Melatonin 5 Mg Tab.subl 1 Tab SL QHS 30 Days Calmoseptine Ointment (Menthol/Zinc Oxide) 3.5 Gm Oint.pack 3.5 Gm TP PRN TID PRN Aspercreme 10% Cream (Trolamine Salicylate/Aloe Vera) 35.4 Gm Cream..g. 1 Adam TP PRN Q6HRS PRN 14 Days Acetaminophen 500 Mg Tablet 2 Tab PO PRN Q8HRS PRN 15 Days Multivitamins (Multivitamin) 1 Each Tablet 1 Tab PO DAILY Loperamide (Loperamide Hcl) 2 Mg Capsule 2 Mg PO PRN QID PRN Zinc Oxide 57 Gm Oint...g. 20 % TP DAILY Polyethylene Glycol 3350 2,500 Gm Powder 17 Gm PO DAILY Synthroid (Levothyroxine Sodium) 100 Mcg Tablet 100 Mcg PO DAILYAC Eliquis (Apixaban) 5 Mg Tab.ds.pk 5 Mg PO BID Allergies Allergies: Coded Allergies: amiodarone (Verified Allergy, Intermediate, 09/23/17) aspirin (Verified Allergy, Intermediate, 09/23/17) fexofenadine (Verified Allergy, Intermediate, 09/23/17) morphine (Verified Allergy, Intermediate, 09/23/17) simvastatin (Verified Allergy, Intermediate, 09/23/17) tramadol (Verified Allergy, Intermediate, 09/23/17) warfarin (Verified Allergy, Intermediate, 09/23/17) Vitals VITALS Vital Signs Date Time Temp Pulse Resp B/P (MAP) Pulse Ox O2 Delivery O2 Flow Rate FiO2 01/12/21 03:00 97.9 78 16 120/75 (90) 98 Room Air 97.9 Labs Labs Laboratory Tests Test 01/11/21 09:20 White Blood Count 8.0 x10^3/uL (4.0-11.0) Red Blood Count 4.47 x10^6/uL (4.30-5.70) Hemoglobin 13.5 g/dL (13.0-17.5) Hematocrit 40.4 % (39.0-53.0) Mean Corpuscular Volume 90 fL (79-100) Mean Corpuscular Hemoglobin 30 pg (25-35) Mean Corpuscular Hemoglobin Concent 33 g/dL (31-37) Red Cell Distribution Width 13.6 % (11.5-14.5) Platelet Count 292 x10^3/uL (140-400) Neutrophils (%) (Auto) 60 % (31-73) Lymphocytes (%) (Auto) 30 % (24-48) Monocytes (%) (Auto) 8 % (0-9) Eosinophils (%) (Auto) 2 % (0-3) Basophils (%) (Auto) 1 % (0-3) Neutrophils # (Auto) 4.8 x10^3/uL (1.8-7.7) Lymphocytes # (Auto) 2.4 x10^3/uL (1.0-4.8) Monocytes # (Auto) 0.6 x10^3/uL (0.0-1.1) Eosinophils # (Auto) 0.1 x10^3/uL (0.0-0.7) Basophils # (Auto) 0.1 x10^3/uL (0.0-0.2) Prothrombin Time 15.3 SEC (11.7-14.0) Prothromb Time International Ratio 1.2 (0.8-1.1) Sodium Level 139 mmol/L (136-145) Potassium Level 4.1 mmol/L (3.5-5.1) Chloride Level 103 mmol/L (98-107) Carbon Dioxide Level 32 mmol/L (21-32) Anion Gap 4 (6-14) Blood Urea Nitrogen 16 mg/dL (8-26) Creatinine 1.0 mg/dL (0.7-1.3) Estimated GFR (Cockcroft-Gault) 70.5 BUN/Creatinine Ratio 16 (6-20) Glucose Level 101 mg/dL (70-99) Calcium Level 8.8 mg/dL (8.5-10.1) Total Bilirubin 0.8 mg/dL (0.2-1.0) Aspartate Amino Transf (AST/SGOT) 28 U/L (15-37) Alanine Aminotransferase (ALT/SGPT) 27 U/L (16-63) Alkaline Phosphatase 115 U/L (46-116) Troponin I Quantitative < 0.017 ng/mL (0.000-0.055) Total Protein 6.4 g/dL (6.4-8.2) Albumin 2.6 g/dL (3.4-5.0) Albumin/Globulin Ratio 0.7 (1.0-1.7) Laboratory Tests Test 01/11/21 09:20 White Blood Count 8.0 x10^3/uL (4.0-11.0) Red Blood Count 4.47 x10^6/uL (4.30-5.70) Hemoglobin 13.5 g/dL (13.0-17.5) Hematocrit 40.4 % (39.0-53.0) Mean Corpuscular Volume 90 fL (79-100) Mean Corpuscular Hemoglobin 30 pg (25-35) Mean Corpuscular Hemoglobin Concent 33 g/dL (31-37) Red Cell Distribution Width 13.6 % (11.5-14.5) Platelet Count 292 x10^3/uL (140-400) Neutrophils (%) (Auto) 60 % (31-73) Lymphocytes (%) (Auto) 30 % (24-48) Monocytes (%) (Auto) 8 % (0-9) Eosinophils (%) (Auto) 2 % (0-3) Basophils (%) (Auto) 1 % (0-3) Neutrophils # (Auto) 4.8 x10^3/uL (1.8-7.7) Lymphocytes # (Auto) 2.4 x10^3/uL (1.0-4.8) Monocytes # (Auto) 0.6 x10^3/uL (0.0-1.1) Eosinophils # (Auto) 0.1 x10^3/uL (0.0-0.7) Basophils # (Auto) 0.1 x10^3/uL (0.0-0.2) Prothrombin Time 15.3 SEC (11.7-14.0) Prothromb Time International Ratio 1.2 (0.8-1.1) Sodium Level 139 mmol/L (136-145) Potassium Level 4.1 mmol/L (3.5-5.1) Chloride Level 103 mmol/L (98-107) Carbon Dioxide Level 32 mmol/L (21-32) Anion Gap 4 (6-14) Blood Urea Nitrogen 16 mg/dL (8-26) Creatinine 1.0 mg/dL (0.7-1.3) Estimated GFR (Cockcroft-Gault) 70.5 BUN/Creatinine Ratio 16 (6-20) Glucose Level 101 mg/dL (70-99) Calcium Level 8.8 mg/dL (8.5-10.1) Total Bilirubin 0.8 mg/dL (0.2-1.0) Aspartate Amino Transf (AST/SGOT) 28 U/L (15-37) Alanine Aminotransferase (ALT/SGPT) 27 U/L (16-63) Alkaline Phosphatase 115 U/L (46-116) Troponin I Quantitative < 0.017 ng/mL (0.000-0.055) Total Protein 6.4 g/dL (6.4-8.2) Albumin 2.6 g/dL (3.4-5.0) Albumin/Globulin Ratio 0.7 (1.0-1.7) Assessment/Plan Assessment/Plan Rectal bleed- etiology to be determined with LGI source leading differential. Colon cancer/lvsu8rh, AVM, hemorrhoids, diverticulosis, and ischemic colitis in the differential Plan conservative therapy in view of co-morbidities consider sigmoidoscopy and/or colonoscopy if bleeding continues Full note dictated HANSEL OBRIEN MD Jan 12, 2021 07:41
--- NOTE | 2021-01-12 08:42 | CONS ---
DATE OF CONSULTATION: 01/12/2021 REASON FOR CONSULTATION: Rectal bleeding. HISTORY OF PRESENT ILLNESS: This is an 89-year-old male with past medical history significant for organic heart disease, congestive heart failure, AFib, dementia, hyperlipidemia, hypertension, hypothyroidism as well as choledocholithiasis, status post ERCP with stone extractions approximately a year and a half ago. He was admitted to [facility] with rectal bleeding that is painless in nature without change in bowel habits. The patient otherwise gives minimal additional history. He is without additional complaints. He is tolerating p.o. PAST MEDICAL HISTORY: 1. Dementia. 2. CHF. 3. AFib. 4. Hyperlipidemia. 5. Hypertension. 6. Hypothyroidism. 7. Chronic anticoagulation. 8. Tremors. ALLERGIES: Include AMIODARONE, ASPIRIN, MORPHINE, SIMVASTATIN, ULTRAM AND COUMADIN. MEDICATIONS: Presently are None. Please refer to the MAR from his correction visit. SOCIAL HISTORY: Nondrinker, nonsmoker. REVIEW OF SYSTEMS: Per records. PHYSICAL EXAMINATION: GENERAL: Reveals a well-nourished, well-developed male. VITAL SIGNS: Temperature 97.9, pulse 78, respiratory rate 16, blood pressure is 120/75. HEENT: Reveals normocephalic, atraumatic head. Pupils and extraocular muscles not tested. Sclerae are anicteric. NECK: Supple. LUNGS: Clear. CARDIOVASCULAR: S1, S2 without S3, S4 or appreciable murmur. ABDOMEN: Soft abdomen. Normal bowel sounds. No appreciable hepatosplenomegaly. EXTREMITIES: Reveals no cyanosis, clubbing or edema. LABORATORY DATA: Sodium 139, potassium 4.1, chloride 109, BUN 16, creatinine 1.0, glucose 101, calcium 8.8, total bilirubin 0.8, AST of 20, ALT of 27, alkaline phosphatase 116, total protein 6.4, albumin is 2.6. Hemoglobin on admission was 13.5, hematocrit 40.4, white count 8.0, platelet count is 292,000. ASSESSMENT AND PLAN: Rectal bleed. Differential includes hemorrhoids, colon polyps, colon cancer, diverticulosis, arteriovenous malformations. We will recommend conservative therapy in view of the patient's age and dementia. If the bleeding would continue and worsen, then further consideration to a sigmoidoscopy and/or colonoscopy are discussed with the patient's family. Power of district attorney will then be pursued. I thank Dr. Moreno for allowing us to consult and participate in this patient's care. KIARA DR: Ladonna TID: [id number]
--- NOTE | 2021-01-12 10:32 | PDOC ---
[employer] PROGRESS NOTE Date of Service DOS: DATE: 01/12/21 TIME: 10:31 Chief Complaint Chief Complaint : acute rectal bleed Likely arteriovenous malformations. dementia CAD, afib History of Present Illness History of Present Illness recheck Hgb, try to DC if stable, no bleeding Vitals/I&O Vitals/I&O: Vital Signs Date Time Temp Pulse Resp B/P (MAP) Pulse Ox O2 Delivery O2 Flow Rate FiO2 01/12/21 07:00 97.3 64 16 133/87 (102) 97 Room Air 97.3 I & O 01/11/21 01/11/21 01/12/21 15:00 23:00 07:00 Intake Total 0 ml Balance 0 ml Physical Exam General: Alert, moderate distress, Other (not oriented, ) Lungs: Clear Abdomen: Normal bowel sounds Extremities: No clubbing Skin: No breakdown Review of Systems Review of Systems: no pain, Comment Review of Relevant I have reviewed the following items mark anthony (where applicable) has been applied. Medications: Current Medications Medications (Trade) Dose Ordered Sig/Mike Route PRN Reason Start Time Stop Time Status Last Admin Dose Admin Iohexol (Omnipaque 300 Mg/ml) 75 ml 1X ONCE IV 01/11/21 10:45 01/11/21 10:46 DC 01/11/21 10:41 Justifications for Admission Other Justification ARTI HADDAD MD Jan 12, 2021 10:32
--- NOTE | 2021-01-12 10:48 | SNU/HH DC ---
DISCHARGE ORDERS DISCHARGE INFORMATION: DISCHARGE DATE: Jan 12, 2021 FINAL DIAGNOSIS GI bleed dementia afib, chronic diastolic CHF CONDITION ON DISCHARGE: Stable CODE STATUS: Code Status: DNR/DNI PRISON: SNF STAY <30 DAYS: Yes HOSPICE: HOSPICE: Yes HOSPICE EVAL & TREAT: Yes POST DISCHARGE ORDERS: ACTIVITY ORDERS: Resume previous activity WEIGHT BEARING STATUS: Full weight bearing, As tolerated DIET AFTER DISCHARGE: Regular CHECKS AFTER DISCHARGE: CHECKS AFTER DISCHARGE: Check blood press - daily FOLLOW-UP: LAB ORDERS FOR FOLLOW-UP: BMP weekly ANTICOAGULATION F/U NEEDED: restart Eliquis in a week TREATMENT/EQUIPMENT ORDERS: ADAPTIVE EQUIPMENT NEEDED: None Physical Therapy For: Evalulation/Treatment Occupational Therapy For: Evaluation/Treatment DISCHARGE MEDICATIONS: Home Meds Active Scripts Amoxicillin (AMOXICILLIN) 500 Mg Capsule, 1 CAP PO TID for Aerococcus UTI for 10 Days, #30 CAP Prov:CAMILA ANGUIANO MD 01/04/21 Tamsulosin Hcl (FLOMAX) 0.4 Mg Cap.er.24h, 0.4 MG PO DAILY for BPH for 30 Days, #30 CAP.SR Prov:CAMILA ANGUIANO MD 01/04/21 Lactobacillus Rhamnosus Gg (CULTURELLE) 1 Each Cap.sprink, 1 CAP PO BID for Probiotic while on antibiotic for 30 Days, #60 CAP Prov:CAMILA ANGUIANO MD 10/27/19 Metoprolol Tartrate (METOPROLOL TARTRATE) 25 Mg Tablet, 25 MG PO BID for Atrial fib for 30 Days, #60 TAB Prov:CAMILA ANGUIANO MD 10/27/19 [Pantoprazole] 40 MG TABLET.DR Pena Conflict Check, 40 MG PO DAILYAC for 30 Days, #30 Prov:MARVIN LAZCANO MD 09/24/17 Reported Medications Ascorbic Acid/Ascorbate Sodium (Vitamin C 500 mg Wafer) 500 Mg Wafer, 500 MG PO DAILY for supplement, WAFER 01/02/21 Melatonin (MELATONIN) 5 Mg Tab.subl, 1 TAB SL QHS for sleep for 30 Days, #30 TAB 0 Refills 01/02/21 Menthol/Zinc Oxide (CALMOSEPTINE OINTMENT) 3.5 Gm Oint.pack, 3.5 GM TP PRN TID PRN for DRY SKIN / SCALING, MISC 01/02/21 Trolamine Salicylate/Aloe Vera (ASPERCREME 10% CREAM) 35.4 Gm Cream..g., 1 TORRIE TP PRN Q6HRS PRN for PAIN for 14 Days, GM 0 Refills 01/02/21 Acetaminophen (ACETAMINOPHEN) 500 Mg Tablet, 2 TAB PO PRN Q8HRS PRN for pain or fever for 15 Days, #60 TAB 0 Refills 01/02/21 Multivitamin (MULTIVITAMINS) 1 Each Tablet, 1 TAB PO DAILY, #90 TAB 3 Refills 09/22/17 Loperamide Hcl (LOPERAMIDE) 2 Mg Capsule, 2 MG PO PRN QID PRN for DIARRHEA, CAP 09/22/17 Zinc Oxide (ZINC OXIDE) 57 Gm Oint...g., 20 % TP DAILY, MISC 09/22/17 Polyethylene Glycol 3350 (POLYETHYLENE GLYCOL 3350) 2,500 Gm Powder, 17 GM PO DAILY, #527 GM 11 Refills 09/22/17 Levothyroxine Sodium (SYNTHROID) 100 Mcg Tablet, 100 MCG PO DAILYAC for THYROID SUPPLEMENT, #30 TAB 0 Refills 09/22/17 Discontinued Reported Medications Apixaban (Eliquis) 5 Mg Tab.ds.pk, 5 MG PO BID, PKG 09/22/17 ARTI HADDAD MD Jan 12, 2021 10:48
[2021-01-12 11:00] VITALS: BP 129/72
--- NOTE | 2021-01-12 11:02 | PDOC3 ---
Discharge Summary Visit Information Date of Admission: Jan 11, 2021 Date of Discharge: Jan 12, 2021 Final Diagnosis hematochezia without anemia AV malformation bleed CAd, afib dementia, severe severe malnutrition Brief Hospital Course Allergies Allergies Coded Allergies Type Severity Reaction Last Updated Verified amiodarone Allergy Intermediate 09/23/17 Yes aspirin Allergy Intermediate 09/23/17 Yes fexofenadine Allergy Intermediate 09/23/17 Yes morphine Allergy Intermediate 09/23/17 Yes simvastatin Allergy Intermediate 09/23/17 Yes tramadol Allergy Intermediate 09/23/17 Yes warfarin Allergy Intermediate 09/23/17 Yes Vital Signs Vital Signs Date Time Temp Pulse Resp B/P (MAP) Pulse Ox O2 Delivery O2 Flow Rate FiO2 01/12/21 07:00 97.3 64 16 133/87 (102) 97 Room Air 97.3 Lab Results Laboratory Tests Test 01/11/21 09:20 White Blood Count 8.0 x10^3/uL (4.0-11.0) Red Blood Count 4.47 x10^6/uL (4.30-5.70) Hemoglobin 13.5 g/dL (13.0-17.5) Hematocrit 40.4 % (39.0-53.0) Mean Corpuscular Volume 90 fL (79-100) Mean Corpuscular Hemoglobin 30 pg (25-35) Mean Corpuscular Hemoglobin Concent 33 g/dL (31-37) Red Cell Distribution Width 13.6 % (11.5-14.5) Platelet Count 292 x10^3/uL (140-400) Neutrophils (%) (Auto) 60 % (31-73) Lymphocytes (%) (Auto) 30 % (24-48) Monocytes (%) (Auto) 8 % (0-9) Eosinophils (%) (Auto) 2 % (0-3) Basophils (%) (Auto) 1 % (0-3) Neutrophils # (Auto) 4.8 x10^3/uL (1.8-7.7) Lymphocytes # (Auto) 2.4 x10^3/uL (1.0-4.8) Monocytes # (Auto) 0.6 x10^3/uL (0.0-1.1) Eosinophils # (Auto) 0.1 x10^3/uL (0.0-0.7) Basophils # (Auto) 0.1 x10^3/uL (0.0-0.2) Prothrombin Time 15.3 SEC (11.7-14.0) Prothromb Time International Ratio 1.2 (0.8-1.1) Sodium Level 139 mmol/L (136-145) Potassium Level 4.1 mmol/L (3.5-5.1) Chloride Level 103 mmol/L (98-107) Carbon Dioxide Level 32 mmol/L (21-32) Anion Gap 4 (6-14) Blood Urea Nitrogen 16 mg/dL (8-26) Creatinine 1.0 mg/dL (0.7-1.3) Estimated GFR (Cockcroft-Gault) 70.5 BUN/Creatinine Ratio 16 (6-20) Glucose Level 101 mg/dL (70-99) Calcium Level 8.8 mg/dL (8.5-10.1) Total Bilirubin 0.8 mg/dL (0.2-1.0) Aspartate Amino Transf (AST/SGOT) 28 U/L (15-37) Alanine Aminotransferase (ALT/SGPT) 27 U/L (16-63) Alkaline Phosphatase 115 U/L (46-116) Troponin I Quantitative < 0.017 ng/mL (0.000-0.055) Total Protein 6.4 g/dL (6.4-8.2) Albumin 2.6 g/dL (3.4-5.0) Albumin/Globulin Ratio 0.7 (1.0-1.7) Brief Hospital Course Mr. Mckeon is a 89 old demented, admit with bloody stool hgb stable no stool after admit Discharge Information Condition at Discharge: Improved Follow Up: Weeks Disposition/Orders: D/C to Another Facility Scheduled Amoxicillin (Amoxicillin) 500 Mg Capsule, 1 CAP PO TID for Aerococcus UTI for 10 Days, #30 Prescribed by: CAMILA ANGUIANO MD on 01/04/21 1639 Ascorbic Acid/Ascorbate Sodium (Vitamin C 500 mg Wafer) 500 Mg Wafer, 500 MG PO DAILY for supplement, (Reported) Entered as Reported by: DILIA REARDON on 01/02/21 0023 Lactobacillus Rhamnosus Gg (Culturelle) 1 Each Cap.sprink, 1 CAP PO BID for Probiotic while on antibiotic for 30 Days, #60 Prescribed by: CAMILA ANGUIANO MD on 10/27/19 1531 Levothyroxine Sodium (Synthroid) 100 Mcg Tablet, 100 MCG PO DAILYAC for THYROID SUPPLEMENT, #30 Ref 0 (Reported) Entered as Reported by: Esperanza Gutierrez RN on 09/22/17 0001 Melatonin (Melatonin) 5 Mg Tab.subl, 1 TAB SL QHS for sleep for 30 Days, #30 Ref 0 (Reported) Entered as Reported by: DILIA REARDON on 01/02/21 0023 Metoprolol Tartrate (Metoprolol Tartrate) 25 Mg Tablet, 25 MG PO BID for Atrial fib for 30 Days, #60 Prescribed by: CAMILA ANGUIANO MD on 10/27/19 1531 Multivitamin (Multivitamins) 1 Each Tablet, 1 TAB PO DAILY, #90 Ref 3 (Reported) Entered as Reported by: Esperanza Gutierrez RN on 09/22/172020 Polyethylene Glycol 3350 (Polyethylene Glycol 3350) 2,500 Gm Powder, 17 GM PO DAILY, #527 Ref 11 (Reported) Entered as Reported by: Esperanza Gutierrez RN on 09/22/172020 Tamsulosin Hcl (Flomax) 0.4 Mg Cap.er.24h, 0.4 MG PO DAILY for BPH for 30 Days, #30 Prescribed by: CAMILA ANGUIANO MD on 01/04/21 1639 Zinc Oxide (Zinc Oxide) 57 Gm Oint...g., 20 % TP DAILY, (Reported) Entered as Reported by: Esperanza Gutierrez RN on 09/22/17 0001 [Pantoprazole] 40 MG TABLET.DR, 40 MG PO DAILYAC for 30 Days, #30 Prescribed by: MARVIN LAZCANO MD on 09/24/17 1253 Scheduled PRN Acetaminophen (Acetaminophen) 500 Mg Tablet, 2 TAB PO PRN Q8HRS PRN for pain or fever for 15 Days, #60 Ref 0 (Reported) Entered as Reported by: DILIA REARDON on 01/02/21 0023 Loperamide Hcl (Loperamide) 2 Mg Capsule, 2 MG PO PRN QID PRN for DIARRHEA, (Reported) Entered as Reported by: Esperanza Gutierrez RN on 09/22/172020 Menthol/Zinc Oxide (Calmoseptine Ointment) 3.5 Gm Oint.pack, 3.5 GM TP PRN TID PRN for DRY SKIN / SCALING, (Reported) Entered as Reported by: DILIA REARDON on 01/02/21 0023 Trolamine Salicylate/Aloe Vera (Aspercreme 10% Cream) 35.4 Gm Cream..g., 1 TORRIE TP PRN Q6HRS PRN for PAIN for 14 Days, Ref 0 (Reported) Entered as Reported by: DILIA REARDON on 01/02/21 002 Discontinued Medications Apixaban (Eliquis) 5 Mg Tab.ds.pk, 5 MG PO BID, (Reported) Entered as Reported by: Esperanza Gutierrez RN on 09/22/17 0001 Patient Instructions Patient Instructions to [facility] HOSPICE referral DC obs pt examined, appears stable, Justicifation of Admission Dx: Justifications for Admission: Justification of Admission Dx: Comment: ARTI HADDAD MD Jan 12, 2021 11:02
--- NOTE | 2021-01-12 11:09 | NUR ---
DEON following. Discussed with RN, pt from [facility]. Dr. Hernandez spoke with pt's MATTIE Delfina about hospice. DEON spoke with Delfina, she needs to speak with her family about where pt can go on hospice as he does not have Medicaid and resides at [facility] Delfina stating she wouldn't be able to get back to until Friday as she is at work, but is okay if pt returns to [facility] for now whilst they decide what to do. DEON spoke with Laura ([facility]) she will review financials to see if they can transition pt to custodial care with hospice and medicaid pending. Clinicals and discharge orders faxed, awaiting transportation time after HGN comes back. Dr. Hernandez notified. DEON will continue to follow. Addendum: 01/12/21 at 1236 by YVONNE CHAVARRIA Transportation arranged by [facility] for between [phone]. RN notified.
[2021-01-12 11:29] LABS: HEMOGLOBIN 12.2 g/dL (13.0-17.5); RED BLOOD COUNT 4.12 x10^6/uL (4.30-5.70); RED CELL DISTRIBUTION WIDTH 13.9 % (11.5-14.5); WHITE BLOOD COUNT 7.3 x10^3/uL (4.0-11.0)
--- NOTE | 2021-01-12 15:11 | NUR ---
PATIENT LEAVES THE UNIT PER STRETCHER AND ACCOMPANIED BY 2 DRIVERS, EMOTIONAL SUPPORT GIVEN. CALL PLACED TO [facility] FOR REPORT BUT NO ANSWER X2, WILL RETRY.
== END 2021-01-12 20:59 | disposition still patient (30) ==
LOC: ER 09:10 → ED HOLD 11:30 → 5 SOUTH 15:25
PROVIDERS: ADMIT Internal Medicine; ATTEND Internal Medicine
DX: K92.2 Gastrointestinal hemorrhage, unspecified (principal); Z20.822 Contact with and (suspected) exposure to COVID-19; K62.5 Hemorrhage of anus and rectum; E78.5 Hyperlipidemia, unspecified; I10 Essential (primary) hypertension; E03.9 Hypothyroidism, unspecified; R25.1 Tremor, unspecified; I48.91 Unspecified atrial fibrillation; I11.0 Hypertensive heart disease with heart failure; I50.9 Heart failure, unspecified; F03.90 Unspecified dementia, unspecified severity, without behavioral disturbance, psychotic disturbance, mood disturbance, and anxiety; E78.00 Pure hypercholesterolemia, unspecified; E43 Unspecified severe protein-calorie malnutrition; Z83.3 Family history of diabetes mellitus; K80.20 Calculus of gallbladder without cholecystitis without obstruction; K92.1 Melena; I25.10 Atherosclerotic heart disease of native coronary artery without angina pectoris; Q27.30 Arteriovenous malformation, site unspecified; Z79.01 Long term (current) use of anticoagulants; Z87.440 Personal history of urinary (tract) infections; Z85.048 Personal history of other malignant neoplasm of rectum, rectosigmoid junction, and anus
CPT/HCPCS: 36415; 74177; 80053; 84484; 85025; 85027; 85610; 86850; 86900; 86901; 87426; 93005; 99285; G0378; Q9967; G0379

== ENCOUNTER 2021-01-15 09:41 | Inpatient (IN) | payer MEDICARE ==
[2021-01-15] VITALS (7 sets, daily range): BP systolic 58–132; BP diastolic 38–75
[~2021-01-15] VITALS: Ht 185.4 cm; Wt 76.8 kg
[2021-01-15 10:13] LABS: BASO % 0 % (0-3); EOS % 0 % (0-3); HEMATOCRIT 26.8 % (39.0-53.0); HEMOGLOBIN 8.8 g/dL (13.0-17.5); LYMPH # 1.3 x10^3/uL (1.0-4.8); LYMPH % 10 % (24-48); MEAN CORPUSCULAR HEMOGLOBIN 30 pg (25-35); MEAN CORPUSCULAR HGB CONC 33 g/dL (31-37); MEAN CORPUSCULAR VOLUME 90 fL (79-100); MONO # 0.4 x10^3/uL (0.0-1.1); MONO % 3 % (0-9); NEUT # 11.3 x10^3/uL (1.8-7.7); NEUT % 87 % (31-73); PLATELET COUNT 281 x10^3/uL (140-400); RED BLOOD COUNT 2.97 x10^6/uL (4.30-5.70); RED CELL DISTRIBUTION WIDTH 13.6 % (11.5-14.5)
[2021-01-15 10:25] LABS: PROTHROMBIN TIME PATIENT 22.3 SEC (11.7-14.0)
[2021-01-15] MEDS ORDERED: MIDAZOLAM HCL/PF 5 MG/5 ML VIAL. NS ONE (10:30)
[2021-01-15] MEDS ORDERED: MIDAZOLAM 100mg/100ml NS BAG 100 ML IV ONE (10:30)
--- NOTE | 2021-01-15 10:32 | RAD ---
EXAM: Chest, single view. HISTORY: Intubation. COMPARISON: 01/01/2021 FINDINGS: A frontal view of the chest is obtained. There is an endotracheal tube within the mid trach ea. There is a nasogastric tube within the esophagus. The distal tip is at the gastroesophageal junct ion. There is linear atelectasis or infiltrate involving the left lower lobe and lingula. There is no consolidation. There is a prominent cardiac silhouette. There is no pneumothorax. There is an incide ntal left shoulder joint loose body. There is stable elevation of the left hemidiaphragm. IMPRESSION: 1. Nasogastric tube terminating at the gastroesophageal junction. Tube advancement is recommended. Th ere is an endotracheal tube in expected position. 2. Linear atelectasis or infiltrate involving the lingula and left lower lobe. There is stable elevat ion of the left hemidiaphragm. Electronically signed by: Gabi Shea MD (01/15/2021 10:29 AM) [id number]
[2021-01-15 10:45] LABS: CALCIUM 7.8 mg/dL (8.5-10.1); CREATININE 1.9 mg/dL (0.7-1.3); GFR 33.6; POTASSIUM 4.6 mmol/L (3.5-5.1)
[2021-01-15 10:54] LABS: HEMATOCRIT 26.9 % (39.0-53.0); HEMOGLOBIN 8.6 g/dL (13.0-17.5)
[2021-01-15 10:59] LABS: ALBUMIN/GLOBULIN RATIO 0.7 (1.0-1.7); TOTAL BILIRUBIN 0.8 mg/dL (0.2-1.0); TOTAL PROTEIN 4.8 g/dL (6.4-8.2)
--- NOTE | 2021-01-15 10:59 | PDOC1 ---
History and Physical Date of Admission Date of Admission DATE: 01/15/21 TIME: 10:59 Identification/Chief Complaint Chief Complaint Blood in stool Source Source: Caregiver, Chart review History of Present Illness History of Present Illness Mr Mckeon is an 89yo M w/ PMHx A Fib, DVT, mitral valve insufficiency, HTN, HLD, MARLON, BCC and SCC, UTI, cholelithiasis, hypothyroidism, rectal cancer s/p LAR w/ ileostomy/takedown and chemo/rad, IVC filter who p/w rectal bleeding. Brought to ED from half-way facility with rectal bleeding that began 01/14/2021 overnight change in brief every hour grossly bloody. Was not responsive on arrival to sternal rub blood pressure 101/61. Rate 95 bpm atrial fibrillation on telemetry WBC 13, Hb 8.8, platelets 281. INR 2 NA 141, K4.6, BUN 26, CR 1.9, albumin 2 EKG A. fib with controlled ventricular rate QTC 41. No ST segment or T wave abn ormalities. given large drop hemoglobin since last admission he was given 2 units of unmatched blood Given his lack of responsiveness and concern for aspiration ED physician elected to intubate and place orogastric tube with no significant blood loss. Here last week on 01/11/2021 w/ rectal bleeding that improved/resolved, essentially normal/stable Hgb and tolerating diet, discharged back to SNF. His family met with hospice on 01/12/2021 and was looking to pursue referral for hospice given his progressive cognitive decline and long-term half-way dementia lung mass concerning for possible recurrence of his colon cancer metastatic disease. Admitted for further care. Past Medical History Cardiovascular: AFIB, CHF, HTN, Hyperlipidemia, Valve insufficiency Pulmonary: Other CENTRAL NERVOUS SYSTEM: Dementia GI: Diverticulosis, GI bleed Heme/Onc: Cancer, Other Hepatobiliary: Other Psych: Anxiety Musculoskeletal: Osteoarthritis Rheumatologic: No pertinent hx Renal/: UTI, Urinary Incontinence, Hematuria Endocrine: Hypothyroidism Past Surgical History Past Surgical History: Colectomy, Colon Resection, Other Family History Family History: Other Social History Smoke: No ALCOHOL: none Drugs: None Current Medications Current Medications Current Medications Midazolam HCl (Versed) 5 mg 1X ONCE NS Last administered on 01/15/21at 10:22; Start 01/15/21 at 10:30; Stop 01/15/21 at 10:31; Status DC Midazolam HCl 100 ml @ 0 mls/hr 1X ONCE IV Last administered on 01/15/21at 10:45; Start 01/15/21 at 10:30; Stop 01/15/21 at 10:31; Status DC Active Scripts Active Amoxicillin 500 Mg Capsule 1 Cap PO TID 10 Days Flomax (Tamsulosin Hcl) 0.4 Mg Cap.er.24h 0.4 Mg PO DAILY 30 Days Culturelle (Lactobacillus Rhamnosus Gg) 1 Each Cap.sprink 1 Cap PO BID 30 Days Metoprolol Tartrate 25 Mg Tablet 25 Mg PO BID 30 Days [Pantoprazole] 40 MG Tablet.dr 40 Mg PO DAILYAC 30 Days Reported Vitamin C 500 mg Wafer (Ascorbic Acid/Ascorbate Sodium) 500 Mg Wafer 500 Mg PO DAILY Melatonin 5 Mg Tab.subl 1 Tab SL QHS 30 Days Calmoseptine Ointment (Menthol/Zinc Oxide) 3.5 Gm Oint.pack 3.5 Gm TP PRN TID PRN Aspercreme 10% Cream (Trolamine Salicylate/Aloe Vera) 35.4 Gm Cream..g. 1 Adam TP PRN Q6HRS PRN 14 Days Acetaminophen 500 Mg Tablet 2 Tab PO PRN Q8HRS PRN 15 Days Multivitamins (Multivitamin) 1 Each Tablet 1 Tab PO DAILY Loperamide (Loperamide Hcl) 2 Mg Capsule 2 Mg PO PRN QID PRN Zinc Oxide 57 Gm Oint...g. 20 % TP DAILY Polyethylene Glycol 3350 2,500 Gm Powder 17 Gm PO DAILY Synthroid (Levothyroxine Sodium) 100 Mcg Tablet 100 Mcg PO DAILYAC Allergies Allergies: Coded Allergies: amiodarone (Verified Allergy, Intermediate, 09/23/17) aspirin (Verified Allergy, Intermediate, 09/23/17) fexofenadine (Verified Allergy, Intermediate, 09/23/17) morphine (Verified Allergy, Intermediate, 09/23/17) simvastatin (Verified Allergy, Intermediate, 09/23/17) tramadol (Verified Allergy, Intermediate, 09/23/17) warfarin (Verified Allergy, Intermediate, 09/23/17) ROS Review of System Unable to obtain sedated on ventilator. Physical Exam General: Other HEENT: Atraumatic, PERRLA, EOMI, Mucous membr. moist/pink Lungs: Clear to auscultation, Normal air movement Heart: irregularly irregular Abdomen: Normal bowel sounds, Soft, No tenderness, No hepatosplenomegaly, No masses Extremities: No clubbing, No cyanosis, No edema, Normal pulses, No tenderness/ swelling Skin: Other (Early gluteal ulcer) Neuro: Normal tone, Sensation intact, Reflexes 2+ Psych/Mental Status: Other Vitals Vitals Vital Signs Date Time Temp Pulse Resp B/P (MAP) Pulse Ox O2 Delivery O2 Flow Rate FiO2 01/15/21 10:01 97 Ventilator Labs Labs Laboratory Tests Test 01/15/21 09:55 01/15/21 10:00 01/15/21 10:45 White Blood Count 13.0 x10^3/uL (4.0-11.0) Red Blood Count 2.97 x10^6/uL (4.30-5.70) Hemoglobin 8.8 g/dL (13.0-17.5) 8.6 g/dL (13.0-17.5) Hematocrit 26.8 % (39.0-53.0) 26.9 % (39.0-53.0) Mean Corpuscular Volume 90 fL (79-100) Mean Corpuscular Hemoglobin 30 pg (25-35) Mean Corpuscular Hemoglobin Concent 33 g/dL (31-37) 32 g/dL (31-37) Red Cell Distribution Width 13.6 % (11.5-14.5) Platelet Count 281 x10^3/uL (140-400) Neutrophils (%) (Auto) 87 % (31-73) Lymphocytes (%) (Auto) 10 % (24-48) Monocytes (%) (Auto) 3 % (0-9) Eosinophils (%) (Auto) 0 % (0-3) Basophils (%) (Auto) 0 % (0-3) Neutrophils # (Auto) 11.3 x10^3/uL (1.8-7.7) Lymphocytes # (Auto) 1.3 x10^3/uL (1.0-4.8) Monocytes # (Auto) 0.4 x10^3/uL (0.0-1.1) Eosinophils # (Auto) 0.0 x10^3/uL (0.0-0.7) Basophils # (Auto) 0.0 x10^3/uL (0.0-0.2) Prothrombin Time 22.3 SEC (11.7-14.0) Prothromb Time International Ratio 2.0 (0.8-1.1) Activated Partial Thromboplast Time 34 SEC (24-38) Fibrinogen 312 mg/dL (200-440) Sodium Level 141 mmol/L (136-145) Potassium Level 4.6 mmol/L (3.5-5.1) Chloride Level 106 mmol/L (98-107) Carbon Dioxide Level 26 mmol/L (21-32) Anion Gap 9 (6-14) Blood Urea Nitrogen 26 mg/dL (8-26) Creatinine 1.9 mg/dL (0.7-1.3) Estimated GFR (Cockcroft-Gault) 33.6 BUN/Creatinine Ratio 14 (6-20) Glucose Level 172 mg/dL (70-99) Calcium Level 7.8 mg/dL (8.5-10.1) SARS-CoV-2 Antigen (Rapid) Negative (NEGATIVE) Laboratory Tests Test 01/15/21 09:55 01/15/21 10:00 01/15/21 10:45 White Blood Count 13.0 x10^3/uL (4.0-11.0) Red Blood Count 2.97 x10^6/uL (4.30-5.70) Hemoglobin 8.8 g/dL (13.0-17.5) 8.6 g/dL (13.0-17.5) Hematocrit 26.8 % (39.0-53.0) 26.9 % (39.0-53.0) Mean Corpuscular Volume 90 fL (79-100) Mean Corpuscular Hemoglobin 30 pg (25-35) Mean Corpuscular Hemoglobin Concent 33 g/dL (31-37) 32 g/dL (31-37) Red Cell Distribution Width 13.6 % (11.5-14.5) Platelet Count 281 x10^3/uL (140-400) Neutrophils (%) (Auto) 87 % (31-73) Lymphocytes (%) (Auto) 10 % (24-48) Monocytes (%) (Auto) 3 % (0-9) Eosinophils (%) (Auto) 0 % (0-3) Basophils (%) (Auto) 0 % (0-3) Neutrophils # (Auto) 11.3 x10^3/uL (1.8-7.7) Lymphocytes # (Auto) 1.3 x10^3/uL (1.0-4.8) Monocytes # (Auto) 0.4 x10^3/uL (0.0-1.1) Eosinophils # (Auto) 0.0 x10^3/uL (0.0-0.7) Basophils # (Auto) 0.0 x10^3/uL (0.0-0.2) Prothrombin Time 22.3 SEC (11.7-14.0) Prothromb Time International Ratio 2.0 (0.8-1.1) Activated Partial Thromboplast Time 34 SEC (24-38) Fibrinogen 312 mg/dL (200-440) Sodium Level 141 mmol/L (136-145) Potassium Level 4.6 mmol/L (3.5-5.1) Chloride Level 106 mmol/L (98-107) Carbon Dioxide Level 26 mmol/L (21-32) Anion Gap 9 (6-14) Blood Urea Nitrogen 26 mg/dL (8-26) Creatinine 1.9 mg/dL (0.7-1.3) Estimated GFR (Cockcroft-Gault) 33.6 BUN/Creatinine Ratio 14 (6-20) Glucose Level 172 mg/dL (70-99) Calcium Level 7.8 mg/dL (8.5-10.1) SARS-CoV-2 Antigen (Rapid) Negative (NEGATIVE) Images Images Chest radiograph: A frontal view of the chest is obtained. There is an endotracheal tube within the mid trachea. There is a nasogastric tube within the esophagus. The distal tip is at the gastroesophageal junction. There is linear atelectasis or infiltrate involving the left lower lobe and lingula. There is no consolidation. There is a prominent cardiac silhouette. There is no pneumothorax. There is an incidental left shoulder joint loose body. There is stable elevation of the left hemidiaphragm. IMPRESSION: 1. Nasogastric tube terminating at the gastroesophageal junction. Tube advancement is recommended. There is an endotracheal tube in expected position. 2. Linear atelectasis or infiltrate involving the lingula and left lower lobe. There is stable elevation of the left hemidiaphragm. VTE Prophylaxis Ordered VTE Prophylaxis Devices: Contraindicated VTE Pharmacological Prophylaxi: Yes Assessment/Plan Assessment/Plan A/P: Acute blood loss anemia - likely from GI bleed. After discussion with family they do not wish to eventually want conservative approach. ED is consulted GI. IV PPI initiated. Status post 2 units PRBC Metabolic Encephalopathy with associated dementia likely secondary to blood loss, hypoxia Shock - from blood loss, hypovolemic, will fluids reuscitate HECTOR - likely vasomotor nephropathy. 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 Light during day, frequent redirection Mitral valve insufficiency Pulmonary nodules - with colon ca history concerning for possible mets. Hypothyroidism - cont levothyroxine Chronic diastolic CHF Hx of DVT with IVC filter and oral AC MARLON - CPAP at night ESSENTIAL HTN HLD History of rectal cancer status post LAR with ileostomy and takedown and chemo a nd radiation. FEN - NPO PPX - IV PPI CODE -after 22-minute discussion with DPOA, daughter, Delfina, notably family wishes for DO NOT RESUSCITATE and DO NOT INTUBATE order. They would also like to pursue comfort care and withdraw aggressive measures today. I discussed with pulmonology will discuss with gastroenterology as well. Dispo - Plan to transition to comfort care per patient's family wishes CC time 47 minutes [id number], then [phone] Justifications for Admission Other Justification CAMILA ANGUIANO MD Jan 15, 2021 10:59
[2021-01-15 11:11] LABS: % LYMPHS 2 % (24-48); % MONOS 2 % (0-10); % SEGS 96 % (35-66); PLT ESTIMATE ADEQUATE (ADEQUATE)
--- NOTE | 2021-01-15 11:23 | EKG ---
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
--- NOTE | 2021-01-15 11:47 | PDOC2 ---
GI CONSULT Date of Service: DATE: 01/15/21 TIME: 11:26 Reason For Consult: GI bleed HPI: HPI: 89 y/o male [facility] w/ [facility] bleeding. Called by ER physician, Dr. De Santiago. Active rectal bleeding, hypotension, intubated, rapid transfusion protocol. Here last week w/ rectal bleeding that improved/resolved, essentially normal/stable Hgb and tolerating diet, discharged. Reviewed discharge summary - "plan Hospice referral" and Eliquis was discontinued (I believe). D/w ER nurse - Eliquis on current med list, no mention of Hospice discussion from facility. H/o dementia and recurrent UTIs/encephalopathy. H/o A Fib and DVT, also IVC filter. Past elevated LFTs/concern for cholangitis. S/p ERCP w/ sphincterotomy and stone extraction (Dr. Solorzano) in 10/2019. Elevated LFTs on admission (x2) in 11/2019 as well w/ dilated CBD and choledocholithiasis on imaging, along w/ RML mass. H/o recurrent rectal bleeding and rectal cancer s/p LAR w/ ileostomy/takedown and chemo/rad. Colonoscopy (Dr. Lees) 09/2017: rectal ulcer (biopsy benign, probably related to prior cancer treatment), normal mucosa throughout, 5mm adenomatous polyps in ascending colon. From past encounters - family has preferred conservative approach to various issues - did not wish to pursue lung mass biopsy or cholecystectomy. PMH: PMH: DVT, mitral valve insufficiency, HTN, HLD, MARLON, BCC, SCC, hypothyroidism, UTIs, rectal cancer, lung mass ICV filter, hernia repair, LAR w/ ileostomy/takedown FH: Family History: No pertinent hx Social History: ALCOHOL: none Drugs: None ROS: unable to obtain Vitals: Vitals: Vital Signs Date Time Temp Pulse Resp B/P (MAP) Pulse Ox O2 Delivery O2 Flow Rate FiO2 01/15/21 10:01 97 Ventilator 01/15/21 09:41 97.6 95 101/61 (91) 97.6 Labs: Labs: Laboratory Tests Test 01/15/21 09:55 01/15/21 10:00 01/15/21 10:45 White Blood Count 13.0 x10^3/uL (4.0-11.0) Red Blood Count 2.97 x10^6/uL (4.30-5.70) Hemoglobin 8.8 g/dL (13.0-17.5) 8.6 g/dL (13.0-17.5) Hematocrit 26.8 % (39.0-53.0) 26.9 % (39.0-53.0) Mean Corpuscular Volume 90 fL (79-100) Mean Corpuscular Hemoglobin 30 pg (25-35) Mean Corpuscular Hemoglobin Concent 33 g/dL (31-37) 32 g/dL (31-37) Red Cell Distribution Width 13.6 % (11.5-14.5) Platelet Count 281 x10^3/uL (140-400) Neutrophils (%) (Auto) 87 % (31-73) Lymphocytes (%) (Auto) 10 % (24-48) Monocytes (%) (Auto) 3 % (0-9) Eosinophils (%) (Auto) 0 % (0-3) Basophils (%) (Auto) 0 % (0-3) Neutrophils # (Auto) 11.3 x10^3/uL (1.8-7.7) Lymphocytes # (Auto) 1.3 x10^3/uL (1.0-4.8) Monocytes # (Auto) 0.4 x10^3/uL (0.0-1.1) Eosinophils # (Auto) 0.0 x10^3/uL (0.0-0.7) Basophils # (Auto) 0.0 x10^3/uL (0.0-0.2) Segmented Neutrophils % 96 % (35-66) Lymphocytes % 2 % (24-48) Monocytes % 2 % (0-10) Platelet Estimate Adequate (ADEQUATE) Prothrombin Time 22.3 SEC (11.7-14.0) Prothromb Time International Ratio 2.0 (0.8-1.1) Activated Partial Thromboplast Time 34 SEC (24-38) Fibrinogen 312 mg/dL (200-440) Sodium Level 141 mmol/L (136-145) Potassium Level 4.6 mmol/L (3.5-5.1) Chloride Level 106 mmol/L (98-107) Carbon Dioxide Level 26 mmol/L (21-32) Anion Gap 9 (6-14) Blood Urea Nitrogen 26 mg/dL (8-26) Creatinine 1.9 mg/dL (0.7-1.3) Estimated GFR (Cockcroft-Gault) 33.6 BUN/Creatinine Ratio 14 (6-20) Glucose Level 172 mg/dL (70-99) Calcium Level 7.8 mg/dL (8.5-10.1) Total Bilirubin 0.8 mg/dL (0.2-1.0) Aspartate Amino Transf (AST/SGOT) 17 U/L (15-37) Alanine Aminotransferase (ALT/SGPT) 15 U/L (16-63) Alkaline Phosphatase 74 U/L (46-116) Total Protein 4.8 g/dL (6.4-8.2) Albumin 2.0 g/dL (3.4-5.0) Albumin/Globulin Ratio 0.7 (1.0-1.7) SARS-CoV-2 Antigen (Rapid) Negative (NEGATIVE) Allergies: Coded Allergies: amiodarone (Verified Allergy, Intermediate, 09/23/17) aspirin (Verified Allergy, Intermediate, 09/23/17) fexofenadine (Verified Allergy, Intermediate, 09/23/17) morphine (Verified Allergy, Intermediate, 09/23/17) simvastatin (Verified Allergy, Intermediate, 09/23/17) tramadol (Verified Allergy, Intermediate, 09/23/17) warfarin (Verified Allergy, Intermediate, 09/23/17) Medications: Current Medications Medications (Trade) Dose Ordered Sig/Mike Route PRN Reason Start Time Stop Time Status Last Admin Dose Admin Midazolam HCl (Versed) 5 mg 1X ONCE NS 01/15/21 10:30 01/15/21 10:31 DC 01/15/21 10:22 Midazolam HCl 100 ml @ 0 mls/hr 1X ONCE IV 01/15/21 10:30 01/15/21 10:31 DC 01/15/21 10:45 Imaging: Imaging: CXR 01/15 IMPRESSION: 1. Nasogastric tube terminating at the gastroesophageal junction. Tube advancement is recommended. There is an endotracheal tube in expected position. 2. Linear atelectasis or infiltrate involving the lingula and left lower lobe. There is stable elevation of the left hemidiaphragm. CT A/P 01/11 IMPRESSION: No acute intra-abdominal or pelvic process seen. Cholelithiasis. Probable right renal cyst. Anastomosis in the rectosigmoid region appears stable. Stable. tissue density nodules in the right middle lobe . Follow-up recommendations on prior CT chest PE: GEN: intubated in ER w/ transfusions in process HEENT: Atraumatic LUNGS: vent/diminished HEART: irregular ABD: soft, NABS, scant red blood in OGT SKIN: bruising NEURO/PSYCH: sedated A/P: A/P: Rectal bleeding, hypotension, resp failure Anemia, coagulopathy, ?UTI (FINAL ID= [AEROCOCCUS URINAE] on 01/03/21), HECTOR H/o elevated LFTs - not now H/o rectal cancer s/p LAR, ileostomy/takedown, chemo/rad H/o rectal ulcer (benign) CRC screen, adenomatous polyp - 2018 Cholelithiasis, h/o choledocholithiasis/possible cholangitis - family has not pursued cholecystectomy COVID negative H/o A Fib ??on Eliquis?? Known lung mass - family has not pursued biopsy -- Updated Dr. Solorzano after d/w Dr. De Santiago - recommendation for surgery and oncology opinions. Defer goals of care discussion to primary - they have preferred conservative approach in the past. Follow Hgb, transfuse as needed. 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 STEVE MIX Jan 15, 2021 11:47
[2021-01-15] MEDS ORDERED: PANTOPRAZOLE IV PUSH 40 MG VIAL. IVP SCH (12:00)
[2021-01-15] MEDS ORDERED: ETOMIDATE 20 MG/10 ML VIAL. IV ONE (12:15)
[2021-01-15] MEDS ORDERED: SUCCINYLCHOLINE 200 MG/10 ML VIAL. IV ONE (12:15)
[2021-01-15] MEDS ORDERED: NOREPINEPHRINE VIAL 8 MG in IV DEXTROSE 5% 250 ML IV PRN (12:30)
[2021-01-15 13:39] LABS: HEMATOCRIT 36.5 % (39.0-53.0); HEMOGLOBIN 11.9 g/dL (13.0-17.5); RED BLOOD COUNT 4.05 x10^6/uL (4.30-5.70); RED CELL DISTRIBUTION WIDTH 14.5 % (11.5-14.5); WHITE BLOOD COUNT 12.7 x10^3/uL (4.0-11.0)
--- NOTE | 2021-01-15 14:12 | ED.ADGEN ---
Past Medical History Past Medical History: A-Fib, CHF, Dementia, Gallstones, High Cholesterol, Hypertension, Hypothyroid, UTI Additional Past Medical Histor: blood thinners, tremors, Recum/anal CA,CHOLANGITIS,SLEEP APNEA,BPH,INSOMNIA Past Surgical History: Other Additional Past Surgical Histo: BOWEL RESECTION Smoking Status: Unknown if ever smoked Alcohol Use: None General Adult EDM: Chief Complaint: RECTAL BLEED HPI: HPI: Patient is a 89 year old [f__sex] who presents with [] Review of Systems: Review of Systems: Constitutional: Denies fever or chills. [] Eyes: Denies change in visual acuity. [] HENT: Denies nasal congestion or sore throat. [] Respiratory: Denies cough or shortness of breath. [] Cardiovascular: Denies chest pain or edema. [] GI: Denies abdominal pain, nausea, vomiting, bloody stools or diarrhea. [] : Denies dysuria. [] Musculoskeletal: Denies back pain or joint pain. [] Integument: Denies rash. [] Neurologic: Denies headache, focal weakness or sensory changes. [] Endocrine: Denies polyuria or polydipsia. [] Lymphatic: Denies swollen glands. [] Psychiatric: Denies depression or anxiety. [] Current Medications: Current Medications Medications (Trade) Dose Ordered Sig/Mike Start Time Stop Time Status Last Admin Dose Admin Midazolam HCl 100 ml @ 0 mls/hr 1X ONCE 01/15/21 10:30 01/15/21 10:31 DC 01/15/21 10:45 1 MLS/HR Midazolam HCl (Versed) 5 mg 1X ONCE 01/15/21 10:30 01/15/21 10:31 DC 01/15/21 10:22 5 MG Allergies: Allergies: Allergies Coded Allergies Type Severity Reaction Last Updated Verified amiodarone Allergy Intermediate 09/23/17 Yes aspirin Allergy Intermediate 09/23/17 Yes fexofenadine Allergy Intermediate 09/23/17 Yes morphine Allergy Intermediate 09/23/17 Yes simvastatin Allergy Intermediate 09/23/17 Yes tramadol Allergy Intermediate 09/23/17 Yes warfarin Allergy Intermediate 09/23/17 Yes Physical Exam: PE: Constitutional: Well developed, well nourished, no acute distress, non-toxic appearance. [] HENT: Normocephalic, atraumatic, bilateral external ears normal, oropharynx moist, no oral exudates, nose normal. [] Eyes: PERRLA, EOMI, conjunctiva normal, no discharge. [] Neck: Normal range of motion, no tenderness, supple, no stridor. [] Cardiovascular:Heart rate regular rhythm, no murmur [] Lungs & Thorax: Bilateral breath sounds clear to auscultation [] Abdomen: Bowel sounds normal, soft, no tenderness, no masses, no pulsatile masses. [] Skin: Warm, dry, no erythema, no rash. [] Back: No tenderness, no CVA tenderness. [] Extremities: No tenderness, no cyanosis, no clubbing, ROM intact, no edema. [] Neurologic: Alert and oriented X 3, normal motor function, normal sensory function, no focal deficits noted. [] Psychologic: Affect normal, judgement normal, mood normal. [] Current Patient Data: Labs: Laboratory Tests Test 01/15/21 09:55 01/15/21 10:00 01/15/21 10:45 White Blood Count 13.0 x10^3/uL (4.0-11.0) H Red Blood Count 2.97 x10^6/uL (4.30-5.70) L Hemoglobin 8.8 g/dL (13.0-17.5) L 8.6 g/dL (13.0-17.5) L Hematocrit 26.8 % (39.0-53.0) L 26.9 % (39.0-53.0) L Mean Corpuscular Volume 90 fL (79-100) Mean Corpuscular Hemoglobin 30 pg (25-35) Mean Corpuscular Hemoglobin Concent 33 g/dL (31-37) 32 g/dL (31-37) Red Cell Distribution Width 13.6 % (11.5-14.5) Platelet Count 281 x10^3/uL (140-400) Neutrophils (%) (Auto) 87 % (31-73) H Lymphocytes (%) (Auto) 10 % (24-48) L Monocytes (%) (Auto) 3 % (0-9) Eosinophils (%) (Auto) 0 % (0-3) Basophils (%) (Auto) 0 % (0-3) Neutrophils # (Auto) 11.3 x10^3/uL (1.8-7.7) H Lymphocytes # (Auto) 1.3 x10^3/uL (1.0-4.8) Monocytes # (Auto) 0.4 x10^3/uL (0.0-1.1) Eosinophils # (Auto) 0.0 x10^3/uL (0.0-0.7) Basophils # (Auto) 0.0 x10^3/uL (0.0-0.2) Segmented Neutrophils % 96 % (35-66) H Lymphocytes % 2 % (24-48) L Monocytes % 2 % (0-10) Platelet Estimate Adequate (ADEQUATE) Prothrombin Time 22.3 SEC (11.7-14.0) H Prothrombin Time INR 2.0 (0.8-1.1) H Activated Partial Thromboplast Time 34 SEC (24-38) Fibrinogen 312 mg/dL (200-440) Sodium Level 141 mmol/L (136-145) Potassium Level 4.6 mmol/L (3.5-5.1) Chloride Level 106 mmol/L (98-107) Carbon Dioxide Level 26 mmol/L (21-32) Anion Gap 9 (6-14) Blood Urea Nitrogen 26 mg/dL (8-26) Creatinine 1.9 mg/dL (0.7-1.3) H Estimated GFR (Cockcroft-Gault) 33.6 BUN/Creatinine Ratio 14 (6-20) Glucose Level 172 mg/dL (70-99) H Calcium Level 7.8 mg/dL (8.5-10.1) L Total Bilirubin 0.8 mg/dL (0.2-1.0) Aspartate Amino Transferase (AST) 17 U/L (15-37) Alanine Aminotransferase (ALT) 15 U/L (16-63) L Alkaline Phosphatase 74 U/L (46-116) Total Protein 4.8 g/dL (6.4-8.2) L Albumin 2.0 g/dL (3.4-5.0) L Albumin/Globulin Ratio 0.7 (1.0-1.7) L SARS-CoV-2 Antigen (Rapid) Negative (NEGATIVE) Laboratory Tests 01/15/21 09:55 01/15/21 10:45 Laboratory Tests 01/15/21 09:55 Vital Signs: Vital Signs Date Time Temp Pulse Resp B/P (MAP) Pulse Ox O2 Delivery O2 Flow Rate FiO2 01/15/21 10:55 96 87/65 (72) 100 Ventilator 01/15/21 10:45 97.9 97.9 EKG: EKG: [] Heart Score: Risk Factors: Risk Factors: DM, Current or recent (<one month) smoker, HTN, HLP, family history of CAD, obesity. Risk Scores: Score 0 - 3: 2.5% MACE over next 6 weeks - Discharge Home Score 4 - 6: 20.3% MACE over next 6 weeks - Admit for Clinical Observation Score 7 - 10: 72.7% MACE over next 6 weeks - Early Invasive Strategies Radiology/Procedures: Radiology/Procedures: [] Course & Med Decision Making: Course & Med Decision Making Pertinent Labs and Imaging studies reviewed. (See chart for details) [] Dragon Disclaimer: Dragon Disclaimer: This electronic medical record was generated, in whole or in part, using a voice recognition dictation system. Departure Departure Impression: Primary Impression: GI bleed Disposition: ADMITTED INPATIENT Condition: AAYUSH RAWLS MD Jan 15, 2021 14:12
[2021-01-15] MEDS ORDERED: IV NORMAL SALINE 1000ML BAG 1,000 ML IV SCH ×2 (14:15→14:30)
[2021-01-15] MEDS ORDERED: ONDANSETRON PF 4 MG/2 ML VIAL. IVP PRN (14:15)
[2021-01-15] MEDS ORDERED: ACETAMINOPHEN 650 MG SUPP.RECT. PR PRN ×2 (14:15→14:45)
[2021-01-15] MEDS ORDERED: MIDAZOLAM 100mg/100ml NS BAG 100 ML IV PRN (14:15)
--- NOTE | 2021-01-15 14:26 | NUR ---
Pt arrived to [facility] @ 1150 from the ER. Pt on the ventilator and hooked up to ICU monitors. Pt's daughter is POA and she was contacted regarding low BP and the need to start Levophed. Consent was obtained over the phone from Delfina to place and central line and arterial line for monitoring. Delfina showed up to bedside and updated on patients condition. Pt at the time was getting arterial line placed but central line had not been placed yet. Delfina wanted to speak with a doctor before doing further care on patient to get a plan of care. Dr Sauceda had meeting with family and family are requesting pt to be placed on inpatient hospice. Will not proceed with central line placement. Levophed currently infusing in PIV but family plans to withdrawal care shortly.
--- NOTE | 2021-01-15 14:28 | PDOC ---
PULMONARY PROGRESS NOTES DATE: 01/15/21 TIME: 14:27 Vitals Vital Signs Date Time Temp Pulse Resp B/P (MAP) Pulse Ox O2 Delivery O2 Flow Rate FiO2 01/15/21 13:45 124/75 (91) 01/15/21 13:06 93 20 Ventilator 01/15/21 12:41 96 01/15/21 11:50 97.3 97.3 General: Alert, Confused Lungs: Clear Cardiovascular: S1, S2 Abdomen: Soft, Non-tender Extremities: No Edema Labs Laboratory Tests Test 01/15/21 09:55 01/15/21 10:00 01/15/21 10:45 01/15/21 12:40 White Blood Count 13.0 x10^3/uL (4.0-11.0) 12.7 x10^3/uL (4.0-11.0) Red Blood Count 2.97 x10^6/uL (4.30-5.70) 4.05 x10^6/uL (4.30-5.70) Hemoglobin 8.8 g/dL (13.0-17.5) 8.6 g/dL (13.0-17.5) 11.9 g/dL (13.0-17.5) Hematocrit 26.8 % (39.0-53.0) 26.9 % (39.0-53.0) 36.5 % (39.0-53.0) Mean Corpuscular Volume 90 fL (79-100) 90 fL (79-100) Mean Corpuscular Hemoglobin 30 pg (25-35) 29 pg (25-35) Mean Corpuscular Hemoglobin Concent 33 g/dL (31-37) 32 g/dL (31-37) 33 g/dL (31-37) Red Cell Distribution Width 13.6 % (11.5-14.5) 14.5 % (11.5-14.5) Platelet Count 281 x10^3/uL (140-400) 227 x10^3/uL (140-400) Neutrophils (%) (Auto) 87 % (31-73) Lymphocytes (%) (Auto) 10 % (24-48) Monocytes (%) (Auto) 3 % (0-9) Eosinophils (%) (Auto) 0 % (0-3) Basophils (%) (Auto) 0 % (0-3) Neutrophils # (Auto) 11.3 x10^3/uL (1.8-7.7) Lymphocytes # (Auto) 1.3 x10^3/uL (1.0-4.8) Monocytes # (Auto) 0.4 x10^3/uL (0.0-1.1) Eosinophils # (Auto) 0.0 x10^3/uL (0.0-0.7) Basophils # (Auto) 0.0 x10^3/uL (0.0-0.2) Segmented Neutrophils % 96 % (35-66) Lymphocytes % 2 % (24-48) Monocytes % 2 % (0-10) Platelet Estimate Adequate (ADEQUATE) Prothrombin Time 22.3 SEC (11.7-14.0) Prothromb Time International Ratio 2.0 (0.8-1.1) Activated Partial Thromboplast Time 34 SEC (24-38) Fibrinogen 312 mg/dL (200-440) Sodium Level 141 mmol/L (136-145) Potassium Level 4.6 mmol/L (3.5-5.1) Chloride Level 106 mmol/L (98-107) Carbon Dioxide Level 26 mmol/L (21-32) Anion Gap 9 (6-14) Blood Urea Nitrogen 26 mg/dL (8-26) Creatinine 1.9 mg/dL (0.7-1.3) Estimated GFR (Cockcroft-Gault) 33.6 BUN/Creatinine Ratio 14 (6-20) Glucose Level 172 mg/dL (70-99) Calcium Level 7.8 mg/dL (8.5-10.1) Total Bilirubin 0.8 mg/dL (0.2-1.0) Aspartate Amino Transf (AST/SGOT) 17 U/L (15-37) Alanine Aminotransferase (ALT/SGPT) 15 U/L (16-63) Alkaline Phosphatase 74 U/L (46-116) Total Protein 4.8 g/dL (6.4-8.2) Albumin 2.0 g/dL (3.4-5.0) Albumin/Globulin Ratio 0.7 (1.0-1.7) SARS-CoV-2 Antigen (Rapid) Negative (NEGATIVE) Laboratory Tests Test 01/15/21 09:55 01/15/21 10:00 01/15/21 10:45 01/15/21 12:40 White Blood Count 13.0 x10^3/uL (4.0-11.0) 12.7 x10^3/uL (4.0-11.0) Red Blood Count 2.97 x10^6/uL (4.30-5.70) 4.05 x10^6/uL (4.30-5.70) Hemoglobin 8.8 g/dL (13.0-17.5) 8.6 g/dL (13.0-17.5) 11.9 g/dL (13.0-17.5) Hematocrit 26.8 % (39.0-53.0) 26.9 % (39.0-53.0) 36.5 % (39.0-53.0) Mean Corpuscular Volume 90 fL (79-100) 90 fL (79-100) Mean Corpuscular Hemoglobin 30 pg (25-35) 29 pg (25-35) Mean Corpuscular Hemoglobin Concent 33 g/dL (31-37) 32 g/dL (31-37) 33 g/dL (31-37) Red Cell Distribution Width 13.6 % (11.5-14.5) 14.5 % (11.5-14.5) Platelet Count 281 x10^3/uL (140-400) 227 x10^3/uL (140-400) Neutrophils (%) (Auto) 87 % (31-73) Lymphocytes (%) (Auto) 10 % (24-48) Monocytes (%) (Auto) 3 % (0-9) Eosinophils (%) (Auto) 0 % (0-3) Basophils (%) (Auto) 0 % (0-3) Neutrophils # (Auto) 11.3 x10^3/uL (1.8-7.7) Lymphocytes # (Auto) 1.3 x10^3/uL (1.0-4.8) Monocytes # (Auto) 0.4 x10^3/uL (0.0-1.1) Eosinophils # (Auto) 0.0 x10^3/uL (0.0-0.7) Basophils # (Auto) 0.0 x10^3/uL (0.0-0.2) Segmented Neutrophils % 96 % (35-66) Lymphocytes % 2 % (24-48) Monocytes % 2 % (0-10) Platelet Estimate Adequate (ADEQUATE) Prothrombin Time 22.3 SEC (11.7-14.0) Prothromb Time International Ratio 2.0 (0.8-1.1) Activated Partial Thromboplast Time 34 SEC (24-38) Fibrinogen 312 mg/dL (200-440) Sodium Level 141 mmol/L (136-145) Potassium Level 4.6 mmol/L (3.5-5.1) Chloride Level 106 mmol/L (98-107) Carbon Dioxide Level 26 mmol/L (21-32) Anion Gap 9 (6-14) Blood Urea Nitrogen 26 mg/dL (8-26) Creatinine 1.9 mg/dL (0.7-1.3) Estimated GFR (Cockcroft-Gault) 33.6 BUN/Creatinine Ratio 14 (6-20) Glucose Level 172 mg/dL (70-99) Calcium Level 7.8 mg/dL (8.5-10.1) Total Bilirubin 0.8 mg/dL (0.2-1.0) Aspartate Amino Transf (AST/SGOT) 17 U/L (15-37) Alanine Aminotransferase (ALT/SGPT) 15 U/L (16-63) Alkaline Phosphatase 74 U/L (46-116) Total Protein 4.8 g/dL (6.4-8.2) Albumin 2.0 g/dL (3.4-5.0) Albumin/Globulin Ratio 0.7 (1.0-1.7) SARS-CoV-2 Antigen (Rapid) Negative (NEGATIVE) Medications Active Scripts Medications Dose Route/Sig Max Daily Dose Days Date Category Amoxicillin 500 Mg Capsule 1 Cap PO TID 01/04/21 Rx Flomax (Tamsulosin Hcl) 0.4 Mg Cap.er.24h 0.4 Mg PO DAILY 30 01/04/21 Rx Vitamin C 500 mg Wafer (Ascorbic Acid/Ascorbate Sodium) 500 Mg Wafer 500 Mg PO DAILY 01/02/21 Reported Melatonin 5 Mg Tab.subl 1 Tab SL QHS 30 01/02/21 Reported Calmoseptine Ointment (Menthol/Zinc Oxide) 3.5 Gm Oint.pack 3.5 Gm TP PRN TID PRN 01/02/21 Reported Aspercreme 10% Cream (Trolamine Salicylate/Aloe Vera) 35.4 Gm Cream..g. 1 Adam TP PRN Q6HRS PRN 14 01/02/21 Reported Acetaminophen 500 Mg Tablet 2 Tab PO PRN Q8HRS PRN 15 01/02/21 Reported Culturelle (Lactobacillus Rhamnosus Gg) 1 Each Cap.sprink 1 Cap PO BID 30 10/27/19 Rx Metoprolol Tartrate 25 Mg Tablet 25 Mg PO BID 30 10/27/19 Rx [Pantoprazole] 40 MG Tablet.dr 40 Mg PO DAILYAC 30 09/24/17 Rx Multivitamins (Multivitamin) 1 Each Tablet 1 Tab PO DAILY 09/22/17 Reported Loperamide (Loperamide Hcl) 2 Mg Capsule 2 Mg PO PRN QID PRN 09/22/17 Reported Zinc Oxide 57 Gm Oint...g. 20 % TP DAILY 09/22/17 Reported Polyethylene Glycol 3350 2,500 Gm Powder 17 Gm PO DAILY 09/22/17 Reported Synthroid (Levothyroxine Sodium) 100 Mcg Tablet 100 Mcg PO DAILYAC 09/22/17 Reported Impression . FULL NOTE DICTATED D/W DR DEVLIN POSSIBLE EXTUBATION AND PALLIATIVE CARE JAGJIT OROSCO MD Jan 15, 2021 14:28
--- NOTE | 2021-01-15 14:39 | PDOC2 ---
CONSULT Date of Consult Date of Consult DATE: 01/15/21 TIME: 14:34 Reason for Consult Reason for Consult: Rectal bleeding, hypotension Referring Physician Referring Physician: Dr. Sanchez Identification/Chief Complaint Chief Complaint none Source Source: Chart review History of Present Illness Reason for Visit: 89 yo M with recent admission for rectal bleeding. Found down at detention and transferred to [facility]. Pt intubated and received blood products. Seen in ICU and noted to have passing large clots per rectum Past Medical History Cardiovascular: AFIB, CHF, HTN, Hyperlipidemia, Valve insufficiency Pulmonary: Other CENTRAL NERVOUS SYSTEM: Dementia GI: Diverticulosis, GI bleed Heme/Onc: Cancer, Other Hepatobiliary: Other Psych: Anxiety Musculoskeletal: Osteoarthritis Rheumatologic: No pertinent hx Renal/: UTI, Urinary Incontinence, Hematuria Endocrine: Hypothyroidism Past Surgical History Past Surgical History: Colectomy, Colon Resection, Other Family History Family History: Other Social History ALCOHOL: none Drugs: None Lives: Senior [facility] Current Problem List Problem List Problems Medical Problems: (1) GI bleed Status: Acute Current Medications Current Medications Current Medications Midazolam HCl (Versed) 5 mg 1X ONCE NS Last administered on 01/15/21at 10:22; Start 01/15/21 at 10:30; Stop 01/15/21 at 10:31; Status DC Midazolam HCl 100 ml @ 0 mls/hr 1X ONCE IV Last administered on 01/15/21at 10:45; Start 01/15/21 at 10:30; Stop 01/15/21 at 10:31; Status DC Pantoprazole Sodium (PROTONIX VIAL for IV PUSH) 40 mg DAILY IVP Last administered on 01/15/21at 14:17; Start 01/15/21 at 12:00 Etomidate (Amidate) 30 mg 1X ONCE IV Last administered on 01/15/21at 09:56; Start 01/15/21 at 12:15; Stop 01/15/21 at 12:16; Status DC Succinylcholine Chloride (Anectine) 200 mg 1X ONCE IV Last administered on 01/15/21at 09:56; Start 01/15/21 at 12:15; Stop 01/15/21 at 12:16; Status DC Norepinephrine Bitartrate 8 mg/ Dextrose 258 ml @ 14.861 mls/ hr CONT PRN IV PER PROTOCOL Last administered on 01/15/21at 12:50; Start 01/15/21 at 12:30 Olanzapine (ZyPREXA ZYDIS) 5 mg PRN BID PRN PO ANXIETY / AGITATION; Start 01/15/21 at 14:15 Ondansetron HCl (Zofran) 4 mg PRN Q4HRS PRN IVP NAUSEA/VOMITING; Start 01/15/21 at 14:15 Acetaminophen (Tylenol Supp) 650 mg PRN Q6HRS PRN [place] MILD PAIN / TEMP > 100.3'F; Start 01/15/21 at 14:15 Sodium Chloride 1,000 ml @ 75 mls/hr [id number] IV Last administered on 01/15/21at 14:17; Start 01/15/21 at 14:15; Stop 01/16/21 at 16:54 Midazolam HCl 100 ml @ 0 mls/hr CONT PRN IV SEE PROTOCOL; Start 01/15/21 at 14:15 Fentanyl Citrate 30 ml @ 0 mls/hr CONT PRN PRN IV PER PROTOCOL; Start 01/15/21 at 14:30 Sodium Chloride 1,000 ml @ 25 mls/hr Q24H IV ; Start 01/15/21 at 14:30 Active Scripts Active Amoxicillin 500 Mg Capsule 1 Cap PO TID 10 Days Flomax (Tamsulosin Hcl) 0.4 Mg Cap.er.24h 0.4 Mg PO DAILY 30 Days Culturelle (Lactobacillus Rhamnosus Gg) 1 Each Cap.sprink 1 Cap PO BID 30 Days Metoprolol Tartrate 25 Mg Tablet 25 Mg PO BID 30 Days [Pantoprazole] 40 MG Tablet.dr 40 Mg PO DAILYAC 30 Days Reported Vitamin C 500 mg Wafer (Ascorbic Acid/Ascorbate Sodium) 500 Mg Wafer 500 Mg PO DAILY Melatonin 5 Mg Tab.subl 1 Tab SL QHS 30 Days Calmoseptine Ointment (Menthol/Zinc Oxide) 3.5 Gm Oint.pack 3.5 Gm TP PRN TID PRN Aspercreme 10% Cream (Trolamine Salicylate/Aloe Vera) 35.4 Gm Cream..g. 1 Adam TP PRN Q6HRS PRN 14 Days Acetaminophen 500 Mg Tablet 2 Tab PO PRN Q8HRS PRN 15 Days Multivitamins (Multivitamin) 1 Each Tablet 1 Tab PO DAILY Loperamide (Loperamide Hcl) 2 Mg Capsule 2 Mg PO PRN QID PRN Zinc Oxide 57 Gm Oint...g. 20 % TP DAILY Polyethylene Glycol 3350 2,500 Gm Powder 17 Gm PO DAILY Synthroid (Levothyroxine Sodium) 100 Mcg Tablet 100 Mcg PO DAILYAC Allergies Allergies: Coded Allergies: amiodarone (Verified Allergy, Intermediate, 09/23/17) aspirin (Verified Allergy, Intermediate, 09/23/17) fexofenadine (Verified Allergy, Intermediate, 09/23/17) morphine (Verified Allergy, Intermediate, 09/23/17) simvastatin (Verified Allergy, Intermediate, 09/23/17) tramadol (Verified Allergy, Intermediate, 09/23/17) warfarin (Verified Allergy, Intermediate, 09/23/17) ROS Review of System unobtainable Physical Exam HEENT: Atraumatic Lungs: Normal air movement Abdomen: Soft, No tenderness Vitals VITALS Vital Signs Date Time Temp Pulse Resp B/P (MAP) Pulse Ox O2 Delivery O2 Flow Rate FiO2 01/15/21 13:45 124/75 (91) 01/15/21 13:06 93 20 Ventilator 01/15/21 12:41 96 01/15/21 11:50 97.3 97.3 Labs Labs Laboratory Tests Test 01/15/21 09:55 01/15/21 10:00 01/15/21 10:45 01/15/21 12:40 White Blood Count 13.0 x10^3/uL (4.0-11.0) 12.7 x10^3/uL (4.0-11.0) Red Blood Count 2.97 x10^6/uL (4.30-5.70) 4.05 x10^6/uL (4.30-5.70) Hemoglobin 8.8 g/dL (13.0-17.5) 8.6 g/dL (13.0-17.5) 11.9 g/dL (13.0-17.5) Hematocrit 26.8 % (39.0-53.0) 26.9 % (39.0-53.0) 36.5 % (39.0-53.0) Mean Corpuscular Volume 90 fL (79-100) 90 fL (79-100) Mean Corpuscular Hemoglobin 30 pg (25-35) 29 pg (25-35) Mean Corpuscular Hemoglobin Concent 33 g/dL (31-37) 32 g/dL (31-37) 33 g/dL (31-37) Red Cell Distribution Width 13.6 % (11.5-14.5) 14.5 % (11.5-14.5) Platelet Count 281 x10^3/uL (140-400) 227 x10^3/uL (140-400) Neutrophils (%) (Auto) 87 % (31-73) Lymphocytes (%) (Auto) 10 % (24-48) Monocytes (%) (Auto) 3 % (0-9) Eosinophils (%) (Auto) 0 % (0-3) Basophils (%) (Auto) 0 % (0-3) Neutrophils # (Auto) 11.3 x10^3/uL (1.8-7.7) Lymphocytes # (Auto) 1.3 x10^3/uL (1.0-4.8) Monocytes # (Auto) 0.4 x10^3/uL (0.0-1.1) Eosinophils # (Auto) 0.0 x10^3/uL (0.0-0.7) Basophils # (Auto) 0.0 x10^3/uL (0.0-0.2) Segmented Neutrophils % 96 % (35-66) Lymphocytes % 2 % (24-48) Monocytes % 2 % (0-10) Platelet Estimate Adequate (ADEQUATE) Prothrombin Time 22.3 SEC (11.7-14.0) Prothromb Time International Ratio 2.0 (0.8-1.1) Activated Partial Thromboplast Time 34 SEC (24-38) Fibrinogen 312 mg/dL (200-440) Sodium Level 141 mmol/L (136-145) Potassium Level 4.6 mmol/L (3.5-5.1) Chloride Level 106 mmol/L (98-107) Carbon Dioxide Level 26 mmol/L (21-32) Anion Gap 9 (6-14) Blood Urea Nitrogen 26 mg/dL (8-26) Creatinine 1.9 mg/dL (0.7-1.3) Estimated GFR (Cockcroft-Gault) 33.6 BUN/Creatinine Ratio 14 (6-20) Glucose Level 172 mg/dL (70-99) Calcium Level 7.8 mg/dL (8.5-10.1) Total Bilirubin 0.8 mg/dL (0.2-1.0) Aspartate Amino Transf (AST/SGOT) 17 U/L (15-37) Alanine Aminotransferase (ALT/SGPT) 15 U/L (16-63) Alkaline Phosphatase 74 U/L (46-116) Total Protein 4.8 g/dL (6.4-8.2) Albumin 2.0 g/dL (3.4-5.0) Albumin/Globulin Ratio 0.7 (1.0-1.7) SARS-CoV-2 Antigen (Rapid) Negative (NEGATIVE) Laboratory Tests Test 01/15/21 09:55 01/15/21 10:00 01/15/21 10:45 01/15/21 12:40 White Blood Count 13.0 x10^3/uL (4.0-11.0) 12.7 x10^3/uL (4.0-11.0) Red Blood Count 2.97 x10^6/uL (4.30-5.70) 4.05 x10^6/uL (4.30-5.70) Hemoglobin 8.8 g/dL (13.0-17.5) 8.6 g/dL (13.0-17.5) 11.9 g/dL (13.0-17.5) Hematocrit 26.8 % (39.0-53.0) 26.9 % (39.0-53.0) 36.5 % (39.0-53.0) Mean Corpuscular Volume 90 fL (79-100) 90 fL (79-100) Mean Corpuscular Hemoglobin 30 pg (25-35) 29 pg (25-35) Mean Corpuscular Hemoglobin Concent 33 g/dL (31-37) 32 g/dL (31-37) 33 g/dL (31-37) Red Cell Distribution Width 13.6 % (11.5-14.5) 14.5 % (11.5-14.5) Platelet Count 281 x10^3/uL (140-400) 227 x10^3/uL (140-400) Neutrophils (%) (Auto) 87 % (31-73) Lymphocytes (%) (Auto) 10 % (24-48) Monocytes (%) (Auto) 3 % (0-9) Eosinophils (%) (Auto) 0 % (0-3) Basophils (%) (Auto) 0 % (0-3) Neutrophils # (Auto) 11.3 x10^3/uL (1.8-7.7) Lymphocytes # (Auto) 1.3 x10^3/uL (1.0-4.8) Monocytes # (Auto) 0.4 x10^3/uL (0.0-1.1) Eosinophils # (Auto) 0.0 x10^3/uL (0.0-0.7) Basophils # (Auto) 0.0 x10^3/uL (0.0-0.2) Segmented Neutrophils % 96 % (35-66) Lymphocytes % 2 % (24-48) Monocytes % 2 % (0-10) Platelet Estimate Adequate (ADEQUATE) Prothrombin Time 22.3 SEC (11.7-14.0) Prothromb Time International Ratio 2.0 (0.8-1.1) Activated Partial Thromboplast Time 34 SEC (24-38) Fibrinogen 312 mg/dL (200-440) Sodium Level 141 mmol/L (136-145) Potassium Level 4.6 mmol/L (3.5-5.1) Chloride Level 106 mmol/L (98-107) Carbon Dioxide Level 26 mmol/L (21-32) Anion Gap 9 (6-14) Blood Urea Nitrogen 26 mg/dL (8-26) Creatinine 1.9 mg/dL (0.7-1.3) Estimated GFR (Cockcroft-Gault) 33.6 BUN/Creatinine Ratio 14 (6-20) Glucose Level 172 mg/dL (70-99) Calcium Level 7.8 mg/dL (8.5-10.1) Total Bilirubin 0.8 mg/dL (0.2-1.0) Aspartate Amino Transf (AST/SGOT) 17 U/L (15-37) Alanine Aminotransferase (ALT/SGPT) 15 U/L (16-63) Alkaline Phosphatase 74 U/L (46-116) Total Protein 4.8 g/dL (6.4-8.2) Albumin 2.0 g/dL (3.4-5.0) Albumin/Globulin Ratio 0.7 (1.0-1.7) SARS-CoV-2 Antigen (Rapid) Negative (NEGATIVE) Assessment/Plan Assessment/Plan LGI bleeding, unknown etiology d/w nursing and agree with plans for palliative extubation attempted to call phone numbers for family without response. 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 Thanks for consult! RODRIGO RAMÍREZ MD Jan 15, 2021 14:39
[2021-01-15] MEDS ORDERED: BISACODYL 10 MG SUPP.RECT. PR PRN (14:45)
[2021-01-15] MEDS ORDERED: HALOPERIDOL LACTATE 5 MG/ML VIAL. IVP PRN ×3 (14:45)
[2021-01-15] MEDS ORDERED: ACETAMINOPHEN 325 MG TABLET. PO PRN (14:45)
[2021-01-15] MEDS ORDERED: ACETAMINOPHEN 650 MG/20.3 ML SOLUTION. PEG PRN (14:45)
[2021-01-15] MEDS ORDERED: PROCHLORPERAZINE 10 MG/2 ML VIAL. IVP PRN (14:45)
[2021-01-15] MEDS ORDERED: SODIUM PHOSPHATES 19/7GM 133 ML ENEMA. PR PRN (14:45)
[2021-01-15] MEDS ORDERED: HYDROmorphone 2 MG/ML VIAL IVP PRN ×2 (14:45)
[2021-01-15] MEDS ORDERED: SCOPOLAMINE 1.5MG PATCH. TD PRN (14:45)
[2021-01-15] MEDS ORDERED: 0.9 % SODIUM CHLORIDE 10 ML DISP.SYRIN. IV PRN (14:45)
[2021-01-15] MEDS ORDERED: fentaNYL PF VIAL 100 MCG/2 ML VIAL IVP PRN ×3 (14:45)
[2021-01-15] MEDS ORDERED: MIDAZOLAM HCL/PF 5 MG/5 ML VIAL. ONE (15:19)
--- NOTE | 2021-01-15 15:29 | NUR ---
Pt was extubated at 1515 per family request. Levophed and versed gtt's discontinued. Pt on Fentanyl PIPE SUPERVISOR for pain management/comfort due to morphine allergy.
--- NOTE | 2021-01-15 16:01 | NUR ---
SS following for discharge planning. SS reviewed pt chart and discussed with pt RN. Pt is LTC resident from [facility], ; fax [phone]. Withdrawal of care today. SS phoned and faxed referral for inpatient hospice to [facility], ; fax [phone]. Pt's RN notified.
[2021-01-15] MEDS ORDERED: POLYETHYLENE GLYCOL 3350 BTL 238 GM POWDER PO ONE (17:30)
--- NOTE | 2021-01-15 17:34 | PDOC3 ---
Discharge Summary Visit Information Date of Admission: Jan 15, 2021 Date of Discharge: Jan 15, 2021 Admitting Diagnosis: Lower GI bleed Final Diagnosis Problems Medical Problems: (1) GI bleed Status: Acute Brief Hospital Course Allergies Allergies Coded Allergies Type Severity Reaction Last Updated Verified amiodarone Allergy Intermediate 09/23/17 Yes aspirin Allergy Intermediate 09/23/17 Yes fexofenadine Allergy Intermediate 09/23/17 Yes morphine Allergy Intermediate 09/23/17 Yes simvastatin Allergy Intermediate 09/23/17 Yes tramadol Allergy Intermediate 09/23/17 Yes warfarin Allergy Intermediate 09/23/17 Yes Vital Signs Vital Signs Date Time Temp Pulse Resp B/P (MAP) Pulse Ox O2 Delivery O2 Flow Rate FiO2 01/15/21 15:00 89 18 132/64 (86) 100 Ventilator 01/15/21 11:50 97.3 97.3 Lab Results Laboratory Tests Test 01/15/21 09:55 01/15/21 10:00 01/15/21 10:45 01/15/21 12:40 White Blood Count 13.0 x10^3/uL (4.0-11.0) 12.7 x10^3/uL (4.0-11.0) Red Blood Count 2.97 x10^6/uL (4.30-5.70) 4.05 x10^6/uL (4.30-5.70) Hemoglobin 8.8 g/dL (13.0-17.5) 8.6 g/dL (13.0-17.5) 11.9 g/dL (13.0-17.5) Hematocrit 26.8 % (39.0-53.0) 26.9 % (39.0-53.0) 36.5 % (39.0-53.0) Mean Corpuscular Volume 90 fL (79-100) 90 fL (79-100) Mean Corpuscular Hemoglobin 30 pg (25-35) 29 pg (25-35) Mean Corpuscular Hemoglobin Concent 33 g/dL (31-37) 32 g/dL (31-37) 33 g/dL (31-37) Red Cell Distribution Width 13.6 % (11.5-14.5) 14.5 % (11.5-14.5) Platelet Count 281 x10^3/uL (140-400) 227 x10^3/uL (140-400) Neutrophils (%) (Auto) 87 % (31-73) Lymphocytes (%) (Auto) 10 % (24-48) Monocytes (%) (Auto) 3 % (0-9) Eosinophils (%) (Auto) 0 % (0-3) Basophils (%) (Auto) 0 % (0-3) Neutrophils # (Auto) 11.3 x10^3/uL (1.8-7.7) Lymphocytes # (Auto) 1.3 x10^3/uL (1.0-4.8) Monocytes # (Auto) 0.4 x10^3/uL (0.0-1.1) Eosinophils # (Auto) 0.0 x10^3/uL (0.0-0.7) Basophils # (Auto) 0.0 x10^3/uL (0.0-0.2) Segmented Neutrophils % 96 % (35-66) Lymphocytes % 2 % (24-48) Monocytes % 2 % (0-10) Platelet Estimate Adequate (ADEQUATE) Prothrombin Time 22.3 SEC (11.7-14.0) Prothromb Time International Ratio 2.0 (0.8-1.1) Activated Partial Thromboplast Time 34 SEC (24-38) Fibrinogen 312 mg/dL (200-440) Sodium Level 141 mmol/L (136-145) Potassium Level 4.6 mmol/L (3.5-5.1) Chloride Level 106 mmol/L (98-107) Carbon Dioxide Level 26 mmol/L (21-32) Anion Gap 9 (6-14) Blood Urea Nitrogen 26 mg/dL (8-26) Creatinine 1.9 mg/dL (0.7-1.3) Estimated GFR (Cockcroft-Gault) 33.6 BUN/Creatinine Ratio 14 (6-20) Glucose Level 172 mg/dL (70-99) Calcium Level 7.8 mg/dL (8.5-10.1) Total Bilirubin 0.8 mg/dL (0.2-1.0) Aspartate Amino Transf (AST/SGOT) 17 U/L (15-37) Alanine Aminotransferase (ALT/SGPT) 15 U/L (16-63) Alkaline Phosphatase 74 U/L (46-116) Total Protein 4.8 g/dL (6.4-8.2) Albumin 2.0 g/dL (3.4-5.0) Albumin/Globulin Ratio 0.7 (1.0-1.7) SARS-CoV-2 Antigen (Rapid) Negative (NEGATIVE) Laboratory Tests Test 01/15/21 09:55 01/15/21 10:00 01/15/21 10:45 01/15/21 12:40 White Blood Count 13.0 x10^3/uL (4.0-11.0) 12.7 x10^3/uL (4.0-11.0) Red Blood Count 2.97 x10^6/uL (4.30-5.70) 4.05 x10^6/uL (4.30-5.70) Hemoglobin 8.8 g/dL (13.0-17.5) 8.6 g/dL (13.0-17.5) 11.9 g/dL (13.0-17.5) Hematocrit 26.8 % (39.0-53.0) 26.9 % (39.0-53.0) 36.5 % (39.0-53.0) Mean Corpuscular Volume 90 fL (79-100) 90 fL (79-100) Mean Corpuscular Hemoglobin 30 pg (25-35) 29 pg (25-35) Mean Corpuscular Hemoglobin Concent 33 g/dL (31-37) 32 g/dL (31-37) 33 g/dL (31-37) Red Cell Distribution Width 13.6 % (11.5-14.5) 14.5 % (11.5-14.5) Platelet Count 281 x10^3/uL (140-400) 227 x10^3/uL (140-400) Neutrophils (%) (Auto) 87 % (31-73) Lymphocytes (%) (Auto) 10 % (24-48) Monocytes (%) (Auto) 3 % (0-9) Eosinophils (%) (Auto) 0 % (0-3) Basophils (%) (Auto) 0 % (0-3) Neutrophils # (Auto) 11.3 x10^3/uL (1.8-7.7) Lymphocytes # (Auto) 1.3 x10^3/uL (1.0-4.8) Monocytes # (Auto) 0.4 x10^3/uL (0.0-1.1) Eosinophils # (Auto) 0.0 x10^3/uL (0.0-0.7) Basophils # (Auto) 0.0 x10^3/uL (0.0-0.2) Segmented Neutrophils % 96 % (35-66) Lymphocytes % 2 % (24-48) Monocytes % 2 % (0-10) Platelet Estimate Adequate (ADEQUATE) Prothrombin Time 22.3 SEC (11.7-14.0) Prothromb Time International Ratio 2.0 (0.8-1.1) Activated Partial Thromboplast Time 34 SEC (24-38) Fibrinogen 312 mg/dL (200-440) Sodium Level 141 mmol/L (136-145) Potassium Level 4.6 mmol/L (3.5-5.1) Chloride Level 106 mmol/L (98-107) Carbon Dioxide Level 26 mmol/L (21-32) Anion Gap 9 (6-14) Blood Urea Nitrogen 26 mg/dL (8-26) Creatinine 1.9 mg/dL (0.7-1.3) Estimated GFR (Cockcroft-Gault) 33.6 BUN/Creatinine Ratio 14 (6-20) Glucose Level 172 mg/dL (70-99) Calcium Level 7.8 mg/dL (8.5-10.1) Total Bilirubin 0.8 mg/dL (0.2-1.0) Aspartate Amino Transf (AST/SGOT) 17 U/L (15-37) Alanine Aminotransferase (ALT/SGPT) 15 U/L (16-63) Alkaline Phosphatase 74 U/L (46-116) Total Protein 4.8 g/dL (6.4-8.2) Albumin 2.0 g/dL (3.4-5.0) Albumin/Globulin Ratio 0.7 (1.0-1.7) SARS-CoV-2 Antigen (Rapid) Negative (NEGATIVE) Brief Hospital Course Mr Mckeon is an 89yo M w/ PMHx A Fib, DVT, mitral valve insufficiency, HTN, HLD, MARLON, BCC and SCC, UTI, cholelithiasis, hypothyroidism, rectal cancer s/p LAR w/ ileostomy/takedown and chemo/rad, IVC filter who p/w rectal bleeding. Brought to ED from long term facility with rectal bleeding that began 01/14/2021 overnight change in brief every hour grossly bloody. Was not responsive on arrival to sternal rub blood pressure 101/61. Rate 95 bpm atrial fibrillation on telemetry WBC 13, Hb 8.8, platelets 281. INR 2 NA 141, K4.6, BUN 26, CR 1.9, albumin 2 EKG A. fib with controlled ventricular rate QTC 41. No ST segment or T wave abnormalities. given large drop hemoglobin since last admission he was given 2 units of unmatched blood Given his lack of responsiveness and concern for aspiration ED physician elected to intubate and place orogastric tube with no significant blood loss. Here last week on 01/11/2021 w/ rectal bleeding that improved/resolved, essentially normal/stable Hgb and tolerating diet, discharged back to SNF. His family met with hospice on 01/12/2021 and was looking to pursue referral for hospice given his progressive cognitive decline and long-term long term dementia lung mass concerning for possible recurrence of his colon cancer metastatic disease. Admitted for further care to ICU on vent. Consults: Pulmonology, GI, General surgery. After 22-minute discussion with DPOA, daughter, Delfina, notably family wishes for DO NOT RESUSCITATE and DO NOT INTUBATE order. They elected to pursue comfort care and withdraw aggressive measures. I discussed with pulmonology will discuss with gastroenterology as well. He was extubated per family wishes at approximately 1530 and was placed on fentanyl GTT, low dose for comfort. Family bedside and noted with no spontaneous respirations or cardiac activity at 1725 for time of . Problem list: Acute blood loss anemia - likely from GI bleed. IV PPI initiated. Status post 2 units PRBC Metabolic Encephalopathy with associated dementia likely secondary to blood loss, hypoxia Acute hypoxic respiratory failure - due to acute blood loss Shock - from blood loss, hypovolemic HECTOR - likely vasomotor nephropathy. 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 Mitral valve insufficiency Pulmonary nodules - with colon ca history concerning for possible mets. Hypothyroidism Chronic diastolic CHF Hx of DVT with IVC filter and oral AC MARLON - CPAP at night ESSENTIAL HTN HLD History of rectal cancer status post LAR with ileostomy and takedown and chemo and radiation. CC time 47 minutes [id number], then [id number] Discharge Information Condition at Discharge: / Disposition/Orders: Scheduled Amoxicillin (Amoxicillin) 500 Mg Capsule, 1 CAP PO TID for Aerococcus UTI for 10 Days, #30 Prescribed by: CAMILA ANGUIANO MD on 01/04/21 1639 Last Action: Reviewed on 01/15/211326 by COLT FERNÁNDEZ Ascorbic Acid/Ascorbate Sodium (Vitamin C 500 mg Wafer) 500 Mg Wafer, 500 MG PO DAILY for supplement, (Reported) Entered as Reported by: DILIA REARDON on 01/02/21 002 Last Action: Reviewed on 01/15/211326 by COLT FERNÁNDEZ Lactobacillus Rhamnosus Gg (Culturelle) 1 Each Cap.sprink, 1 CAP PO BID for Probiotic while on antibiotic for 30 Days, #60 Prescribed by: CAMILA ANGUIANO MD on 10/27/19 153 Levothyroxine Sodium (Synthroid) 100 Mcg Tablet, 100 MCG PO DAILYAC for THYROID SUPPLEMENT, #30 Ref 0 (Reported) Entered as Reported by: Esperanza Gutierrez RN on 09/22/172020 Last Action: Reviewed on 01/15/211326 by COLT FERNÁNDEZ Melatonin (Melatonin) 5 Mg Tab.subl, 1 TAB SL QHS for sleep for 30 Days, #30 Ref 0 (Reported) Entered as Reported by: DILIA REARDON on 01/02/2122 Last Action: Reviewed on 01/15/211328 by COLT FERNÁNDEZ Metoprolol Tartrate (Metoprolol Tartrate) 25 Mg Tablet, 25 MG PO BID for Atrial fib for 30 Days, #60 Prescribed by: CAMILA ANGUIANO MD on 10/27/19 1531 Last Action: Reviewed on 01/15/211328 by COLT FERNÁNDEZ Multivitamin (Multivitamins) 1 Each Tablet, 1 TAB PO DAILY, #90 Ref 3 (Reported) Entered as Reported by: Esperanza Gutierrez RN on 09/22/172020 Last Action: Reviewed on 01/15/211328 by COLT FERNÁNDEZ Polyethylene Glycol 3350 (Polyethylene Glycol 3350) 2,500 Gm Powder, 17 GM PO DAILY, #527 Ref 11 (Reported) Entered as Reported by: Esperanza Gutierrez RN on 09/22/172020 Last Action: Reviewed on 01/15/211326 by COLT FERNÁNDEZ Tamsulosin Hcl (Flomax) 0.4 Mg Cap.er.24h, 0.4 MG PO DAILY for BPH for 30 Days, #30 Prescribed by: CAMILA ANGUIANO MD on 01/04/21 1639 Last Action: Reviewed on 01/15/211326 by COLT FERNÁNDEZ Zinc Oxide (Zinc Oxide) 57 Gm Oint...g., 20 % TP DAILY, (Reported) Entered as Reported by: Esperanza Gutierrez RN on 09/22/172020 [Pantoprazole] 40 MG TABLET.DR, 40 MG PO DAILYAC for 30 Days, #30 Prescribed by: MARVIN LAZCANO MD on 09/24/17 1253 Last Action: Reviewed on 01/15/211328 by COLT FERNÁNDEZ Scheduled PRN Acetaminophen (Acetaminophen) 500 Mg Tablet, 2 TAB PO PRN Q8HRS PRN for pain or fever for 15 Days, #60 Ref 0 (Reported) Entered as Reported by: DILIA REARDON on 01/02/2122 Last Action: Reviewed on 01/15/211326 by COLT FERNÁNDEZ Loperamide Hcl (Loperamide) 2 Mg Capsule, 2 MG PO PRN QID PRN for DIARRHEA, (Reported) Entered as Reported by: Esperanza Gutierrez RN on 09/22/172020 Last Action: Reviewed on 01/15/211326 by COLT FERNÁNDEZ Menthol/Zinc Oxide (Calmoseptine Ointment) 3.5 Gm Oint.pack, 3.5 GM TP PRN TID PRN for DRY SKIN / SCALING, (Reported) Entered as Reported by: DILIA REARDON on 01/02/2122 Last Action: Reviewed on 01/15/211326 by COLT FERNÁNDEZ Trolamine Salicylate/Aloe Vera (Aspercreme 10% Cream) 35.4 Gm Cream..g., 1 TORRIE TP PRN Q6HRS PRN for PAIN for 14 Days, Ref 0 (Reported) Entered as Reported by: DILIA REARDON on 01/02/2122 Last Action: Reviewed on 01/15/211326 by COLT FERNÁNDEZ Discontinued Medications Apixaban (Eliquis) 5 Mg Tab.ds.pk, 5 MG PO BID, (Reported) Entered as Reported by: Esperanza Gutierrez RN on 09/22/17 0001 Justicifation of Admission Dx: Justifications for Admission: Justification of Admission Dx: Comment: CAMILA ANGUIANO MD Jan 15, 2021 17:34
--- NOTE | 2021-01-15 17:49 | NUR ---
Pt pronounced at 1515 by RNx2. Family at bedside updated. Daughter Delfina took pt's watch home but dentures went to home with patient.
--- NOTE | 2021-01-15 18:02 | CONS ---
DATE OF CONSULTATION: 01/15/2021 ATTENDING PHYSICIAN: Manuel Sauceda MD REASON FOR CONSULTATION: The patient is seen in Pulmonary consultation at the request of Dr. Sauceda for respiratory failure secondary to acute GI bleed. HISTORY OF PRESENT ILLNESS: The patient is an 89-year-old [facility] bleeding. The patient was hypotensive. He was intubated, rapid infusion protocol. He is currently on pressors. He is currently on assist control ventilation, receiving resuscitation with IV fluids and pressors. I was asked to manage his vent. PAST MEDICAL HISTORY: Remarkable for dementia, recurrent UTI, chronic atrial fibrillation. He has had a previous DVT status post IVC filter placement. He has had previous ERCP with stone extraction. In addition, he has a history of mitral valve insufficiency, obstructive sleep apnea and hypothyroidism. PAST SURGICAL HISTORY: Previous ileostomy takedown and hernia repair. FAMILY HISTORY: Noncontributory. SOCIAL HISTORY: He [facility] at a prison. ALLERGIES: AMIODARONE, ASPIRIN, MORPHINE, SIMVASTATIN, TRAMADOL, WARFARIN AND FEXOFENADINE. PHYSICAL EXAMINATION: GENERAL: The patient was seen in the ICU. He was being resuscitated on assist control ventilation. VITAL SIGNS: Noted. O2 saturation greater than 92%. HEENT: Eyes, the sclerae were nonicteric. NECK: Jugular venous distention was not elevated. No lymphadenopathy. CHEST: Full expansion. LUNGS: Adequate flow, no wheezes. CARDIOVASCULAR: Regular rate and rhythm with S1, S2, no S3. ABDOMEN: Soft, nontender. EXTREMITIES: No clubbing, cyanosis, or edema. LABORATORY DATA: Serology: Rapid test for COVID was negative. Electrolytes were noted. BUN was 26, creatinine 1.9. White count was 12.7, hemoglobin of 11, and hematocrit of 36. IMPRESSION: 1. Acute hypoxemic respiratory failure secondary to gastrointestinal bleed. 2. Rectal bleeding. 3. Hypotension related to hypovolemia. 4. Anemia, coagulopathy. 5. History of liver function tests elevation. 6. History of rectal cancer, status post low anterior resection ileostomy takedown. He received chemoradiation. 7. History of rectal ulcers. 8. Cholelithiasis. 9. COVID-19 negative. 10. History of atrial fibrillation, on Eliquis. PLAN: According to the nurse, the patient had a previous do not resuscitate orders. Dr. Sauceda was having a discussion with the family regarding the possibility of withdrawing care and providing palliative care. For now, continue current support with current vent settings, resuscitation with IV fluids, pressors to maintain mean arterial pressure above 60. I do appreciate the privilege in sharing in the patient's care. AMA/KETAN/YOLANDA DR: Jerri TID: [id number]
== END 2021-01-15 18:11 | DRG 208 ==
LOC: ER 09:42 → 1 WEST ICU 10:59
PROVIDERS: ADMIT Internal Medicine; ATTEND Internal Medicine
PROC: 30233N1 Transfusion of Nonautologous Red Blood Cells into Peripheral Vein, Percutaneous Approach (ICD-10-PCS; principal; 2021-01-15)
PROC: 5A1935Z Respiratory Ventilation, Less than 24 Consecutive Hours (ICD-10-PCS; 2021-01-15)
PROC: 0BH17EZ Insertion of Endotracheal Airway into Trachea, Via Natural or Artificial Opening (ICD-10-PCS; 2021-01-15)
DX: J96.01 Acute respiratory failure with hypoxia (principal); G93.41 Metabolic encephalopathy; N17.0 Acute kidney failure with tubular necrosis; K92.2 Gastrointestinal hemorrhage, unspecified; D62 Acute posthemorrhagic anemia; D68.9 Coagulation defect, unspecified; I48.20 Chronic atrial fibrillation, unspecified; I50.32 Chronic diastolic (congestive) heart failure; J98.11 Atelectasis; N39.0 Urinary tract infection, site not specified; R57.9 Shock, unspecified; E03.9 Hypothyroidism, unspecified; E78.00 Pure hypercholesterolemia, unspecified; E78.5 Hyperlipidemia, unspecified; E86.1 Hypovolemia; F02.80 Dementia in other diseases classified elsewhere, unspecified severity, without behavioral disturbance, psychotic disturbance, mood disturbance, and anxiety; G30.9 Alzheimer's disease, unspecified; G47.33 Obstructive sleep apnea (adult) (pediatric); I11.0 Hypertensive heart disease with heart failure; I34.0 Nonrheumatic mitral (valve) insufficiency; K80.70 Calculus of gallbladder and bile duct without cholecystitis without obstruction; N28.1 Cyst of kidney, acquired; N40.0 Benign prostatic hyperplasia without lower urinary tract symptoms; Z20.822 Contact with and (suspected) exposure to COVID-19; Z51.5 Encounter for palliative care; Z79.899 Other long term (current) drug therapy; Z79.01 Long term (current) use of anticoagulants; Z79.890 Hormone replacement therapy; Z85.048 Personal history of other malignant neoplasm of rectum, rectosigmoid junction, and anus; Z85.828 Personal history of other malignant neoplasm of skin; Z86.010 Personal history of colon polyps; Z86.718 Personal history of other venous thrombosis and embolism; Z87.440 Personal history of urinary (tract) infections; Z95.828 Presence of other vascular implants and grafts; F41.9 Anxiety disorder, unspecified; M19.90 Unspecified osteoarthritis, unspecified site; Z88.8 Allergy status to other drugs, medicaments and biological substances; Z66 Do not resuscitate
CPT/HCPCS: 31500; 36415; 36430; 51702; 71045; 80053; 85007; 85014; 85018; 85025; 85027; 85384; 85610; 85730; 86850; 86900; 86901; 86920; 87426; 93005; 94002; C9113; G0378; J0330; J2250; J3010; J3490; J7030; J7060; P9016; 99285-25